=== PATIENT | male | born 1980 | race Caucasian/White ===

== ENCOUNTER 2016-05-21 16:17 | Emergency (ER) | payer MEDICARE, MEDICAID ==
[~2016-05-21 16:17] MED LIST: /CELE20CA OR; /ESCI10TA PO; /FENO48TA PO; /LAMO10TA OR; /OXCA30TA OR; ABIL15TA OR; ABIL1TAB5 PO; ABIL20TA2 OR; ABIL400I IM; ABIL5TAB; ABIL5TAB OR; ACET50TA PO; AMBI10TA OR; AMBI10TA PO; AMBI5TAB PO; ARIP1TAB PO; ATARAX PO; BUSP15TA OR; CONC36TA2 PO; DEPLIN; EFFEXOR XR PO; GEOD20CA14 PO; GUAN1TAB16 PO; KEFL500C OR; LAMI1TAB8 PO; LAMI25TA OR; LAMICTAL PO; LAMO10TA PO; LIPI10TA PO; LISI-538 PO; LISI2.5T OR; LISI20TA5 OR; LISI40TA OR; LISI40TAB PO; LITH300C PO; MS C30TA2 OR; MULTIVIT PO; MULTTAB4 PO; NALT50TA2 PO; OXCA15HATB OR; PROT20TA11 PO; PROZ10CA; PROZ20CA; PROZ20CA OR; PROZ40CA OR; REME30TA OR; RISP0.5T20 OR; RISP1TAB OR; RISP2TAB12 OR; RISP2TAB12 PO; RISP2TAB3 PO; RISP3TAB16 OR; RISP4TAB OR; SERO1TAB PO; SERO200T PO; SERO50TA PO; TRAZ100T; TRAZ100T OR; TRAZ150T PO; TRAZ300T2 PO; ULTR50TA PO; VENL37.5 OR; VENL37TA PO; VENL75CA47 PO; VENL75TA3 PO; VICO5TAB OR; VIST50CA OR; VIST50CA PO; VITA200015 PO; ZEST20TA8 PO; ZOCO10TA PO; ZOCO20TA PO; ZOLP-189 PO; ZYPR10TA PO; lamictal; prozac PO
== END 2016-05-21 16:55 | disposition left against medical advice (07) ==
LOC: M ED 16:17
DX: R31.9 Hematuria, unspecified (principal); M54.9 Dorsalgia, unspecified; F41.9 Anxiety disorder, unspecified; F32.9 Major depressive disorder, single episode, unspecified; E78.00 Pure hypercholesterolemia, unspecified; I10 Essential (primary) hypertension; G47.9 Sleep disorder, unspecified; Z89.511 Acquired absence of right leg below knee; Z79.899 Other long term (current) drug therapy; Z53.21 Procedure and treatment not carried out due to patient leaving prior to being seen by health care provider

== ENCOUNTER → 2016-06-21 | Outpatient (REF) | payer MEDICARE, MEDICAID ==
[~2016-06-21] MED LIST changes: -NALT50TA2 PO; +NALT50TA4 PO
[2016-06-21 16:21] LABS: ALBUMIN 3.9 GM/DL (3.2-5.2); ALBUMIN/GLOBULIN RATIO 1.22 (1.00-1.93); BILIRUBIN,DIRECT 0.2 MG/DL (0.0-0.2); BILIRUBIN,TOTAL 0.7 MG/DL (0.2-1.0); TOTAL PROTEIN 7.1 GM/DL (6.4-8.2)
== END ==
LOC: M SFHCPLAZ 13:22
PROVIDERS: ATTEND Student in an Organized Health Care Education/Training Program
DX: R74.8 Abnormal levels of other serum enzymes (principal); R31.9 Hematuria, unspecified

== ENCOUNTER → 2016-08-21 | Outpatient (REF) | payer MEDICARE, MEDICAID | LOC: M SMT 17:13 | PROVIDERS: ATTEND Nurse Practitioner Women's Health | DX: R31.0 Gross hematuria (principal) | CPT/HCPCS: 51798; 81001; 87086; 88108; G0463 ==

== ENCOUNTER → 2016-08-22 | Outpatient (CLI) | payer MEDICARE, MEDICAID ==
--- NOTE | 2016-08-22 15:22 | REP ---
Abdominal right upper quadrant ultrasound for elevated hepatic enzymes. The there is a negative Wade's sign to transducer pressure. There is no cholelithiasis, gallbladder wall thickening or pericholecystic fluid. There is no intrahepatic or extrahepatic biliary duct dilatation, the common duct measures 5.8 mm diameter. The liver is enlarged measuring 26.6 cm craniocaudad. The hepatic parenchyma is acoustically dense compatible with hepato steatosis. The main portal vein measures 1.4 cm in diameter which is upper normal. The peak flow velocity in the portal vein is 11.7 cm/sec which is in the normal range. The visualized portion of the head of the pancreas is unremarkable. The right kidney is normal size measuring 14.5 craniocaudad length. There is no right renal calculus, mass or hydronephrosis or cyst. The ultrasound study is technically difficult because of patient body habitus and limited ultrasound scanning windows. Signed by Freddy Sheridan MD 08/22/2016 03:14 P
== END ==
LOC: M RAD 13:59
DX: R74.8 Abnormal levels of other serum enzymes (principal)

== ENCOUNTER 2016-09-02 14:40 | Emergency (ER) | payer MEDICARE, MEDICAID ==
[~2016-09-02] VITALS: Ht 182.9 cm; Wt 158.8 kg
[2016-09-02] MEDS ORDERED: zolPIDEM TARTRATE 5 MG TAB PO ONE (16:30)
[2016-09-02 16:38] VITALS: BP 164/100
== END 2016-09-02 16:39 | disposition home or self-care (01) ==
LOC: M ED 16:05
DX: F41.9 Anxiety disorder, unspecified (principal); G47.00 Insomnia, unspecified; Z76.0 Encounter for issue of repeat prescription; F32.9 Major depressive disorder, single episode, unspecified; N17.9 Acute kidney failure, unspecified; Z79.899 Other long term (current) drug therapy; Z91.018 Allergy to other foods

== ENCOUNTER 2016-10-02 16:03 | Emergency (ER) | payer MEDICARE, MEDICAID ==
[~2016-10-02] VITALS: Ht 182.9 cm; Wt 167.8 kg
[2016-10-02 17:21] VITALS: BP 160/98
[2016-10-02] MEDS ORDERED: CHLO25TA PO (17:49)
== END 2016-10-02 18:45 | disposition home or self-care (01) ==
LOC: M ED 17:52
DX: I10 Essential (primary) hypertension (principal); F17.200 Nicotine dependence, unspecified, uncomplicated; Z79.899 Other long term (current) drug therapy; Z91.018 Allergy to other foods

== ENCOUNTER → 2016-10-24 | Outpatient (CLI) | payer MEDICARE, MEDICAID ==
[~2016-10-24] MED LIST changes: +CHLO25TA PO
--- NOTE | 2016-10-28 09:00 | SLEEPCENT ---
DATE OF PROCEDURE: 10/24/2016 ORDERED BY: K[place]ON Hill Nocturnal polysomnography was performed due to the concern for the obstructive sleep apnea syndrome in this patient with a history of excessive somnolence and nonrestorative sleep. 7 hours and 38 minutes of data were reviewed. There were 304 minutes of sleep identified. Sleep latency was prolonged at 40 minutes. Rapid eye movement (REM ) prolonged at 110 minutes. Sleep architecture initially showed severe fragmentation. Improvement was seen after interventions were made. Overall sleep efficiency was 67%. The patient's EKG showed a sinus rhythm with an average heart rate of 94 beats per minute. EEG showed normal waveforms for awake and sleep. There were 217 respiratory events identified of 10 seconds in duration or greater for an apnea hypopnea index of 42.8. The events were associated with oxygen desaturations into the 70s. Having clearly established the presence of obstructive sleep apnea syndrome, testing was stopped before 1 a.m. for the application of pressure therapy. The patient was fit with a ResMed Quattro full face mask of medium size. 5 cm of water pressure were applied to the circuit and the lights were extinguished. Throughout the remaining portion of study, the patient was titrated to an optimal pressure of 13 with which he was able to sleep through REM without respiratory event or significant oxygen desaturation out of the supine posture. IMPRESSION: Severe sleep apnea syndrome (G47.33). Apnea hypopnea index 42.8. RECOMMENDATION: Nightly use of CPAP at 13 cm of water should be sufficient to address the patient's respiratory issues. Sleep position retraining for avoidance of the supine posture may also be necessary. Should the patient's symptoms persist, referral back to the sleep disorder center for a full night of titration may be needed. edited: 10/28/2016 1522 tkf LESLIE
== END ==
LOC: M SLEEP 19:29
PROVIDERS: ATTEND Nurse Practitioner Adult Health
DX: G47.30 Sleep apnea, unspecified (principal)

== ENCOUNTER 2016-12-20 16:29 | Emergency (ER) | payer MEDICARE, MEDICAID ==
[~2016-12-20] VITALS: Ht 182.9 cm; Wt 154.6 kg
[~2016-12-20 16:29] MED LIST changes: +ABIL10TA9 PO; -ABIL1TAB5 PO
[2016-12-20] MEDS ORDERED: BACTRIM 160MG/800MG DS TAB PO ONE (18:45)
[2016-12-20] MEDS ORDERED: NORCO 5/325MG TABLET (BULK FOR ED) PO ONE (18:45)
[2016-12-20] MEDS ORDERED: zolPIDEM TARTRATE 5 MG TAB PO ONE (18:45)
[2016-12-20] MEDS ORDERED: HYDR-3713 PO (18:47)
[2016-12-20] MEDS ORDERED: BACT800T5 PO (18:47)
[2016-12-20 18:59] VITALS: BP 171/93
== END 2016-12-20 19:09 | disposition home or self-care (01) ==
LOC: M ED 16:29
DX: L03.314 Cellulitis of groin (principal); F17.210 Nicotine dependence, cigarettes, uncomplicated; Z79.899 Other long term (current) drug therapy

== ENCOUNTER → 2017-01-04 | Outpatient (CLI) | payer MEDICARE, MEDICAID ==
[~2017-01-04] MED LIST changes: +BACT800T5 PO; +CHLOR10TAB PO; +HYDR-3713 PO; +LAMO150T PO; +ZOLP10TA2 PO
--- NOTE | 2017-01-11 07:53 | SLEEPCENT ---
DATE OF PROCEDURE: 01/03/2017 ORDERED BY: Tammy Verdugo. Nocturnal polysomnography was performed for retitration of pressure therapy in this patient with obstructive sleep apnea syndrome and pressure therapy intolerance after split testing and apnea-hypopnea index of 42.8. For testing, patient was fit with a ResMed AirFit f20 full face mask of medium size. 13 cm of water pressure were applied to the circuit and the lights were extinguished. 7 hours and 30 minutes of data were reviewed. There were 408 minutes of sleep identified. Sleep latency was short at 5.5 minutes. REM latency was short at 52 minutes. Sleep architecture was normal with 3 long rapid eye movement (REM) periods appreciated. Overall sleep efficiency 92.9%. Patient's EKG showed a sinus rhythm with an average heart rate of 88 beats per minute. EEG showed normal wave forms for wake and sleep. Respiratory events were fully palliated with CPAP at a pressure of +13. There was little limb activity appreciated and remaining measures of sleep physiology were normal. IMPRESSION: Obstructive sleep apnea syndrome (G47.33). RECOMMENDATION: Nightly use of pressure therapy 13 cm of water. cc: Jamar Torres MD
== END ==
LOC: M SLEEP 20:00
PROVIDERS: ATTEND Nurse Practitioner Adult Health
DX: G47.33 Obstructive sleep apnea (adult) (pediatric) (principal)

== ENCOUNTER 2017-01-11 15:52 | Emergency (ER) | payer MEDICARE, MEDICAID ==
[~2017-01-11] VITALS: Ht 182.9 cm; Wt 163.6 kg
[2017-01-11 15:52] VITALS: BP 134/81
[~2017-01-11 15:52] MED LIST changes: -CHLOR10TAB PO; -LAMO150T PO; -ZOLP10TA2 PO
[2017-01-11] MEDS ORDERED: ZOLP10TA2 PO (16:06)
[2017-01-11] MEDS ORDERED: LAMO150T PO (16:06)
[2017-01-11] MEDS ORDERED: CHLOR10TAB PO (16:06)
[2017-01-11] MEDS ORDERED: LIDOCAINE 2% MDV 20 ML VIAL SC ONE (17:15)
== END 2017-01-11 17:53 | disposition home or self-care (01) ==
LOC: M ED 15:52
DX: L02.415 Cutaneous abscess of right lower limb (principal); I10 Essential (primary) hypertension; F31.9 Bipolar disorder, unspecified; F41.9 Anxiety disorder, unspecified; F17.200 Nicotine dependence, unspecified, uncomplicated; Z79.899 Other long term (current) drug therapy; Z91.018 Allergy to other foods

== ENCOUNTER 2017-04-11 14:20 | Emergency (ER) | payer MEDICARE, MEDICAID ==
[~2017-04-11] VITALS: Ht 182.9 cm; Wt 168.2 kg
[~2017-04-11 14:20] MED LIST changes: +CHLOR10TAB PO; +LAMO150T PO; +ZOLP10TA2 PO
[2017-04-11] MEDS ORDERED: ATIV2TAB PO (15:50)
[2017-04-11 16:49] VITALS: BP 168/102
== END 2017-04-11 16:52 | disposition home or self-care (01) ==
LOC: M ED 14:20
DX: G47.00 Insomnia, unspecified (principal); F25.9 Schizoaffective disorder, unspecified; Z79.899 Other long term (current) drug therapy; Z91.018 Allergy to other foods

== ENCOUNTER → 2017-08-07 | Outpatient (REF) | payer MEDICARE, MEDICAID | LOC: M SFHCPLAZ 14:22 | DX: E78.5 Hyperlipidemia, unspecified (principal); R74.8 Abnormal levels of other serum enzymes ==

== ENCOUNTER 2017-09-08 10:38 | Inpatient (IN) | payer MEDICARE, MEDICAID ==
[~2017-09-08 10:38] MED LIST changes: -/CELE20CA OR; -/ESCI10TA PO; -/FENO48TA PO; -/LAMO10TA OR; -/OXCA30TA OR; -ABIL10TA9 PO; -ABIL15TA OR; -ABIL20TA2 OR; -ABIL400I IM; -ABIL5TAB; -ABIL5TAB OR; -ACET50TA PO; -AMBI10TA OR; -AMBI10TA PO; -AMBI5TAB PO; -ARIP1TAB PO; -ATARAX PO; -BACT800T5 PO; -BUSP15TA OR; -CHLO25TA PO; -CHLOR10TAB PO; -CONC36TA2 PO; -DEPLIN; -EFFEXOR XR PO; -GEOD20CA14 PO; -GUAN1TAB16 PO; -HYDR-3713 PO; -KEFL500C OR; -LAMI1TAB8 PO; -LAMI25TA OR; -LAMICTAL PO; -LAMO10TA PO; -LAMO150T PO; -LIPI10TA PO; -LISI-538 PO; -LISI2.5T OR; -LISI20TA5 OR; -LISI40TA OR; -LISI40TAB PO; +LISINOPRIL 40 MG TAB PO; -LITH300C PO; -MS C30TA2 OR; -MULTIVIT PO; -MULTTAB4 PO; -NALT50TA4 PO; -OXCA15HATB OR; -PROT20TA11 PO; -PROZ10CA; -PROZ20CA; -PROZ20CA OR; -PROZ40CA OR; -REME30TA OR; -RISP0.5T20 OR; -RISP1TAB OR; -RISP2TAB12 OR; -RISP2TAB12 PO; -RISP2TAB3 PO; -RISP3TAB16 OR; -RISP4TAB OR; -SERO1TAB PO; -SERO200T PO; -SERO50TA PO; -TRAZ100T; -TRAZ100T OR; -TRAZ150T PO; -TRAZ300T2 PO; -ULTR50TA PO; -VENL37.5 OR; -VENL37TA PO; -VENL75CA47 PO; -VENL75TA3 PO; -VICO5TAB OR; -VIST50CA OR; -VIST50CA PO; -VITA200015 PO; -ZEST20TA8 PO; -ZOCO10TA PO; -ZOCO20TA PO; -ZOLP-189 PO; -ZOLP10TA2 PO; -ZYPR10TA PO; -lamictal; -prozac PO
[2017-09-08 11:15] LABS: ABG BASE EXCESS -4.1 (-2.0-2.0); ABG HCO3 20.9 MEQ/L (22.0-26.0); ABG O2 SATURATION 96.7 % (95.0-99.0); ABG PARTIAL PRESSURE CO2 38.4 mmHg (35.0-45.0); ABG PARTIAL PRESSURE O2 85.7 mmHg (75.0-100.0); ABG STANDARD HCO3 21.1 MEQ/L (22.0-26.0); ABG TOTAL CO2 22.1 MEQ/L (22.0-29.0); ABG pH (ARTERIAL) 7.354 UNITS (7.350-7.450); BASO % 0.1 % (0.0-1.0); HEMATOCRIT 44.1 % (42.0-52.0); HEMOGLOBIN 15.2 g/dl (13.5-17.5); IMMATURE GRANULOCYTE % 0.7 % (0-3.0); LYMPH # 2.7 10^3/uL (1.5-4.5); LYMPH % 38.9 % (24.0-44.0); MEAN CORPUSCULAR HEMOGLOBIN 29.7 pg (27.0-33.0); MEAN CORPUSCULAR HGB CONC 34.5 g/dl (32.0-36.5); MEAN CORPUSCULAR VOLUME 86.1 fl (80.0-96.0); MONO # 0.4 10^3/uL (0.0-0.8); MONO % 5.9 % (0.0-5.0); NEUTROPHILS # 3.8 10^3/uL (1.8-7.7); NEUTROPHILS % 54.4 % (36.0-66.0); PLATELET COUNT, AUTOMATED 246 10^3/uL (150-450); RED BLOOD COUNT 5.12 10^6/uL (4.30-6.10)
[2017-09-08 11:27] LABS: BEDSIDE GLUCOSE 100 MG/DL (70-105)
[2017-09-08] MEDS: NS 1,000 ML IV (11:41)
[2017-09-08 11:58] LABS: ALBUMIN 3.5 GM/DL (3.2-5.2); ALBUMIN/GLOBULIN RATIO 1.25 (1.00-1.93); ALKALINE PHOSPHATASE 72 U/L (45-117); ALT/SGPT 59 U/L (12-78); ANION GAP 6 MEQ/L (8-16); AST/SGOT 23 U/L (7-37); BILIRUBIN,DIRECT 0.1 MG/DL (0.0-0.2); BILIRUBIN,TOTAL 0.4 MG/DL (0.2-1.0); BLOOD UREA NITROGEN 11 MG/DL (7-18); CALCIUM LEVEL 8.5 MG/DL (8.5-10.1); CARBON DIOXIDE LEVEL 25 MEQ/L (21-32); CHLORIDE LEVEL 110 MEQ/L (98-107); CPK CREATINE PHOSPHOKINASE 103 U/L (39-308); CREATININE FOR GFR 0.89 MG/DL (0.70-1.30); GLOMERULAR FILTRATION RATE > 60.0 (>60); GLUCOSE, FASTING 99 MG/DL (70-100); POTASSIUM SERUM 4.1 MEQ/L (3.5-5.1); SALICYLATE LEVEL 2.3 MG/DL (5.0-30.0); SODIUM LEVEL 141 MEQ/L (136-145); TOTAL PROTEIN 6.3 GM/DL (6.4-8.2); TROPONIN I 0.02 NG/ML (< 0.10)
[2017-09-08 12:00] LABS: LACTIC ACID SEPSIS PROTOCOL 2.1 MMOL/L (0.4-2.0)
[2017-09-08 12:01] LABS: MB/CK RELATIVE INDEX 1.94 (< OR =4)
[2017-09-08 12:04] LABS: ACETAMINOPHEN LEVEL 5.1 UG/ML (10.0-30.0); ETHYL ALCOHOL (ETHANOL) < 0.003 % (0.000-0.010)
[2017-09-08 13:30] LABS: ABG BASE EXCESS -3.1 (-2.0-2.0); ABG HCO3 22.7 MEQ/L (22.0-26.0); ABG O2 SATURATION 93.5 % (95.0-99.0); ABG PARTIAL PRESSURE CO2 43.5 mmHg (35.0-45.0); ABG PARTIAL PRESSURE O2 69.1 mmHg (75.0-100.0); ABG STANDARD HCO3 21.8 MEQ/L (22.0-26.0); ABG TOTAL CO2 24.1 MEQ/L (22.0-29.0); ABG pH (ARTERIAL) 7.336 UNITS (7.350-7.450)
[2017-09-08 13:41] LABS: AMPHETAMINES LEVEL URINE NEGATIVE (NEGATIVE); BARBITURATES URINE POSITIVE (NEGATIVE); BENZODIAZEPINES URINE POSITIVE (NEGATIVE); CANNABINOIDS URINE NEGATIVE (NEGATIVE); COCAINE METABOLITE URINE NEGATIVE (NEGATIVE); METHADONE URINE NEGATIVE (NEGATIVE); OPIATES URINE NEGATIVE (NEGATIVE); PHENCYCLIDINE URINE POSITIVE (NEGATIVE)
[2017-09-08 15:13] LABS: PHENOBARBITAL LEVEL 4.4 UG/ML (15.0-40.0)
[2017-09-08] MEDS ORDERED: MOM 30ML SUSPENSION UDC PO (19:15)
[2017-09-08] MEDS ORDERED: ACETAMINOPHEN TAB 650MG DOSE (2X325MG) PO (19:15)
[2017-09-08] MEDS ORDERED: MAALOX 30 ML SUSP *UDC PO (19:15)
[2017-09-08] MEDS ORDERED: PILL CRUSHER/CUTTER 1 EACH XX (19:30)
[2017-09-08] MEDS: lamoTRIgine 100MG TAB PO (21:44)
[2017-09-08] MEDS: LORazepam 2 MG TAB PO (21:45)
[2017-09-08] MEDS: OLANZapine ORAL DISINTEGRATING TAB 5MG PO (21:47)
[2017-09-08] MEDS: LISINOPRIL 40 MG TAB PO (22:14)
[2017-09-09] MEDS: lamoTRIgine 100MG TAB PO (09:33)
[2017-09-09] MEDS: ARIPiprazole MONOHYDRATE 400 MG INJ (ABILIFY)(J0401) IM (19:44)
[2017-09-09] MEDS ORDERED: chlorproMAZINE 25 MG TAB (Q0161) PO (21:00)
[2017-09-09] MEDS: LORazepam 2 MG TAB PO (21:02)
[2017-09-09] MEDS: chlorproMAZINE 25 MG TAB (Q0161) PO (21:03)
[2017-09-09] MEDS: LISINOPRIL 40 MG TAB PO (21:03)
[2017-09-09] MEDS: ATORVASTATIN 20 MG TAB PO (21:03)
[2017-09-10 08:51] LABS: FREE THYROXINE INDEX 2.8 % (1.4-3.8); T UPTAKE 33 % (33-40); THYROXINE (T4) 8.5 UG/DL (4.5-12.0)
[2017-09-10] MEDS: lamoTRIgine 100MG TAB PO (10:02)
== END 2017-09-10 13:00 | disposition home or self-care (01) | DRG 885 ==
LOC: M ED 10:38 → M ED INP 19:04 → M PSY 20:30
DX: F25.9 Schizoaffective disorder, unspecified (principal); Z68.43 Body mass index [BMI] 50.0-59.9, adult; Z79.899 Other long term (current) drug therapy; F41.9 Anxiety disorder, unspecified; E78.5 Hyperlipidemia, unspecified; I10 Essential (primary) hypertension; G47.33 Obstructive sleep apnea (adult) (pediatric); F31.9 Bipolar disorder, unspecified; K76.0 Fatty (change of) liver, not elsewhere classified; F90.9 Attention-deficit hyperactivity disorder, unspecified type; F17.200 Nicotine dependence, unspecified, uncomplicated; Z89.611 Acquired absence of right leg above knee; Z91.018 Allergy to other foods

== ENCOUNTER 2017-09-18 04:34 | Emergency (ER) | payer MEDICARE, MEDICAID | END 2017-09-18 05:56 | disposition home or self-care (01) | LOC: M ED 04:34 | DX: J20.9 Acute bronchitis, unspecified (principal); I10 Essential (primary) hypertension; G47.30 Sleep apnea, unspecified; F19.11 Other psychoactive substance abuse, in remission; Z89.9 Acquired absence of limb, unspecified; Z79.899 Other long term (current) drug therapy; Z91.018 Allergy to other foods; F17.210 Nicotine dependence, cigarettes, uncomplicated | CPT/HCPCS: 71045 ==

== ENCOUNTER → 2017-09-22 | Outpatient (CLI) | payer MEDICARE, MEDICAID | LOC: M SLEEP 19:08 | DX: G47.30 Sleep apnea, unspecified (principal) | CPT/HCPCS: 95810 ==

== ENCOUNTER → 2017-11-18 | Outpatient (CLI) | payer MEDICARE, MEDICAID | LOC: M SLEEP 19:59 | DX: G47.33 Obstructive sleep apnea (adult) (pediatric) (principal) | CPT/HCPCS: 95811 ==

== ENCOUNTER 2017-11-27 18:11 | Emergency (ER) | payer MEDICARE, MEDICAID | END 2017-11-27 19:39 | disposition home or self-care (01) | LOC: M ED 18:11 | DX: L03.112 Cellulitis of left axilla (principal); L02.412 Cutaneous abscess of left axilla; I10 Essential (primary) hypertension; E78.5 Hyperlipidemia, unspecified; N40.0 Benign prostatic hyperplasia without lower urinary tract symptoms; G47.30 Sleep apnea, unspecified; F25.9 Schizoaffective disorder, unspecified; F31.9 Bipolar disorder, unspecified; Z79.899 Other long term (current) drug therapy; Z91.018 Allergy to other foods; F17.210 Nicotine dependence, cigarettes, uncomplicated | CPT/HCPCS: 99283 ==

== ENCOUNTER 2017-11-30 14:43 | Emergency (ER) | payer MEDICARE, MEDICAID ==
[2017-11-30] MEDS: NORCO, ANEXSIA 5/325MG TABLET (HYDROcodone/ACETAMINOPHEN) PO ×2 (15:54)
[2017-11-30] MEDS: LIDOCAINE W/EPINEPHRINE 1% 20ML VIAL SC ×2 (15:55)
== END 2017-11-30 16:44 | disposition home or self-care (01) ==
LOC: M ED 14:43
DX: L02.412 Cutaneous abscess of left axilla (principal); I10 Essential (primary) hypertension; E78.00 Pure hypercholesterolemia, unspecified; Z79.899 Other long term (current) drug therapy; Z91.018 Allergy to other foods; F17.210 Nicotine dependence, cigarettes, uncomplicated
CPT/HCPCS: 10060; 99283

== ENCOUNTER 2018-01-16 06:35 | Emergency (ER) | payer MEDICARE, MEDICAID | END 2018-01-16 10:08 | disposition home or self-care (01) | LOC: M ED 06:35 | DX: F51.04 Psychophysiologic insomnia (principal); F25.9 Schizoaffective disorder, unspecified; G47.33 Obstructive sleep apnea (adult) (pediatric); E78.00 Pure hypercholesterolemia, unspecified; F17.200 Nicotine dependence, unspecified, uncomplicated; F19.11 Other psychoactive substance abuse, in remission; Z91.018 Allergy to other foods; Z79.899 Other long term (current) drug therapy | CPT/HCPCS: 99284 ==

== ENCOUNTER 2018-04-13 18:31 | Emergency (ER) | payer MEDICARE, MEDICAID ==
[2018-04-13] MEDS: PERCOCET 5MG/325MG TAB PO (22:20)
[2018-04-13] MEDS ORDERED: LIDOCAINE W/EPINEPHRINE 1% 20ML VIAL SC (23:00)
[2018-04-13] MEDS: CEPHALEXIN 500 MG CAP PO (23:34)
== END 2018-04-13 23:39 | disposition home or self-care (01) ==
LOC: M ED 18:31
DX: L02.31 Cutaneous abscess of buttock (principal); I10 Essential (primary) hypertension; Z79.899 Other long term (current) drug therapy; Z91.018 Allergy to other foods; F17.210 Nicotine dependence, cigarettes, uncomplicated
CPT/HCPCS: 10060

== ENCOUNTER 2018-04-18 02:43 | Emergency (ER) | payer MEDICARE, MEDICAID ==
[2018-04-18] MEDS: chlorproMAZINE 25 MG TAB (Q0161) PO (05:46)
== END 2018-04-18 05:50 | disposition home or self-care (01) ==
LOC: M ED 02:43
DX: F51.04 Psychophysiologic insomnia (principal); F19.20 Other psychoactive substance dependence, uncomplicated; F25.9 Schizoaffective disorder, unspecified; Z91.018 Allergy to other foods; Z79.899 Other long term (current) drug therapy
CPT/HCPCS: Q0161

== ENCOUNTER 2018-06-30 16:49 | Emergency (ER) | payer MEDICARE, MEDICAID ==
[~2018-06-30] VITALS: Ht 182.9 cm; Wt 168.2 kg
[~2018-06-30 16:49] MED LIST changes: +/CELE20CA OR; +/ESCI10TA PO; +/FENO48TA PO; +/LAMO10TA OR; +/OXCA30TA OR; +ABIL10TA9 PO; +ABIL15TA OR; +ABIL1INJ2 IM; +ABIL20TA2 OR; +ABIL400I; +ABIL400I IM; +ABIL5TAB; +ABIL5TAB OR; +ACET50TA PO; +AMBI10TA OR; +AMBI10TA PO; +AMBI5TAB PO; +ARIP1TAB PO; +ATARAX PO; +ATIV2TAB PO; +ATOR80TA59 PO; +BACT800T5 PO; +BUSP15TA OR; +CEPH500C PO; +CHLO25TA PO; +CHLOR10TAB PO; +CHLOR25TA PO; +CONC36TA2 PO; +DEPLIN; +DOXY100C37 PO; +EFFEXOR XR PO; +GEOD20CA14 PO; +GUAN1TAB16 PO; +HYDR-3713 PO; +KEFL500C OR; +KEFL500C17 PO; +LAMI1TAB8 PO; +LAMI25TA OR; +LAMICTAL PO; +LAMO10TA PO; +LAMO150T2 PO; +LIPI10TA PO; +LISI-538 PO; +LISI2.5T OR; +LISI20TA5 OR; +LISI40TA OR; +LISI40TA PO; +LISI40TAB PO; -LISINOPRIL 40 MG TAB PO; +LITH300C PO; +LORA1TAB12; +LORA2TAB9 PO; +MS C30TA2 OR; +MULTIVIT PO; +MULTTAB4 PO; +NALT50TA4 PO; +NORCOTAB PO; +OXCA15HATB OR; +PRED20TA PO; +PROT20TA11 PO; +PROZ10CA; +PROZ20CA; +PROZ20CA OR; +PROZ40CA OR; +REME30TA OR; +RISP0.5T20 OR; +RISP1TAB OR; +RISP2TAB12 OR; +RISP2TAB12 PO; +RISP2TAB3 PO; +RISP3TAB16 OR; +RISP4TAB OR; +SERO1TAB PO; +SERO200T PO; +SERO50TA PO; +TRAZ100T; +TRAZ100T OR; +TRAZ150T PO; +TRAZ1TAB14; +TRAZ300T2 PO; +ULTR50TA PO; +VENL37.5 OR; +VENL37TA PO; +VENL75CA47 PO; +VENL75TA3 PO; +VICO5TAB OR; +VIST50CA OR; +VIST50CA PO; +VITA200015 PO; +ZEST20TA8 PO; +ZOCO10TA PO; +ZOCO20TA PO; +ZOLP-189 PO; +ZOLP10TA2 PO; +ZOLP5TAB; +ZYPR10TA PO; +ZZZQ50LI PO; +lamictal; +prozac PO; +thorazine
[2018-06-30] MEDS ORDERED: ZOLP10TA2 (16:54)
[2018-06-30] MEDS ORDERED: LIDOCAINE W/EPINEPHRINE 1% 20ML VIAL SC ONE (18:00)
[2018-06-30] MEDS ORDERED: DOXY100C37 PO (18:28)
[2018-06-30 18:50] VITALS: BP 198/116
== END 2018-06-30 19:01 | disposition home or self-care (01) ==
LOC: M ED 16:49
DX: L02.214 Cutaneous abscess of groin (principal)

== ENCOUNTER → 2018-08-12 | Outpatient (REF) | payer MEDICARE, MEDICAID ==
[~2018-08-12] MED LIST changes: +ZOLP10TA2
[2018-08-12 18:35] LABS: BASO # 0.1 10^3/uL (0.0-0.2); BASO % 0.6 % (0.0-1.0); HEMATOCRIT 52.9 % (42.0-52.0); HEMOGLOBIN 17.9 g/dl (13.5-17.5); LYMPH % 29.5 % (24.0-44.0); MEAN CORPUSCULAR HEMOGLOBIN 29.6 pg (27.0-33.0); MEAN CORPUSCULAR HGB CONC 33.8 g/dl (32.0-36.5); MEAN CORPUSCULAR VOLUME 87.6 fl (80.0-96.0); MONO # 0.7 10^3/uL (0.0-0.8); MONO % 6.8 % (0.0-5.0); NEUTROPHILS # 6.2 10^3/uL (1.8-7.7); NEUTROPHILS % 62.2 % (36.0-66.0); PLATELET COUNT, AUTOMATED 278 10^3/uL (150-450); RED BLOOD COUNT 6.04 10^6/uL (4.30-6.10)
[2018-08-12 18:37] LABS: ALBUMIN 4.2 GM/DL (3.2-5.2); ALT/SGPT 103 U/L (12-78); BILIRUBIN,TOTAL 0.4 MG/DL (0.2-1.0); BLOOD UREA NITROGEN 9 MG/DL (7-18); CALCIUM LEVEL 9.3 MG/DL (8.5-10.1); CARBON DIOXIDE LEVEL 23 MEQ/L (21-32); CHLORIDE LEVEL 104 MEQ/L (98-107); CHOLESTEROL LEVEL 208 MG/DL (<200); CHOLESTEROL RISK RATIO 6.303 (<5); CREATININE FOR GFR 0.83 MG/DL (0.70-1.30); FREE T4 0.98 NG/DL (0.76-1.46); GLOMERULAR FILTRATION RATE > 60.0 (>60); GLUCOSE, FASTING 109 MG/DL (70-100); HDL CHOLESTEROL 33 MG/DL (>40); NON-HDL-C 175 MG/DL; POTASSIUM SERUM 4.6 MEQ/L (3.5-5.1); SODIUM LEVEL 137 MEQ/L (136-145); TOTAL PROTEIN 7.3 GM/DL (6.4-8.2); TRIGLYCERIDES LEVEL 445 MG/DL (<150)
[2018-08-12 18:39] LABS: TOTAL 25(OH) VITAMIN D 9.6 NG/ML (30.0-100.0)
[2018-08-12 19:06] LABS: HEMOGLOBIN A1c 5.7 %
[2018-08-15 00:07] LABS: Lyme Disease IgG/IgM Antibodie <0.91 ISR (0.00-0.90); Lyme Disease IgM Ab Quantitati <0.80 index (0.00-0.79)
== END ==
LOC: M LAB REF 16:37
PROVIDERS: ATTEND Internal Medicine Pulmonary Disease
DX: Z13.228 Encounter for screening for other metabolic disorders (principal); I10 Essential (primary) hypertension; E66.9 Obesity, unspecified; Z79.899 Other long term (current) drug therapy

== ENCOUNTER 2018-11-16 14:02 | Emergency (ER) | payer MEDICARE, MEDICAID ==
[~2018-11-16] VITALS: Ht 182.9 cm; Wt 127.3 kg
[~2018-11-16 14:02] MED LIST changes: -/CELE20CA OR; -/ESCI10TA PO; -/FENO48TA PO; -/LAMO10TA OR; -/OXCA30TA OR; -ACET50TA PO; +CELE1CAP4 OR; +HYDR-3715 PO; +LAMI1TAB7 OR; +LAMO100T80 PO; -LAMO10TA PO; +LEXA1TAB PO; +LISI40TA52 PO; -LISI40TAB PO; +MAPA500T17 PO; -NORCOTAB PO; -OXCA15HATB OR; +OXCA1TAB OR; +TRIC1TAB PO; +TRIL1TAB OR; +VENL-142 PO; -VENL75TA3 PO
[2018-11-16 14:47] LABS: BASO # 0.1 10^3/uL (0.0-0.2); BASO % 0.5 % (0.0-1.0); EOS % 0.1 % (0.0-3.0); HEMATOCRIT 48.5 % (42.0-52.0); HEMOGLOBIN 17.1 g/dl (13.5-17.5); LYMPH # 2.9 10^3/uL (1.5-4.5); LYMPH % 20.6 % (24.0-44.0); MEAN CORPUSCULAR HEMOGLOBIN 31.2 pg (27.0-33.0); MEAN CORPUSCULAR HGB CONC 35.3 g/dl (32.0-36.5); MEAN CORPUSCULAR VOLUME 88.5 fl (80.0-96.0); NEUTROPHILS # 10.1 10^3/uL (1.8-7.7); NEUTROPHILS % 71.1 % (36.0-66.0); PLATELET COUNT, AUTOMATED 244 10^3/uL (150-450); RED BLOOD COUNT 5.48 10^6/uL (4.30-6.10); WHITE BLOOD COUNT 14.2 10^3/uL (4.0-10.0)
[2018-11-16 15:10] LABS: BLOOD UREA NITROGEN 10 MG/DL (7-18); C REACTIVE PROTEIN QUANTITATIV 2.79 MG/DL (0.00-0.30); CALCIUM LEVEL 9.3 MG/DL (8.5-10.1); CARBON DIOXIDE LEVEL 22 MEQ/L (21-32); CHLORIDE LEVEL 106 MEQ/L (98-107); CREATININE FOR GFR 0.82 MG/DL (0.70-1.30); GLOMERULAR FILTRATION RATE > 60.0 (>60); GLUCOSE, FASTING 97 MG/DL (70-100); POTASSIUM SERUM 4.4 MEQ/L (3.5-5.1); SODIUM LEVEL 136 MEQ/L (136-145)
[2018-11-16 15:32] LABS: ERYTHROCYTE SEDIMENTATION RATE 6 mm/hr (0-15)
[2018-11-16] MEDS ORDERED: KETOROLAC 30 MG/ML VIAL (J1885) IV ONE (15:45)
--- NOTE | 2018-11-16 17:06 | REP ---
Right lower extremity Duplex Doppler venous ultrasound: Real time compression and duplex Doppler interrogation of the right lower extremity deep venous system is performed. The right common femoral, superficial femoral and popliteal veins are fully compressible with transducer pressure and demonstrate normal spontaneous and phasic flow, without evidence of deep venous thrombosis. Impression: No evidence of deep venous thrombosis of the right lower extremity femoral popliteal venous system. Electronically Signed by Freddy Elaine MD 11/16/2018 04:58 P
--- NOTE | 2018-11-16 17:12 | REP ---
ULTRASOUND RIGHT POPLITEAL FOSSA: Real-time sonographic evaluation of the right popliteal fossa performed. There is a complex fluid collection at that location measuring 3.9 x 1.9 x 3.8 cm. IMPRESSION: Complex fluid collection right popliteal fossa 3.9 x 1.9 x 3.8 cm. I cannot rule out an abscess. Electronically Signed by Freddy Elaine MD 11/17/2018 11:41 A
[2018-11-16] MEDS ORDERED: cefTRIAXone SOD 2 GM in D5W MINI-BAG PLUS 50 ML IV ONE (18:30)
[2018-11-16 19:30] VITALS: BP 138/73
[2018-11-16] MEDS ORDERED: CEPH500C PO (19:37)
== END 2018-11-16 19:50 | disposition home or self-care (01) ==
LOC: M ED 14:02
DX: L03.115 Cellulitis of right lower limb (principal); L02.415 Cutaneous abscess of right lower limb; I10 Essential (primary) hypertension; E78.5 Hyperlipidemia, unspecified; G47.33 Obstructive sleep apnea (adult) (pediatric); F17.210 Nicotine dependence, cigarettes, uncomplicated; Z79.899 Other long term (current) drug therapy; Z89.511 Acquired absence of right leg below knee; Z91.018 Allergy to other foods; Z97.13 Presence of artificial right leg (complete) (partial)
CPT/HCPCS: 76882; 80048; 85025; 85379; 85652; 86140; 87040; 93971; 96374; 99284; J0696; J1885

== ENCOUNTER 2018-12-13 11:44 | Emergency (ER) | payer MEDICARE, MEDICAID ==
[~2018-12-13] VITALS: Ht 182.9 cm; Wt 172.7 kg
[2018-12-13] MEDS ORDERED: QC A650T3 PO (11:51)
[2018-12-13 13:33] LABS: HEMATOCRIT 44.9 % (42.0-52.0); HEMOGLOBIN 15.6 g/dl (13.5-17.5); MEAN CORPUSCULAR HEMOGLOBIN 30.3 pg (27.0-33.0); MEAN CORPUSCULAR HGB CONC 34.7 g/dl (32.0-36.5); MEAN CORPUSCULAR VOLUME 87.2 fl (80.0-96.0); PLATELET COUNT, AUTOMATED 310 10^3/uL (150-450); RED BLOOD COUNT 5.15 10^6/uL (4.30-6.10); WHITE BLOOD COUNT 13.8 10^3/uL (4.0-10.0)
[2018-12-13 14:02] LABS: BLOOD UREA NITROGEN 10 MG/DL (7-18); CALCIUM LEVEL 9.5 MG/DL (8.5-10.1); CARBON DIOXIDE LEVEL 23 MEQ/L (21-32); CHLORIDE LEVEL 108 MEQ/L (98-107); CREATININE FOR GFR 0.99 MG/DL (0.70-1.30); GLOMERULAR FILTRATION RATE > 60.0 (>60); GLUCOSE, FASTING 118 MG/DL (70-100); POTASSIUM SERUM 4.3 MEQ/L (3.5-5.1); SODIUM LEVEL 139 MEQ/L (136-145)
[2018-12-13] MEDS ORDERED: KETOROLAC 30 MG/ML VIAL (J1885) IV ONE (14:15)
[2018-12-13] MEDS ORDERED: NS 1,000 ML IV ONE (14:15)
[2018-12-13] MEDS ORDERED: LIDOCAINE 2% MDV 20 ML VIAL SC ONE (15:00)
[2018-12-13] MEDS ORDERED: DOXY100C37 PO (15:29)
[2018-12-13 15:49] VITALS: BP 140/79
--- NOTE | 2018-12-15 16:28 | REP ---
Soft tissue ultrasonography of the right buttocks medially for suspected abscess: Ultrasonography of the right buttocks identifies a complex fluid collection measuring 4.5 by 3.0 by 3.8 cm, compatible with abscess or hematoma. Electronically Signed by Freddy Sheridan MD 12/13/2018 02:36 P
--- NOTE | 2018-12-21 20:57 | ED PDOC ---
Post-Departure Follow-Up berhane [facility]wood and eleno faxed formal report of right extrem us for fu Ganesh Lopez MD Dec 21, 2018 20:57
== END 2018-12-13 15:49 | disposition home or self-care (01) ==
LOC: M ED 11:44
DX: L02.31 Cutaneous abscess of buttock (principal); E11.9 Type 2 diabetes mellitus without complications; I10 Essential (primary) hypertension; E78.5 Hyperlipidemia, unspecified; F41.9 Anxiety disorder, unspecified; F31.9 Bipolar disorder, unspecified; G47.9 Sleep disorder, unspecified; F25.9 Schizoaffective disorder, unspecified; Z89.511 Acquired absence of right leg below knee; Z72.0 Tobacco use; F12.10 Cannabis abuse, uncomplicated; Z79.899 Other long term (current) drug therapy; Z91.018 Allergy to other foods
CPT/HCPCS: 10060; 76857; 76882; 80048; 85027; 87040; 87070; 87077; 87186; 87205; 96374; 99283; J1885

== ENCOUNTER 2019-02-07 15:44 | Emergency (ER) | payer MEDICARE, MEDICAID ==
[~2019-02-07] VITALS: Ht 182.9 cm; Wt 172.5 kg
[~2019-02-07 15:44] MED LIST changes: -LAMO150T2 PO; +LAMO150T3 PO; -LORA1TAB12; +LORA1TAB4; +LORA2TAB14 PO; -LORA2TAB9 PO; +QC A650T3 PO
[2019-02-07] MEDS ORDERED: LIDOCAINE 2% W/EPIN INJ 20ML **PRES FREE INJ ONE (16:30)
[2019-02-07 16:59] VITALS: BP 168/69
[2019-02-07] MEDS ORDERED: BACTRIM 160MG/800MG DS TAB PO ONE (17:00)
[2019-02-07] MEDS ORDERED: BACT400T PO (17:02)
== END 2019-02-07 17:07 | disposition home or self-care (01) ==
LOC: M ED 15:44
DX: L02.413 Cutaneous abscess of right upper limb (principal); I10 Essential (primary) hypertension; F31.9 Bipolar disorder, unspecified; F25.9 Schizoaffective disorder, unspecified; Z79.899 Other long term (current) drug therapy; Z91.018 Allergy to other foods

== ENCOUNTER 2019-02-22 19:37 | Emergency (ER) | payer MEDICARE, MEDICAID ==
[~2019-02-22] VITALS: Ht 182.9 cm; Wt 175.0 kg
[~2019-02-22 19:37] MED LIST changes: +BACT400T PO; +LAMO150T2 PO; -LAMO150T3 PO; +LORA1TAB12; -LORA1TAB4; -LORA2TAB14 PO; +LORA2TAB9 PO
[2019-02-22 22:10] VITALS: BP 134/63
== END 2019-02-22 22:20 | disposition home or self-care (01) ==
LOC: M ED 19:37
DX: T16.9XXA Foreign body in ear, unspecified ear, initial encounter (principal); F25.1 Schizoaffective disorder, depressive type; F19.10 Other psychoactive substance abuse, uncomplicated; Z91.018 Allergy to other foods; Z79.899 Other long term (current) drug therapy

== ENCOUNTER → 2019-06-25 | Outpatient (REF) | payer MEDICARE, MEDICAID ==
[~2019-06-25] MED LIST changes: -LAMO150T2 PO; +LAMO150T3 PO; -LORA1TAB12; +LORA1TAB4; +LORA2TAB14 PO; -LORA2TAB9 PO
[2019-06-25 17:08] LABS: ALBUMIN 4.1 GM/DL (3.2-5.2); ALT/SGPT 107 U/L (12-78); BILIRUBIN,TOTAL 0.5 MG/DL (0.2-1.0); BLOOD UREA NITROGEN 10 MG/DL (7-18); CALCIUM LEVEL 9.8 MG/DL (8.5-10.1); CARBON DIOXIDE LEVEL 26 MEQ/L (21-32); CHLORIDE LEVEL 103 MEQ/L (98-107); CHOLESTEROL LEVEL 155 MG/DL (<200); CHOLESTEROL RISK RATIO 4.696 (<5); CREATININE FOR GFR 0.81 MG/DL (0.70-1.30); GLOMERULAR FILTRATION RATE > 60.0 (>60); GLUCOSE, FASTING 97 MG/DL (70-100); HDL CHOLESTEROL 33 MG/DL (>40); LDL CHOLESTEROL 44 MG/DL (<100); NON-HDL-C 122 MG/DL; POTASSIUM SERUM 4.5 MEQ/L (3.5-5.1); SODIUM LEVEL 138 MEQ/L (136-145); TOTAL PROTEIN 7.5 GM/DL (6.4-8.2); TRIGLYCERIDES LEVEL 391 MG/DL (<150)
[2019-06-25 17:18] LABS: HEMOGLOBIN A1c 5.8 %
== END ==
LOC: M LAB REF 16:07
PROVIDERS: ATTEND Family Medicine
DX: R73.03 Prediabetes (principal); E88.81 Metabolic syndrome and other insulin resistance; E78.5 Hyperlipidemia, unspecified

== ENCOUNTER → 2019-06-30 | Outpatient (REF) | payer MEDICARE, MEDICAID | LOC: M LAB REF 18:41 | PROVIDERS: ATTEND Physician Assistant | DX: L02.412 Cutaneous abscess of left axilla (principal) ==

== ENCOUNTER 2019-11-22 13:16 | Emergency (ER) | payer MEDICARE, MEDICAID ==
[~2019-11-22] VITALS: Ht 182.9 cm; Wt 178.2 kg
[~2019-11-22 13:16] MED LIST changes: -TRAZ1TAB14; +TRAZ1TAB14 PO
[2019-11-22] MEDS ORDERED: ATOR1TAB19 PO (13:53)
[2019-11-22 14:27] LABS: BASO # 0.1 10^3/uL (0.0-0.2); BASO % 0.7 % (0.0-1.0); EOS % 0.2 % (0.0-3.0); HEMATOCRIT 45.5 % (42.0-52.0); HEMOGLOBIN 15.5 g/dl (13.5-17.5); LYMPH # 2.6 10^3/uL (1.5-5.0); LYMPH % 27.3 % (24.0-44.0); MEAN CORPUSCULAR HEMOGLOBIN 30.8 pg (27.0-33.0); MEAN CORPUSCULAR HGB CONC 34.1 g/dl (32.0-36.5); MEAN CORPUSCULAR VOLUME 90.5 fl (80.0-96.0); MONO # 0.7 10^3/uL (0.0-0.8); MONO % 6.9 % (0.0-5.0); NEUTROPHILS % 64.3 % (36.0-66.0); PLATELET COUNT, AUTOMATED 223 10^3/uL (150-450); RED BLOOD COUNT 5.03 10^6/uL (4.30-6.10); WHITE BLOOD COUNT 9.4 10^3/uL (4.0-10.0)
[2019-11-22 14:49] LABS: ERYTHROCYTE SEDIMENTATION RATE 7 mm/hr (0-15)
[2019-11-22 14:53] LABS: BLOOD UREA NITROGEN 10 MG/DL (7-18); C REACTIVE PROTEIN QUANTITATIV 1.09 MG/DL (0.00-0.30); CALCIUM LEVEL 9.1 MG/DL (8.5-10.1); CARBON DIOXIDE LEVEL 26 MEQ/L (21-32); CHLORIDE LEVEL 106 MEQ/L (98-107); CREATININE FOR GFR 0.67 MG/DL (0.70-1.30); GLOMERULAR FILTRATION RATE > 60.0 (>60); GLUCOSE, FASTING 115 MG/DL (70-100); POTASSIUM SERUM 4.2 MEQ/L (3.5-5.1); SODIUM LEVEL 137 MEQ/L (136-145)
[2019-11-22] MEDS ORDERED: LIDOCAINE 1% MDV 20ML VIAL INFIL ONE (15:45)
[2019-11-22] MEDS ORDERED: AUGM875T28 PO (16:02)
[2019-11-22 16:17] VITALS: BP 170/100
[2019-11-22] MEDS ORDERED: lisinopriL 40 MG TAB PO ONE (16:30)
[2019-11-22 16:36] LABS: CHLAMYDIA DNA AMPLIFICATION NEGATIVE (NEGATIVE); GC DNA AMPLIFICATION NEGATIVE (NEGATIVE)
--- NOTE | 2019-11-22 18:01 | REP ---
REASON FOR TODAY'S EXAM: Pain. The prior exam of 11/11/2012 showed no abnormality. Today's examination shows the right testicle to measure 4.2 x 3 x 3.1 cm and the left testicle to measure 4.1 x 2.9 x 3 cm. The testicular parenchymal and vascular echopatterns are within normal limits bilaterally. There is no evidence of a significant hydrocele or spermatocele. There is no evidence of varicocele. The right testicular RI is 0.51 and the left is 0.54. Inferior to the testicle in the inferior scrotal area, the technologist noted a 3.3 x 1.4 x 2.3-cm sized hypoechoic irregular structure having the appearance of a complex fluid collection. There is no internal Doppler signal within this midline abnormality. IMPRESSION: 1. The testicles are within normal limits. 2. Inferior to the testicles in the midline region of the perineum there is, what appears to be, a complex fluid collection of uncertain etiology. This needs to be correlated clinically. Electronically Signed by Sergio Patel DO 11/22/2019 07:32 P
--- NOTE | 2019-11-23 13:21 | ED PDOC ---
Post-Departure Follow-Up berhane mane and lesly faxed formal report of scrotal us for fu Ganesh Lopez MD Nov 23, 2019 13:21
== END 2019-11-22 16:28 | disposition home or self-care (01) ==
LOC: M ED 13:16
DX: N49.2 Inflammatory disorders of scrotum (principal); E78.5 Hyperlipidemia, unspecified; F17.200 Nicotine dependence, unspecified, uncomplicated; F12.90 Cannabis use, unspecified, uncomplicated; I10 Essential (primary) hypertension; Z79.899 Other long term (current) drug therapy; Z91.018 Allergy to other foods

== ENCOUNTER 2019-11-26 10:15 | Emergency (ER) | payer MEDICARE, MEDICAID ==
[~2019-11-26] VITALS: Ht 182.9 cm; Wt 183.4 kg
[~2019-11-26 10:15] MED LIST changes: +ATOR1TAB19 PO; +AUGM875T28 PO
[2019-11-26] MEDS ORDERED: PIPERACILLIN/TAZOBACTAM SOD 3.375 GM in D5W MINI-BAG PLUS 50 ML IV ONE (10:45)
[2019-11-26] MEDS ORDERED: NS 1,000 ML IV ONE (10:45)
[2019-11-26] MEDS ORDERED: AUGM875T28 PO (10:53)
[2019-11-26] MEDS ORDERED: MIRT1TAB15 PO (10:54)
[2019-11-26] MEDS ORDERED: ARIP1TAB10 PO (10:54)
[2019-11-26 11:18] LABS: BASO # 0.1 10^3/uL (0.0-0.2); BASO % 0.5 % (0.0-1.0); EOS % 0.1 % (0.0-3.0); HEMATOCRIT 46.2 % (42.0-52.0); LYMPH # 2.6 10^3/uL (1.5-5.0); LYMPH % 19.8 % (24.0-44.0); MEAN CORPUSCULAR HEMOGLOBIN 30.7 pg (27.0-33.0); MEAN CORPUSCULAR HGB CONC 34.6 g/dl (32.0-36.5); MEAN CORPUSCULAR VOLUME 88.5 fl (80.0-96.0); MONO # 0.9 10^3/uL (0.0-0.8); NEUTROPHILS # 9.3 10^3/uL (1.5-8.5); NEUTROPHILS % 71.8 % (36.0-66.0); PLATELET COUNT, AUTOMATED 253 10^3/uL (150-450); RED BLOOD COUNT 5.22 10^6/uL (4.30-6.10); WHITE BLOOD COUNT 12.9 10^3/uL (4.0-10.0)
[2019-11-26 11:33] LABS: INR 0.97; PROTHROMBIN TIME 12.6 SECONDS (11.8-14.0)
[2019-11-26 11:34] LABS: PARTIAL THROMBOPLASTIN TIME 25.8 SECONDS (25.0-38.4)
[2019-11-26 11:44] LABS: ALBUMIN 3.6 GM/DL (3.2-5.2); BILIRUBIN,DIRECT 0.2 MG/DL (0.0-0.2); BILIRUBIN,TOTAL 0.5 MG/DL (0.2-1.0); TOTAL PROTEIN 7.2 GM/DL (6.4-8.2)
--- NOTE | 2019-11-26 11:56 | REP ---
CHEST, SINGLE VIEW: There is no evidence of acute infiltrate. No pleural effusion is seen. The heart is normal in size. The mediastinal silhouette is unremarkable. The visualized osseous structures are intact. The very inferior aspect of the left lung is not visualized. IMPRESSION: No acute pulmonary disease. Electronically Signed by Freddy Elaine MD 11/28/2019 11:07 P
[2019-11-26] MEDS ORDERED: NS IV ONE (12:00)
--- NOTE | 2019-11-26 12:42 | REP ---
SCROTAL ULTRASOUND: Real-time sonographic evaluation of the scrotum and contents performed. Comparison is made with a prior study of 11/22/2019. The testicles are normal in size and echotexture, right testicle measuring 4.8 x 2.5 x 3.5 cm and left testicle 4.1 x 2.5 x 3.4 cm. There is no testicular mass or torsion, blood flow is seen in each testicle with duplex Doppler evaluation. Scrotal edema is again noted and there is a complex fluid collection consistent with an abscess in the inferior scrotum and adjacent perineum. This measures 4.7 x 2.3 x 2.9 cm. This has increased in size since the prior exam. IMPRESSION: There is an increase in size of the inferior scrotal complex fluid collection compared to a prior study of 11/22/2019, consistent with an abscess. Electronically Signed by Freddy Elaine MD 11/28/2019 11:11 P
[2019-11-26 14:00] VITALS: BP 182/83
[2019-11-26] MEDS ORDERED: MORPHINE 4 MG/ML 1ML VIAL/SYRINGE (J2270) IV PRN (14:15)
--- NOTE | 2019-11-26 21:34 | ECGEPIP ---
[facility] - ED Test Date: 2019-11-26 Pat Name: SOY CHOWDHURY Department: Room: - Gender: Male Baby Doctor: ANGÉLICA : 1980 Requested By: Ganesh Valentine Order Number: [id number] Reading MD: Jacqueline Calloway Measurements Intervals Cisco Rate: 108 P: 5 TN: 147 QRS: 48 QRSD: 100 T: 47 QT: 308 QTc: 414 Interpretive Statements SINUS TACHYCARDIA NONSPECIFIC T-WAVE ABNORMALITY ABNORMAL RHYTHM ECG INCREASED RATE 09/08/17 Electronically Signed on 11-26-2019 21:34:12 EDT by Jacqueline Calloway
== END 2019-11-26 14:22 | disposition other institution (70) ==
LOC: M ED 10:15
DX: N49.2 Inflammatory disorders of scrotum (principal); R00.0 Tachycardia, unspecified; R94.31 Abnormal electrocardiogram [ECG] [EKG]; I10 Essential (primary) hypertension; G47.30 Sleep apnea, unspecified; F41.9 Anxiety disorder, unspecified; F20.9 Schizophrenia, unspecified; E11.9 Type 2 diabetes mellitus without complications; Z79.899 Other long term (current) drug therapy; Z91.018 Allergy to other foods
CPT/HCPCS: 36415; 71045; 76870; 80047; 80076; 81001; 83605; 83690; 85025; 85610; 85730; 86850; 86900; 86901; 87040; 87486; 87581; 87633; 87798; 93005; 93041; 93976; 96365; 96366; 99285; J2270; J2543

== ENCOUNTER → 2019-12-06 | Outpatient (REF) | payer MEDICARE, MEDICAID ==
[~2019-12-06] MED LIST changes: +ARIP1TAB10 PO; +CHLO100T30 PO; -CHLOR10TAB PO; +MIRT1TAB15 PO; +TRIA25CR TOP; +ZOSY1SOL5 IV
[2019-12-06 14:59] LABS: BASO # 0.1 10^3/uL (0.0-0.2); BASO % 0.9 % (0.0-1.0); EOS % 0.3 % (0.0-3.0); HEMATOCRIT 39.3 % (42.0-52.0); LYMPH # 3.2 10^3/uL (1.5-5.0); LYMPH % 25.7 % (24.0-44.0); MEAN CORPUSCULAR HEMOGLOBIN 30.4 pg (27.0-33.0); MEAN CORPUSCULAR HGB CONC 33.1 g/dl (32.0-36.5); MEAN CORPUSCULAR VOLUME 91.8 fl (80.0-96.0); MONO % 7.7 % (0.0-5.0); NEUTROPHILS # 7.7 10^3/uL (1.5-8.5); NEUTROPHILS % 61.4 % (36.0-66.0); PLATELET COUNT, AUTOMATED 326 10^3/uL (150-450); RED BLOOD COUNT 4.28 10^6/uL (4.30-6.10); WHITE BLOOD COUNT 12.5 10^3/uL (4.0-10.0)
[2019-12-06 15:27] LABS: ALBUMIN 3.4 GM/DL (3.2-5.2); ALT/SGPT 69 U/L (12-78); BILIRUBIN,TOTAL 0.3 MG/DL (0.2-1.0); BLOOD UREA NITROGEN 7 MG/DL (7-18); C REACTIVE PROTEIN QUANTITATIV 1.21 MG/DL (0.00-0.30); CALCIUM LEVEL 9.3 MG/DL (8.5-10.1); CARBON DIOXIDE LEVEL 25 MEQ/L (21-32); CHLORIDE LEVEL 109 MEQ/L (98-107); CREATININE FOR GFR 0.74 MG/DL (0.70-1.30); GLOMERULAR FILTRATION RATE > 60.0 (>60); GLUCOSE, FASTING 78 MG/DL (70-100); POTASSIUM SERUM 4.2 MEQ/L (3.5-5.1); SODIUM LEVEL 142 MEQ/L (136-145); TOTAL PROTEIN 7.4 GM/DL (6.4-8.2)
[2019-12-06 15:30] LABS: ERYTHROCYTE SEDIMENTATION RATE 37 mm/hr (0-15)
== END ==
LOC: M SHH 14:41
PROVIDERS: ATTEND Internal Medicine Infectious Disease
DX: N49.3 Fournier gangrene (principal); Z79.2 Long term (current) use of antibiotics

== ENCOUNTER 2019-12-08 16:41 | Emergency (ER) | payer MEDICARE, MEDICAID ==
[~2019-12-08] VITALS: Ht 182.9 cm; Wt 180.9 kg
[~2019-12-08 16:41] MED LIST changes: -TRIA25CR TOP; -ZOSY1SOL5 IV
[2019-12-08] MEDS ORDERED: ZOSY1SOL5 IV (16:48)
[2019-12-08 17:23] VITALS: BP 158/70
[2019-12-08] MEDS ORDERED: TRIA25CR TOP (17:53)
== END 2019-12-08 18:12 | disposition home or self-care (01) ==
LOC: M ED 16:41
DX: L23.1 Allergic contact dermatitis due to adhesives (principal); I10 Essential (primary) hypertension; E78.5 Hyperlipidemia, unspecified; E66.9 Obesity, unspecified; F25.9 Schizoaffective disorder, unspecified; F31.9 Bipolar disorder, unspecified; F41.9 Anxiety disorder, unspecified; F17.210 Nicotine dependence, cigarettes, uncomplicated; Z91.018 Allergy to other foods; Z79.899 Other long term (current) drug therapy

== ENCOUNTER → 2019-12-13 | Outpatient (REF) | payer MEDICARE, MEDICAID ==
[~2019-12-13] MED LIST changes: +TRIA25CR TOP; +ZOSY1SOL5 IV
[2020-01-07 20:57] LABS: BASO # 0.1 10^3/uL (0.0-0.2); BASO % 0.8 % (0.0-1.0); EOS % 0.3 % (0.0-3.0); HEMATOCRIT 40.3 % (42.0-52.0); HEMOGLOBIN 13.4 g/dl (13.5-17.5); LYMPH # 2.6 10^3/uL (1.5-5.0); LYMPH % 28.2 % (24.0-44.0); MEAN CORPUSCULAR HEMOGLOBIN 30.7 pg (27.0-33.0); MEAN CORPUSCULAR HGB CONC 33.3 g/dl (32.0-36.5); MEAN CORPUSCULAR VOLUME 92.2 fl (80.0-96.0); MONO # 0.6 10^3/uL (0.0-0.8); MONO % 6.4 % (0.0-5.0); NEUTROPHILS # 5.9 10^3/uL (1.5-8.5); PLATELET COUNT, AUTOMATED 304 10^3/uL (150-450); RED BLOOD COUNT 4.37 10^6/uL (4.30-6.10); WHITE BLOOD COUNT 9.3 10^3/uL (4.0-10.0)
[2020-01-07 20:58] LABS: ERYTHROCYTE SEDIMENTATION RATE 24 mm/hr (0-15)
[2020-02-17 10:57] LABS: GLUCOSE, FASTING SEE SEPARATE REPORT MG/DL (70-100)
== END ==
LOC: M SHH 11:20
PROVIDERS: ATTEND Internal Medicine Infectious Disease
DX: N49.3 Fournier gangrene (principal); Z79.2 Long term (current) use of antibiotics

== ENCOUNTER → 2020-01-07 | Outpatient (REF) | payer MEDICARE, MEDICAID ==
[2020-01-07 13:16] LABS: BASO # 0.1 10^3/uL (0.0-0.2); BASO % 0.8 % (0.0-1.0); EOS % 0.4 % (0.0-3.0); HEMATOCRIT 45.2 % (42.0-52.0); HEMOGLOBIN 15.7 g/dl (13.5-17.5); LYMPH # 2.5 10^3/uL (1.5-5.0); LYMPH % 31.1 % (24.0-44.0); MEAN CORPUSCULAR HEMOGLOBIN 31.1 pg (27.0-33.0); MEAN CORPUSCULAR HGB CONC 34.7 g/dl (32.0-36.5); MEAN CORPUSCULAR VOLUME 89.5 fl (80.0-96.0); MONO # 0.7 10^3/uL (0.0-0.8); MONO % 9.3 % (0.0-5.0); NEUTROPHILS # 4.6 10^3/uL (1.5-8.5); NEUTROPHILS % 57.8 % (36.0-66.0); PLATELET COUNT, AUTOMATED 285 10^3/uL (150-450); RED BLOOD COUNT 5.05 10^6/uL (4.30-6.10)
[2020-01-07 13:46] LABS: ALBUMIN 4.1 GM/DL (3.2-5.2); ALT/SGPT 114 U/L (12-78); BILIRUBIN,TOTAL 0.4 MG/DL (0.2-1.0); BLOOD UREA NITROGEN 9 MG/DL (7-18); CARBON DIOXIDE LEVEL 26 MEQ/L (21-32); CHLORIDE LEVEL 106 MEQ/L (98-107); CHOLESTEROL LEVEL 140 MG/DL (<200); CHOLESTEROL RISK RATIO 4.666 (<5); CREATININE FOR GFR 0.77 MG/DL (0.70-1.30); FREE T4 1.12 NG/DL (0.76-1.46); GLOMERULAR FILTRATION RATE > 60.0 (>60); GLUCOSE, FASTING 124 MG/DL (70-100); HDL CHOLESTEROL 30 MG/DL (>40); NON-HDL-C 110 MG/DL; POTASSIUM SERUM 4.4 MEQ/L (3.5-5.1); SODIUM LEVEL 139 MEQ/L (136-145); TOTAL 25(OH) VITAMIN D 24.7 NG/ML (30.0-100.0); TOTAL PROTEIN 7.4 GM/DL (6.4-8.2); TRIGLYCERIDES LEVEL 406 MG/DL (<150)
[2020-01-07 13:48] LABS: HEMOGLOBIN A1c 5.7 %
== END ==
LOC: M LAB REF 12:24
PROVIDERS: ATTEND Physician Assistant
DX: L23.1 Allergic contact dermatitis due to adhesives (principal); N49.3 Fournier gangrene; G47.33 Obstructive sleep apnea (adult) (pediatric); R73.03 Prediabetes; E55.9 Vitamin D deficiency, unspecified; E78.5 Hyperlipidemia, unspecified; Z79.899 Other long term (current) drug therapy

== ENCOUNTER 2020-03-31 21:06 | Emergency (ER) | payer MEDICARE, MEDICAID ==
[~2020-03-31] VITALS: Ht 182.9 cm; Wt 181.8 kg
[2020-03-31 21:08] VITALS: BP 135/86
[2020-03-31] MEDS ORDERED: AMBI5TAB PO (21:22)
[2020-03-31] MEDS ORDERED: LIDOCAINE 2% MDV 20ML VIAL SC ONE (21:45)
[2020-03-31] MEDS ORDERED: BACT800T5 PO (22:10)
[2020-03-31] MEDS ORDERED: BACTRIM 160MG/800MG DS TAB PO ONE (22:15)
== END 2020-03-31 22:39 | disposition home or self-care (01) ==
LOC: M ED 21:06
DX: T87.89 Other complications of amputation stump (principal); L02.415 Cutaneous abscess of right lower limb; E11.9 Type 2 diabetes mellitus without complications; F17.200 Nicotine dependence, unspecified, uncomplicated; I10 Essential (primary) hypertension; Z79.899 Other long term (current) drug therapy; Z89.511 Acquired absence of right leg below knee; Z91.018 Allergy to other foods

== ENCOUNTER → 2020-04-27 | Outpatient (REF) | payer MEDICARE ==
[2020-04-27 11:57] LABS: HEMATOCRIT 47.1 % (42.0-52.0); HEMOGLOBIN 15.5 g/dl (13.5-17.5); MEAN CORPUSCULAR HGB CONC 32.9 g/dl (32.0-36.5); PLATELET COUNT, AUTOMATED 259 10^3/uL (150-450); RED BLOOD COUNT 5.35 10^6/uL (4.30-6.10); WHITE BLOOD COUNT 9.8 10^3/uL (4.0-10.0)
[2020-04-27 12:44] LABS: ALBUMIN 3.7 GM/DL (3.2-5.2); ALT/SGPT 122 U/L (12-78); BILIRUBIN,TOTAL 0.4 MG/DL (0.2-1.0); BLOOD UREA NITROGEN 13 MG/DL (7-18); CALCIUM LEVEL 9.3 MG/DL (8.5-10.1); CARBON DIOXIDE LEVEL 25 MEQ/L (21-32); CHLORIDE LEVEL 103 MEQ/L (98-107); CHOLESTEROL LEVEL 173 MG/DL (<200); CHOLESTEROL RISK RATIO 5.965 (<5); CREATININE FOR GFR 0.81 MG/DL (0.70-1.30); GLOMERULAR FILTRATION RATE > 60.0 (>60); GLUCOSE, FASTING 155 MG/DL (70-100); HDL CHOLESTEROL 29 MG/DL (>40); NON-HDL-C 144 MG/DL; POTASSIUM SERUM 4.3 MEQ/L (3.5-5.1); SODIUM LEVEL 137 MEQ/L (136-145); TRIGLYCERIDES LEVEL 876 MG/DL (<150)
[2020-04-27 13:22] LABS: HEMOGLOBIN A1c 6.9 %
== END ==
LOC: M LAB REF 11:27
PROVIDERS: ATTEND Physician Assistant
DX: R73.03 Prediabetes (principal); I10 Essential (primary) hypertension; E78.5 Hyperlipidemia, unspecified

== ENCOUNTER 2020-06-19 06:19 | Inpatient (IN) | payer MEDICARE, MEDICAID ==
[~2020-06-19] VITALS: Ht 182.9 cm; Wt 181.8 kg
[2020-06-19] MEDS ORDERED: ATOR1TAB21 PO (06:28)
[2020-06-19] MEDS ORDERED: HYDR50TA70 (06:28)
--- OUTSIDE RECORDS SUMMARY | 2020-06-19 08:06 | CCD ---
Author Organization Unknown Address [address] [place] [address] Phone [phone] Care Team Providers Care Forest Pathologist Name Role Phone Lm Espino Mario Unavailable Unavailable Allergies Notes: PICC LINE ADHESIVE DRESSING - Re action: rash/hives Medications Name Status Start Date Stop Date Abilify Maintena 400 mg intramuscular lance spension,extended release INJECT ONE SYRINGE INTRAMUSCULARLY ONCE A MONTH Completed 05/23/2020 Abilify Maintena 400 mg suspension,exten ded rel. intramuscular syringe INJECT 400 MG INTRAMUSCULARLY ONCE A MONTH Completed 05/23/2020 amoxicillin 875 mg-potassium clavulanate 125 mg tablet TAKE ONE TABLET BY MOUTH THREE TIMES DAILY Completed 05/23/2020 aripiprazole 15 mg tablet TAKE ONE TABLET BY MOUTH ONCE DAILY Active Not available atorvastatin 10 mg tablet TAKE ONE TABLET BY MOUTH ONCE DAILY Active Not available fluconazole 200 mg tablet TAKE ONE TABLET BY MOUTH ONCE DAILY FOR FIVE DAYS Completed 05/23/2020 hydroxyzine HCl 50 mg tablet 1 tablet once daily before bedtime Active Not available lamotrigine 150 mg tablet TAKE ONE TABLET BY MOUTH ONCE DAILY Active Not available lisinopril 40 mg tablet TAKE ONE TABLET BY MOUTH ONCE DAILY Active Not available mirtazapine 15 mg tablet TAKE 1/2 TO 1 TABLET BY MOUTH AT BEDTIME Active Not available prazosin 1 mg capsule TAKE ONE CAPSULE BY MOUTH AT BEDTIME Completed sulfamethoxazole 800 mg-trimethoprim 160 mg tablet TAKE ONE TABLET BY MOUTH EVERY 12 HOURS Completed 05/23/2020 trazodone 150 mg tablet TAKE ONE TABLET BY MOUTH AT BEDTIME Completed 09/2020 triamcinolone acetonide 0.025 % topical cream APPLY TO THE AFFECTED AREA(S) THREE TIMES DAILY Active Not available zolpidem 10 mg tablet TAKE ONE TABLET BY MOUTH AT BEDTIME NEEDED MAX DAILY DOSE ONE TABLET Completed 05/23/2020 zolpidem 5 mg tablet TAKE ONE TABLET BY MOUTH ONCE DAILY MAX DAILY DOSE ONE TABLET Completed 05/23/2020 Problems Name Status Onset Date Source Severe Obesity Active 03/27/2012 History Pure Hyperglyceridemia Active 05/01/2012 History Liver Enzyme Levels - Finding Active 05/01/2012 Hi story Vitamin D Deficiency Active 08/17/2018 History Hyperlipidemia Active 08/17/2018 History Clinical Finding Active 08/17/2018 History Dental Caries on Smooth Surface Penetrating into Pulp Active 09/23/2018 History Metabolic Syndrome X Active 11/23/[address] Concept Unknown 11/23/2018 History Prediabetes Unknown 12/07/2018 History Hidradenitis Suppurativa Active 06/30/2019 History Obstructive Sleep Apnea Syndrome Active 11/04/2019 History Body Mass Index 30+ - Obesity Active 12/13/2019 Hi story 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 11/17 History Psychophysiologic Insomnia Active 2019 Histo ry Nicotine Dependence Active 01/20/2020 History Cannabis Abuse Active 01/20/2020 History Phantom Limb Syndrome with Pain Active 01/20/[address] Concept Unknown 01/20/2020 History Type 2 Diabetes Mellitus Active 05/23/2020 Hypertensive Disorder Active History Procedures Notes: 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 5 g/dL [facility]: [address] [facility] Blood venous Normal Hematocrit 47.1 % 42.0-52.0 % [facility]: [address] [facility] Blood venous Normal Mean Corpuscular Volume 88.0 fL 80.0-96.0 fL [facility]: [address] [facility] Blood venous Normal Mean Corpuscular Hemoglob in 29.0 pg 27.0-33.0 pg [facility]: [address] [facility] Blood venous Normal Mean Corpuscular HGB Conc 32.9 g/dL 32.0-36.5 g/dL [facility]: [address] [place] [address] Blood venous Normal Red Cell Distribution Wid th 13.6 % 11.5-14.5 % [facility]: [address] [place] [address] Blood venous Normal Platelet Count, Automated 259 10 150-450 10 [facility]: [address] [place] [address] Blood venous Normal Nucleated Red Blood Cell % 0. 0 % 0-0 % [facility]: [address] [place] [address] 04/27/2020 CMP, Serum or Plasma Blood venous High Glu cose, Fasting 155 mg/dL 70-100 mg/dL [facility] nter: [address] [place] [address] Blood venous Normal Blood Urea Nitrogen 13 mg/dL 7-18 mg/dL [facility]: [address] [place] [address] Blood venous Normal Creatinine for GFR 0.81 mg/dL 0.70-1.30 mg/dL [facility]: [address] [place] [address] Blood venous Normal Glomerular Filtration Rate > 60.0 >60 [facility]: [address] [place] [address] Blood venous Normal Sodium Level 137 mEq/L 136-14 5 mEq/L [facility]: [address] [place] [address] Blood venous Normal Potassium Serum 4.3 mEq/L 3.5 -5.1 mEq/L [facility]: [address] [place] [address] Blood venous Normal Chloride Level 103 mEq/L 98-1 07 mEq/L [facility]: [address] [place] [address] Blood venous Normal Carbon Dioxide Level 25 mEq/L 21-32 mEq/L [facility]: [address] [place] [address] Blood venous Normal Anion Gap 9 mEq/L 8-16 mEq/L [facility]: [address] [place] [address] Blood venous Normal Calcium Level 9.3 mg/dL 8.5-1 0.1 mg/dL [facility]: [address] [place] [address] Blood venous High AST/SGOT 47 U/L 7-37 U/L Leidy l [facility]: [address] [place] [address] Blood venous High ALT/SGPT 122 U/L 12-78 U/L [facility]: [address] [facility] Blood venous Normal Alkaline Phosphatase 96 U/L 4 5-117 U/L [facility]: [address] [place] [address] Blood venous Normal Bilirubin,total 0.4 mg/dL 0.2 -1.0 mg/dL [facility]: [address] [place] [address] Blood venous Normal Total Protein 7.0 gm/dL 6.4-8 .2 gm/dL [facility]: [address] [place] [address] Blood venous Normal Albumin 3.7 gm/dL 3.2-5.2 gm/ dL [facility]: [address] [place] [address] Blood venous Normal Albumin/globulin Ratio 1.1 [facility]: [address] [place] [address] 04/27/2020 Lipid Panel, Blood Blood venous High Trigl ycerides Level 876 mg/dL <150 mg/dL [facility] nter: [address] [place] [address] Blood venous Normal Cholesterol Level 173 mg/dL < 200 mg/dL [facility]: [address] [place] [address] Blood venous Low HDL Cholesterol 29 mg/dL >40 mg/dL [facility]: [address] [place] [address] Blood venous Normal Non-hdl-c 144 mg/dL [facility]: [address] [place] [address] Blood venous High Cholesterol Risk Ratio 5.965 <5 [facility]: [address] [place] [address] 04/27/2020 HbA1C (Hemoglobin a1C), Blood Normal Hemogl obin a1C 6.9 % [facility]: [address] [place] [address] High Estimated Average Glucose 151 mg/dL 60-110 mg/dL [facility]: [address] [place] [address] Past Encounters 05/23/2020 Type 2 Diabetes Mellitus without Complication; Hyperlipidemia; Insomnia; Mental Health Screening Assessment Sena Longoria PA-C: [address] [facility], [address], [place] [address], Ph. 04/27/2020 Prediabetes; Hyperlipidemia Angus Bundy MD: [address] [place] [address], Ph. Social History Tobacco Smoking Status Heavy Tobacco Smoker (1/2 PPD) Vaccine List None recorded. Plan of Care Reminders Provider Appointments None recorded. Lab None recorded. Referral None recorded. Procedures None recorded. Surgeries None recorded. Imaging None recorded. Vitals 05/23/2020 02:10PM TELEHEALTH 20 Height 72 in 04/27/2020 08:50AM NURSE LAB COLLECTION Height 72 in 01/20/2020 Height Weight Blood Pressure 72 in 392 lbs (1) 152/89 mm[Hg] (2) 169/89 mm[Hg] 12/13/2019 Height Weight Blood Pressure 72 in 390 lbs 6.08 oz 136/84 mm[Hg] 11/04/2019 Height Weight Blood Pressure 72 in 393 lbs 163/93 mm[Hg] 06/30/2019 Height Weight Blood Pressure 72 in 392 lbs 142/85 mm[Hg] 02/22/2019 Height Weight Blood Pressure 72 in 384 lbs 9.6 oz 172/110 mm[Hg] 12/07/2018 Height Weight Blood Pressure 72 in 387 lbs 8 oz 132/83 mm[Hg] 11/23/2018 Height Weight Blood Pressure 72 in 390 lbs 151/102 mm[Hg] 08/17/2018 Height Weight Blood Pressure 72 in 382 lbs 2.08 oz 133/84 mm[Hg] 07/17/2018 Height Weight Blood Pressure 72 in 383 lbs 148/112 mm[Hg]
--- OUTSIDE RECORDS SUMMARY | 2020-06-19 08:06 | CCD ---
Author Organization Unknown Address [address] [place] [address] Phone [phone] Care Team Providers Care Security Incident Response Specialist Name Role Phone Lm Espino Unavailable Unavailable Allergies Notes: PICC LINE ADHESIVE DRESSING - Re action: rash/hives Medications Name Status Start Date Stop Date Ambien 5 mg tablet Take 1 tablet every day by oral route for 30 days. Active Not available Problems Name Status Onset Date Source Severe Obesity Active 03/27/2012 History Pure Hyperglyceridemia Active 05/01/2012 History Liver Enzyme Levels - Finding Active 05/01/2012 Hi story Vitamin D Deficiency Active 08/17/2018 History Hyperlipidemia Active 08/17/2018 History Clinical Finding Active 08/17/2018 History Dental Caries on Smooth Surface Penetrating into Pulp Active 09/23/2018 History Metabolic Syndrome X Active 11/23/[address] Concept Active 11/23/2018 History Prediabetes Active 12/07/2018 History Hidradenitis Suppurativa Active 06/30/2019 History Obstructive Sleep Apnea Syndrome Active 11/04/2019 History Body Mass Index 30+ - Obesity Active 12/13/2019 Hi story 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 Past Encounters 04/27/2020 Angus Bundy MD: [address] [place] [address], Ph. Social History None recorded. Vaccine List None recorded. Plan of Care Reminders Provider Appointments None recorded. Lab None recorded. Referral None recorded. Procedures None recorded. Surgeries None recorded. Imaging None recorded. Vitals 01/20/2020 Height Weight Blood Pressure 72 in [...]
--- OUTSIDE RECORDS SUMMARY | 2020-06-19 08:06 | CCD ---
Author Author Chase Resendiz Organization Unknown Address [address] [place] [address] Phone Care Team Providers Care Sales And Marketing Assistant Name Role Phone Mary Resendiz PCP Allergies, Adverse Reactions, Alerts Concept Allergy Name Reaction Severity Onset Date Status Documentation Date Phone Number Npid Taxonomy Code Taxonomy Desc Author Last Name Author Fi rst Name Concept Type 160213 Geodon (ziprasidone hcl) unspecified 08/04/2015 Active 08/04/2015 [id number] Registered Nurse Breanna Martinez RXNORM Problem List Concept Problem Description Status Start Date Created Date Resolv ed Date Snomed Code F25.9 Schizoaffective disorder, unspecified Active 03/17/2017 1 G47.33 Obstructive Sleep Apnea Hypopnea Active 03/17/20172016 Medications Rx Norm Medication Route Route Concept Start Date Stop Date Dosage Bulmaro quency Duration Formula Strength Dosage Form Dosage Form Code Dosage Description Medication Id Account Npid Author First Name Author Last Name Taxonomy Code Taxonomy Desc Phone Number [id number] lamotrigine by mouth [id number] 10/05/2019 once a day 150 m g tablet as directed 34109 [id number] Marymarnie Resendiz [id number] [facility]iat [facility] [phone] [id number] mirtazapine 10/14/2019 15 mg tablet 30322 129900 [id number] Mary Astrid [id number] Psychiatric/Mental Health 31 [phone] [id number] aripiprazole by mouth [id number] 11/16/2019 once a day 15 mg t ablet 03327 [id number] Mary Resendiz [id number] Psychiatric/Mental Health [phone] Social History Social History Element Description Concept Effective Date Smoking Status Unknown if ever smoked [id number] Immunizations No Data in Section Vital Signs Encounter Date Height Ins Weight Lbs Bmi Bp Systolic Bp Diastoli c Oxygen Saturation Respiration Rate Pulse Rate Body Temp Head Circumference Heigh t Lying 04/26/2020 0.00 0.00 0.00 0 0 0.00 0 0 0.00 0.0 0.0 0 Procedures Date Concept Id Description Targeted Site Concept Targeted Site Concept Type 04/26/2020 36984 E/M Level 3 - Established Patient CPT Patient has no history of implantable de vices Encounters Encounter Start Date End Date Encounter Type Description Diagnosis Di agnosis Desc Location Author First Name Author Last Name Npid Taxonomy Cod e Taxonomy Desc Phone Number Location Addr1 Location Addr2 Location [facility] Location Sta te Location Zip [id number] 04/26/2020 04/26/2020 09070 E/M Level 3 - Established [place] keira F25.9 Schizoaffective disorder, unspecified [facility] [phone] [id number] Psychiatric/Mental Health [phone] [address] [address] Plan of Treatment No Data in Section Lab Results No Data in Section Instructions No Data in Section Functional Cognitive Status No Data in Section Insurance Providers Insurance Id Policy Effective Date Policy Thru Date Company N sanam [id number] 2018 Dual Complete Me dicare Community Plan [id number] MEDICAID
--- OUTSIDE RECORDS SUMMARY | 2020-06-19 08:06 | CCD ---
Author Author FlyChase cavazos Alessandra Organization Unknown Address [address] [place] [address] Phone Care Team Providers Care Construction Services Technician Name Role Phone FlyVivianeen PCP Allergies, Adverse Reactions, Alerts Concept Allergy Name Reaction Severity Onset Date Status Documentation Date Phone Number Npid Taxonomy Code Taxonomy Desc Author Last Name Author Fi rst Name Concept Type 142753 Geodon (ziprasidone hcl) unspecified 08/04/2015 Active 08/04/2015 [id number] Registered Nurse Breanna Martinez RXNORM Problem List [...] Name Taxonomy Code Taxonomy Desc Phone Number [phone] lamotrigine by mouth [id number] 10/05/2019 once a day 150 m g tablet as directed 47263 [phone] [place] [id number] [facility] [phone] 461687 mirtazapine 10/14/2019 15 mg tablet 29621 857919 [id number] Mary Astrid [id number] Psychiatric/Mental Health [phone] aripiprazole by mouth [id number] 11/16/2019 once a day 15 mg t ablet 78810 [phone] [id number] [place] [id number] Psychiatric/Mental Health [id number] Social History Social History Element Description Concept Effective Date Smoking Status Unknown if ever smoked [id number] Immunizations No Data in Section Vital Signs No Data in Section Procedures Date Concept Id Description Targeted Site Concept Targeted Site Concept Type 04/17/2020 06440-35 TEMPMHCTelemed 30" Psychotherapy CPT Patient has no history of implantable de vices Encounters Encounter Start Date End Date Encounter Type Description Diagnosis Di agnosis Desc Location Author First Name Author Last Name Npid Taxonomy Cod e Taxonomy Desc Phone Number Location Addr1 Location Addr2 Location [facility] Location Sta te Location Zip [id number] 04/17/2020 04/17/2020 22243-61 TEMPMHCTelemed 30" Psychothe rapy F25.9 Schizoaffective disorder, unspecified Community [facility] Fly Aparicio [id number] Office Messenger Helper [phone] [address] [facility] [address] [facility] [address] Plan of Treatment No Data in Section Lab Results No Data in Section Instructions No Data in Section Insurance Providers Insurance Id Policy Effective Date Policy Thru Date Company N sanam [id number] 2018 Dual Complete Me dicare Community Plan [id number] 2013 MEDICAID
--- OUTSIDE RECORDS SUMMARY | 2020-06-19 08:06 | CCD ---
Author Author Chase Bill Organization Unknown Address [address] [place] [address] [address] [place] [address] Phone Care Team Providers Care Book Publisher Name Role Phone FlyVivianeen PCP Allergies, Adverse Reactions, Alerts Concept Allergy Name Reaction Severity Onset Date Status Documentation Date Phone Number Npid Taxonomy Code Taxonomy Desc Author Last Name Author Fi rst Name Concept Type 212950 Geodon (ziprasidone hcl) unspecified 08/04/2015 Active 08/04/2015 [id number] Registered Nurse Breanna Martinez RXNORM Problem List [...] Name Taxonomy Code Taxonomy Desc Phone Number [id number] mirtazapine 10/14/2019 15 mg tablet 30651 013175 [id number] Mary Astrid [id number] Psych[facility]ental [facility] [phone] lamotrigine by mouth L60603 10/05/2019 once a day 150 m g tablet as directed 25803 960398 [id number] Mary Astrid [id number] [facility] [phone] 105132 aripiprazole by mouth L97902 11/16/2019 once a day 15 mg t ablet 25852 870040 [phone] Mary [place] [id number] Psychiatric/Mental Health [phone] Social History Social History Element Description Concept Effective Date Smoking Status Unknown if ever smoked [id number] Immunizations No Data in Section Vital Signs No Data in Section Procedures Date Concept Id Description Targeted Site Concept Targeted Site Concept Type 05/22/2020 17661-11 TEMPMHCTelemed 30" Psychotherapy CPT Patient has no history of implantable de vices Encounters Encounter Start Date End Date Encounter Type Description Diagnosis Di agnosis Desc Location Author First Name Author Last Name Npid Taxonomy Cod e Taxonomy Desc Phone Number Location Addr1 Location Addr2 Location [facility] Location [place] Location Zip [id number] 05/22/2020 05/22/2020 41901-89 TEMPMHCTelemed 30" Psychothe rapy F25.9 Schizoaffective disorder, unspecified [facility] Fly Aparicio [phone] [id number] Copyright Expert [phone] [address] [address] Plan of Treatment No Data in Section Lab Results No Data in Section Instructions No Data in Section Insurance Providers Insurance Id Policy Effective Date Policy Thru Date Company N sanam [id number] 2018 Dual Complete Me dicare Community Plan [id number] 2013 MEDICAID
--- OUTSIDE RECORDS SUMMARY | 2020-06-19 08:06 | CCD ---
Author Organization Unknown Address [address] [place] [address] Phone [phone] Care Team Providers Care Co Founder Name Role Phone Lm Espino Unavailable Unavailable [...] Lab Results None recorded. Past Encounters 04/27/2020 Prediabetes; Hyperlipidemia Angus Bundy MD: [address] [place] [address], Ph. Social History None recorded. Vaccine List None recorded. Plan of Care Reminders Provider Appointments None recorded. Lab None recorded. Referral None recorded. Procedures None recorded. Surgeries None recorded. Imaging None recorded. Vitals 04/27/2020 08:50AM NURSE LAB COLLECTION Height 72 [...]
--- OUTSIDE RECORDS SUMMARY | 2020-06-19 08:06 | CCD ---
Author Author Chase Resendiz Organization Unknown Address [address] [place] [address] Phone Care Team Providers Care Entry Level Buyer Name Role Phone Mary Resendiz PCP Allergies, Adverse Reactions, Alerts Concept Allergy Name Reaction Severity Onset Date Status Documentation Date Phone Number Npid Taxonomy Code Taxonomy Desc Author Last Name Author Fi rst Name Concept Type 174094 Geodon (ziprasidone hcl) unspecified 08/04/2015 Active 08/04/2015 [id number] Registered Nurse Breanna Martinez RXNORM Problem List [...] Name Taxonomy Code Taxonomy Desc Phone Number [id number] lamotrigine by mouth P73855 10/05/2019 once a day 150 m g tablet as directed 16723 073381 [phone] Mary [place] [id number] [facility]iat [facility] [phone] 785905 mirtazapine 10/14/2019 15 mg tablet 47086 831056 [phone] Mary Astrid [id number] Psychiatric/Mental Health [phone] 351103 aripiprazole by mouth W11728 11/16/2019 once a day 15 mg t ablet 41424 512164 [phone] Mary [place] [id number] Psychiatric/Mental Health [phone] Social History Social History Element Description Concept Effective Date Smoking Status Unknown if ever smoked [id number] Immunizations No Data in Section Vital Signs No Data in Section Procedures Date Concept Id Description Targeted Site Concept Targeted Site Concept Type 06/13/2020 90889-31 [facility] Telemed E/M Lvl 3--Est pt CPT Patient has no history of implantable de vices Encounters Encounter Start Date End Date Encounter Type Description Diagnosis Di agnosis Desc Location Author First Name Author Last Name Npid Taxonomy Cod e Taxonomy Desc Phone Number Location Addr1 Location Addr2 Location [facility] Location Sta te Location Zip [id number] 06/13/2020 06/13/2020 14940-34 [facility] Telemed E/M Lvl 3--Est p t F25.9 Schizoaffective disorder, unspecified [facility] [phone] [id number] Psychiatric/Mental Health [phone] [address] [address] Plan of Treatment No Data in Section Lab Results No Data in Section Instructions No Data in Section Insurance Providers Insurance Id Policy Effective Date Policy Thru Date Company N sanam [id number] 2018 Dual Complete Me dicare Community Plan [id number] 2013 MEDICAID
--- OUTSIDE RECORDS SUMMARY | 2020-06-19 08:07 | CCD ---
Author Author [facility] Organization [facility] Address Unknown Phone Unavailable Care Team Providers Care Track Repair Supervisor Name Role Phone Zay Miramontes MD Unavailable Unavailable Wiener, Zay Mayers MD Unavailable Unavailable Wiener, Zay Mayers MD Unavailable Unavailable Wiener, Zay Mayers MD Unavailable Unavailable Wiener, Zay Mayers MD Unavailable Unavailable Wiener, Zya Mayers MD Unavailable Unavailable Wiener, Zay Mayers MD Unavailable Unavailable Wiener, Zay Mayers MD Unavailable Unavailable Wiener, Zay Mayers MD Unavailable Unavailable Wiener, Zay Mayers MD Unavailable Unavailable Wiener, Zay Mayers MD Unavailable Unavailable Wiener, Zay Mayers MD Unavailable Unavailable Wiener, Zay Mayers MD Unavailable Unavailable Wiener, Zay Mayers MD Unavailable Unavailable Wiener, Zay Mayers MD Unavailable Unavailable Wiener, Zay Mayers MD Unavailable Unavailable Wiener, Zay Mayers MD Unavailable Unavailable Wiener, Zay Mayers MD Unavailable Unavailable Wiener, Zay Mayers MD Unavailable Unavailable Wiener, Zay Mayers MD Unavailable Unavailable Wiener, V Angus MD Unavailable Unavailable WiZay oswald MD Unavailable Unavailable WiZay oswald MD Unavailable Unavailable WiZay oswald MD Unavailable Unavailable WiZay oswald MD Unavailable Unavailable WiZay oswald MD Unavailable Unavailable WiZay oswald MD Unavailable Unavailable WiZay oswald MD Unavailable Unavailable WiZay oswald MD Unavailable Unavailable WiZay oswald MD Unavailable Unavailable WiZay oswadl MD Unavailable Unavailable WiZay oswald MD Unavailable Unavailable WiZay oswald MD Unavailable Unavailable WiZay oswald MD Unavailable Unavailable WiZay oswald MD Unavailable Unavailable WiZay oswald MD Unavailable Unavailable Zay Miramontes MD Unavailable Unavailable Mario Bundy MD Unavailable Unavailable Mario Bundy MD Unavailable Unavailable Mario Bundy MD Unavailable Unavailable Mario Bundy MD Unavailable Unavailable Mario Bundy MD Unavailable Unavailable Mario Bundy MD Unavailable Unavailable Mario Bundy MD Unavailable Unavailable Mario Bundy MD Unavailable Unavailable Mario Bundy MD Unavailable Unavailable Mario Bundy MD Unavailable Unavailable Mario Bundy MD Unavailable Unavailable Mario Bundy MD Unavailable Unavailable Mario Bundy MD Unavailable Unavailable Mario Bundy MD Unavailable Unavailable Mario Bundy MD Unavailable Unavailable Mario Bundy MD Unavailable Unavailable Mario Bundy MD Unavailable Unavailable Mario Bundy MD Unavailable Unavailable Mario Bundy MD Unavailable Unavailable Mario Bundy MD Unavailable Unavailable Mario Bundy MD Unavailable Unavailable Mario Bundy MD Unavailable Unavailable Mario Bundy MD Unavailable Unavailable Mario Bundy MD Unavailable Unavailable Mario Bundy MD Unavailable Unavailable Mario Bundy MD Unavailable Unavailable Mario Bundy MD Unavailable Unavailable Mario Bundy MD Unavailable Unavailable Mario Bundy MD Unavailable Unavailable Mario Bundy MD Unavailable Unavailable Mario Bundy MD Unavailable Unavailable Mario Bundy MD Unavailable Unavailable Mario Bundy MD Unavailable Unavailable Mario Bundy MD Unavailable Unavailable Mario Bundy MD Unavailable Unavailable Mario Bundy MD Unavailable Unavailable Mario Bundy MD Unavailable Unavailable Mario Bundy MD Unavailable Unavailable Mario Bundy MD Unavailable Unavailable Mario Bundy MD Unavailable Unavailable Mario Bundy MD Unavailable Unavailable Mario Bundy MD Unavailable Unavailable Mario Bundy MD Unavailable Unavailable Mario Bundy MD Unavailable Unavailable Mario Bundy MD Unavailable Unavailable Mario Bundy MD Unavailable Unavailable Mario Bundy MD Unavailable Unavailable Mario Bundy MD Unavailable Unavailable Mario Bundy MD Unavailable Unavailable Mario Bundy MD Unavailable Unavailable Mario Bundy MD Unavailable Unavailable Mario Bundy MD Unavailable Unavailable Mario Bundy MD Unavailable Unavailable Mario Bundy MD Unavailable Unavailable Mario Bundy MD Unavailable Unavailable Mario Bundy MD Unavailable Unavailable Mario Bundy MD Unavailable Unavailable Mario Bundy MD Unavailable Unavailable Mario Bundy MD Unavailable Unavailable Mario Bundy MD Unavailable Unavailable Mario Bundy MD Unavailable Unavailable Mario Bundy MD Unavailable Unavailable Mario Bundy MD Unavailable Unavailable Mario Bnudy MD Unavailable Unavailable Mario Bundy MD Unavailable Unavailable Mario Bundy MD Unavailable Unavailable Mario Bundy MD Unavailable Unavailable Mario Bundy MD Unavailable Unavailable Mario Bundy MD Unavailable Unavailable Mario Bundy MD Unavailable Unavailable Mario Bundy MD Unavailable Unavailable Mario Bundy MD Unavailable Unavailable Mario Bundy MD Unavailable Unavailable Mario Bundy MD Unavailable Unavailable Mario Bundy MD Unavailable Unavailable Mario Bundy MD Unavailable Unavailable Mario Bundy MD Unavailable Unavailable Mario Bundy MD Unavailable Unavailable Mario Bundy MD Unavailable Unavailable Mario Bundy MD Unavailable Unavailable Mario Bundy MD Unavailable Unavailable Mario Bundy MD Unavailable Unavailable Mario Bundy MD Unavailable Unavailable Mario Bundy MD Unavailable Unavailable Mario Bundy MD Unavailable Unavailable Mario Bundy MD Unavailable Unavailable Maroi Bundy MD Unavailable Unavailable Mario Bundy MD Unavailable Unavailable Mario Bundy MD Unavailable Unavailable Scordo, M Sena PA Unavailable Unavailable Scordo, M Sena PA Unavailable Unavailable Scordo, M Sena PA Unavailable Unavailable Scordo, M Sena PA Unavailable Unavailable Scordo, M Sena PA Unavailable Unavailable Scordo, M Sena PA Unavailable Unavailable Scordo, M Sena PA Unavailable Unavailable Scordo, M Sena PA Unavailable Unavailable Scordo, M Sena PA Unavailable Unavailable Scordo, M Sena PA Unavailable Unavailable Scordo, M Sena PA Unavailable Unavailable Scordo, M Sena PA Unavailable Unavailable Scordo, M Sena PA Unavailable Unavailable Scordo, M Sena PA Unavailable Unavailable Scordo, M Sena PA Unavailable Unavailable Scordo, M Sena PA Unavailable Unavailable Scordo, M Sena PA Unavailable Unavailable Scordo, M Sena PA Unavailable Unavailable Scordo, M Sena PA Unavailable Unavailable Scordo, M Sena PA Unavailable Unavailable Scordo, M Sena PA Unavailable Unavailable Scordo, M Sena PA Unavailable Unavailable Scordo, M Sena PA Unavailable Unavailable Scordo, M Sena PA Unavailable Unavailable Scordo, M Sena PA Unavailable Unavailable Scordo, M Sena PA Unavailable Unavailable Scordo, M Sena PA Unavailable Unavailable Scordo, M Sena PA Unavailable Unavailable Scordo, M Sena PA Unavailable Unavailable Scordo, M Sena PA Unavailable Unavailable Scordo, M Sena PA Unavailable Unavailable Scordo, M Sena PA Unavailable Unavailable Scordo, M Sena PA Unavailable Unavailable Scordo, M Sena PA Unavailable Unavailable Scordo, M Sena PA Unavailable Unavailable Scordo, M Sena PA Unavailable Unavailable Scordo, M Sena PA Unavailable Unavailable Scordo, M Sena PA Unavailable Unavailable Scordo, M Sena PA Unavailable Unavailable Scordo, M Sena PA Unavailable Unavailable Scordo, M Sena PA Unavailable Unavailable Scordo, M Sena PA Unavailable Unavailable Jose BARBOSA MD Unavailable Unavailable Jose BRABOSA MD Unavailable Unavailable Jose BARBOSA MD Unavailable Unavailable Jose BARBOSA MD Unavailable Unavailable Jose BARBOSA MD Unavailable Unavailable Jose BARBOSA MD Unavailable Unavailable Clemente MCCANN MD Unavailable Unavailable Clemente MCCANN MD Unavailable Unavailable Clemente MCCANN MD Unavailable Unavailable Clemente MCCANN MD Unavailable Unavailable Clemente MCCANN MD Unavailable Unavailable Clemente MCCNAN MD Unavailable Unavailable Clemente MCCANN MD Unavailable Unavailable Clemente MCCANN MD Unavailable Unavailable Clemente MCCANN MD Unavailable Unavailable Clemente MCCANN MD Unavailable Unavailable Clemente MCCANN MD Unavailable Unavailable Clemente MCCANN MD Unavailable Unavailable Clemente MCCANN MD Unavailable Unavailable Clemente MCCANN MD Unavailable Unavailable Clemente MCCANN MD Unavailable Unavailable Clemente MCCANN MD Unavailable Unavailable Clemente MCCANN MD Unavailable Unavailable Clemente MCCANN MD Unavailable Unavailable Clemente MCCANN MD Unavailable Unavailable Clemente MCCANN MD Unavailable Unavailable Clemente MCCANN MD Unavailable Unavailable Clemente MCCANN MD Unavailable Unavailable Clemente MCCANN MD Unavailable Unavailable Clemente MCCANN MD Unavailable Unavailable Clemente MCCANN MD Unavailable Unavailable SIOBHAN, A JAYNA MD Unavailable Unavailable SIOBHAN, A JAYNA MD Unavailable Unavailable SIOBHAN, A JAYNA MD Unavailable Unavailable SIOBHAN, A JAYNA MD Unavailable Unavailable SIOBHAN, A JAYNA MD Unavailable Unavailable SIOBHAN, A JAYNA MD Unavailable Unavailable SIOBHAN, A JAYNA MD Unavailable Unavailable SIOBHAN, A JAYNA MD Unavailable Unavailable SIOBHAN, A JAYNA MD Unavailable Unavailable SIOBHAN, A JAYNA MD Unavailable Unavailable SIOBHAN, A JAYNA MD Unavailable Unavailable SIOBHAN, A JAYNA MD Unavailable Unavailable SIOBHAN, A JAYNA MD Unavailable Unavailable SIOBHAN, A JAYNA MD Unavailable Unavailable SIOBHAN, A JAYNA MD Unavailable Unavailable SIOBHAN, A JAYNA MD Unavailable Unavailable SIOBHAN, A JAYNA MD Unavailable Unavailable SIOBHAN, A JAYNA MD Unavailable Unavailable SIOBHAN, A JAYNA MD Unavailable Unavailable SIOBHAN, A JAYNA MD Unavailable Unavailable SIOBHAN, A JAYNA MD Unavailable Unavailable SIOBHAN, A JAYNA MD Unavailable Unavailable SIOBHAN, A JAYNA MD Unavailable Unavailable SIOBHAN, A JAYNA MD Unavailable Unavailable SIOBHAN, A JAYNA MD Unavailable Unavailable SIOBHAN, A JAYNA MD Unavailable Unavailable SIOBHAN, A JAYNA MD Unavailable Unavailable SIOBHAN, A JAYNA MD Unavailable Unavailable SIOBHAN, A JAYNA MD Unavailable Unavailable SIOBHAN, A JAYNA MD Unavailable Unavailable SIOBHAN, A JAYNA MD Unavailable Unavailable SIOBHAN, A JAYNA MD Unavailable Unavailable SIOBHAN, A JAYNA MD Unavailable Unavailable COTTO, BETO GALA RPA-C Unavailable Unavailable COTTO, BETO GALA RPA-C Unavailable Unavailable COTTO, BETO GALA RPA-C Unavailable Unavailable COTTO, BETO GALA RPA-C Unavailable Unavailable COTTO, BETO GALA RPA-C Unavailable Unavailable COTTO, BETO GALA RPA-C Unavailable Unavailable COTTO, BETO GALA RPA-C Unavailable Unavailable COTTO, BETO GALA RPA-C Unavailable Unavailable COTTO, BETO GALA RPA-C Unavailable Unavailable COTTO, BETO GALA RPA-C Unavailable Unavailable COTTO, BETO GALA RPA-C Unavailable Unavailable COTTO, BETO GALA RPA-C Unavailable Unavailable COTTO, BETO GALA RPA-C Unavailable Unavailable COTTO, BETO GALA RPA-C Unavailable Unavailable COTTO, BETO GALA RPA-C Unavailable Unavailable COTTO, BETO GALA RPA-C Unavailable Unavailable COTTO, BETO GALA RPA-C Unavailable Unavailable COTTO, BETO GALA RPA-C Unavailable Unavailable COTTO, BETO GALA RPA-C Unavailable Unavailable COTTO, BETO GALA RPA-C Unavailable Unavailable COTTO, BETO GALA RPA-C Unavailable Unavailable COTTO, BETO GALA RPA-C Unavailable Unavailable COTTO, BETO GALA RPA-C Unavailable Unavailable COTTO, BETO GALA RPA-C Unavailable Unavailable COTTO, BETO GALA RPA-C Unavailable Unavailable COTTO, BETO GALA RPA-C Unavailable Unavailable COTTO, BETO GALA RPA-C Unavailable Unavailable COTTO, BETO GALA RPA-C Unavailable Unavailable COTTO, BETO GALA RPA-C Unavailable Unavailable COTTO, BETO GALA RPA-C Unavailable Unavailable COTTO, BETO GALA RPA-C Unavailable Unavailable COTTO, BETO GALA RPA-C Unavailable Unavailable COTTO, BETO GALA RPA-C Unavailable Unavailable COTTO, BETO GALA RPA-C Unavailable Unavailable COTTO, BETO GALA RPA-C Unavailable Unavailable COTTO, BETO GALA RPA-C Unavailable Unavailable COTTO, BETO GALA RPA-C Unavailable Unavailable COTTO, BETO GALA RPA-C Unavailable Unavailable COTTO, BETO GALA RPA-C Unavailable Unavailable Rotella, Dana Unavailable Alessandra Stoddard Unavailable Fork, C Rob Unavailable Unavailable Fork, C Rob Unavailable Unavailable Fork, C Rob Unavailable Unavailable Fork, C Rob Unavailable Unavailable Chace, C Rob Unavailable Unavailable Chace, C Rob Unavailable Unavailable Fork, C Rob Unavailable Unavailable Astrid, Wilfrid Hernandez PMH-MONOTYPE MACHINIST Unavailable Unavailable Moosic, Wilfrid Hernandez PMH-MONOTYPE MACHINIST Unavailable Unavailable Astrid, Wilfrid Hernandez PMH-MONOTYPE MACHINIST Unavailable Unavailable Moosic, Wilfrid Hernandez PMH-MONOTYPE MACHINIST Unavailable Unavailable Astrid, Wilfrid Hernandez PMH-MONOTYPE MACHINIST Unavailable Unavailable Astrid, Wilfrid Hernandez PMH-MONOTYPE MACHINIST Unavailable Unavailable Patel Lesa Unavailable Jose FERNANDO MD Unavailable Unavailable Jose FERNANDO MD Unavailable Unavailable Jose FERNANDO MD Unavailable Unavailable Jose FERNANDO MD Unavailable Unavailable Jose FERNANDO MD Unavailable Unavailable Jose FERNANDO MD Unavailable Unavailable Jose FERNANDO MD Unavailable Unavailable Jose FERNANDO MD Unavailable Unavailable Jose FERNANDO MD Unavailable Unavailable Jose FERNANDO MD Unavailable Unavailable Jose FERNANDO MD Unavailable Unavailable Jose FERNANDO MD Unavailable Unavailable Jose FERNANDO MD Unavailable Unavailable Jose FERNANDO MD Unavailable Unavailable Jose FERNANDO MD Unavailable Unavailable Jose FERNANDO MD Unavailable Unavailable Jose FERNANDO MD Unavailable Unavailable CESARIOJose STINSON MD Unavailable Unavailable Jose FERNANDO MD Unavailable Unavailable Jose FERNANDO MD Unavailable Unavailable Jose FERNANDO MD Unavailable Unavailable Jose FERNANDO MD Unavailable Unavailable Jose FERNANDO MD Unavailable Unavailable Jose FERNANDO MD Unavailable Unavailable Jose FERNANDO MD Unavailable Unavailable Jose FERNANDO MD Unavailable Unavailable Jose FERNANDO MD Unavailable Unavailable Jose FERNANDO MD Unavailable Unavailable Jose FERNANDO MD Unavailable Unavailable Jose FERNANDO MD Unavailable Unavailable Jose FERNANDO MD Unavailable Unavailable Jose FERNANDO MD Unavailable Unavailable Jose FERNANDO MD Unavailable Unavailable Jose FERNANDO MD Unavailable Unavailable Jose FERNANDO MD Unavailable Unavailable Jose FERNANDO MD Unavailable Unavailable Jose FERNANOD MD Unavailable Unavailable Jose FERNANDO MD Unavailable Unavailable Jose FERNANDO MD Unavailable Unavailable Jose FERNANDO MD Unavailable Unavailable Jose FERNANDO MD Unavailable Unavailable Jose FERNANDO MD Unavailable Unavailable Jose FERNANDO MD Unavailable Unavailable Jose FERNANDO MD Unavailable Unavailable Jose FERNANDO MD Unavailable Unavailable Jose FERNANDO MD Unavailable Unavailable Jose FERNANDO MD Unavailable Unavailable Jose FERNANDO MD Unavailable Unavailable Jose FERNANDO MD Unavailable Unavailable Jose FERNANDO MD Unavailable Unavailable Jose FERNANDO MD Unavailable Unavailable Jose FERNANDO MD Unavailable Unavailable Jose FERNANDO MD Unavailable Unavailable Jose FERNANDO MD Unavailable Unavailable Jose FERNANDO MD Unavailable Unavailable Jose FERNANDO MD Unavailable Unavailable Jose FERNANDO MD Unavailable Unavailable Jose FERNANDO MD Unavailable Unavailable Jose FERNANDO MD Unavailable Unavailable Jose FERNANDO MD Unavailable Unavailable Jose FERNANDO MD Unavailable Unavailable Jose FERNANDO MD Unavailable Unavailable Jose FERNANDO MD Unavailable Unavailable Jose FERNANDO MD Unavailable Unavailable Jose FERNANDO MD Unavailable Unavailable Jose FERNANDO MD Unavailable Unavailable Jose FERNANDO MD Unavailable Unavailable Jose FERNANDO MD Unavailable Unavailable Jose FERNANDO MD Unavailable Unavailable Jose FERNANDO MD Unavailable Unavailable Jose FERNANDO MD Unavailable Unavailable Jose FERNANDO MD Unavailable Unavailable Jose FERNANDO MD Unavailable Unavailable Jose FERNANDO MD Unavailable Unavailable Jose FERNANDO MD Unavailable Unavailable Jose FERNANDO MD Unavailable Unavailable Jose FERANNDO MD Unavailable Unavailable Jose FERNANDO MD Unavailable Unavailable Jose FERNANDO MD Unavailable Unavailable Jose FERNANDO MD Unavailable Unavailable Jose FERNANDO MD Unavailable Unavailable Jose FERNANDO MD Unavailable Unavailable Jose FERNANDO MD Unavailable Unavailable ADI, HARSH PA-C Unavailable Unavailable ADI, HARSH PA-C Unavailable Unavailable ADI, HARSH PA-C Unavailable Unavailable ADI, HARSH PA-C Unavailable Unavailable ADI, HARSH PA-C Unavailable Unavailable ADI, HARSH PA-C Unavailable Unavailable ADI, HARSH PA-C Unavailable Unavailable ADI, HARSH PA-C Unavailable Unavailable ADI, HARSH PA-C Unavailable Unavailable ADI, HARSH PA-C Unavailable Unavailable ADI, HARSH PA-C Unavailable Unavailable ADI, HARSH PA-C Unavailable Unavailable ADI, HARSH PA-C Unavailable Unavailable ADI, HARSH PA-C Unavailable Unavailable ADI, HARSH PA-C Unavailable Unavailable ADI, HARSH PA-C Unavailable Unavailable ADI, HARSH PA-C Unavailable Unavailable ADI, HARSH PA-C Unavailable Unavailable ADI, HARSH PA-C Unavailable Unavailable ADI, HARSH PA-C Unavailable Unavailable ADI, HARSH PA-C Unavailable Unavailable ADI, HARSH PA-C Unavailable Unavailable ADI, HARSH PA-C Unavailable Unavailable ADI, HARSH PA-C Unavailable Unavailable ADI, HARSH PA-C Unavailable Unavailable ADI, HARSH PA-C Unavailable Unavailable ADI, HARSH PA-C Unavailable Unavailable ADI, HARSH PA-C Unavailable Unavailable ADI, HARSH PA-C Unavailable Unavailable ADI, HARSH PA-C Unavailable Unavailable ADI, HARSH PA-C Unavailable Unavailable ADI, HARSH PA-C Unavailable Unavailable ADI, HARSH PA-C Unavailable Unavailable ADI, HARSH PA-C Unavailable Unavailable ADI, HARSH PA-C Unavailable Unavailable ULBERG, [place] MAYERS MD Unavailable Unavailable ULBERG, [place] MAYERS MD Unavailable Unavailable ULBERG, [place] MAYERS MD Unavailable Unavailable ULBERG, [place] MAYERS MD Unavailable Unavailable ULBERG, [place] MAYERS MD Unavailable Unavailable ULBERG, [place] MAYERS MD Unavailable Unavailable ULBERG, [place] MAYERS MD Unavailable Unavailable ULBERG, [place] MAYERS MD Unavailable Unavailable ULBERG, [place] MAYERS MD Unavailable Unavailable ULBERG, [place] MAYERS MD Unavailable Unavailable ULBERG, [place] MAYERS MD Unavailable Unavailable ULBERG, [place] MAYERS MD Unavailable Unavailable ULBERG, [place] MAYERS MD Unavailable Unavailable ULBERG, [place] MAYERS MD Unavailable Unavailable ULBERG, [place] MAYERS MD Unavailable Unavailable Madeleine Angela Unavailable [facility], RFROST COTTOST [place] [facility] Unavailable Unavailable Re-disclosure Warning The records that you are about to access may contain information from federally-assisted alcohol or drug abuse programs. If such information is present, then the following federally mandated warning applies: This information has been disclosed to you from records protected by federal confidentiality rules (42 CFR part 2). The federal rules prohibit you from making any further disclosure of this information unless further disclosure is expressly permitted by the written consent of the person to whom it pertains or as otherwise permitted by 42 CFR part 2. A general authorization for the release of medical or other information is NOT sufficient for this purpose. The Federal rules restrict any use of the information to criminally investigate or prosecute any alcohol or drug abuse patient.The records that you are about to access may contain highly sensitive health information, the redisclosure of which is protected by Article 27-F of the [facility] Public Health law. If you continue you may have access to information: Regarding HIV / AIDS; Provided by facilities licensed or operated by the [facility] Office of Mental Health; or Provided by the [facility] Office for People With Developmental Disabilities. If such information is present, then the following [facility] mandated warning applies: This information has been disclosed to you from confidential records which are protected by state law. State law prohibits you from making any further disclosure of this information without the specific written consent of the person to whom it pertains, or as otherwise permitted by law. Any unauthorized further disclosure in violation of state law may result in a fine or long term sentence or both. A general authorization for the release of medical or other information is NOT sufficient authorization for further disc losure. Allergies and Adverse Reactions Type Description Substance Reaction Status Data Source(s ) Propensity to adverse reactions to substance Geodon (ziprasi done hcl) ziprasidone 40 MG Oral Capsule [Geodon] Active [facility] ([facility]) Drug allergy PICC LINE ADHESIVE DRESSING PICC LINE ADHESIVE D RESSING rash/hives U [facility] DRUG INGREDI STRAWBERRY EXTRACT STRAWBERRY EXTRACT [facility] Allergy to substance Allergy to substance Allergy to substance [facility] ([facility]) Allergy to substance Allergy to substance Allergy to substance [facility] ([facility]) Allergy to substance Allergy to substance Allergy to substance [facility] ([facility]) Family History Family Member Name Family Member Gender Family Member Status Date o f Status Description Data Source(s) Unknown Male Problem [facility] ([facility]) Unknown Male Problem [facility] ([facility] Encounters Encounter Providers Location Date Indications Data Source(s ) Outpatient Attender: Mary Resendiz [facility] 06/13/2020 01:30:00 AM EST - 06/13/2020 01:30:00 AM EST [facility] ([facility]) Attender: Mary Resendiz [facility] 06/13/2020 12: 00:00 AM EST [facility] ([facility]) SANJANA MyersC: [address], [place] [phone], Ph. Attender: Sena CRUZ - [facility] Medical 05/23/2020 12:00:00 AM EST [facility] ([facility]) TEMPMHCTelemed 30" Psychotherapy Att[facility]: [facility] 05/22/2020 02:00:00 AM EST - 05/22/2020 02:00:00 AM EST [facility] ([facility]) Attender: Alessandra Stoddard 05/22/2020 12:00:00 A M EST [facility] ([facility]) Angus Bundy MD: [address] [place] [phone], Ph. Attender: Angus Bundy MD [facility] Medical 04/27/2020 12:00:00 AM EST [facility] ([facility]) Angus Bundy MD: [address] [place] [phone], Ph. Attender: Angus Bundy MD [facility] Medical 04/27/2020 12:00:00 AM EST [facility] ([facility]) Angus Bundy MD: [address] [place] [phone], Ph. Attender: Angus Bundy MD [facility] Medical 04/27/2020 12:00:00 AM EST [facility] ([facility]) Outpatient Attender: Mary Resendiz [facility]ACH[facility] 04/26/2020 01:30:00 AM EST - 04/26/2020 01:30:00 AM EST [facility] ([facility]) Attender: Mary Resendiz [facility] 04/26/2020 12: 00:00 AM EST [facility] ([facility]) Attender: Alessandra Stoddard 04/18/2020 12:00:00 A M EST [facility] ([facility]) TEMPMHCTelemed 30" Psychotherapy Attender: Alessandra Caal [facility] 04/17/2020 01:00:00 AM EST - 04/17/2020 01:00:00 AM EST [facility] Outpatient Attender: [facility] 06/2019 03:09:03 PM EDT [facility] Outpatient Attender: [facility] 01/18 11:55:02 AM EDT [facility] Outpatient Attender: GALA GIBSONC [facility] 01/20/2020 02:47:03 PM EDT [facility] Outpatient Attender: [facility] 07/2019 02:47:02 PM EDT [facility] Outpatient Attender: GALA GIBSONC [facility] 01/20/2020 02:46:03 PM EDT [facility] Outpatient Attender: [facility] 12/18 05:26:01 PM EDT [facility] Outpatient Attender: JAYNA MCCANN MD 01/11/2020 12:00:0 0 AM [facility] Outpatient Attender: [facility] 12/18 11:46:01 AM EDT [facility] Outpatient Attender: [facility] 12/18 12:17:01 PM EDT [facility] Outpatient Attender: JAYNA MCCANN MD 12/28/2019 12:00:0 0 AM [facility] Outpatient Attender: [facility] 01/2020 02:20:59 PM EDT [facility] Outpatient Attender: [facility] 09/2019 09:19:01 AM EDT [facility] Outpatient Attender: GALA GIBSONC [facility] 12/20/2019 04:38:01 PM EDT [facility] Outpatient 008 12/15/2019 02:53:39 PM EDT - 020 05:01:00 PM EDT [facility] Patient discharged. Outpatient Attender: GALA ONEAL [facility] 12/14/2019 12:00:11 AM EDT [facility] Outpatient Attender: GALA COTTO RPA-C [facility] 12/13/2019 03:42:04 PM EDT [facility] Outpatient Attender: JEROMYALEJANDRO COTTOST [place] [facility] 11/17 01:01:03 PM EDT [facility] Outpatient Attender: HARSH FUNG-CReferrer: Angus oswald MD [id number] 12/13/2019 12:00:00 AM EDT - 12/13/2019 11:03:41 AM EDT [facility] Attender: JAYNA MCCANN MD A-XXHAURO 12:00:00 AM EDT - 12/07/2019 10:47:07 AM EDT [facility] Outpatient Attender: [facility] 11/16 09:54:00 AM EDT [facility] Outpatient Attender: PRECIOUS KIRTI [facility] 11/16 09:53:00 AM EDT [facility] Outpatient Attender: PRECIOUS C[place]TO [facility] 11/16 09:52:02 AM EDT [facility] Outpatient Attender: PRECIOUS C[facility]TO [facility] 11/16 09:06:01 AM EDT [facility] Outpatient Attender: GALA COTTO RPA-C [facility] 11/26/2019 02:52:02 PM EDT [facility] Outpatient Attender: PRECIOUS C[facility]TO [facility] 11/16 02:52:02 PM EDT [facility] Emergency 11/26/2019 02:16:00 PM EDT - 11/27/2019 02:25:22 PM EDT scrotal abscess worsening since I&D on [facility] scrotal abscess worsening since I&D on Inpatient Attender: JAYNA MCCANN MD Attender: Angus Miramontes MDAttender: MARY BARBOSA MDAdmitter: Angus Miramontes MDReferrer: Angus Miramontes MD [id number] 11/26/2019 12:00:00 AM EDT - 12/02/2019 12:00:00 AM EDT [facility] Herb gangrene Patient discharged. Outpatient Attender: Mary Goldenerson Count joel Powell 11/16/2019 01:30:00 AM EDT - 11/16/2019 01:30:00 AM EDT [facility] ([facility]) Attender: Mary PETE 11/16/2019 12: 00:00 AM EDT [facility] ([facility]) Outpatient Attender: [facility] 10/17 02:24:00 PM EDT [facility] Outpatient Attender: GALA ONEAL [facility] 11/04/2019 04:34:00 PM EDT [facility] Outpatient Attender: [facility] 10/17 04:33:59 PM EDT [facility] Injectable Medication Administration w/ Monitoring & E ducation Attender: Lesa Patel [facility] 10/27/2019 01:00:00 AM EDT - 10/27/2019 01:00:00 AM EDT [facility] ([facility]) Attender: Lesa Patel 10/27/2019 12:00:00 AM EDT [facility] ([facility]) Attender: ANGUS WASHBURN MD 10/20/2019 12:00:00 A M EDT [facility] ([facility]) Outpatient Attender: Mary [facility]erson [facility] 10/14/2019 03:00:00 AM EDT - 10/14/2019 03:00:00 AM EDT [facility] ([facility]) Attender: Mary PETE 10/14/2019 12: 00:00 AM EDT [facility] ([facility]) AOT Evaluation Attender: ANGUS WASHBURN MD [facility] 10/13/2019 02:00:00 AM EDT - 10/13/2019 02:00:00 AM EDT [facility] ([facility]) TEMPMHCTelemed 30" Psychotherapy Attender: Alessandra [facility] 10/07/2019 02:15:00 AM EDT - 10/07/2019 02:15:00 AM EDT [facility] ([facility]) Attender: Alessandra Stoddard 10/07/2019 12:00:00 A M EDT [facility] ([facility]) Injectable Psychotropic Medication Administration (Inj ection Only) Attender: Lesa Patel [facility] 09/28/2019 01:00:00 AM EDT - 09/28/2019 01:00:00 AM EDT [facility] ([facility]) Attender: Lesa Patel 09/28/2019 12:00:00 AM EDT [facility] ([facility]) Telemed Diagnostic Eval Attender: Alessandra Stoddard [facility] 09/23/2019 10:00:00 AM EDT - 09/23/2019 10:00:00 AM EDT [facility] ([facility]) Attender: Alessandra Stoddard 09/23/2019 12:00:00 A M EDT [facility] ([facility]) [id number]"Psychotherapy Attender: Madeleine Angela [facility] 09/21/2019 01:00:00 AM EDT - 09/21/2019 01:00:00 AM EDT [facility] ([facility]) Attender: Madeleine Angela 09/21/2019 12:00:00 AM EDT [facility] ([facility]) Outpatient Attender: VASILE PUENTES 09/03/2019 05:00:00 P M EDT [facility] Outpatient Attender: Mary Resendiz [facility] 08/30/2019 03:30:00 AM EDT - 08/30/2019 03:30:00 AM EDT [facility] ([facility]) Attender: Mary PETE 08/30/2019 12: 00:00 AM EDT [facility] ([facility]) Injectable Medication Administration w/ Monitoring & E ducation Attender: Lesa Patel [facility] 08/27/2019 03:00:00 AM EDT - 08/27/2019 03:00:00 AM EDT [facility] ([facility]) Attender: Lesa Patel 08/27/2019 12:00:00 AM EDT [facility] ([facility]) Injectable Medication Administration w/ Monitoring & E ducation Attender: Lesa Patel [facility] 08/24/2019 03:00:00 AM EDT - 08/24/2019 03:00:00 AM EDT [facility] ([facility]) Attender: Lesa Patel 08/24/2019 12:00:00 AM EDT [facility] ([facility]) Outpatient Attender: VASILE PUENTES 08/13/2019 08:01:12 P M EDT [facility] Outpatient Attender: Mary Resendiz [facility] 07/29/2019 04:00:00 AM EDT - 07/29/2019 04:00:00 AM EDT [facility] ([facility]) Attender: Mray Resendiz [facility] 07/29/2019 12: 00:00 AM EDT [facility] ([facility]) Injectable Psychotropic Medication Administration (Inj ection Only) Attender: Dana Smart [facility] 07/27/2019 02:00:00 AM EDT - 07/27/2019 02:00:00 AM EDT [facility] ([facility]) Attender: Dana Smart 07/27/2019 12:00:00 AM EDT [facility] ([facility]) Outpatient Attender: VASILE PUENTES 07/19/2019 10:56:02 A [facility] Outpatient Attender: VASILE PUENTES 07/09/2019 11:10:01 A [facility] Outpatient Attender: VASILE PUENTES 07/05/2019 09:18:01 A [facility] Outpatient Attender: VASILE PUENTES 07/02/2019 09:18:49 A [facility] Outpatient Attender: VASILE FERNANDO MD 06/30/2019 03:30:06 P [facility] Outpatient Attender: VASILE FERNANDO MD 06/30/2019 02:58:02 P [facility] Outpatient Attender: VASILE FERNANDO MD 06/30/2019 02:40:02 P [facility] Outpatient Attender: VASILE FERNANDO MD 06/30/2019 02:40:02 P [facility] Outpatient Attender: VASILE FERNANDO MD 06/30/2019 02:23:01 P [facility] Outpatient Attender: VASILE FERNANDO MD 06/30/2019 01:18:01 P [facility] Injectable Psychotropic Medication Administration (Inj ection Only) Attender: Lesa Patel [facility] 06/29/2019 02:00:00 AM EST - 06/29/2019 02:00:00 AM EST [facility] ([facility]) Attender: Lesa Patel 06/29/2019 12:00:00 AM EST [facility] ([facility] Outpatient Attender: VASILE FERNANDO MD 06/28/2019 10:13:01 A [facility] Outpatient Attender: VASILE FERNANDO MD 06/25/2019 10:05:00 A [facility] Outpatient Attender: VASILE FERNANDO MD 06/25/2019 10:04:00 A [facility] Outpatient Attender: VASILE FERNANDO MD 06/22/2019 02:07:01 P [facility] Outpatient Attender: Rob Mas [facility] 0 06/17/2019 03:45:00 AM EST - 06/17/2019 03:45:00 AM EST [facility] Attender: Rob Mas 06/17/2019 12:00:00 AM EST [facility]: Rob Mas [facility] 0 06/04/2019 02:00:00 AM EST - 06/04/2019 02:00:00 AM EST [facility] Attender: Rob Mas 06/04/2019 12:00:00 AM EST [facility] Injectable Psychotropic Medication Administration (Inj ection Only) Attender: Lesa Patel [facility] 06/01/2019 11:00:00 AM EST - 06/01/2019 11:00:00 AM EST [facility] Attender: Lesa Patel 06/01/2019 12:00:00 AM EST [facility] ([facility]) Outpatient Attender: VASILE FERNANDO MD 05/31/2019 01:32:01 P M [facility] Injectable Medication Administration w/ Monitoring & E ducation Attender: Lesa Patel [facility] 05/28/2019 02:00:00 AM EST - 05/28/2019 02:00:00 AM EST [facility] Attender: Lesa Patel 05/28/2019 12:00:00 AM EST [facility] ([facility]) Outpatient Attender: VASILE FERNANDO MD 05/11/2019 10:31:01 A M [facility] Outpatient Attender: VASILE FERNANDO MD 04/30/2019 03:19:00 P M [facility] Outpatient Attender: VASILE FERNANDO MD 04/30/2019 03:18:02 P M [facility] Outpatient Attender: Rob Mas [place] [id number] 07/01/2018 11:00:00 AM EST - 04/30/2019 11:00:00 AM EST [facility] Injectable Psychotropic Medication Administration (Inj ection Only) Attender: Lesa Patel [facility] 04/30/2019 10:15:00 AM EST - 04/30/2019 10:15:00 AM EST [facility] Attender: Lesa Patel 04/30/2019 12:00:00 AM EST [facility] ([facility]) Attender: Rob Mas 04/30/2019 12:00:00 AM EST [facility] ([facility]) Injectable Psychotropic Medication Administration (Inj ection Only) Attender: Dana Smart [facility] 04/27/2019 01:00:00 AM EST - 04/27/2019 01:00:00 AM EST [facility] ([facility]) Attender: Dana Smart 04/27/2019 12:00:00 AM EST [facility] ([facility]) Functional Status Medications Medication Brand Name Start Date Product Form Dose Route Admi nistrative Instructions Pharmacy Instructions Status Indications Reaction Description Data Source(s) Fluconazole 200 MG Oral Tablet Fluconazole 200 MG Oral Tablet (DIFLUCAN) Fluconazole 200 MG Oral Tablet (DIFLUCAN) 12/10/2019 12:00:00 AM EDT 200 mg Oral active Fungal dermatitis Take 1 table t by mouth daily for 5 days [facility] Fungal dermatitis 3 ML heparin sodium, porcine 100 UNT/ML Prefilled Syringe Heparin Sodium Lock Flush 100 UNIT/ML Intravenous Solution Heparin Sodium Lock Flush 100 UNIT/ML Intravenous Solution 12/03/2019 12:00:00 AM EDT 500 U Intracathete r active Encounter for long-term (current) use of antibioticsFournier gangrene 5 mLs by Intracatheter route as needed (PRN for after IV infusion and as needed) [facility] Encounter for long-term (current) use of antibiotics Herb gangrene Piperacillin 3000 MG / tazobactam 375 MG Injection piperacillin-tazobactam 13.5 g injection piperacillin-tazobactam 13.5 g injection 12/03/2019 12:00:00 AM EDT 13.5 g Intravenous active Encounter for long-term (current) use of antibioticsFournier gangrene Inject 13,500 mg into the vein continuous [facility] Encounter for long-term (current) use of antibiotics Herb gangrene Normal Saline Flush 0.9 % Intravenous Solution [id number] 12/03/2019 12:00:00 AM EDT 10 mL Intravenous active Encounte r for long-term (current) use of antibioticsFournier gangrene Inject 10 mLs into the ve in as needed (PRN before and after infusion and PRN) [facility] Encounter for long-term (current) use of antibiotics Herb gangrene potassium chloride (K-DUR) dissolvable tablet 20 mEq [id number] 12/02/2019 10:15:00 AM EDT 20 meq Oral active 20 mEq, Oral, 2 Times Daily, First dose on Liana 12/02/19 at 1015, For 1 day
May be dissolved in water for patients with a G-Tube or unable to swallow. If concern for clogging G-Tube, may contact Pharmacy to switch formulation to a powder packet.
[facility] Medication administered onsite lidocaine (PF) (XYLOCAINE) 1 % injection 20 mL [id number] 12/02/2019 06:45:00 AM EDT 20 mL Infiltration completed 2 0 mL, Infiltration, Once, [facility] 12/02/19 at 0645, For 1 dose
Hold at bedside for
[facility] Medication administered onsite Piperacillin 3000 MG / tazobactam 375 MG Injection piperacillin-tazobactam 13.5 g injection piperacillin-tazobactam 13.5 g injection 12/02/2019 12:00:00 AM EDT 13.5 g Intravenous active Inject 13,50 0 mg into the vein every 24 (twenty-four) hours Infuse 13.5 gm IV continuously over 24 hours [facility] Saline Flush 0.9 % Intravenous Solution [id number] 12/02/19 12:00:00 AM EDT 10 mL Intravenous active Inject 10 mL s into the vein daily for 6 daysFlush with 10 ml IV before and after dose [facility] 3 ML heparin sodium, porcine 100 UNT/ML Prefilled Syringe Heparin Sodium Lock Flush 100 UNIT/ML Intravenous Solution Heparin Sodium Lock Flush 100 UNIT/ML Intravenous Solution 12/02/2019 12:00:00 AM EDT 500 U Intravenous active Inject 5 mLs into the vein d aily for 6 daysFlush with 5 ml IV after dose and prn [facility] Oxycodone Hydrochloride 5 MG Oral Tablet oxyCODONE HCl 5 MG Oral Tablet (ROXICODONE) oxyCODONE HCl 5 MG Oral Tablet (ROXICODONE) 12/02/2019 12:00:00 AM EDT 5 mg Oral active Take 1 t ablet by mouth every 4 (four) hours as needed for up to 3 days, Max Daily Dose: 30 mg [facility] Kerlix Bandage Roll 4.5"x9.3' [id number] 12/02/2019 12:00:00 AM E DT 1 {Application} Does not apply active 1 Application by Does not apply route Three times daily And as needed [facility] Nystatin 100 UNT/MG Topical Powder Nysta tin [id number] UNIT/GM External Powder (Nystatin) Nystatin [id number] UNIT/GM External Powder (Nystatin) 12:00:00 AM EDT active Apply to axilla two times a day for rash [facility] Nicotine 4 MG/ACTUAT Inhalant Solution N icotine 10 MG Inhalation Inhaler (NICOTROL) Nicotine 10 MG Inhalation Inhaler (NICOTROL) 0 12:00:00 AM EDT 1 {puff} Inhalation active Inha le 1 puff into the lungs as needed for Smoking cessation [facility] Tab-A-Biju/Beta Carotene Oral Tablet [id number] 12/02/2019 12:00: 00 AM EDT 1 {tbl} Oral active Take 1 tablet by mouth d [facility] Folic Acid 1 MG Oral Tablet Folic Acid 1 MG Oral Table t (FOLVITE) Folic Acid 1 MG Oral Tablet (FOLVITE) 12/02/2019 12:00:00 AM EDT 1 mg Oral active Take 1 tablet by mouth daily [facility] Thiamine 100 MG Oral Tablet Thiamine HCl 100 MG Oral T ablet (B-1) Thiamine HCl 100 MG Oral Tablet (B-1) 12/02/2019 12:00:00 AM EDT 100 mg Oral active Take [facility]et[facility] 325 MG Oral Tablet Acetaminophen 325 MG Oral Tablet (Tylenol) Acetaminophen 325 MG Oral Tablet (Tylenol) 12/02/2019 12:00:00 AM EDT 650 mg Oral active Take 2 tablets by mouth every 6 (six) hours as needed for Pain for up to 10 days [facility] Docusate Sodium 100 MG Oral Capsule Docu sate Sodium 100 MG Oral Capsule (COLACE) Docusate Sodium 100 MG Oral Capsule (COLACE) 12/02/2019 12:00:00 AM EDT 100 mg Oral active Take 1 capsule by mouth Two Times Daily for 10 days [facility] Potassium Chloride 0.1 MEQ/ML Injectable Solution potassium chloride 10 mEq in 100 mL IVPB (premix) potassium chloride 10 mEq in 100 mL IVPB (premix) 12/01/2019 09:00:00 PM EDT 10 meq Intravenous completed 10 mEq, Intravenous, Administer over 60 Minutes, Every 1 hour, First dose (after last reorder) on Fri12/01/19 at 2100, For 2 doses [facility] Medication administered onsite fentaNYL (SUBLIMAZE) (PF) injection 25 mcg [id number] 12/01/2019 06:57:48 PM EDT 25 ug Intravenous aborted 25 m cg, Intravenous, Every 5 min PRN, Severe Pain (Pain Scale Score 7-10), Starting Fri12/01/19 at 1857, For 10 doses, Recovery [facility] Medication administered onsite Oxycodone Hydrochloride 5 MG Oral Tablet oxyCODONE (ROXICODONE) immediate release tablet 5 mg oxyCODONE (ROXICODONE) immediate release tablet 5 mg 12/01/2019 05:48:45 PM EDT 5 mg Oral active 5 mg, Oral, Every 4 hours PRN, Moderate Pain (Pain Scale Score 4-6), Starting Fri12/01/19 at 1748, For 48 hours
Oxycodone immediate release is limited to 10 mg per dose. Higher doses ( only) require Pain Service consultation and approval.
[facility] Medication administered onsite NaCl infusion 0.9 % [id number] 12/01/2019 01:30:00 PM EDT Intravenous aborted at 50 mL/hr, Intrave nous, Continuous, Starting Fri12/01/19 at 1330, For 30 days [facility] Medication administered onsite Potassium Chloride 0.1 MEQ/ML Injectable Solution potassium chloride 10 mEq in 100 mL IVPB (premix) potassium chloride 10 mEq in 100 mL IVPB (premix) 12/01/2019 01:30:00 PM EDT 10 meq Intravenous completed 10 mEq, Intravenous, Administer over 60 Minutes, Every 1 hour, First dose on Fri12/01/19 at 1330, For 4 doses [facility] Medication administered onsite fentaNYL (SUBLIMAZE) (PF) injection 50 mcg [id number] 12/01/2019 06:15:00 AM EDT 50 ug Intravenous completed 50 mcg, Intravenous, Once, Fri12/01/19 at 0615, For 1 dose [facility] Medication administered onsite Hydralazine Hydrochloride 10 MG Oral Tab let hydrALAZINE (APRESOLINE) tablet 10 mg hydrALAZINE (APRESOLINE) tablet 10 mg 12/01/2019 12:30:00 AM EDT 10 mg Oral completed 10 mg, Oral, O nce, Fri12/01/19 at 0030, For 1 dose
Check vital signs before administering
[facility] Medication administered onsite fentaNYL (SUBLIMAZE) (PF) injection 50 mcg [id number] 11/30/2019 09:45:00 PM EDT 50 ug Intravenous completed 50 mcg, Intravenous, Once, Fri11/30/19 at 2145, For 1 dose [facility] Medication administered onsite gabapentin 300 MG Oral Capsule gabapentin (NEURONTIN) capsule 300 mg gabapentin (NEURONTIN) capsule 300 mg 11/30/2019 09:00:00 PM EDT 300 mg Oral active 300 mg, Oral, Three Times D aily Standard, First dose on Fri11/30/19 at 2100, For 30 days [facility] Medication administered onsite lidocaine (XYLOCAINE) 1 % injection 5 mL [id number] 11/30/2019 07:38:43 AM EDT 5 mL Subcutaneous active 5 m L, Subcutaneous, Once PRN, for PICC insertion, Starting Fri11/30/19 at 0738, For 30 days [facility] Medication administered onsite sodium chloride (preservative free) 0.9 % flush 10 mL 11/30/2019 07:38:43 AM EDT 10 mL Intravenous active [Ord er 1 Start] Name: sodium chloride (preservative free) 0.9 % flush 10 mL Signed Summary: 10 mL, Intravenous, PRN, Line Care, Starting Fri11/30/19 at 0738, For 30 days
Verify blood return before use. Flush with 10 mL of Sodium Chloride 0.9 % before and after infusions or blood sampling followed-by 2 mL Heparin 10 units/mL to lock. Reference Policy C-34H Central Line Policy.
[Order 1 End] [Order 2 Start] Name: heparin lock flush 10 UNIT/ML injection 20 Units Signed Summary: 20 Units, Intravenous, PRN, Line Care, Starting Fri11/30/19 at 0738, For 30 days
Verify blood return before use. Flush with 10 mL of Sodium Chloride 0.9 % before and after infusions or blood sampling followed-by 2 mL Heparin 10 units/mL to lock.Reference Policy [facility]-34H Central Line Policy.
[Order 2 End] [Order 3 Start] Name: sodium chloride (preservative free) 0.9 % flush 10 mL Signed Summary: 10 mL, Intravenous, Every 12 hours, First dose on Fri11/30/19 at 0745, For 30 days
WHEN NOT IN USE - Verify blood return before use. Flush with 10 mL of Sodium Chloride 0.9 % and 2 mL Heparin 10 units/mL.Reference Policy [facility]-34 Central Line Policy.
[Order 3 End] [Order 4 Start] Name: heparin lock flush 10 UNIT/ML injection 20 Units Signed Summary: 20 Units, Intravenous, Every 12 hours, First dose on Fri11/30/19 at 0745, For 30 days
WHEN NOT IN USE - Verify blood return before use. Flush with 10 mL of Sodium Chloride 0.9 % and 2 mL Heparin 10 units/mL.Reference Policy [address] Central Line Policy.
[Order 4 End] [facility] Medication administered onsite fentaNYL (SUBLIMAZE) (PF) injection 50 mcg [id number] 11/30/2019 06:15:00 AM EDT 50 ug Intravenous completed 50 mcg, Intravenous, Once, Fri11/30/19 at 0615, For 1 dose [facility] Medication administered onsite fentaNYL (SUBLIMAZE) (PF) injection 50 mcg [id number] 11/29/2019 08:00:00 PM EDT 50 ug Intravenous completed 50 mcg, Intravenous, Once, Fri11/29/19 at 2000, For 1 dose [facility] Medication administered onsite Benzocaine 15 MG / Menthol 3.6 MG Oral L ozenge benzocaine-menthol (CEPACOL) 15- 3.6 MG per lozenge 1 lozenge benzocaine-menthol (CEPACOL) 15-3.6 MG p er lozenge 1 lozenge 11/29/2019 07:52:39 PM EDT 1 {lozenge} Mouth/Throat active 1 lozenge, Mouth/Throat, Every 2 hours PRN, Sore Throat, Starting Fri11/29/19 at 1952, For 3 days [facility] Medication administered onsite vancomycin (VANCOCIN) 2,000 mg in sodium chloride 0.9 % 500 mL IVPB 11/29/2019 02:00:00 PM EDT 2000 mg Intravenous completed 2,000 mg, Intravenous, Administer over 120 Minutes, Every 12 hours, First dose (after last modification) on Fri11/29/19 at 1400, For 1 dose [facility] Medication administered onsite fentaNYL (SUBLIMAZE) (PF) injection 50 mcg [id number] 11/29/2019 06:00:00 AM EDT 50 ug Intravenous completed 50 mcg, Intravenous, Once, Fri11/29/19 at 0600, For 1 dose [facility] Medication administered onsite fentaNYL (SUBLIMAZE) (PF) injection 50 mcg [id number] 11/28/2019 10:30:00 PM EDT 50 ug Intravenous completed 50 mcg, Intravenous, Once, [employer] 11/28/19 at 2230, For 1 dose [facility] Medication administered onsite Trazodone Hydrochloride 100 MG Oral Tablet trazodone ( DESYREL) tablet 200 mg trazodone (DESYREL) tablet 200 mg 11/28/2019 10:00:00 PM EDT 200 mg Oral active 200 mg, Oral, Nightl y, First dose (after last modification) on 11/28/19 at 2200, For 28 doses [facility] Medication administered onsite Mirtazapine 15 MG Oral Tablet mirtazapine (REMERON) ta blet 7.5 mg mirtazapine (REMERON) tablet 7.5 mg 11/28/2019 10:00:00 PM EDT 7.5 mg Oral active 7.5 mg, Oral, Nightly, First dose (after last modification) on 11/28/19 at 2200, For 28 doses [facility] Medication administered onsite multivitamin tablet 1 tablet [id number] 11/28/2019 09:00:00 AM EDT 1 {tbl} Oral active 1 tablet, Oral , Daily Standard, First dose on 11/28/19 at 0900, For 30 days [facility] Medication administered onsite Folic Acid 1 MG Oral Tablet folic acid (FOLVITE) table t 1 mg folic acid (FOLVITE) tablet 1 mg 11/28/2019 09:00:00 AM EDT 1 mg Oral active 1 mg, Oral, Daily Standard, First dose on 11/28/19 at 0900, For 30 days [facility] Medication administered onsite Thiamine 100 MG Oral Tablet thiamine (B-1) tablet 100 mg thiamine (B-1) tablet 100 mg 11/28/2019 09:00:00 AM EDT 100 mg Oral active 100 mg, Oral, Daily Standard, First dose on 11/28/19 at 0900, For 30 days [facility] Medication administered onsite fentaNYL (SUBLIMAZE) (PF) injection 50 mcg [id number] 11/28/2019 06:45:00 AM EDT 50 ug Intravenous completed 50 mcg, Intravenous, Once, 11/28/19 at 0645, For 1 dose [facility] Medication administered onsite potassium phosphate 155 MG / Sodium Phos phate, Dibasic 852 MG / Sodium Phosphate, Monobasic 130 MG Oral Tablet phosphorus (K PHOS NEUTRAL) tablet 500 mg phosphorus (K PHOS NEUTRAL) tablet 500 mg 11/28/2019 06:00:00 AM EDT 500 mg Oral completed 500 mg, Or al, Once, 11/28/19 at 0600, For 1 dose
Each 250 mg tablet contains: elemental phosphorous 250 mg (8 mmol), sodium 298 mg (12.9 mEq), and potassium 45 mg (1.1 mEq)
[facility] Medication administered onsite potassium chloride (K-DUR) dissolvable tablet 20 mEq [id number] [id number] 11/28/2019 06:00:00 AM EDT 20 meq Oral completed 20 mEq, Oral, Once, 11/28/19 at 0600, For 1 dose
May be dissolved in water for patients with a G-Tube or unable to swallow. If concern for clogging G-Tube, may contact Pharmacy to switch formulation to a powder packet.
[facility] Medication administered onsite Acetaminophen 325 MG Oral Tablet acetaminophen (TYLENO L) tablet 650 mg acetaminophen (TYLENOL) tablet 650 mg 11/28/2019 05:00:00 AM EDT 65 0 mg Oral active 650 mg, Oral, E very 6 hours, First dose on 11/28/19 at 0500, For 30 days
Maximum daily dose of acetaminophen is 3,000 mg from all sources in 24 hours.
[facility] Medication administered onsite Melatonin 5 MG Oral Tablet melatonin tablet 5 mg melatonin t ablet 5 mg 11/27/2019 10:00:00 PM EDT 5 mg Oral active 5 mg, Oral, Nightly, First dose on 11/27/19 at 2200, For 30 days [facility] Medication administered onsite atorvastatin 10 MG Oral Tablet atorvastatin (LIPITOR) tablet 10 mg atorvastatin (LIPITOR) tablet 10 mg 11/27/2019 09:00:00 PM EDT 10 mg Oral active 10 mg, Oral, Every evening, First dose on 11/27/19 at 2100, For 30 days [facility] Medication administered onsite Nicotine 4 MG/ACTUAT Inhalant Solution nicotine (NICOT ROL) inhaler 1 puff nicotine (NICOTROL) inhaler 1 puff 11/27/2019 07:40:02 PM EDT 1 {puff} Inhalation active 1 puff, Inhala tion, PRN, Smoking cessation, Starting 11/27/19 at 1940, For 30 days
May puff cartridge for up to 20 minutes.Each cartridge delivers 4 mgAvoid use between hours of 2200 and 0600 due to stimulant effectsDo not exceed 16 cartridges/day
[facility] Medication administered onsite Clindamycin 18 MG/ML Injectable Solution clindamycin ( CLEOCIN) IVPB 900 mg clindamycin (CLEOCIN) IVPB 900 mg 11/27/2019 06:00:00 PM EDT 900 mg Intravenous aborted 900 mg, Intra venous, at 100 mL/hr, Every 8 hours, First dose (after last modification) on 11/27/19 at 1800, For 11 doses
Discouraged Uses: Cellulitis
[facility] Medication administered onsite fentaNYL (SUBLIMAZE) (PF) injection 50 mcg [id number] 11/27/2019 05:30:00 PM EDT 50 ug Intravenous completed 50 mcg, Intravenous, Once, 11/27/19 at 1730, For 1 dose [facility] Medication administered onsite 1 ML Ketorolac Tromethamine 30 MG/ML Car tridge ketorolac (TORADOL) 30 MG/ML injection 15 mg ketorolac (TORADOL) 30 MG/ML injection 15 mg 0 05:30:00 PM EDT 15 mg Intravenous completed 15 mg, Intravenous, Once, 11/27/19 at 1730, For 1 dose [facility] Medication administered onsite sodium chloride (preservative free) 0.9 % flush 10 mL 11/27/2019 09:52:36 AM EDT 10 mL Intravenous active [Ord er 1 Start] Name: Midline Catheter Insertion Signed Summary: Routine, ONCE, 11/27/19 at 0953, For 1 occurrence
Reason for MIDLINE insertion: Access [Order 1 End] [Order 2 Start] Name: sodium chloride (preservative free) 0.9 % flush 10 mL Signed Summary: 10 mL, Intravenous, PRN, Line Care, Starting 11/27/19 at 0952, For 30 days
When catheter is not in use flush with 10mL Sodium Chloride. Every 12h. Reference CM P-05 Extended Dwell/Midline Peripheral Catheter.
[Order 2 End] [Order 3 Start] Name: sodium chloride (preservative free) 0.9 % flush 10 mL Signed Summary: 10 mL, Intravenous, PRN, Line Care, Starting 11/27/19 at 0952, For 30 days
Flush with 10 mL Sodium Chloride before and after infusions or blood sampling. Reference CM-05 Extended Dwell/Midline Peripheral Catheter.
[Order 3 End] [facility] Medication administered onsite lidocaine (XYLOCAINE) 1 % injection 5 mL [id number] 11/27/2019 09:52:36 AM EDT 5 mL Subcutaneous aborted 5 m L, Subcutaneous, Once PRN, For MIDLINE Catheter insertion, Starting 11/27/19 at 0952, For 2 days [facility] Medication administered onsite Lisinopril 10 MG Oral Tablet lisinopril (ZESTRIL) tabl et 40 mg lisinopril (ZESTRIL) tablet 40 mg 11/27/2019 09:00:00 AM EDT 40 mg Oral active 40 mg, Oral, Daily Standard, First dose on 11/27/19 at 0900, For 30 days [facility] Medication administered onsite lamotrigine 150 MG Oral Tablet lamotrigine (LAMICTAL) tablet 150 mg lamotrigine (LAMICTAL) tablet 150 mg 11/27/2019 09:00:00 AM EDT 150 mg Oral active 150 mg, Oral, Daily Standard, First dose on Sat at 0900, For 30 days [facility] Medication administered onsite aripiprazole 5 MG Oral Tablet ARIPiprazole (ABILIFY) t ablet 15 mg ARIPiprazole (ABILIFY) tablet 15 mg 11/27/2019 09:00:00 AM EDT 15 mg Oral active 15 mg, Oral, Daily Standard, First dose on 11/27/19 at 0900, For 30 days [facility] Medication administered onsite Docusate Sodium 100 MG Oral Capsule docusate sodium (C OLACE) capsule 100 mg docusate sodium (COLACE) capsule 100 mg 11/27/2019 09:00:00 AM EDT 100 mg Oral active 100 mg, Oral, 2 Times Daily, First dose on 11/27/19 at 0900, For 30 days [facility] Medication administered onsite heparin (porcine) 5000 UNIT/ML injection 5,000 Units [id number] 11/27/2019 09:00:00 AM EDT 5000 U Subcutaneous active 5,000 Units, Subcutaneous, Three Times Daily Standard, First dose on 11/27/19 at 0900, For 30 days [facility] Medication administered onsite 1 ML Ketorolac Tromethamine 15 MG/ML Car tridge ketorolac (TORADOL) 15 MG/ML injection 15 mg ketorolac (TORADOL) 15 MG/ML injection 15 mg 0 08:30:00 AM EDT 15 mg Intravenous completed 15 mg, Intravenous, Once, 11/27/19 at 0830, For 1 dose [facility] Medication administered onsite fentaNYL (SUBLIMAZE) (PF) injection 50 mcg [id number] 11/27/2019 06:45:00 AM EDT 50 ug Intravenous completed 50 mcg, Intravenous, Once, 11/27/19 at 0645, For 1 dose [facility] Medication administered onsite vancomycin (VANCOCIN) 1750 mg in NaCl 0.9 % 500 mL (premix) [id number] 11/27/2019 04:00:00 AM EDT 1750 mg Intravenous aborted 1,750 mg, Intravenous, Administer over 90 Minutes, Every 12 hours, First dose on 11/27/19 at 0400, For 3 days [facility] Medication administered onsite Nystatin 100 UNT/MG Topical Powder nystatin (MYCOSTATI N) powder nystatin (MYCOSTATIN) powder 11/27/2019 03:22:12 AM EDT Topical active Topical, 2 Times Daily PRN, for armpit rash, Starting 11/27/19 at 0322, For 30 days [facility] Medication administered onsite Oxycodone Hydrochloride 5 MG Oral Tablet oxyCODONE (ROXICODONE) immediate release tablet 5 mg oxyCODONE (ROXICODONE) immediate release tablet 5 mg 11/27/2019 03:21:26 AM EDT 5 mg Oral aborted 5 mg, Oral, Every 4 hours PRN, Moderate Pain (Pain Scale Score 4-6), Starting 11/27/19 at 0321, For 3 days
Oxycodone immediate release is limited to 10 mg per dose. Higher doses ( only) require Pain Service consultation and approval.
[facility] Medication administered onsite lidocaine (XYLOCAINE) 2 % urojet 20 mL [id number] 0 10:04:27 PM EDT 20 mL Urethral active 20 mL, Urethral , Three Times Daily-PRN, foster discomfort at the urethral meatus, Starting Fri11/26/19 at 2204, For 720 hours
Please apply to the urethral meatus PRN.
[facility] Medication administered onsite trazodone (DESYREL) tablet 150 mg 11/26/2019 10:00:00 PM EDT 150 mg Oral aborted 150 mg, Oral, Ni ghtly, First dose on Fri11/26/19 at 2200, For 30 days [facility] Medication administered onsite Mirtazapine 15 MG Oral Tablet mirtazapine (REMERON) ta blet 15 mg mirtazapine (REMERON) tablet 15 mg 11/26/2019 10:00:00 PM EDT 15 mg Oral aborted 15 mg, Oral, Nightly, First dose on Fri11/26/19 at 2200, For 30 days [facility] Medication administered onsite Oxybutynin chloride 5 MG Oral Tablet oxybutynin (DITRO GARCIA) tablet 5 mg oxybutynin (DITROPAN) tablet 5 mg 11/26/2019 09:41:28 PM EDT 5 mg Oral aborted 5 mg, Oral, Three T imes Daily-PRN, Bladder Spasms, Starting Fri11/26/19 at 2141, For 3 days [facility] Medication administered onsite Acetaminophen 10 MG/ML Injectable Soluti on acetaminophen (OFIRMEV) infusion 1,000 mg acetaminophen (OFIRMEV) infusion 1,000 mg 11/26/2019 09:30:00 PM EDT 1000 mg Intravenous completed 1,000 mg , Intravenous, Administer over 15 Minutes, Once, Fri11/26/19 at 2130, For 1 dose
Maximum dose 3 gm daily from all sources
[facility] Medication administered onsite Clindamycin 12 MG/ML Injectable Solution clindamycin ( CLEOCIN) IVPB 600 mg clindamycin (CLEOCIN) IVPB 600 mg 11/26/2019 09:30:00 PM EDT 600 mg Intravenous aborted 600 mg, Intra venous, at 100 mL/hr, Every 8 hours, First dose on Fri11/26/19 at 2130, For 3 days
Discouraged Uses: Cellulitis
[facility] Medication administered onsite ondansetron (ZOFRAN) injection 4 mg [id number] 11/26/2019 09:25:2 8 PM EDT 4 mg Intravenous active 4 mg, In travenous, Every 8 hours PRN, Nausea, Starting Fri11/26/19 at 2125, For 8 days 22 hours [facility] Medication administered onsite gabapentin 300 MG Oral Capsule gabapentin (NEURONTIN) capsule 300 mg gabapentin (NEURONTIN) capsule 300 mg 11/26/2019 09:00:00 PM EDT 300 mg Oral aborted 300 mg, Oral, Three Times D aily Standard, First dose on Fri11/26/19 at 2100, For 30 days [facility] Medication administered onsite NaCl infusion 0.9 % [id number] 11/26/2019 09:00:00 PM EDT Intravenous aborted at 75 mL/hr, Intrave nous, Continuous, Starting Fri11/26/19 at 2100, For 30 days [facility] Medication administered onsite fentaNYL (SUBLIMAZE) (PF) injection 25 mcg [id number] 11/26/2019 08:44:28 PM EDT 25 ug Intravenous aborted 25 m cg, Intravenous, Every 5 min PRN, Severe Pain (Pain Scale Score 7-10), Starting Fri11/26/19 at 2044, For 10 doses, Recovery [facility] Medication administered onsite Piperacillin 3000 MG / tazobactam 375 MG Injection piperacillin-tazobactam (ZOSYN) IVPB 3.375 g (premix) piperacillin-tazobactam (ZOSYN) IVPB 3.3 75 g (premix) 11/26/2019 06:00:00 PM EDT 3.375 g Intravenous act warner 3.375 g, Intravenous, Administer over 4 Hours, Every 8 hours, First dose on Fri11/26/19 at 1800, For 24 doses [facility] Medication administered onsite iohexol (OMNIPAQUE) 300 MG/ML contrast injection 100 mL [id number] 11/26/2019 05:00:00 PM EDT 100 mL Given by IV completed 100 mL, Given by IV, 1 TIME IMAGING, Fri11/26/19 at 1700, For 1 dose [facility] Medication administered onsite vancomycin (VANCOCIN) in D5W infusion 1,000 mg/200 mL (premi x) [id number] 11/26/2019 04:30:00 PM EDT 1 g Intravenous completed 1 g, Intravenous, at 200 mL/hr, Once, Fri11/26/19 at 1630, For 1 dose
Discouraged Uses: - Treatment of C. difficile infection -Routine treatment of neutropenic fever -Non-purulent cellulitis -Community-acquired intra-abdominal infection
[facility] Medication administered onsite morphine sulfate (PF) injection 4 mg [id number] 11/26/2019 04:30: 00 PM EDT 4 mg Intravenous completed 4 mg, In travenous, Once, Fri11/26/19 at 1630, For 1 dose [facility] Medication administered onsite aripiprazole 15 MG Oral Tablet aripiprazole 11/16/2019 12:00:00 AM ED T 15 mg by mouth completed [id number] aripiprazole by mouth [id number] 11/16/2019 once a day 15 mg tablet 44432 [id number] Mary rowley [id number] [facility] Mirtazapine 15 MG Oral Tablet mirtazapine 10/14/2019 12:00:00 AM EDT 15 mg completed [id number] mirtazapine 10/14/2019 15 m g tablet 08928 510174 [id number] Mary Resendiz [id number] [facility] Mirtazapine 15 MG Oral Tablet mirtazapine 10/14/2019 12:00:00 AM EDT 15 mg completed [id number] mirtazapine 10/14/2019 15 m g tablet 86671 [id number] Mary Astrid [id number] [facility]) aripiprazole 15 MG Oral Tablet aripiprazole 10/14/2019 12:00:00 AM ED T 15 mg by mouth completed [id number] aripiprazole by mouth [id number] 10/14/2019 once a day 15 mg tablet 01626 327612 [id number] Mary rowley [id number] [facility] Mirtazapine 15 MG Oral Tablet mirtazapine 10/14/2019 12:00:00 AM EDT 15 mg completed [id number] mirtazapine 10/14/2019 15 m g tablet 25573 135795 [id number] Mary Resendiz [id number] [facility]) lamotrigine 150 MG Oral Tablet lamotrigine 10/05/2019 12:00:00 AM EDT 150 mg by mouth completed [id number] lamotrigine by mouth [id number] once a day 150 mg tablet as directed 85061 104366 [id number] Mary joe [id number] [facility]) lamotrigine 150 MG Oral Tablet lamotrigine 10/05/2019 12:00:00 AM EDT 150 mg by mouth completed [id number] lamotrigine by mouth [id number] once a day 150 mg tablet as directed 71550 754115 [id number] Mary joe [id number] [facility]) Zolpidem tartrate 5 MG Oral Tablet zolpidem 09/14/2019 12:00:00 AM EDT 5 mg by mouth completed 913584 zolpidem by mouth [id number] 09/14/19 20 10/13/2019 at bedtime 30 5 mg tablet 64441 [id number] [id number] Mary rowley [id number] [facility] Zolpidem tartrate 5 MG Oral Tablet zolpidem 09/14/2019 12:00:00 AM EDT 5 mg by mouth completed 156189 zolpidem by mouth [id number] 09/14/19 20 10/13/2019 at bedtime 30 5 mg tablet 20420 [id number] Mary Walrdop w [id number] [facility]) Zolpidem tartrate 10 MG Oral Tablet zolpidem 06/17/2019 12:00:00 AM EST 10 mg by mouth completed 129801 zolpidem by mouth [id number] 06/1709/10/2019 at bedtime 30 10 mg tablet as needed 85696 484178 [id number] Rob Mas [id number] [facility] Zolpidem tartrate 10 MG Oral Tablet zolpidem 06/17/2019 12:00:00 AM EST 10 mg completed [id number] zolpidem 06/17/2019 at bedtime 10 mg tablet as needed 63877 305592 [id number] Rob Mas [id number] [facility] Prazosin 1 MG Oral Capsule prazosin 04/30/2019 12:00:00 AM EST 1 mg by mouth completed [id number] prazosin by mouth [id number] 04/30/201903/2020 at bedtime 30 1 mg capsule 89145 089765 [id number] Rob Mas 3 [id number] [facility] Prazosin 1 MG Oral Capsule prazosin 04/30/2019 12:00:00 AM EST 1 mg by mouth completed 183765 prazosin by mouth [id number] 04/30/201903/2020 at bedtime 30 1 mg capsule 49135 828590 [id number] Rob Mas 3 [id number] [facility] Prazosin 1 MG Oral Capsule prazosin 04/30/2019 12:00:00 AM EST 1 mg by mouth completed [id number] prazosin by mouth [id number] 04/30/2019 at bedtime 30 1 mg capsule 08986 467681 [id number] Rob Mas 3 [id number] [facility]) Zolpidem tartrate 10 MG Oral Tablet zolpidem 03/15/2019 12:00:00 AM EDT 10 mg completed [id number] zolpidem 03/15/2019 05/30/19 20 at bedtime 30 10 mg tablet 04658 973175 [id number] Rob Mas [id number] [facility] Zolpidem tartrate 10 MG Oral Tablet zolpidem 03/15/2019 12:00:00 AM EDT 10 mg completed [id number] zolpidem 03/15/2019 05/12/20 19 at bedtime 30 10 mg tablet 97421 [id number] [facility] [id number] [facility] ([facility]) Trazodone Hydrochloride 150 MG Oral Tablet trazodone 04/02 12:00:00 AM EST 150 mg completed [id number] trazodone 201711/26/2019 at bedtime 30 150 mg tablet 34673 [id number] Rob Mas 3 [id number] [facility]) Trazodone Hydrochloride 150 MG Oral Tablet trazodone 04/02 12:00:00 AM EST 150 mg completed [id number] trazodone 201711/26/2019 at bedtime 30 150 mg tablet 18839 886024 [id number] Rob Mas 3 [id number] [facility]) Trazodone Hydrochloride 150 MG Oral Tablet trazodone 04/02 12:00:00 AM EST 150 mg completed [id number] trazodone 201711/26/2019 at bedtime 30 150 mg tablet 82428 679063 [id number] Rob Mas 3 [id number] [facility] ([facility]) Trazodone Hydrochloride 150 MG Oral Tablet trazodone 04/02 12:00:00 AM EST 150 mg completed [id number] trazodone 201711/26/2019 at bedtime 30 150 mg tablet 68722 467352 [id number] Rob Mas 3 [id number] [facility] ([facility]) Trazodone Hydrochloride 150 MG Oral Tablet trazodone 04/02 12:00:00 AM EST 150 mg completed [id number] trazodone 201705/12/2019 at bedtime 30 150 mg tablet 17876 [id number] Rob Mas 3 [id number] [facility] ([facility]) aripiprazole 400 MG Injection [Abilify] Abilify Maintena 07/16/2016 12:00:00 AM EST 400 mg completed [id number] Abilify Maintena int ramuscularly 07/16/2016 10/14/2019 once a month 400 mg suspension,extended rel recon 53609 [id number] Rob Mas [id number] [facility]) lamotrigine 150 MG Oral Tablet [Lamictal] Lamictal 02/29/2016 1 2:00:00 AM EDT 150 mg completed Lamictal 02/29/2016 0 09/28/2019 twice a day 30 150 mg tablet 71136 [id number] Rob Mas [id number] [facility] ([facility]) lamotrigine 150 MG Oral Tablet [Lamictal] Lamictal 02/29/2016 1 2:00:00 AM EDT 150 mg completed Lamictal 02/29/2016 0 09/28/2019 twice a day 30 150 mg tablet 19872 777062 [id number] Rob Mas 363 [id number] [facility] ([facility]) lamotrigine 150 MG Oral Tablet [Lamictal] Lamictal 02/29/2016 1 2:00:00 AM EDT 150 mg completed Lamictal 02/29/2016 0 09/28/2019 twice a day 30 150 mg tablet 00223 [id number] Rob Brar [id number] [facility]) Amoxicillin 875 MG / Clavulanate 125 MG Oral Tablet amoxicillin 875 mg-potassium clavulanate 125 mg tablet TAKE ONE TABLET BY MOUTH THREE TIMES DAILY amoxicillin 875 mg-potassium clavulanate 125 mg tablet TAKE ONE TABLET BY MOUTH THREE TIMES DAILY completed amoxicillin 875 MG / clavulanate 125 MG Oral Tablet [place] ([facility]) Trazodone Hydrochloride 150 MG Oral Tabl et trazodone 150 mg tablet TAKE ONE TABLET BY MOUTH AT BEDTIME trazodone 150 mg tablet TAKE ONE TABLET BY MOUTH AT BEDTIME completed trazodone hydr ochloride 150 MG Oral Tablet [place] ([facility]) Prazosin 1 MG Oral Capsule prazosin 1 mg capsule TAKE ONE CAPSULE BY MOUTH AT BEDTIME prazosin 1 mg capsule TAKE ONE CAPSULE BY MOUTH AT BEDTIME completed prazosin 1 MG Oral Capsule ATHEN A ([facility]) Sulfamethoxazole 800 MG / Trimethoprim 1 60 MG Oral Tablet sulfamethoxazole 800 mg-trimethoprim 160 mg tablet TAKE ONE TABLET BY MOUTH EVERY 12 HOURS sulfamethoxazole 800 mg-trimethoprim 160 mg tablet TAKE ONE TABLET BY MOUTH EVERY 12 HOURS completed sulfamethoxazole 800 MG / trimethoprim 160 MG Oral Tablet [facility] ([facility]) Zolpidem tartrate 10 MG Oral Tablet zolp idem 10 mg tablet TAKE ONE TABLET BY MOUTH AT BEDTIME NEEDED MAX DAILY DOSE ONE TABLET zolpidem 10 mg tablet TAKE ONE TABLET BY MOUTH AT BEDTIME NEEDED MAX DAILY DOSE ONE TABLET completed zolpidem tartrate 10 MG Oral Tab let [facility] ([facility]) aripiprazole 400 MG Injection [Abilify] Abilify Maintena 400 mg intramuscular suspension,extended release INJECT ONE SYRINGE INTRAMUSCULARLY ONCE A MONTH Abilify Maintena 400 mg intramuscular suspension,extended release INJECT ONE SYRINGE INTRAMUSCULARLY ONCE A MONTH c ompleted aripiprazole 400 MG Injection [Abilify] [facility] ([facility]) 2 ML aripiprazole 200 MG/ML Prefilled Sy ringe [Abilify] Abilify Maintena 400 mg suspension,extended rel. intramuscular syringe INJECT 400 MG INTRAMUSCULARLY ONCE A MONTH Abilify Maintena 400 mg suspension,exten ded rel. intramuscular syringe INJECT 400 MG INTRAMUSCULARLY ONCE A MONTH completed 2 ML aripiprazole 200 MG/ML Prefilled Syringe [Abilify] [place] ([facility]) Fluconazole 200 MG Oral Tablet fluconazo le 200 mg tablet TAKE ONE TABLET BY MOUTH ONCE DAILY FOR FIVE DAYS fluconazole 200 mg tablet TAKE ONE TABLE T BY MOUTH ONCE DAILY FOR FIVE DAYS complet ed fluconazole 200 MG Oral Tablet [place] ([facility]) Zolpidem tartrate 5 MG Oral Tablet zolpi dem 5 mg tablet TAKE ONE TABLET BY MOUTH ONCE DAILY MAX DAILY DOSE ONE TABLET zolpidem 5 mg tablet TAKE ONE TABLET BY MOUTH ONCE DAILY MAX DAILY DOSE ONE TABLET completed zolpidem tartrate 5 MG Oral Tablet [place] ([facility]) Insurance Providers Payer name Policy type / Coverage type Policy ID Covered green party ID Covered green party's relationship to edge Policy Edge Plan Information [facility] [id number] SP [id number] EMEDNY [id number] SP [id number] [facility]MCAID) O [id number] S [id number] [facility] MEDICARE DUAL G [id number] Self [id number] MEDICAID M [id number] Self [id number] [facility] G [id number] Self [id number] [facility] MEDICARE DUAL G [id number] Self [id number] [facility] [id number] SP [id number] Medicaid S [id number] S [id number] [facility] Secure Horizons P [id number] S [id number] Medicare Wrap O [id number] S [id number] MEDICAID [id number] SP [id number] Medicaid S [id number] S [id number] [facility] Secure Horizons P [id number] S [id number] MEDICARE [id number] SP [id number] MEDICARE C [id number] S [id number] H92 MEDICAID M [id number] S [id number] Medicare P [id number] S [id number] H92 Medicare P [id number] S [id number] H92 Medicare P [id number] S [id number] H92 Medicaid [place]ig[place] Part B [id number] Self [id number] [place] Medicare Primary [id number] Self [id number] Medicare P [id number] S [id number] A Medicaid S [id number] S [id number] Medicare P [id number] S [id number] A MEDICARE [id number] SP [id number] A ANSI-Medicare Part B [id number] ANSI-Medicaid [id number] ANSI-Medicare Part B [id number] ANSI-Medicaid [id number] MEDICAID [id number] SP [id number] MEDICARE [id number] SP [id number] A [place] [id number] Self [id number] Medicare - [place] Medicare Primary [id number] Self [id number] MEDICARE C [id number] S [id number] [place] [id number] Self [id number] [place] Medicare Primary [id number] Self [id number] MEDICARE [id number] SP [id number] A [place] Self KATE ND LEGAL RECRUITER DEP [id number] SP [id number] BCBS OF [place] 306/[id number] FA2 [id number] PROCLAIM [facility] [id number] FA [id number] MEDICARE P [id number] S [id number] A MEDICAID [id number] PT [id number] MEDICARE PART B [id number] PT [id number] MEDICARE PART A [id number] PT [id number] MEDICAID [id number] S [id number] MCRB [id number] S [id number] A MEDICARE [id number] S [id number] A Problems, Conditions, and Diagnoses Code Display Name Description Problem Type Effective Dates Data Source(s) G47.33 Obstructive sleep apnea (adult) (pediatr ic) Obstructive Sleep Apnea Hypopnea Condition 06/13/2020 12:00:00 AM EST [facility] ([facility]) F25.9 Schizoaffective disorder, unspecified Sc hizoaffective disorder, unspecified Condition 06/13/2020 12:00:00 AM EST [facility] ([facility]) 15920070 Type 2 diabetes mellitus Type 2 Diabetes Mellitus Prob curtis 05/23/2020 12:00:00 AM EST [facility] ([facility]) 22049292 Hypertensive disorder Hypertensive Disorder Problem 03/02/2020 04:38:05 PM EDT [facility] ([facility]) 88938582 Hypertensive disorder Hypertensive Disorder Problem 03/02/2020 04:38:05 PM EDT [place] ([facility]) 13214768 Hypertensive disorder Hypertensive Disorder Problem 03/02/2020 04:38:05 PM EDT [place] ([facility]) 54222898 Cannabis abuse, uncomplicated Cannabis abuse, uncompli cated 01/20/2020 02:45:54 PM EDT [facility] Z00.00 Encounter for general adult medical examination without abnormal findings Encounter for general adult medical examination without abno rmal findings 01/20/2020 02:45:54 PM EDT [facility] G54.6 Phantom limb syndrome with pain Phantom limb syndrome with pain 01/20/2020 02:45:54 PM EDT [facility] right leg 305.1 Tobacco user Tobacco user 01/20/2020 02:45:54 P M EDT [facility] [id number] Elevated liver enzymes level Elevated liver enzymes le ary 01/20/2020 02:45:54 PM EDT [facility] 278.01 Morbid obesity Morbid obesity 01/20/2020 02:45: 54 PM EDT [facility] 010816451 SNOMED CT Concept SNOMED CT Concept Problem 01/19 12:00:00 AM EDT - 05/23/2020 12:00:00 AM EST [facility] ([facility]) [id number] Phantom limb syndrome with pain Phantom Limb Syn drome with Pain Problem 01/20/2020 12:00:00 AM EDT [facility] ([facility]) 75025650 Cannabis abuse Cannabis Abuse Problem 01/20/2020 12:00: 00 AM EDT [facility] ([facility]) 07610530 Nicotine dependence Nicotine Dependence Problem 0 01/20/2020 12:00:00 AM EDT [facility] ([facility]) 986977086 SNOMED CT Concept SNOMED CT Concept Problem 01/19 12:00:00 AM EDT [facility] ([facility]) [id number] Phantom limb syndrome with pain Phantom Limb Syn drome with Pain Problem 01/20/2020 12:00:00 AM EDT [facility] ([facility]) 29341438 Cannabis abuse Cannabis Abuse Problem 01/20/2020 12:00: 00 AM EDT [facility] ([facility]) 31743697 Nicotine dependence Nicotine Dependence Problem 0 01/20/2020 12:00:00 AM EDT [facility] ([facility]) 793046718 SNOMED CT Concept SNOMED CT Concept Problem 01/19 12:00:00 AM EDT [facility] ([facility]) [id number] Phantom limb syndrome with pain Phantom Limb Syn drome with Pain Problem 01/20/2020 12:00:00 AM EDT [facility] ([facility]) 54726179 Cannabis abuse Cannabis Abuse Problem 01/20/2020 12:00: 00 AM EDT [facility] ([facility]) 97597333 Nicotine dependence Nicotine Dependence Problem 0 01/20/2020 12:00:00 AM EDT [facility] ([facility]) 333520068 Chronic insomnia Chronic insomnia 12/20/2019 04 :37:06 PM EDT [facility] 207346040 Psychophysiologic insomnia Psychophysiologic Insomnia Problem 2019 12:00:00 AM EDT [facility] ([facility]) 235584901 Psychophysiologic insomnia Psychophysiologic Insomnia Problem 2019 12:00:00 AM EDT [facility] ([facility]) 167299685 Psychophysiologic insomnia Psychophysiologic Insomnia Problem 2019 12:00:00 AM EDT [place] ([facility]) L23.1 Allergic contact dermatitis due to adhes benigno Allergic contact dermatitis due to adhesives 12/13/2019 03:41:59 PM EDT [facility] 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 12/13/2019 03:41:59 PM EDT [facility] V85.43 BMI 50.0-59.9 BMI 50.0-59.9 12/13/2019 03:41:59 PM EDT [facility] [id number] Allergic contact dermatitis due to adhes warner Allergic Contact Dermatitis Due to Adhesive Problem 12/13/2019 12:00:00 AM EDT [place] ([facility]) 081308996 Body mass index 30+ - obesity Body Mass Index 30+ - Ob esity Problem 12/13/2019 12:00:00 AM EDT [place] ([facility]) 219812281 Allergic contact dermatitis due to adhes warner Allergic Contact Dermatitis Due to Adhesive Problem 12/13/2019 12:00:00 AM EDT [place] ([facility]) 964368887 Body mass index 30+ - obesity Body Mass Index 30+ - Ob esity Problem 12/13/2019 12:00:00 AM EDT [place] ([facility]) 494227123 Allergic contact dermatitis due to adhes warner Allergic Contact Dermatitis Due to Adhesive Problem 12/13/2019 12:00:00 AM EDT [place] ([facility]) 464734093 Body mass index 30+ - obesity Body Mass Index 30+ - Ob esity Problem 12/13/2019 12:00:00 AM EDT [place] ([facility]) 327.23 Obstructive sleep apnea of adult 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 11/04/2019 04:33:51 PM EDT [facility] 37058753 Obstructive sleep apnea syndrome Obstructive Sle ep Apnea Syndrome Problem 11/04/2019 12:00:00 AM EDT [facility] ([facility]) 03044893 Obstructive sleep apnea syndrome Obstructive Sle ep Apnea Syndrome Problem 11/04/2019 12:00:00 AM EDT [facility] ([facility]) 55260548 Obstructive sleep apnea syndrome Obstructive Sle ep Apnea Syndrome Problem 11/04/2019 12:00:00 AM EDT [facility] ([facility]) F51.01 Primary insomnia Insomnia Disorder Condition 10/20/2019 1 2:00:00 AM EDT [facility] ([facility]) 705.83 Hidradenitis suppurativa Hidradenitis suppurativa 06/30/2019 03:29:51 PM EST [facility] L02.412 Cutaneous abscess of left axilla Abscess of left axill a 06/30/2019 03:29:51 PM EST [facility] 05862907 Hidradenitis suppurativa Hidradenitis Suppurativa Prob curtis 06/30/2019 12:00:00 AM EST [facility] ([facility]) 01022498 Hidradenitis suppurativa Hidradenitis Suppurativa Prob curtis 06/30/2019 12:00:00 AM EST [facility] ([facility]) 85577042 Hidradenitis suppurativa Hidradenitis Suppurativa Prob curtis 06/30/2019 12:00:00 AM EST [facility] ([facility]) 523238879 Prediabetes Prediabetes Problem 12/07/2018 12:0 0:00 AM EDT - 05/23/2020 12:00:00 AM EST [facility] ([facility]) 224306436 SNOMED CT Concept SNOMED CT Concept Problem 11/23 12:00:00 AM EDT - 05/23/2020 12:00:00 AM EST [facility] ([facility]) B36.9 Superficial mycosis, unspecified Superficial myc osis, unspecified Diagnosis 12/13/2019 11:03:26 AM EDT [facility] 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 Diagnosis 12/13/2019 11:03:26 AM EDT [facility] scrotal abscess worsening since I&D on scrotal a bscess worsening since I&D on Diagnosis 11/27/2019 02:25:27 PM EDT [facility] I10 Essential (primary) hypertension Essential (primary) h ypertension Diagnosis 11/26/2019 03:46:29 PM EDT [facility] N34.0 Urethral abscess Urethral abscess Diagnosis 11/26/2019 03 :46:29 PM EDT [facility] abscess abscess Diagnosis 11/26/2019 03:46:29 PM ED [facility] Surgeries/Procedures Procedure Description Date Indications Data Source(s) [facility] Telemed E/M Lvl 3--Est pt 06/13/2020 12:00:00 AM EST - 06/13/2020 12:00:00 AM EST [facility] ([facility]) [facility] Telemed E/M Lvl 3--Est pt 06/13/2020 12:00:[address] [facility] ([facility]) TEMPMHCTelemed 30" Psychotherapy 021 12:00:00 AM EST - 05/22/2020 12:00:00 AM EST [facility] ([facility]) TEMPMHCTelemed 30" Psychotherapy 05/22/2020 12:00:00 A M EST [facility] ([facility]) OFFICE OUTPATIENT VISIT 15 MINUTES 04/26 12:00:00 AM EST - 04/26/2020 12:00:00 AM EST [facility] ([facility]) OFFICE OUTPATIENT VISIT 15 MINUTES 04/26/2020 12:00:00 AM EST [facility] ([facility]) TEMPMHCTelemed 30" Psychotherapy 020 12:00:00 AM EST - 04/18/2020 12:00:00 AM EST [facility] ([facility]) TEMPMHCTelemed 30" Psychotherapy 04/17/2020 12:00:00 A M EST [facility] ([facility]) BLOOD COUNT COMPLETE AUTOMATED CBC Routine 12/02/2019 5:01 A M EDT 12/02/2019 09:01:00 AM [facility] PHOSPHORUS INORGANIC PHOSPHORUS LEVEL Routine 12/02/2019 5:01 AM E DT 12/02/2019 [facility] MAGNESIUM LEVEL Routine 12/02/2019 5:01 AM EDT 12/02/2019 [facility]OLIC PANEL CALCIUM TOTAL BASIC METABOLIC PANEL Routi ne 12/02/2019 5:01 AM EDT 12/02/2019 09:01:00 AM EDT [facility] SCROTAL EXPLORATION SCROTAL EXPLORATION 12/01/2019 5 :15 PM EDT Herb's Gangrene s/p debridement 12/01/2019 09:15:0 0 PM EDT - 12/01/2019 [facility] CALCIUM TOTAL BASIC METABOLIC PANEL Routi ne 12/01/2019 11:10 AM EDT 12/01/2019 03:10:00 PM EDT [facility] PICC ULTRASOUND - BEDSIDE PROCEDURE PICC ULTRASOUND - BEDSI DE PROCEDURE Routine 11/30/2019 12:33 PM EDT 11/30/2019 04:33:00 PM [facility] IADNA S AUREUS AMPLIFIED PROBE TQ STAPH AUREUS MRSA PCR Routine 11/29/2019 12:08 PM EDT 11/29/2019 04:08:00 PM EDT [facility] BLOOD COUNT COMPLETE AUTO&AUTO DIFRNTL WBC COUNT CBC AND DIFFER ENTIAL Routine 11/29/2019 4:57 AM EDT 11/29/2019 08:57:00 AM [facility] PHOSPHORUS INORGANIC PHOSPHORUS LEVEL Routine 11/29/2019 4:57 AM E DT 11/29/2019 08:57:00 AM [facility] MAGNESIUM MAGNESIUM LEVEL Routine 11/29/2019 4:57 AM EDT 11/29/2019 08:57:00 AM [facility] DRUG SCREEN QUALITATIVE VANCOMYCIN VANCOMYCIN, TROUGH Routine 11/29/2019 4:57 AM EDT 11/29/2019 08:57:00 AM EDT [facility] BASIC METABOLIC PANEL CALCIUM TOTAL BASIC METABOLIC PANEL Routi ne 11/29/2019 4:57 AM EDT 11/29/2019 08:57:00 AM EDT [facility] BLOOD COUNT COMPLETE AUTOMATED CBC Routine 11/28/2019 3:10 A M EDT 11/28/2019 07:10:00 AM [facility] PHOSPHORUS INORGANIC PHOSPHORUS LEVEL Routine 11/28/2019 3:10 AM E DT 11/28/2019 07:10:00 AM [facility] MAGNESIUM MAGNESIUM LEVEL Routine 11/28/2019 3:10 AM EDT 11/28/2019 07:10:00 AM [facility] BASIC METABOLIC PANEL CALCIUM TOTAL BASIC METABOLIC PANEL Routi ne 11/28/2019 3:10 AM EDT 11/28/2019 07:10:00 AM EDT [facility] CARDIAC REPORT CARDIAC REPORT 11/27/2019 11:27 AM EDT 11/27/2019 03:27:39 PM [facility] RADIOLOGY REPORT RADIOLOGY REPORT 11/27/2019 11:27 AM EDT 11/27/2019 03:27:38 PM [facility] BLOOD COUNT COMPLETE AUTOMATED CBC Routine 11/27/2019 5:20 A M EDT 11/27/2019 09:20:00 AM [facility] PHOSPHORUS INORGANIC PHOSPHORUS LEVEL Routine 11/27/2019 5:20 AM E DT 11/27/2019 09:20:00 AM [facility] MAGNESIUM MAGNESIUM LEVEL Routine 11/27/2019 5:20 AM EDT 11/27/2019 09:20:00 AM [facility] BASIC METABOLIC PANEL CALCIUM TOTAL BASIC METABOLIC PANEL Routi ne 11/27/2019 5:20 AM EDT 11/27/2019 09:20:00 AM EDT [facility] CUL BACT XCPT URINE BLOOD/STOOL AEROBIC ISOL WOUND CULTURE Ro utine 11/26/2019 7:31 PM EDT 11/26/2019 11:31:00 PM EDT [facility] CUL BACT DERECK ANAERC ISOL XCPT UR BLOOD/STOOL ANAEROBIC CULTURE Routine 11/26/2019 7:31 PM EDT 11/26/2019 11:31:00 PM [facility] SCROTAL EXPLORATION SCROTAL EXPLORATION 11/26/2019 6 :52 PM EDT Herb's gangrene 11/26/2019 10:52:00 PM EDT - 11/27/2019 01:1 0:00 AM [facility] BLOOD TYPING ABO TYPE AND CROSSMATCH Routine 11/26/2019 5:38 PM ED T 11/26/2019 09:38:00 PM [facility] HEMOGLOBIN GLYCOSYLATED A1C HEMOGLOBIN A1C Routine 11/26/2019 5:38 PM EDT 11/26/2019 09:38:[address] [facility] [address] ABDOEN & PELVIS W/CONTRAST MATERIAL CT ABDOMEN PELVIS WI TH CONTRAST [id number] STAT 11/26/2019 5:27 PM EDT 11/26/2019 09:27:35 PM EDT [facility] BASIC METABOLIC PANEL CALCIUM IONIZED POCT ISTAT CHEM8 Routine 11/26/2019 5:05 PM EDT 11/26/2019 09:05:00 PM EDT [facility] BLOOD GASES ANY COMBINATION PH PCO2 PO2 CO2 HCO3 POCT ISTAT VBG /LAC Routine 11/26/2019 5:00 PM EDT 11/26/2019 09:00:00 PM EDT [facility] LEVEL I SURG PATHOLOGY GROSS EXAMINATION ONLY SURGICA L PATHOLOGY EXAM ( ONLY) Routine 11/26/2019 12:00 AM EDT 11/26/2019 04:00 :00 AM EDT [facility] Telemed E/M Lvl 3--Est pt 11/16/2019 12:00:00 AM EDT - 11/16/2019 12:00:00 AM EDT [facility] ([facility]) Telemed A/O 30" 11/16/2019 12:00:00 AM EDT [facility] ([facility]) [facility] Telemed E/M Lvl 3--Est pt 11/16/2019 12:00:00 AM E DT [facility] ([facility]) Comprehensive medication services, per 15 minutes 10/27/2019 12:00:00 AM EDT - 10/27/2019 12:00:00 AM EDT [facility] ([facility]) Comprehensive medication services, per 15 minutes 10/27/2019 12:00:00 AM EDT [facility] ([facility]) AOT Evaluation 10/20/2019 12:00:00 AM EDT - 10/20/2019 12:00:00 AM EDT [facility] ([facility]) [facility] Telemed E/M Lvl 3--Est pt 10/14/2019 12:00:00 AM EDT - 10/14/2019 12:00:00 AM EDT [facility] ([facility]) Telemed A/O 30" 10/14/2019 12:00:00 AM EDT [facility] ([facility]) [facility] Telemed E/M Lvl 3--Est pt 10/14/2019 12:00:00 AM E DT [facility] ([facility]) AOT Evaluation 10/13/2019 12:00:00 AM EDT [facility] ([facility]) TEMPMHCTelemed 30" Psychotherapy 020 12:00:00 AM EDT - 10/07/2019 12:00:00 AM EDT [facility] ([facility]) TEMPMHCTelemed 30" Psychotherapy 10/07/2019 12:00:00 A M EDT [facility] ([facility]) THERAPEUTIC PROPHYLACTIC/DX INJECTION SUBQ/IM 09/28/2019 12:00:00 AM EDT - 09/28/2019 12:00:00 AM EDT [facility] ([facility]) THERAPEUTIC PROPHYLACTIC/DX INJECTION SUBQ/IM 09/28/19 20 12:00:00 AM EDT [facility] ([facility]) Telemed Diagnostic Eval 09/23/2019 12:00 :00 AM EDT - 09/23/2019 12:00:00 AM EDT [facility] ([facility]) Telemed Diagnostic Eval 09/23/2019 12:00:00 AM EDT [facility] ([facility]) [id number]"Psychotherapy 0 12:00:00 AM EDT - 09/21/2019 12:00:00 AM EDT [facility] ([facility]) [id number]"Psychotherapy 09/21/2019 12:00:00 AM EDT [facility] ([facility]) MHC Telemed E/M Lvl 3--Est pt 08/30/2019 12:00:00 AM EDT - 08/30/2019 12:00:00 AM EDT [facility] ([facility]) MHC Telemed E/M Lvl 3--Est pt 08/30/2019 12:00:00 AM E DT [facility] ([facility]) Comprehensive medication services, per 15 minutes 08/27/2019 12:00:00 AM EDT - 08/27/2019 12:00:00 AM EDT [facility] ([facility]) Comprehensive medication services, per 15 minutes 08/27/2019 12:00:00 AM EDT [facility] ([facility]) Comprehensive medication services, per 15 minutes 08/24/2019 12:00:00 AM EDT - 08/24/2019 12:00:00 AM EDT [facility] ([facility]) Comprehensive medication services, per 15 minutes 08/24/2019 12:00:00 AM EDT [facility] ([facility]) OFFICE OUTPATIENT VISIT 15 MINUTES 07/28 12:00:00 AM EDT - 07/29/2019 12:00:00 AM EDT [facility] ([facility]) Psychotherapy ADD ON - 30 Minutes 07/29/2019 12:00:00 AM EDT [facility] ([facility]) OFFICE OUTPATIENT VISIT 15 MINUTES 07/29/2019 12:00:00 AM EDT [facility] ([facility]) THERAPEUTIC PROPHYLACTIC/DX INJECTION SUBQ/IM 07/27/2019 12:00:00 AM EDT - 07/27/2019 12:00:00 AM EDT [facility] ([facility]) THERAPEUTIC PROPHYLACTIC/DX INJECTION SUBQ/IM 07/27/19 20 12:00:00 AM EDT [facility] ([facility]) THERAPEUTIC PROPHYLACTIC/DX INJECTION SUBQ/IM 06/29/2019 12:00:00 AM EST - 06/29/2019 12:00:00 AM EST [facility] ([facility]) THERAPEUTIC PROPHYLACTIC/DX INJECTION SUBQ/IM 06/29/19 20 12:00:00 AM EST [facility] ([facility]) OFFICE OUTPATIENT VISIT 10 MINUTES 06/17 12:00:00 AM EST - 06/17/2019 12:00:00 AM EST [facility] ([facility]) OFFICE OUTPATIENT VISIT 10 MINUTES 06/17/2019 12:00:00 AM EST [facility] ([facility]) OFFICE OUTPATIENT VISIT 10 MINUTES 06/04 12:00:00 AM EST - 06/04/2019 12:00:00 AM EST [facility] ([facility]) OFFICE OUTPATIENT VISIT 10 MINUTES 06/04/2019 12:00:00 AM EST [facility] ([facility]) THERAPEUTIC PROPHYLACTIC/DX INJECTION SUBQ/IM 06/01/2019 12:00:00 AM EST - 06/01/2019 12:00:00 AM EST [facility] ([facility]) THERAPEUTIC PROPHYLACTIC/DX INJECTION SUBQ/IM 06/01/19 20 12:00:00 AM EST [facility] ([facility]) Comprehensive medication services, per 15 minutes 05/28/2019 12:00:00 AM EST - 05/28/2019 12:00:00 AM EST [facility] ([facility]) Comprehensive medication services, per 15 minutes 05/28/2019 12:00:00 AM EST [facility] ([facility]) THERAPEUTIC PROPHYLACTIC/DX INJECTION SUBQ/IM 04/30/2019 12:00:00 AM EST - 04/30/2019 12:00:00 AM EST [facility] ([facility]) THERAPEUTIC PROPHYLACTIC/DX INJECTION SUBQ/IM 04/30/20 19 12:00:00 AM EST [facility] ([facility]) OFFICE OUTPATIENT VISIT 15 MINUTES 04/30 12:00:00 AM EST - 04/30/2019 12:00:00 AM EST [facility] ([facility]) OFFICE OUTPATIENT VISIT 15 MINUTES 04/30/2019 12:00:00 AM EST [facility] ([facility]) THERAPEUTIC PROPHYLACTIC/DX INJECTION SUBQ/IM 04/27/2019 12:00:00 AM EST - 04/27/2019 12:00:00 AM EST [facility] ([facility]) THERAPEUTIC PROPHYLACTIC/DX INJECTION SUBQ/IM 04/27/20 19 12:00:00 AM EST [facility] ([facility]) Results ID Date Data Source [id number] 04/27/2020 08:44:00 AM EST [facility] ([facility]) Name Value Range Interpretation Code Description Data So rce(s) Supporting Document(s) Hemoglobin A1c/Hemoglobin.total in Blood 6.9 % normal Hemoglobin a1C [facility] ([facility]) estimated average glucose 151 mg/dL 60-110 Above high norm al Estimated Average Glucose [facility] ([facility]) ID Date Data Source [id number] 04/27/2020 08:44:00 AM EST [facility] ([facility]) Name Value Range Interpretation Code Description Data So rce(s) Supporting Document(s) triglycerides level 876 mg/dL <150 Above high normal Triglycer ides Level [facility] ([facility]) HDL cholesterol 29 mg/dL >40 Below low normal HDL Cholestero l [facility] ([facility]) cholesterol level 173 mg/dL <200 normal Cholesterol Level [facility] ([facility]) cholesterol risk ratio <5 Above high normal Choles terol Risk Ratio [place] ([facility]) non-HDL-C 144 mg/dL normal Non-hdl-c [place] ([facility]) ID Date Data Source [id number] 04/27/2020 08:44:00 AM EST [place] ([facility]) Name Value Range Interpretation Code Description Data So rce(s) Supporting Document(s) glucose, fasting 155 mg/dL 70-100 Above high normal Glucose, Fas ting [facility] ([facility]) glomerular filtration rate > 60.0 >60 normal Glomerula r Filtration Rate [facility] ([facility]) sodium level 137 mEq/L 136-145 normal Sodium Level [facility] ([facility]) creatinine for GFR 0.81 mg/dL 0.70-1.30 normal Creatinine for GF R [facility] ([facility]) blood urea nitrogen 13 mg/dL 7-18 normal Blood Urea Nitro gen [facility] ([facility]) potassium serum 4.3 mEq/L 3.5-5.1 normal Potassium Serum [facility] [place] ([facility]) chloride level 103 mEq/L 98-107 normal Chloride Level [place] ([facility]) calcium level 9.3 mg/dL 8.5-10.1 normal Calcium Level [facility] ( [facility]) carbon dioxide level 25 mEq/L 21-32 normal Carbon Dioxide Level [facility] ([facility]) anion gap 9 mEq/L 8-16 normal Anion Gap [facility] ([facility]) ALT/SGPT 122 U/L 12-78 Above high normal ALT/SGPT [facility] ([facility]) alkaline phosphatase 96 U/L 45-117 normal Alkaline Phosph atase [facility] ([facility]) bilirubin,total 0.4 mg/dL 0.2-1.0 normal Bilirubin,total [facility] ([facility]) AST/SGOT 47 U/L 7-37 Above high normal AST/SGOT [facility] ([facility]) albumin 3.7 gm/dL 3.2-5.2 normal Albumin [facility] ([facility]) total protein 7.0 gm/dL 6.4-8.2 normal Total Protein [facility] ( [facility]) albumin/globulin ratio normal Albumin/globu juan a Ratio [facility] ([facility]) ID Date Data Source [id number] 04/27/2020 08:44:00 AM EST [facility] ([facility]) Name Value Range Interpretation Code Description Data So rce(s) Supporting Document(s) red blood count 5.35 10 4.30-6.10 normal Red Blood Count [facility] ([facility]) white blood count 9.8 10 4.0-10.0 normal White Blood Count [facility] ([facility]) hemoglobin 15.5 g/dL 13.5-17.5 normal Hemoglobin [facility] ([facility]) mean corpuscular volume 88.0 fL 80.0-96.0 normal Mean Corpusc ular Volume [facility] ([facility]) mean corpuscular hemoglobin 29.0 pg 27.0-33.0 normal Mean Corpuscular Hemoglobin [facility] ([facility]) hematocrit 47.1 % 42.0-52.0 normal Hematocrit [facility] ([facility]) mean corpuscular HGB conc 32.9 g/dL 32.0-36.5 normal Mean Corpu scular HGB Conc [place] ([facility]) platelet count, automated 259 10 150-450 normal Platelet C ount, Automated [place] ([facility]) red cell distribution width 13.6 % 11.5-14.5 normal Red Cell Distribution Width [place] ([facility]) nucleated red blood cell % 0.0 % 0-0 normal Nucleated Red Blood Cell % [place] ([facility]) ID Date Data Source [id number] 01/20/2020 01:44:09 PM EDT [facility] Measurements & CalculationsHeight: 72 inches (6 ft. 0 in.) 182.88 cm Weight: 392 pounds 178.18 kg Body Mass Index (BMI): 53.36BMI Interpretation: Morbidly ObeseBody Surface Area (BSA): 2.84Weight Management Education Done (Nutrition/Physical Activity)Vital SignsTemperature: 98.0F 36.67C tympanic Pulse Rate: 96 beats/minuteRespiratory Rate: 18 respirations/minuteBlood Pressure: 152/89 right arm sitting automaticO2 Saturation: 95% Vital Signs performed by: Gail Weeks LPN, January 20, 2020 1:44 PMMultiple Vital SignsVitals #2BP: 169/97 Performed by: Gail Weeks LPN, January 20, 2020 2:52 PMInitial Intake Information From: patientRoom #: 2Infectious Disease / Travel ScreeningRecent travel for you or any close contacts? NoHave you had any close contact with anyone diagnosed with or under investigation for COVID-19 (coronavirus)? NoFever? NoRespiratory symptoms: cough, cold, congestion, shortness of breath, difficulty breathing? NoLoss of smell? NoLoss of taste? NoSmoking, Tobacco, Vaping or Smoke Exposure StatusSmoke Status: current every day smokerTobacco Use: YesAdv to Quit: YesDo you vape? NoPassive Smoke Exposure: NoHealthcare HistorySince your last office visit...Have you been admitted to the hospital? NoHave you been to an emergency room (ER) or urgent care clinic? NoHave you seen another healthcare provider? YesHave you seen a dentist? NoIntake performed by: Gail Weeks LPN, January 20, 2020 1:45 PMRate Your HealthIn general, would you say your health is? Very GoodPain AssessmentAre you currently having any pain which... You would like your provider to address? No Affects your activity level? NoDepression Screening - PHQ-2Over the last two weeks, have you... Had little interest or pleasure in doing things? Not at all Been feeling down, depressed, or hopeless? Not at all PHQ-2 Score: 0Anxiety Screening - YOLI-2Over the last two weeks, have you been... Feeling nervous, anxious, or on edge? Not at all Unable to stop or control worrying? Not at all YOLI-2 Score: 0Food InsecurityWithin the past year...Did you worry whether your food would run out before you got money to buy more? Never trueWas there a time when the food you bought didn't last and you didn't have money to get more? Never truePRAPARE Sociodemographic Characteristics Race: White Ethnicity: Not or Preferred Language: EnglishFamily and Home Address: [address] [place] [address] What is your housing situation today? I have housing Are you worried about losing your housing? NoMoney and Resources What is the highest level of school that you have finished? some college Employed? No Are you seeking work? Yes Insurance: [employer] Secure HorizonsIn the past year, have you or any family members you live with been unable to get any of the following when it was really needed? Denies Insecurity: food, utilities, clothing, child daycare worker, phone, legal services, otherWithin the past year did you worry whether your food would run out before you got money to buy more? Never trueWithin the past year was there a time when the food you bought didn't last and you didn't have money to get more? Never trueIn the past year, have you had trouble affording costs associated with health insurance (such as deductibles, co-payments, etc.)? NoScreening, Brief Intervention, & Referral to Treatment (SBIRT)Pre-Screening Questions How many times have you have 5 or more drinks in a day? 0How many times have you used an illegal drug or used a prescription medication for a non-medical reason? 0Performed by: Gail Weeks LPN, January 20, 2020 1:46 PMPatient History Medical History:HypertensionBelow knee amputationCADSchizophreniaFournier's Gangrene (scrotal & perineal) 2019PrediabeticSurgical History:BKA 06/29/10Scrotal Exploration and debridement of Herb's gangrene 11/26/2019 with wound closure 12/01/2019Family History:Family History UnknownFH HypertensionFH High CholesterolSocial/Personal History: Advised to Quit/Tobacco Education: YesAlcohol Use: CurrentlyFrequency: dailyAmount: 4 beers dailyAlcohol Education: givenDrug Use: CurrentlyType of Drug(s): marijuanaFrequency: few times per weekDrug Education: givenChief Complaintannual examHistory of Present Illness (HPI)Pt is a 39 y/o male, presents for annual PE today. No concerns.Pt follows with [facility] for counseling and prescriber, both monthly. They are aware this office manages his Ambien. Pt feels moods are stable and insomnia is well managed with Ambien. Pt follows with [facility], goes there q 3 months for right below knee amputation in 2009. Had a leg fracture with metal rods, reacted to the metal rods and subsequently had the amputation. Continues to have phantom pain/tingling in the foot that is no longer there. Took his Lisinopril at noon today, normally takes it at 0900. Admits to smoking marijuana every few days. Feels it helps with his moods/anxiety/depression, keeps him calmer and more focused. Also smokes for pain. HPI performed by: Gala FUNG, January 20, 2020 2:28 PMTransitions of Care InboundProblem ReviewProblem List was reviewed and/or updated during this visit.Medication Reconciliation & ReviewMedication List was reviewed and/or updated during this visit, including review of any ffvq-clh-equmrqh medications, herbal therapies, and/or supplements.Allergy ReviewAllergy List was reviewed and/or updated during this visit.Adult Preventive CareScreening Tobacco Screening: Smoking Status: current every day smoker (01/20/2020) Tobacco Use: Currently (01/20/2020) Advised to Quit: Yes (01/20/2020)Labs/Meds/Other Counseling-Nutrition and Physical Activity:BMI Interpretation: Morbidly Obese (01/20/2020) Counseling: Done (01/20/2020) Physical Activity: Done (01/20/2020)Review of Systems General: Denies see HPI, loss of appetite, chills, dizziness, fatigue, fever, headache, feeling ill, sleep disturbances. Eyes: Denies blurring of vision, double vision. Ears/Nose/Throat: Denies earache, nasal congestion, sore throat, swollen glands. Cardiovascular: Denies chest pain, palpitations, feeling faint. Respiratory: Denies cough, difficulty breathing, shortness of breath, wheezing. Gastrointestinal: Denies nausea, vomiting, diarrhea, pain or discomfort. Genitourinary: Denies pain with urination, burning with urination, blood in urine, genital foul odor, genital sores. Musculoskeletal: Complains of see HPI. Denies recent injury. Skin: Denies rash, suspicious lesions. Neurologic: Denies weakness, feeling faint. Psychiatric: Denies see HPI, depression, anxiety. Physical ExamGeneral Appearance: well nourished, well hydrated, no acute distress, obese male, somewhat unkeptEyes, External: conjunctivae and lids normal, EOMIExternal Ears: normal, no lesions or deformitiesHearing: grossly intactOtoscopy: canals clear, tympanic membranes intact, no fluid, light reflex intact bilaterallyExternal Nose: normal, no lesions or deformitiesNasal: mucosa, septum, and turbinates normal, nares patentLips/Teeth/Gums: no gingival inflammation, no labial lesionsPharynx: tongue normal, posterior pharynx without erythema or exudate, no thrush/aphthous ulcerNeck: supple, no masses, trachea midline, full range of motion of neckThyroid: no nodules, masses, tenderness, or enlargementRespiratory, Ausculta tion: clear to auscultation bilaterally; no rales, rhonchi, or wheezesCardiovascular, Auscultation: S1, S2 audible; no murmur, rub, or gallop; RRRPeripheral Circulation: no clubbing, cyanosis, edema, or varicosities; right below the knee amputationAbdomen: soft, non-tender, no masses, bowel sounds normalGait & Station: normalSkin, Inspection: no rashes, lesions, or ulcerationsOrientation: oriented to time, place, and personMood & Affect: no depression, anxiety, or agitationJudgment & Insight: intactCare Management Plan Transitions of CareInboundRate Your HealthIn general, would you say your health is? Very GoodAssessment & Plan Problems:Added: Encounter for general adult medical examination without abnormal findings (GMP37-R35.00) Assessment: Instructions: Recommend annual medical appointments. Recommend routine dental and vision care. Recommend influenza vaccines annually and tetanus boosters every 10 years.Tobacco user (ICD-305.1) (BJZ36-U93.200) Assessment: Instru ctions: Smoking cessation counseling was recommended with patient today.Cannabis abuse, uncomplicated (SCV70-X93.10) Assessment: Instructions: Referral to palliative care, this is primarily being utilized for moods/pain.Phantom limb syndrome with pain (ICD-353.6) (ZSU63-N16.6): right leg Assessment: Instructions: Continue with prosthetic office in [place].Changed:From: Dx of OTHER NONSPECIFIC ABNORMAL SERUM ENZYME LEVELS (ICD-790.5) (QYZ46-P56.8) To: Elevated liver enzymes level (UMR94-A38.8)From: Dx of OBESITY (ICD-278.00) (ZCU79-R72.9) To: Morbid obesity (ICD-278.01) (OJF25-U54.01)Assessed:Chronic insomnia (WMB01-I46.04) Assessment: Instructions: Stable with Ambien.BMI 50.0-59.9 (ICD-V85.43) (IEH56-F83.43) Assessment: Instructions: Recommend healthy lifestyle modification. Encourage portion control, healthy food choices, and increasing routine physical activity. Recommendation is for 150 minutes throughout the week of cardiovascular exercise.Morbid obesity (ICD- 278.01) (IPE34-Q55.01) Assessment: Instructions: As above.HYPERTENSION (ICD-401.9) (JGT45-M80) Assessment: Instructions: Elevated today, previously controlled. Continiue current medications. Recommend reduced salt intake, cut back on caffeine and alcohol, increase physical activity. We reviewed the shelter risks associated with uncontrolled high blood pressure, including stroke and heart attack. Goal BP is <140/90, please call the office if your blood pressures are consistently running higher than that cutoff. Call 911 or report to the closest ER for chest pain, shortness of breath, dizziness, or passing out.Vitamin D deficiency, unspecified (QVX30-M52.9) Assessment: Instructions: Stable.Prediabetes (HTB82-J07.03) Assessment: Instructions: Stable with A1c 5.7. Recommend low carbohydrate diet: reduce pasta, bread, potatoes, rice. If you do eat carbohydrates, better choices are whole wheat and brown rice products. Recommend portion control and avoidance of soda and sugary foods. Increase physical activity and monitor weight.Acquired absence of right leg below knee (ICD-V49.75) (GVT58-P46.511) Assessment: Instructions: As above.Hyperlipidemia, unspecified (JBD96-I34.5) Assessment: Instructions: Increase Atorvastatin to 20mg daily. Recheck in 3 months.Elevated liver enzymes level (JLN78-N60.8) Assessment: Instructions: Cut back on alcohol intake, this is likely cause of elevated liver enzymes. 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 Recommend routine dental and vision care. Recommend influenza vaccines annually and tetanus boosters every 10 years.Tobacco user: Smoking cessation counseling was recommended with patient today.Cannabis abuse- uncomplicated: Referral to palliative care, this is primarily being utilized for moods/pain.Phantom limb syndrome with pain: Continue with prosthetic office in [place].Chronic insomnia: Stable with Ambien.BMI 50.0-59.9: Recommend healthy lifestyle modification. Encourage portion control, healthy food choices, and increasing routine physical activity. Recommendation is for 150 minutes throughout the week of cardiovascular exercise.Morbid obesity: As above.HYPERTENSION: Elevated today, previously controlled. Continiue current medications. Recommend reduced salt intake, cut back on caffeine and alcohol, increase physical activity. We reviewed the shelter risks associated with uncontrolled high blood pressure, including stroke and heart attack. Goal BP is <140/90, please call the office if your blood pressures are consistently running higher than that cutoff. Call 911 or report to the closest ER for chest pain, shortness of breath, dizziness, or passing out.Vitamin D deficiency- unspecified: Stable.Prediabetes: Stable with A1c 5.7. Recommend low carbohydrate diet: reduce pasta, bread, potatoes, rice. If you do eat carbohydrates, better choices are whole wheat and brown rice products. Recommend portion control and avoidance of soda and sugary foods. Increase physical activity and monitor weight.Acquired absence of right leg below knee: As above.Hyperlipidemia- unspecified: Increase Atorvastatin to 20mg daily. Recheck in 3 months.Elevated liver enzymes level: Cut back on alcohol intake, this is likely cause of elevated liver enzymes. Recheck again in 3 months. Plan developed in collaboration with patient and/or familyMedications:AMBIEN 5 MG ORAL TABLETMULTIVITAMIN ADULT ORAL TABLETACETAMINOPHEN 325 MG ORAL TABLETREMERON 15 MG ORAL TABLETABILIFY 15 MG ORAL TABLETLAMICTAL 150 MG ORAL TABLETRIGHT TRANSTIBIAL PROSTHESIS AND SUPPLIESATORVASTATIN CALCIUM 20 MG ORAL TABLETLISINOPRIL 40 MG ORAL TABLETMedication Changes:Refilled:ATORVASTATIN CALCIUM 20 MG ORAL TABLET-1 po qhs Qty: 30[Tablet] Refills: 2 Method: ElectronicRemoved:THIAMINE HCL 100 MG ORAL TABLET-Take one tablet daily, NYSTATIN 574590 UNIT/GM EXTERNAL POWDER- Apply to axilla BID for rash, FOLIC ACID 1 MG ORAL TABLET-Take one tablet by mouth daily, TRAZODONE HCL 150 MG ORAL TABLET-one tab at bedtimeChanged:From: ORAL ATORVASTATIN CALCIUM 10 MG ORAL TABLET Qty: [id number] Refills: 30[Tablet] To: ATORVASTATIN CALCIUM 20 MG ORAL TABLET-1 po qhs Qty: 30[Tablet] Refills: 2Allergies:* PICC LINE ADHESIVE DRESSING (Severe)Orders:SNOMED-CT [id number] : Palliative Care Service [SCT-[id number]] Preventive, Est, (18-39) [CPT-73353] Follow-Up Return to clinic: in 90 days for follow upAdditional Follow-Up: preDM/HLDClinical Visit Summary Completed Name Value Range Interpretation Code Description Data Os rce(s) Supporting Document(s) ID Date Data Source [id number] 01/07/2020 09:06:42 AM EDT [facility] Labs In-House Blood TestsDate/Time Colle cted: January 07, 2020 9:07 AMTest Result Reference Range Normal ValueComments: blood drawn from left hand PT tolerated well Amanuel Rubio CLIENT EXECUTIVE, January 07, 2020 9:08 AMAssessment & Plan Orders:27392-Ogh Vst-Est Level I [CPT-46597] 12186 - Venipuncture [CPT- 96105] Name Value Range Interpretation Code Description Data So rce(s) Supporting Document(s) ID Date Data Source [id number] 01/07/2020 09:03:00 AM EDT [facility] 5.7 5.7 Name Value Range Interpretation Code Description Data So rce(s) Supporting Document(s) ID Date Data Source [id number] 01/07/2020 09:03:00 AM EDT [facility] 5.7 5.7 Name Value Range Interpretation Code Description Data So rce(s) Supporting Document(s) BG FASTING 124 mg/dL 70-[address] [facility] T4, FREE 1.12 ng/dL 0.76-1.46 N [facility] TSH 3.420 microintl units/mL 0.358-3.740 N [facility] VIT D25 TOT 24.7 ng/mL 30.0-100.[address] [facility] ID Date Data Source [id number] 01/07/2020 12:00:00 AM EDT [facility] 5.7 5.7 Name Value Range Interpretation Code Description Data So rce(s) Supporting Document(s) ID Date Data Source [id number] 12/13/2019 02:51:20 PM EDT [facility] Measurements & CalculationsHeight: 72 inches (6 ft. 0 in.) 182.88 cm Weight: 390 pounds 6 oz. 177.45 kg Body Mass Index (BMI): 53.14BMI Interpretation: Morbidly ObeseBody Surface Area (BSA): 2.83Weight Management Education Done (Nutrition/Physical Activity)Vital SignsTemperature: 97.5F 36.39C tympanic Pulse Rate: 81 beats/minuteRespiratory Rate: 18 respirations/minuteBlood Pressure: 136/84 right arm sitting automaticO2 Saturation: 95% Initial Intake Information From: patientRoom #: 2Infectious Disease / Travel ScreeningRecent travel for you or any close contacts? NoHave you had any close contact with anyone diagnosed with or under investigation for COVID-19 (coronavirus)? NoFever? NoRespiratory symptoms: cough, cold, congestion, shortness of breath, difficulty breathing? NoLoss of smell? NoLoss of taste? NoSmoking, Tobacco, Vaping or Smoke Exposure StatusSmoke Status: current every day smokerTobacco Use: YesAdv to Quit: YesDo you vape? NoPassive Smoke Exposure: NoHealthcare HistorySince your last office visit...Have you been admitted to the hospital? NoHave you been to an emergency room (ER) or urgent care clinic? Yes - absessHave you seen another healthcare provider? Yes - urologyHave you seen a dentist? NoIntake performed by: Gail Weeks LPN, December 13, 2019 2:54 PMRate Your HealthIn general, would you say your health is? GoodPain AssessmentAre you currently having any pain which... You would like your provider to address? No Affects your activity level? NoDepression Screening - PHQ-2Over the last two weeks, have you... Had little interest or pleasure in doing things? Not at all Been feeling down, depressed, or hopeless? Not at all PHQ-2 Score: 0Food InsecurityWithin the past year...Did you worry whether your food would run out before you got money to buy more? NoWas there a time when the food you bought didn't last and you didn't have money to get more? NoScreening, Brief Intervention, & Referral to Treatment (SBIRT)Pre-Screening Questions How many times have you have 5 or more drinks in a day? 0How many times have you used an illegal drug or used a prescription medication for a non- medical reason? 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 Pt states it started 3 days ago, no pain, no itching. Has since removed the occlusive PICC line dressing and is now using dry gauze wrap with resolution of the rash. Pt states he is still seeing urology, has gotten his drain out and follows up with them again 12/20/19. Pt wondering if we can take PICC line out in office instead of a nurse going to his home, scheduled to have public health nurse remove the PICC later today.Reports frustration with [facility] prescriber. States he had one provider (Delmer Jamil) for a while, but he is no longer there and now has a new provider (Mary Resendiz) who has changed his sleeping medications. Pt was on Ambien, but now is on Trazodone and Remeron, feels they are completely ineffective. States he was doing well, but Mary was concerned that it was a controlled substance and habit forming. States he has lack of sleep, lack of energy, lack on interest in completing his daily tasks. Has a case investigator from [facility] who does pi ll counts monthly for him, denies any compliance issues. Pending pulmonary re- evalaluation of his BEAU, currently without CPAP for the last 3 years. Transitions of Care InboundProblem ReviewProblem List was reviewed and/or updated during this visit.Medication Reconciliation & ReviewMedication List was reviewed and/or updated during this visit, including review of any utdo-poa-paenygj medications, herbal therapies, and/or supplements.Allergy ReviewAllergy List was reviewed and/or updated during this visit.Adult Preventive CareScreening Tobacco Screening: Smoking Status: current every day smoker (12/13/2019) Tobacco Use: Currently (12/13/2019) Advised to Quit: Yes (12/13/2019)Labs/Meds/Other Counseling-Nutrition and Physical Activity:BMI Interpretation: Morbidly Obese (12/13/2019) Counseling: Done (12/13/2019) Physical Activity: Done (12/13/2019)Review of Systems General: Complains of see HPI, fatigue, sleep disturbances. Denies chills, fever, feeling ill. Cardiovascular: Denies chest pain, palpitations, feeling faint. Respiratory: Denies cough, difficulty breathing, shortness of breath. Gastrointestinal: Denies nausea, vomiting, diarrhea, pain or discomfort. Skin: Complains of see HPI. Physical ExamGeneral Appearance: well nourished, well hydrated, no acute distress, obese maleEyes, External: conjunctivae and lids normal, EOMICardiovascular, Auscultation: S1, S2 audible; no murmur, rub, or gallop; RRRAbdomen: soft, non-tender, no masses, bowel sounds normalGait & Station: normalSkin, Inspection: slight pale erythema surrounding PICC line in left arm, dry skin surrounding, no vesicles, no excessive warmth, no tenderness, no vesiclesOrientation: oriented to time, place, and personJudgment & Insight: intactCare Management Plan Transitions of CareInboundRate Your HealthIn general, would you say your health is? 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 Possible developing adhesive allergy versus only related to length of time for PICC dressing.Assessed:Obstructive sleep apnea of adult (ICD-327.23) (YFI85-D62.33) Assessment: Instructions: Continue per pulmonology.Prediabetes (KXW86-H29.03) Assessment: Instructions: Recommend low carbohydrate diet: reduce pasta, bread, potatoes, rice. If you do eat carbohydrates, better choices are whole wheat and brown rice products. Recommend portion control and avoidance of soda and sugary foods. Increase physical activity and monitor weight. Fasting labs have been ordered for you today. When labs are drawn, please ensure that you have had nothing to eat or drink for 8-10 hours prior to the blood drawn. Water or black coffee is OK to have before the blood draw.Vitamin D deficiency, unspecified (LCD23-H84.9) Assessment: Instructions: Update prior to next appointment.Removed:Acute anal fissure (ICD-565.1) (UFR73-U66.0), Abscess of left axilla (MAN15-H73.412), Noninfective gastroenteritis and colitis, unspecified (IUC36-W17.9), Cellulitis, unspecified (URR58-I89.90), IMPAIRED FASTING GLUCOSE (ICD-790.21) (ICD10- R73.01), LEG PAIN, RIGHT (ICD-729.5) (TQO87-C89.604)Patient Instructions/Care Plan: Herb gangrene: Continue per urology, scheduled next 12/20/2019. Call them with any concerns.Allergic contact dermatitis due to adhesives: Improving with removal of adhesive dressing. Possible developing adhesive allergy versus only related to length of time for PICC dressing.Obstructive sleep apnea of adult: Continue per pulmonology.Prediabetes: Recommend low carbohydrate diet: reduce pasta, bread, potatoes, rice. If you do eat carbohydrates, better choices are whole wheat and brown rice products. Recommend portion control and avoidance of soda and sugary foods. Increase physical activity and monitor weight. Fasting labs have been ordered for you today. When labs are drawn, please ensure that you have had nothing to eat or drink for 8-10 hours prior to the blood drawn. Water or black coffee is OK to have before the blood draw.Vitamin D deficiency- unspecified: Update prior to next appointment. Plan developed in collaboration with patient and/or familyMedications:THIAMINE HCL 100 MG ORAL TABLETNYSTATIN [id number] UNIT/GM EXTERNAL POWDERMULTIVITAMIN ADULT ORAL TABLETFOLIC ACID 1 MG ORAL TABLETACETAMINOPHEN 325 MG ORAL TABLETREMERON 15 MG ORAL TABLETABILIFY 15 MG O RAL TABLETLAMICTAL 150 MG ORAL TABLETTRAZODONE HCL 150 MG ORAL TABLETRIGHT TRANSTIBIAL PROSTHESIS AND SUPPLIESATORVASTATIN CALCIUM 10 MG ORAL TABLETLISINOPRIL 40 MG ORAL TABLETAllergies:* PICC LINE ADHESIVE DRESSING (Severe)Orders:COMP METABOLIC PANEL [CPT-84149] CBC W/DIFF [CPT-29960] HgBA1c [CPT-32290] LIPID PANEL [CPT-31775] TSH [CPT-85825] T-4 free [CPT-10737] Vitamin D 250H Unspecified [CPT-88026] Adult - Ofc Vst, EST, Level III [CPT-84570] Follow-Up Return to clinic: in 30 days for follow upAdditional Follow-Up: lab reviewClinical Visit Summary Completed Name Value Range Interpretation Code Description Data So rce(s) Supporting Document(s) ID Date Data Source [id number] 12/13/2019 10:56:39 AM [facility] Name Value Range Interpretation Code Description Data So rce(s) Supporting Document(s) Progress Note [facility] AHOWIo7bBdPZSoKj29/UZKnjMHGwo6PwTCpyWKx3SUhaORBiK0JwDFM4mW3cRMZ3YKrCLlKaOgCrSlK7 lbm [file] AgICAgICAgICAgICAgICAgICAgICAgICAgICAgICAgICAgICAgICAgICAgICANCiAgICAgICAgICAgIC AgICAgICAgICAgICAgICAgICAgICAgICAgICAgICAg ICAgICAgICAgICAgICAgICAgICAgICAgICAgICAgICAgICAgICAgICAgICAgICAgICAgICAgICANCiAg ICAgICAgICAgICAgICAgICAgICAgICAgICAgICAgICAgICAgICAgICAgICAgICAgICAgICAgICAgICAg ICAgICAgICAgICAgICAgICAgICAgICAgICAgICAgIC AgICAgICANCiAgICAgICAgICAgICAgICAgICAgICAgICAgICAgICAgICAgICAgICAgICAgICAgICAgIC AgICAgICAgICAgICAgICAgICAgICAgICAgICAgICAgICAgICAgICAgICAgICAgICANCiAgICAgICAgIC AgICAgICAgICAgICAgICAgICAgICAgICAgICAgICAg ICAgICAgICAgICAgICAgICAgICAgICAgICAgICAgICAgICAgICAgICAgICAgICAgICAgICAgICAgICAN CiAgICAgICAgICAgICAgICAgICAgICAgICAgICAgICAgICAgICAgICAgICAgICAgICAgICAgICAgICAg ICAgICAgICAgICAgICAgICAgICAgICAgICAgICAgIC AgICAgICAgICANCiAgICAgICAgICAgICAgICAgICAgICAgICAgICAgICAgICAgICAgICAgICAgICAgIC AgICAgICAgICAgICAgICAgICAgICAgICAgICAgICAgICAgICAgICAgICAgICAgICAgICANCiAgICAgIC AgICAgICAgICAgICAgICAgICAgICAgICAgICAgICAg ICAgICAgICAgICAgICAgICAgICAgICAgICAgICAgICAgICAgICAgICAgICAgICAgICAgICAgICAgICAg ICANCiAgICAgICAgICAgICAgICAgICAgICAgICAgICAgICAgICAgICAgICAgICAgICAgICAgICAgICAg ICAgICAgICAgICAgICAgICAgICAgICAgICAgICAgIC AgICAgICAgICAgICANCiAgICAgICAgICAgICAgICAgICAgICAgICAgICAgICAgICAgICAgICAgICAgIC AgICAgICAgICAgICAgICAgICAgICAgICAgICAgICAgICAgICAgICAgICAgICAgICAgICAgICANCjw/eH GiE8rkmFLxrhB2N5caHr2VWk3CQI1bh0YmETLyGEnu oeBpFwoNRqZfKYFuDpbIFcn3UBtnCP3KkXInG5FrM7YbLXyhXR4WYHYgARCtmLTnEIRsRQXlCeP9LMHk GSlwAS6OdLDkHDhqGXIwPBWhIjXdNOIyJXVcCFQtHADoEZFBQC8IReIfI3VvmK42JGXOGu3+DQplbmRv UblPBkD6RPWth2WvAAj0YA9FKBOwQsrxj1BmKthzHN YDETdlTM8SAXJ6LPO7LGEtWv6PARBuX336peMfDN7TBu8XZaRpXL9lmz5NUnybHODeOmeVAww8STqrKE 3NgUWjPHhCoy7mduEdpkWHq2WnwsCgbCXEw97xhPlowyGLHEHrskuwmeugGIRzLTUeMn2aZc9bAOTjRY FaWfPqGVVNRC2SDMPbVUEntZIqPFFxMBHQZG0GNKzd EUS0WJDzmmTodUXnYVoqNM4BGDFaenPjEvlzAVLXDQi+Yv2RPS2an2YiIOjfJQEqMA2fnj3YEBkNUsHh K2T4wGUjQ0G9GXmpSo5WIIJsPNZeHfTiPXYNGMvdUC9JPY8tmfO4VW8VuXSrWQLcYVVlkUYaKPf1C30l rWEmLJxzMS6ESQG+Viji+Iq3PUZXpSNJlHQTvLaPbGD FYWfMvT2EdC2RQm8BhQ1XtFC85zZfkmdFqHLcnDE4BNC7zXDXpQIGZGD5IxUMpnG2yatFiQnJbGEKCNz IyA67spGOhYUSdRJV3ABJkPv5XAYVrE9DftjGyoLemffHtCUTuRVEZND5MHSksbtPwxWEodTudBP07yK joFS6FWj2FCgJeFL3yxg3QrSMpGz1QQQQjMQ9RIKJw EVVjZTGxCZV9OWXmZtNyXOngTFKvULCsLVS2PJMvHLTpAA1UGpSsNLGbXkFqCoCjIZSmNXCaei2FFSBa ZYLcPjZbRUEgBSSrPDUhLZigPNVsMWPbZQT9VZCcGUBmJX6QPcGtQTGxXGZ0WVutMNOrNFRgrq8PCLWl SRAwUSPlPsKmUWFaUPPkRQjuIYGeDKH4AmxrETFcOM BgQQ3JYkNfKWWlYHP1IRyjVNCxDDLnpo5JBWLrXGSjUPQ2DpLyITJlXKEgAObiMJLjGUF3MfXaYYUkEH SbSI7XHyYmQJUyUDF2PCZtVVIwEJGhti2OWHAaHQNwLRV3TQOaPMWfJSGmUIefLLXcNBTvAXL2XBCmWU QlWF9KTrYkIGBjHKYfQWXiBNWlRQQyfw7QEWDdZQXn JiB6ZOLaDGVwISUhLPnjHRJvYPSnMoC9HRBmKVAeJY1BLrMmABSnUYH7SOooVSMeWSWjtx9CPCRxYRSv Zip4WfSuNDWvNNUgUEztXZFtXRR9PTr4DZKpUBClXE8VFfJlUENhYgE8XPSsLBErMXXuoc7HHVBvEZPq ELbcNUAuKYFqLQZtIYacYCXnZEJ0FDZxTOOpOEWwCT 8FWuRrRQStIgOqBTmeZGBmMLRqyj1RYOWiQUAvZrYtBxKxOZIlHIKdXGijXFWcGSHvRuY4LOFsWDAkBP 2TKyOzWGVrFiP8QZByWPWoDRYeqx7YWPNsEGNnPjX1EnGmCLOzJZGeBSklGDQyMPBcEcRkLIBaSKDcES 9MFvGmGCPaMeP4JlTsYVFuPRRdma6PdDRkoVbrmo1Q ALlWFv9GoXsmAZRkWCvsSo3gtFNmJHKqBMQRLy0KkpBaTQZrZAGVQMsvPGXgJWnzAJPqIkLdVbN5VrWm XAVxRuE8DFXtGKD2O0UdRTC0MqC9IRR1WeB2V7R3INonSYR2DLTwIRalGsWtGnK2ZQMhToE+WW7rWUw+ Nw2Wb5SbefP1tnNtNAxuIhvmFY6OWXUER5RBYb== ID Date Data Source [id number] 12/13/2019 08:00:00 AM EDT [facility] Name Value Range Interpretation Code Description Data So rce(s) Supporting Document(s) C reactive protein [Mass/volume] in Serum or Plasma 7.9 mg/L 0.0 - 9.0 [facility] Reference range updated to ma nufacturer recommended. Effective 01/14/18. ID Date Data Source [id number] 12/13/2019 08:00:00 AM EDT [facility] Name Value Range Interpretation Code Description Data So rce(s) Supporting Document(s) COMPREHENSIVE CHEM PROFILE [facility] COMPREHENSIVE METABOLIC PANEL Sodium [Moles/volume] in Serum or Plasma 135 mEq/L 136 - 145 Below low normal [facility] Potassium [Moles/volume] in Serum or Plasma 4.1 mEq/L 3.5 - 5.1 [facility] Chloride [Moles/volume] in Serum or Plasma 101 mEq/L 98 - 107 [facility] Carbon dioxide, total [Moles/volume] in Serum or Plasma 25.5 mEq /L 21.0 - 32.0 [facility] Glucose [Mass/volume] in Serum or Plasma 133 mg/dL 70 - 100 Above high normal [facility] Urea nitrogen [Mass/volume] in Serum or Plasma 8 mg/dL 7 - 18 [facility] CREATININE SERUM 0.88 mg/dL 0.70 - 1.30 [facility] 38 [facility] HEIGHT NA [facility] eGFR NON-AFR AMR >60 [facility] eGFR AFR AMR >60 [facility] [place] ital BUN/CREAT 9 6 - 25 [facility] Protein [Mass/volume] in Serum or Plasma 7.3 g/dL 6.0 - 8.3 [facility] Albumin [Mass/volume] in Serum or Plasma 4.1 g/dL 3.8 - 5.4 [facility] GLOBULIN 3.2 g/dL 2.0 - 4.0 [facility] A/G RATIO 1.3 0.8 - 2.0 [facility] Calcium [Mass/volume] in Serum or Plasma 9.4 mg/dL 8.8 - 10.2 [facility] Bilirubin.total [Mass/volume] in Serum or Plasma 0.3 mg/dL 0.2 - 1.0 [facility] Bilirubin.direct [Mass/volume] in Serum or Plasma 0.1 mg/dL 0.0 - 0. 2 [facility] INDIRECT BILI 0.2 mg/dL 0.0 - 1.1 [facility] pital ALK PHOSPHATASE 73 U/L 40 - 129 [facility] ospital Aspartate aminotransferase [Enzymatic ac tivity/volume] in Serum or Plasma by With P-5'-P 59 IU/L 7 - [address] [facility] [place] ital Alanine aminotransferase [Enzymatic acti vity/volume] in Serum or Plasma by With P-5'-P 100 IU/L 12 - [address] [facility] [place] [facility] ANION GAP 9 7 - 15 [facility] Estimated GFR referenc e range: >60ml/min/1.73m >18 years: Calculated using IDMS traceable Study Equation <18 years: Calculated using IDMS tracable Bedside Schartz Equation ID Date Data Source [id number] 12/07/2019 01:14:07 PM EDT [facility] Name Value Range Interpretation Code Description Data So rce(s) Supporting Document(s) Progress Note [facility] RGSNDn1dFvIVCsGs03/UIIomUGPnl6IiHEbmYTw4ETxePAGoR3UsCKX3kF8qPPH9OQgWXfBlNhKdXoIp lbm CuGznXQgRfETFdMkpHKfLeZKjaUoqqzWNqUJ0OhYG3YFLkL98iUOBxHDAeT7NsCVM5DBn+Gl7HYDDbcT DmFI7YCvyN5GzillmXDI7oze/XTVJaJ9tacpljTmRS05a5pm1jgQWX9J8AsbEOEX8Ae/s66AyotVAF+M hahUntURk7Y352q+z5AMj//Ygfa8UoC5H/l48wCGPz gx9/uMzokqjp6PusQR9Ecc78+CB2QLifP3q8iH7GCt7Uctn2sHG+q1DdKIlVEf1emGve03Wl7+fDaA49 dA16mDeJVAlsstX52Xbb/XVypcN8L5mkWWcqOI/2osSYCfiEdd4ePHUi1QxdCGKmBWlHDJN7R7YabQqK QYu4eGSdgW12qZXvWtIjSS/XI4JU2ceesfNVZsMxsT ut7E4hoeBroDhwB4yA2oAOeog7fhqS4PCoPBvGTKmCfOBD9g0KtG69iKAhgHYvRRNt0Ayo5qyrgWRAJH Sqy/oUkwv9kvsBcH75rlzrTruLMiz1kQZW7SOBpy3/IhLah2QwkqDlK0L3tsqYjQaU9hWw1ufnAiZyrl tmB1WhOY8HPutQfgVERK+EywR+Arceo/lrId9wQCepdms [file] NtRXd0OXKqXANyIMOvSXEgUIFnXIr+WD0nDRi+Px8Ed4LgpbJ6fmYuYNvzVGP6JK8JXACDC7RQGb== ID Date Data Source [id number] 12/07/2019 10:03:26 AM EDT [facility] Name Value Range Interpretation Code Description Data So rce(s) Supporting Document(s) Operative Note [facility] GKOEJm6tAkZXNnSl56/XIUsqQCGcb9GgVXiyIEw6CUnqIUIoD3TeIFI7wD2yENI0ECcCZgIjAzWiOfNg lbm [file] UpIQ3FMl6VMkB7ORM0kRPuPy0XRTBiMnPSGdUxCN4JBLp= ID Date Data Source [id number] 12/03/2019 12:21:50 PM EDT [facility] Name Value Range Interpretation Code Description Data So rce(s) Supporting Document(s) Discharge Summary [facility] LLXWPr1jGjVITuCd65/XETjrJCOao0DhTMriWPy3PXwgLACoT8FhUPV9pO9qEWK8MKzTHtMzRrGtFzO0 lbm [file] g4ZAF1HI0QWIIFK7DRVy== ID Date Data Source [id number] 12/02/2019 05:58:31 AM [facility] Name Value Range Interpretation Code Description Data So rce(s) Supporting Document(s) Leukocytes [#/volume] in Blood by Automated count 8.0 10*3/uL 4-10 [facility] Erythrocytes [#/volume] in Blood by Automated count 3.80 10*6/uL 4.6- 6.1 L [facility] Hemoglobin [Mass/volume] in Blood 11.5 g/dL 13.5-18 L [facility] Hematocrit [Volume Fraction] of Blood by Automated count 34.4 % 4 1-53 L [facility] Erythrocyte mean corpuscular volume [Entitic volume] by Auto mated count 90.6 fL 80-96 [facility] Erythrocyte mean corpuscular hemoglobin [Entitic mass] by Automated count 30.4 pg 27-33 [facility] Erythrocyte mean corpuscular hemoglobin concentration [Mass/volume] by Automated count 33.5 g/dL 32.0-[facility]0 [facility] width [Ratio] by Automated count 14.1 % 11.5-14.5 [facility] Platelets [#/volume] in Blood by Automated count 241 10*3/uL 150-400 [facility] ID Date Data Source [id number] 12/02/2019 06:05:20 AM [facility] Name Value Range Interpretation Code Description Data So rce(s) Supporting Document(s) Bicarbonate [Moles/volume] in Serum 25 mmol/L 22-29 [facility] Chloride [Moles/volume] in Serum or Plasma 103 mmol/L 98-107 [facility] Creatinine [Mass/volume] in Serum or Plasma 0.80 mg/dL 0.70-1.20 [facility] Glucose [Mass/volume] in Serum or Plasma 152 mg/dL 70-140 H [facility] Potassium [Moles/volume] in Serum or Plasma 3.7 mmol/L 3.4-5.1 [facility] Sodium [Moles/volume] in Serum or Plasma 139 mmol/L 136-145 [facility] Urea nitrogen [Mass/volume] in Serum or Plasma 4 mg/dL 6-20 L [facility] Anion gap 3 in Serum or Plasma 11 mmol/L 8-15 [facility] Osmolality of Serum or Plasma by calculation 288 mosm/kg 275-300 [facility] Creatinine/Urea nitrogen [Mass Ratio] in Serum or Plasma 5 [facility] Calcium [Mass/volume] in Serum or Plasma 9.0 mg/dL 8.6-10.0 [facility] Glomerular filtration rate/1.73 sq M pre dicted among non-blacks [Volume Rate/Area] in Serum or Plasma by Creatinine-based formula (MDRD) >6 0 [facility] Glomerular filtration rate/1.73 sq M pre dicted among blacks [Volume Rate/Area] in Serum or Plasma by Creatinine-based formula (MDRD) >60 [facility] ID Date Data Source [id number] 12/02/2019 06:05:20 AM [facility] Name Value Range Interpretation Code Description Data So rce(s) Supporting Document(s) Magnesium [Mass/volume] in Serum or Plasma 1.9 mg/dL 1.6-2.6 [facility] ID Date Data Source [id number] 12/02/2019 06:05:20 AM [facility] Name Value Range Interpretation Code Description Data So rce(s) Supporting Document(s) Phosphate [Mass/volume] in Serum or Plasma 3.7 mg/dL 2.5-4.5 [facility] ID Date Data Source [id number] 12/01/2019 12:28:14 PM [facility] Name Value Range Interpretation Code Description Data So rce(s) Supporting Document(s) Bicarbonate [Moles/volume] in Serum 25 mmol/L 22-29 [facility] Chloride [Moles/volume] in Serum or Plasma 101 mmol/L 98-107 [facility] Creatinine [Mass/volume] in Serum or Plasma 0.86 mg/dL 0.70-1.20 [facility] Glucose [Mass/volume] in Serum or Plasma 93 mg/dL 70-140 [facility] Potassium [Moles/volume] in Serum or Plasma 3.5 mmol/L 3.4-5.1 [facility] Sodium [Moles/volume] in Serum or Plasma 137 mmol/L 136-145 [facility] Urea nitrogen [Mass/volume] in Serum or Plasma 4 mg/dL 6-20 L [facility] Anion gap 3 in Serum or Plasma 12 mmol/L 8-15 [facility] Osmolality of Serum or Plasma by calculation 281 mosm/kg 275-300 [facility] Creatinine/Urea nitrogen [Mass Ratio] in Serum or Plasma 5 [facility] Calcium [Mass/volume] in Serum or Plasma 9.7 mg/dL 8.6-10.0 [facility] Glomerular filtration rate/1.73 sq M pre dicted among non-blacks [Volume Rate/Area] in Serum or Plasma by Creatinine-based formula (MDRD) >6 0 [facility] Glomerular filtration rate/1.73 sq M pre dicted among blacks [Volume Rate/Area] in Serum or Plasma by Creatinine-based formula (MDRD) >60 [facility] ID Date Data Source [id number] 11/30/2019 02:06:15 PM EDT [facility] Name Value Range Interpretation Code Description Data So rce(s) Supporting Document(s) Consultation [facility] GMETCg9eYeFYQzHz20/IRHozBRLvv1GkUEnlZRa7CXivPTJdT5GzQFZ0oH6bGHM1QEtLJtSeCsOcBsY3 lbm HnPciGDjOnYIWbHwnCZhXuWSkvCnpwjPNgJP3XhRJ8AOEaK82nHJLlRBMrH7WxPTB5MTq+Wc1OGNPqdV EuIQ0BRbzH3Rgpiok5PS6j3G9yWYDvKwkyUq5+k+6hjczOERdoukfVQ7n9OBYqixaywr+Le8rZjQk65p OALrl1SWnDmnsXyhRJkpGO//3r61WTUGBs/+3XMObk Rola+/IHshgm+Rwp0tdmBRHpPFZxprR+NrD2inlT1cemY9ortzpRWNgTpGHvrFPhtw5CqUCmsg2gVvwVW [file] HBFtJoWsMwPpLMQ6QSphDEX0RGf+LP1lHKv+Aj9Bt4HeunY1dsKdAMx0PQz9UMnfGPRLDe0I ID Date Data Source [id number] 11/29/2019 08:27:52 PM EDT [facility] Name Value Range Interpretation Code Description Data So rce(s) Supporting Document(s) ED Provider Note [facility] SSPVPk5cTkKCWsRp88/IJDonEWRra8FoRNkqPUc8VWucAZFwB1KtABD9uG0cAEX4PGrKLlBfShVhOeDy lbm [file] LWFcBEIqHSWtMDENNVjdPZ6SUG6wlhY6LZ9JuLBbYSGxDXBvkCEwUCu4V61dsTKcZDlyCA1PDPM+Viji+ Lv2NPYIlLGEzEMMgPkQfYLITFdEhL0HoI0HIq1MaV3 RpWP33qCavgfUzRSyiVF2FJI2aPZMkBPFQXD5QuJEomR5rqjK4FkDfXNPWFfEfO08cvWTtDANqMZMaKY QlNx8MMNFcQ2ThqjIibBpumsYsEDVyUVRLEJ8CDJjipkMxwQZmqOzhMG55pGrvDZ1CXj2WNzWwMX7ukp 4MdOPjPa4LHWA9VU7DRGLeDNAcNGJjZBC7ZTNuDxOy CEmzWEEcBUIiXNP5NVCtIDQcLD3UAkLlSLUdSES2DNxbRNXeYEXsev2AYGCzKZU9IiHiJNSgQYTnWXSr HQocCKEdXBHpJUH8OMXsWBLhYY1KFkMmQOZcQJPuDaDfUKDxGUTfbm2FNSDjAJGpCgFcEZVmZGPrVABw TWsyNZVuIOH5DXK2PMKbUYClBU6CHwUqKVKbTXHuHA TbUGQuFEUgyq5JVDLjOMGlOUv1ARFoKCTrOYCbGAlhUFByGVGtXLW1SWTaWSElUR0ILdNqEKIzCEV0SX jyWQCrNWPdpq1DWULwJQGcJnCwMmRaMXBxIONiTQytQNBkOWU3WxAiFYPjTOStTI4SEhCyJWHoUTJ9JQ egYMThSOLtlv1IUGWjOWLnHGNxRRFcJTPkNLMmRBnl FEHvQUO1EyRpEHHdCGNsGU7IBsQpGRHjPiOfMkPvXSAcNYUios2WBWAnICZdTyY1IeLbDMTrIREyPHxp HRXiQCO1JGIuUMOmSMLzAT9YIuLzCGQjJbT1TSmaRHYpFUXouu1EFSVfTHIzIPNhWpChUCNwEMXjFCti QLLcKQL2CIQaYMHtFWAkZG5XDfFxVCTyNdH0XoDzCJ CvSUFxgt2QECRbYNPmYCf4YpDyERLyZMXhKYilECNcQUN2NHG1INMmIUCgTZ7MOsHpKYVeDuCnJEXoLI EhPIKlam9WFWSaINNmVBFgUOKtPWJqDPCfHLmeLEDgWPL5MVT9AIUfKACjWA2XTgKwSUHhRvZ0KGAoMK UeGFXbtz4VMKPyQAGcZsJ2UWRoHMOzRIWeDPfaZTFf HWZ3SZJzWBBvDEYsON4PHlBrAZHxLuyhZRLuVPFcFPUmvp0ZNDHcNOQoANQbNTGoMEAaBIZeAWkiYCRj RHW0INb4OOQkGJUkLV7QNjXsUGRmLmlcPSZwGTGvGAAfvf5ZSWLcKIY9PHs9YCPzHGUkHTHlYGlcUJYs KKSnKReuOTBeXWPeER0DWkIhCRZaJSLlJEGoJOMfWJ Xvsz2OVHTfWAZ4OCRzYXKjDPOdQCOwPUpmGKPvCKMpMey4JBDlNNRcJI6JNhLqYCHsILZuBGAgQQXpXD Qbse5FNTVwKOE7PfFyZHIrCAUpNMQnXCpmCMXzUIGfAdpfICQzKCPnZQ4LFyUiSMTqIJL5ABOeGPZaDB Jypi0INZCoIKB7Syd3GxCuMFIxQFZdUBleESAtHZOs ZQf5FTDbAMSiTB1TSuLdMWZqEAQaQRexVZOlVISxjk2TaFEyjXboov7AUYaAZt9TaRupQQZ7VYkpPe1q tIW2IrCdNAOQQb0LvdNzKXWqFGBAAHseNELkNUDtQEgyZVL8D0CiXWUfJ7N9DJT6PVKbZXt1NqT5ZdDc ZiK3EhTgMOI0QQFuTPVsZMYxHEg7DeK6PfI4RQveId diY2Y+YN2pPDz+Lf2Ph2AcayU4tlMhQCf7WeBvLD2KFBOYK1RBFo== ID Date Data Source [id number] 11/29/2019 06:53:55 PM EDT [facility] Name Value Range Interpretation Code Description Data So rce(s) Supporting Document(s) Consultation [facility] UMFTCp0cEjYPDcJr87/KZSxbASWel9JxLKnaFVy2IXuxTQOvN3RoQZS9dU1xHMQ3ZOaYDaHlJcYuQiIo lbm [file] HvIbzN3gp+cNSsAFn0Im0wWnGp2XjUBjCH+QW6N/Print Manager [file] 2AMCplcH2+PERSONAL FINANCIAL COUNSELOR/7Wcgp8FYUIMlnbfgTbhBKImLCIFy1 [file] ICAgICAgICAgICAgICAgICAgICAgICAgICAgICAgICAgICAgICAgICAgICAgICAgICAgICAgICAgICAg ICAgICAgICAgICAgICAgICAgICAgICAgICAgICAgDQ ogICAgICAgICAgICAgICAgICAgICAgICAgICAgICAgICAgICAgICAgICAgICAgICAgICAgICAgICAgIC AgICAgICAgICAgICAgICAgICAgICAgICAgICAgICAgICAgICAgICAgDQogICAgICAgICAgICAgICAgIC AgICAgICAgICAgICAgICAgICAgICAgICAgICAgICAg ICAgICAgICAgICAgICAgICAgICAgICAgICAgICAgICAgICAgICAgICAgICAgICAgICAgDQogICAgICAg ICAgICAgICAgICAgICAgICAgICAgICAgICAgICAgICAgICAgICAgICAgICAgICAgICAgICAgICAgICAg ICAgICAgICAgICAgICAgICAgICAgICAgICAgICAgIC AgDQogICAgICAgICAgICAgICAgICAgICAgICAgICAgICAgICAgICAgICAgICAgICAgICAgICAgICAgIC AgICAgICAgICAgICAgICAgICAgICAgICAgICAgICAgICAgICAgICAgICAgDQogICAgICAgICAgICAgIC AgICAgICAgICAgICAgICAgICAgICAgICAgICAgICAg ICAgICAgICAgICAgICAgICAgICAgICAgICAgICAgICAgICAgICAgICAgICAgICAgICAgICAgDQogICAg ICAgICAgICAgICAgICAgICAgICAgICAgICAgICAgICAgICAgICAgICAgICAgICAgICAgICAgICAgICAg ICAgICAgICAgICAgICAgICAgICAgICAgICAgICAgIC AgICAgDQogICAgICAgICAgICAgICAgICAgICAgICAgICAgICAgICAgICAgICAgICAgICAgICAgICAgIC AgICAgICAgICAgICAgICAgICAgICAgICAgICAgICAgICAgICAgICAgICAgICAgDQogICAgICAgICAgIC AgICAgICAgICAgICAgICAgICAgICAgICAgICAgICAg ICAgICAgICAgICAgICAgICAgICAgICAgICAgICAgICAgICAgICAgICAgICAgICAgICAgICAgICAgDQog ICAgICAgICAgICAgICAgICAgICAgICAgICAgICAgICAgICAgICAgICAgICAgICAgICAgICAgICAgICAg ICAgICAgICAgICAgICAgICAgICAgICAgICAgICAgIC QpNKTtYROiZYp3R5slKFWrLTYpLJ8zUTc8Kz9+POiZYpMqOWH0bzYebE1IIR2dd8IdMOvfSGNcy6YsFY e4XY7XENTzDAreHB9NZUgnjg5FSAQvDZJehITIs5plHvVtMGD2OZKfFuvqDT5XQBHhM8mrwmFdGBRbVZ BSIDcgMCBSIDkgMCBSIDExIDAgUiAxMyAwIFIgMTUg VTCNXLB0MULyScTkTWEdXCLiHP4STRNgT581ttZhAY0VIm2TYuEjKD9irq4XTFOtMGZtRwzVYhf3DXap NE1PaJAfuJJ5IBZxUJSLFwFbO0nbj2YfENQoBGNZUIsbRY4Ov0JzfRSzKWs+Sl8LLO7ca0KrCZd7RHEp OK7haq2RUPmPIsRjL0IunLrjUIWjphW2mQVnGDN1WH SnzjqbhPGVNVYpp43gSGQMHOCabNW7MbEcZwJzCeRxUZh9MIOeOW0iHDlhCC5SGQR9GLipKGLzLSEcB7 iZTuWlKECeWSWmdUqtTH6XMmTpG7TbrmTktRR4ROYrGPNMBa2+NEswqhSaDxtBMoYbZMCzr7ZgIOk3MJ 1OWCQvWFypLZ5CWAYiyX9qPGmbSQ4GOvH2DQRkOCKQ NlKxD01ikLAePTa0X4ZzZeRhQQBzGonlDRYqIYrmTxDcJJMvKyPwHPwrVW8+ID4+PEgwQX4KRYxcrnMx VPQhRu3MELNkWGRuOJ5fHOLnGBNcY1C0wCguCMNVEdXjN2jwevnnWO0nOPNtF347sTydblOeTKDlRJQp Rs5XGTWbGLR4PVVvpHDiBDofXEABIPudTK3GdHSdHU G9iE2vQEjeHXVvKKDcF9cKWsHwmUieGR25tKnpemTssAQnNWp+Wk2BHD8ff3IoXAk7exSiLIceFZPuEX mhSKYuXEGkXMSjKQH2CNB3TLWDZdObBUFcUKMgQFwqNZNyWJMmdw7OCCLkUDX6Wnq6VdRiLRNyZPFqQF ouHZXcFWO4VrhiJBTeBFSeGZ4HWlNfDTPcLFLoAVhy RACkPRUesv7OXYVwWFGyAHYfINYvOXOdUCHrQBfwLBGyBOH8VcQ8JAMvAZXjYZ7RVfZwYQKfYQn2TKgq QDJyNXXvkc3WKGEqOLIaCTkdZJBnYCOhGRJyKIomCSVvYJPpYdTpUQXnYODyZG4LHvCpRTBdFKG7HRSa NZIeOCZoux7ILEDiBBAtNWYhJmLfKRIoDEHuXOpePB PdKVU8BrDiHJTxKNZmJR4XSaYoCEBfHMkhFzPnCOMnCUXadh2CSDIuPHKpVJYtNQZzZOYgFNXvUFycUV MsBXBpJjJ3TYUpUQChFZ0RVjZiNLLiIuG1JpNgMEOpJVPytu7XGYJwWOIxHdo0UwPwSQBkPHTpLWkaCT IzNKG0UIF2IHMyGFYxKK2RXvLbYUPeOqmzHmOmNMMh JMNtav0RMVJjGFHzLVF2SLQdTQWfPSYsBHtjSISaUDQhMsIuHBHbYVGfHW8QMdClECMfWqQ1JlguPGOy MIFxoy7PNXFpDHUqYEprWAHkFMCoHGCiHAjgYQKwVDWpNlmpDPBlPFPuXQ4XVtMpNLUtYyX1TIEzTZNa DBJpxy3ISJVgYMYmMqQ7FZBkIKOuXVNwJWsnOQNyPN TmXFSfROKzKAJhOM5WWhZgZENfEfPfNepoADBmUMCosq1BOLRiMHHlUtFmLCXwJIKxBTCaMWhfOAGpDJ G8DIB0OSBoYRLaRI6AZyOsZIXpNIR6FbDyMHLcZMPwng7DPPXnGSE3BbU5BJZxCBUqJRSyXMftGOUxMF T5Gkx5ERYyVBUmAB8JClQkYZCjILq9XKVnVRSsTMRc jb0QDKBtHHJ7DqD9YYQtASByBOVlZXcqFMNoSYMdWQU3NNKsBTUcST7IJuVdWGGxZuDvQqDoABZhDRFu xi5MUCFkNUE9GgM3RDKbMAAoCJYuQXfjAWMuREDyLsL4YRVtVKKpMM6GZjBjPNOpHuD9ToGoOTNeALRx ap7CHFEjLVH7OFr1ATSzZJNdNFItFGgfKJIkNVJ3YJ X2CGTeVYJlBG7XMvUyYNAmQiJ9GnRzZMCwFAStza2MOJAjQDC8WqA4DkLoCYNjQEMsCCkgSKElDNF5Yn H1HUSmTLSoAT1BDxCwVLYwNdG5FjTaLOCvWCWxpr2ODVUdZIQ3YqvwVZSpGWUcGJYqBOwbUZJsDGO6WU OoFROnYARvEZ5AYoIvLAGyUtsqHQKbQESrZHSpbv5I NGJbRDZ2KWnmAbGoMTIcGXHfRSvuFHXmXPW7WZk1WVZpSJCbMC7GSoJuMCEjMyjwORJlYCPmCAJxdh7B kNOzwHzmvx5ICSiBQy4MbXklTGRgLFibXz2qpKF3HxEkNODGEk6ChcKaASVlCIYLMQwwJZNsQIA4Qxn1 BJVbKbV2QvCtZIU6LoIhQJr9YNT8XnRhPkm3OpB4Sb ZsRZNvYyD8HZifFWAoYDBlJFBbVrXkYNihLxDeBBj+FQ6kKGu+[id number]== ID Date Data Source [id number] 11/29/2019 03:18:57 PM [facility] Service Cmnt XXX-Imp : NoneMicroorganism XXX Cult : Polymerase chain reaction assay was POSITIVE for methicillin-SUSCEPTIBLE Staphylococcus aureus (MSSA) AND NEGATIVE for methicillin resistant Staphylococcus aureus (MRSA). Name Value Range Interpretation Code Description Data So rce(s) Supporting Document(s) ID Date Data Source [id number] 11/29/2019 05:53:29 AM EDT [facility] Name Value Range Interpretation Code Description Data So rce(s) Supporting Document(s) Leukocytes [#/volume] in Blood by Automated count 7.4 10*3/uL 4-10 [facility] Erythrocytes [#/volume] in Blood by Automated count 3.76 10*6/uL 4.6- 6.1 L [facility] Hemoglobin [Mass/volume] in Blood 11.7 g/dL 13.5-18 L [facility] Hematocrit [Volume Fraction] of Blood by Automated count 34.3 % 4 1-53 L [facility] Erythrocyte mean corpuscular volume [Entitic volume] by Auto mated count 91.1 fL 80-96 [facility] Erythrocyte mean corpuscular hemoglobin [Entitic mass] by Automated count 31.1 pg 27-33 [facility] Erythrocyte mean corpuscular hemoglobin concentration [Mass/volume] by Autom[facility] 34.1 g/dL [facility].0[facility] width [Ratio] by Automated count 13.7 % 11.5-14.5 [facility] Platelets [#/volume] in Blood by Automated count 188 10*3/uL 150-400 [facility] Differential cell count method - Blood [facility] Neutrophils/100 leukocytes in Blood by Automated count 74 % [facility] Lymphocytes/100 leukocytes in Blood by Automated count 20 % [facility] Monocytes/100 leukocytes in Blood by Automated count 5 % [facility] Eosinophils/100 leukocytes in Blood by Automated count 0 % [facility] Basophils/100 leukocytes in Blood by Automated count 1 % [facility] Neutrophils [#/volume] in Blood by Automated count 5.47 10*3/uL 1.8-7 .0 [facility] Lymphocytes [#/volume] in Blood by Automated count 1.51 10*3/uL 1.2-4 .0 [facility] Monocytes [#/volume] in Blood by Automated count 0.39 10*3/uL 0-0.8 [facility] Eosinophils [#/volume] in Blood by Automated count 0.01 10*3/uL 0-0.5 [facility] Basophils [#/volume] in Blood by Automated count 0.04 10*3/uL 0-0.2 [facility] Nucleated erythrocytes/100 leukocytes [Ratio] in Blood by Automated count 0 /100{WBCs} 0-0 [facility] ID Date Data Source [id number] 11/29/2019 06:14:31 AM [facility] Name Value Range Interpretation Code Description Data So rce(s) Supporting Document(s) Bicarbonate [Moles/volume] in Serum 23 mmol/L 22-29 [facility] Chloride [Moles/volume] in Serum or Plasma 99 mmol/L 98-107 [facility] Creatinine [Mass/volume] in Serum or Plasma 0.72 mg/dL 0.70-1.20 [facility] [facility] Glucose [Mass/volume] in Serum or Plasma 127 mg/dL 70-140 [facility] Potassium [Moles/volume] in Serum or Plasma 3.8 mmol/L 3.4-5.1 [facility] Sodium [Moles/volume] in Serum or Plasma 131 mmol/L 136-145 L [facility] Urea nitrogen [Mass/volume] in Serum or Plasma 5 mg/dL 6-20 [facility] Anion gap 3 in Serum or Plasma 9 mmol/L 8-15 [facility] Osmolality of Serum or Plasma by calculation 271 mosm/kg 275-300 L [facility] Creatinine/Urea nitrogen [Mass Ratio] in Serum or Plasma 7 [facility] Calcium [Mass/volume] in Serum or Plasma 8.3 mg/dL 8.6-10.0 L [facility] Glomerular filtration rate/1.73 sq M pre dicted among non-blacks [Volume Rate/Area] in Serum or Plasma by Creatinine-based formula (MDRD) >6 0 [facility] Glomerular filtration rate/1.73 sq M pre dicted among blacks [Volume Rate/Area] in Serum or Plasma by Creatinine-based formula (MDRD) >60 [facility] ID Date Data Source [id number] 11/29/2019 06:14:31 AM [facility] Name Value Range Interpretation Code Description Data So rce(s) Supporting Document(s) Magnesium [Mass/volume] in Serum or Plasma 2.1 mg/dL 1.6-2.6 [facility] ID Date Data Source [id number] 11/29/2019 06:14:31 AM [facility] Name Value Range Interpretation Code Description Data So rce(s) Supporting Document(s) Phosphate [Mass/volume] in Serum or Plasma 3.0 mg/dL 2.5-4.5 [facility] ID Date Data Source [id number] 11/29/2019 06:14:31 AM [facility] Name Value Range Interpretation Code Description Data So rce(s) Supporting Document(s) Vancomycin [Mass/volume] in Serum or Plasma --trough 7.2 ug/mL 10.0- 20.0 [facility] ID Date Data Source [id number] 11/28/2019 04:26:28 AM [facility] Value Range Interpretation Code Description Data So rce(s) Supporting Document(s) Leukocytes [#/volume] in Blood by Automated count 6.7 10*3/uL 4-10 [facility] Erythrocytes [#/volume] in Blood by Automated count 3.80 10*6/uL 4.6- 6.1 [facility] Hemoglobin [Mass/volume] in Blood 11.8 g/dL 13.5-18 [facility] Hematocrit [Volume Fraction] of Blood by Automated count 34.7 % 4 1-53 [facility] Erythrocyte mean corpuscular volume [Entitic volume] by Auto mated count 91.5 fL 80-96 [facility] Erythrocyte mean corpuscular hemoglobin [Entitic mass] by Automated count 31.1 pg 27-33 [facility] Erythrocyte mean corpuscular hemoglobin concentration [Mass/volume] by Automated count 34.0 g/dL 32.0-36.0 [facility] width [Ratio] by Automated count 14.4 % 11.5-14.5 [facility] Platelets [#/volume] in Blood by Automated count 186 10*3/uL 150-400 [facility] ID Date Data Source [id number] 11/28/2019 04:53:51 AM [facility] Value Range Interpretation Code Description Data So rce(s) Supporting Document(s) Magnesium [Mass/volume] in Serum or Plasma 2.2 mg/dL 1.6-2.6 [facility] ID Date Data Source [id number] 11/28/2019 04:53:51 AM [facility] Value Range Interpretation Code Description Data So rce(s) Supporting Document(s) Phosphate [Mass/volume] in Serum or Plasma 2.4 mg/dL 2.5-4.5 [facility] ID Date Data Source [id number] 11/28/2019 04:53:51 AM [facility] Name Value Range Interpretation Code Description Data So rce(s) Supporting Document(s) Bicarbonate [Moles/volume] in Serum 25 mmol/L 22-29 [facility] Chloride [Moles/volume] in Serum or Plasma 100 mmol/L 98-107 [facility] Creatinine [Mass/volume] in Serum or Plasma 0.61 mg/dL 0.70-1.20 [facility] Glucose [Mass/volume] in Serum or Plasma 119 mg/dL 70-140 [facility] Potassium [Moles/volume] in Serum or Plasma 3.6 mmol/L 3.4-5.1 [facility] Sodium [Moles/volume] in Serum or Plasma 136 mmol/L 136-145 [facility] Urea nitrogen [Mass/volume] in Serum or Plasma 7 mg/dL 6-20 [facility] Anion gap 3 in Serum or Plasma 10 mmol/L 8-15 [facility] Osmolality of Serum or Plasma by calculation 281 mosm/kg 275-300 [facility] Creatinine/Urea nitrogen [Mass Ratio] in Serum or Plasma 12 [facility] Calcium [Mass/volume] in Serum or Plasma 8.4 mg/dL 8.6-10.0 [facility] Glomerular filtration rate/1.73 sq M pre dicted among non-blacks [Volume Rate/Area] in Serum or Plasma by Creatinine-based formula (MDRD) >6 0 [facility] Glomerular filtration rate/1.73 sq M pre dicted among blacks [Volume Rate/Area] in Serum or Plasma by Creatinine-based formula (MDRD) >60 [facility] ID Date Data Source [id number] 11/27/2019 06:12:14 PM [facility] Name Value Range Interpretation Code Description Data So rce(s) Supporting Document(s) [facility] IKMOYm2mXgAHUuOi86/KKHwqAEXxa6BeHHjrASx2JLqsJIJkZ6JsJTP2fQ9uPNM0WHgVRgDgBwGuGcQh [facility] [file] ICAgICAgICAgICAgICAgICAgICAgICAgICAgICAgICAgICAgICAgICAgICAgICAgICAgICAgICAgICAN CiAgICAgICAgICAgICAgICAgICAgICAgICAgICAgIC AgICAgICAgICAgICAgICAgICAgICAgICAgICAgICAgICAgICAgICAgICAgICAgICAgICAgICAgICAgIC AgICAgICAgICANCiAgICAgICAgICAgICAgICAgICAgICAgICAgICAgICAgICAgICAgICAgICAgICAgIC AgICAgICAgICAgICAgICAgICAgICAgICAgICAgICAg ICAgICAgICAgICAgICAgICAgICANCiAgICAgICAgICAgICAgICAgICAgICAgICAgICAgICAgICAgICAg ICAgICAgICAgICAgICAgICAgICAgICAgICAgICAgICAgICAgICAgICAgICAgICAgICAgICAgICAgICAg ICANCiAgICAgICAgICAgICAgICAgICAgICAgICAgIC AgICAgICAgICAgICAgICAgICAgICAgICAgICAgICAgICAgICAgICAgICAgICAgICAgICAgICAgICAgIC AgICAgICAgICAgICANCiAgICAgICAgICAgICAgICAgICAgICAgICAgICAgICAgICAgICAgICAgICAgIC AgICAgICAgICAgICAgICAgICAgICAgICAgICAgICAg ICAgICAgICAgICAgICAgICAgICAgICANCiAgICAgICAgICAgICAgICAgICAgICAgICAgICAgICAgICAg ICAgICAgICAgICAgICAgICAgICAgICAgICAgICAgICAgICAgICAgICAgICAgICAgICAgICAgICAgICAg ICAgICANCiAgICAgICAgICAgICAgICAgICAgICAgIC AgICAgICAgICAgICAgICAgICAgICAgICAgICAgICAgICAgICAgICAgICAgICAgICAgICAgICAgICAgIC AgICAgICAgICAgICAgICANCiAgICAgICAgICAgICAgICAgICAgICAgICAgICAgICAgICAgICAgICAgIC AgICAgICAgICAgICAgICAgICAgICAgICAgICAgICAg ICAgICAgICAgICAgICAgICAgICAgICAgICANCiAgICAgICAgICAgICAgICAgICAgICAgICAgICAgICAg ICAgICAgICAgICAgICAgICAgICAgICAgICAgICAgICAgICAgICAgICAgICAgICAgICAgICAgICAgICAg ICAgICAgICANCjw/oJAhY6itzOLgqbO9V0hbTc5TDb 0HFD7et6VpDWGsSUoeubWxElyXQpGjFYVoVntMVul7JPgyNJ0RnNVhW5LvH6HxDZboRO6VWYEiLEMviB SxZFXdTWPrGeW9AFAjNKekCR5KwESaNFauOCKeMYFqGuOsRMNuGEOmKNNxBEXeSZWXJQZwUTAtWmFrLZ QfTDUzLKrcCFATSR5TXyTaG2ZqgI23TCpRYl1+DQpl xdOsRgkFYlMkRCZbh0FyNGc9ZL9FUSYqEfrvs7IiWUBkMKZJGLbcEP2FSSH1XVG5UFXoMo1WPUYmB724 poVgLB0AAb1JApRqOP9xjs5EVLZuBDXtXcsHKwr5YVlwDY6YdDEtCScRj82ghLq5hnReaYYTjxT8bILa VGXEWE1amlHwAA7AUFNhEUQoyWC1XnTuBgJaXsFiGC J9KEKmHK4aHCkgHD4UFKO8TNvzSLZjCLBoY0hAJbIyAWExBXUpdFwgTW7QLpLuV4EpotOvcOR5QaFkNG INCj4+NHjicpFcQbmXBjD7UBNay3UdVQf6VE6NMOXpYWicWC0HOYLteL2jABrbNS9UYmH5PVHaZNOWLn SnX07ybYDtBWn1F9CeLbSsGVPcRjrvMSNyFLqgLwNq ZXMgWyBdDQogID4+ID4+LPkzPA2WMWlvalLfLJYhQy4HNYIhGNWdJJ7rCCMmMSFxA1Z4pAtnTZCTQlRr W7cgxywxGX1uNCUuU722vRzhumCtWSHoNHGoHr5BZPIwMWJ0DEIghPSaRDChKOVUSXmpYA2OwLHlZEJ3 gH1bFOdxDLSyYRJiP6rNAlDeyVnyAI19fRlgblRquD BdDQo+Xh1CGL8rh0MaZPt4mvNhSEzdEVS2MTexQBWfXUBlAJDbUEY2CZX3YMGNQzRbUPObZNZoHHmuCK LnREXkyk4BPHPlUJF5GrJrAyBbIMTlUIKwVDdpZITaDYU0HVGtUVYxBSCdWI2MQhYxTHPvQCExUFkrEU YjWXUpdx7YGUBuNFEyVps0KdMwJJFhZQCdHOmwZJDj RXT8RSTfVWRmMZSgIH8QOoScTGPuBWN4PZTeIYGiCHJiti3FHOCaZPBrUmm1GtEeOUEvKCYmLIoeXVIb DSI0BanqEYDsXVTrQG6EFqXcKSQdMQq6ZjnaEKUnFQTcbe9CASNmWINhPeH6VSGnBSCtHXIrAKvrFFTu VXNmPQivWKNgIHMuXH2KNsVyIEOyOXX9OyMhCIDkWV Ajek7CXSIdJIYbHLh1XCAuAAZyJAVwHVwgWTHrNWZ4DaAhHLGmTAQiHR3IVaCvJCPmDQp0XmOlUQXtNO Dlvr1JJSMuBGEqRjT0JGLyYVPaEEElHOvpSZQqNCGvAol8EAOmOIEmBR4NUnYmHSTtNnIaOAnaLQRnFU Budg2BFUXtFFMqElQ6RXXoDCZhUXSpMPigKRCgOBId EjH4XSVfQITiZZ5KGaSvWNOfGyQ6TLPhLVMnZXKvgc8ZNGHpEXJvPGb4AGXoGIHuQHVaQBkbXVTmXSJ9 QGd9LCIhASWhYJ5CGhRiQHRtRtQ7CKFtOVWsVTWskr3XZJWrDWMqJcW7LyAoNZBkUEMiUMbbTQPgWNE1 OhK5AYQvNGApDQ1KZnLfBAKeVgpuDNFyMVLmGOOqho 6FKSVuYGGoDqU2XKGtUOHgMAKiQDapLIDhQJO6Rtl6UCRtANWcFI0PWhJgQRKmBwpbXpMuUYHiDUHrzt 3WBXJrLEGjAEN6PfUhQWToOORdHVzuRTQfQHB1IFdcOETzKFHmVJ5PYxNwUCXkNwi2KbZiBZJmBNIond 0BCHTaBCEwEQq0CfWpCHEsAEAvFZipLMVzBYZhTTIz DNTjTQOiJT0YYzWhRPJxGVTcFJltFLYzNZCfdu7QLBHdFQH8BSA6MwXhCVQvMXCjCUttFROmCVAmTsN1 KNOvADTyTF0OFxZyCECwPHI8WrOlQFFnLTXbya3CZKVxQLY1FlKmRIGfRDKrKRKbPIpcRMAnENNnSDgp KNUmLYSuXO5QHfUjBPBzCAW5TVhoTYGgJFPvbj1WNC SjSEY6ZPJpPULqLOPaBYNgYJjrZUAeJUC2QkA8IAZsDRIuRR9IObNgXNcwZYWHVgm3IQquA3h7HFT9Iw 8LI0Oba8RrWQMmDWPINWqvJI3bckUmDFCuGa0BI8xHOzs8GYtnK5JnVVV0IlcoTQKkOIutGcCuPMM4LS BhSRDlSX3oPZF5RQVgDbD5KXj7BTV4H5Q8M5DsVdOd Dyb1PJAtZTFtSvQrKZ7KLq6WMgV7SRE3nILaSy4LPLJdLKVIElKkGA3IAHh= ID Date Data Source [id number] 11/27/2019 02:31:24 PM EDT [facility] Name Value Range Interpretation Code Description Data So rce(s) Supporting Document(s) Operative Note [facility] CHAFTp7kAxBRMgNr49/JRKphGMBar4XrJKctXFz4DMbqPWRpQ2UuESA5tP5wBYL2ESvIPgVdGnZpHkUn lbm [file] == ID Date Data Source [id number] 11/27/2019 05:42:01 AM [facility] Name Value Range Interpretation Code Description Data So rce(s) Supporting Document(s) Leukocytes [#/volume] in Blood by Automated count 9.2 10*3/uL 4-10 [facility] Erythrocytes [#/volume] in Blood by Automated count 4.27 10*6/uL 4.6- 6.1 L [facility] Hemoglobin [Mass/volume] in Blood 13.2 g/dL 13.5-18 L [facility] Hematocrit [Volume Fraction] of Blood by Automated count 38.6 % 4 1-53 L [facility] Erythrocyte mean corpuscular volume [Entitic volume] by Auto mated count 90.4 fL 80-96 [facility] Erythrocyte mean corpuscular hemoglobin [Entitic mass] by Automated count 30.9 pg 27-33 [facility] Erythrocyte mean corpuscular hemoglobin concentration [Mass/volume] by Automated count 34.2 g/dL 32.0-36.0 [facility] width [Ratio] by Automated count 14.3 % 11.5-14.5 [facility] Platelets [#/volume] in Blood by Automated count 198 10*3/uL 150-400 [facility] ID Date Data Source [id number] 11/27/2019 06:04:50 AM [facility] Name Value Range Interpretation Code Description Data So rce(s) Supporting Document(s) Bicarbonate [Moles/volume] in Serum 27 mmol/L 22-29 [facility] Chloride [Moles/volume] in Serum or Plasma 100 mmol/L 98-107 [facility] Creatinine [Mass/volume] in Serum or Plasma 0.72 mg/dL 0.70-1.20 [facility] Glucose [Mass/volume] in Serum or Plasma 117 mg/dL 70-140 [facility] Potassium [Moles/volume] in Serum or Plasma 4.3 mmol/L 3.4-5.1 [facility] Hemolyzed Sodium [Moles/volume] in Serum or Plasma 137 mmol/L 136-145 [facility] Urea nitrogen [Mass/volume] in Serum or Plasma 6 mg/dL 6-20 [facility] Anion gap 3 in Serum or Plasma 10 mmol/L 8-15 [facility] Osmolality of Serum or Plasma by calculation 283 mosm/kg 275-300 [facility] Creatinine/Urea nitrogen [Mass Ratio] in Serum or Plasma 8 [facility] Calcium [Mass/volume] in Serum or Plasma 8.4 mg/dL 8.6-10.0 L [facility] Glomerular filtration rate/1.73 sq M pre dicted among non-blacks [Volume Rate/Area] in Serum or Plasma by Creatinine-based formula (MDRD) >6 0 [facility] Glomerular filtration rate/1.73 sq M pre dicted among blacks [Volume Rate/Area] in Serum or Plasma by Creatinine-based formula (MDRD) >60 [facility] ID Date Data Source [id number] 11/27/2019 06:04:50 AM [facility] Name Value Range Interpretation Code Description Data So rce(s) Supporting Document(s) Phosphate [Mass/volume] in Serum or Plasma 4.3 mg/dL 2.5-4.5 [facility] ID Date Data Source [id number] 11/27/2019 06:04:50 AM [facility] Name Value Range Interpretation Code Description Data So rce(s) Supporting Document(s) Magnesium [Mass/volume] in Serum or Plasma 1.9 mg/dL 1.6-2.6 [facility] ID Date Data Source [id number] 11/26/2019 08:39:53 PM EDT [facility] CT ABDOMEN PELVIS WITH CONTRAST [id number] AL RESULTInterpreted by:Jens Ledesma MDINDICATION: concern for forniers gangrene vs scrotal/perineal abscessTECHNIQUE: Multidetector row helical CT of the abdomen and pelvis was performed following intravenous administration of 100 mL of Omnipaque-300. Coronal and sagittal reformations were obtained. Automated dose lowering techniques and/or adjustment according to patient size were utilized for this exam.COMPARISON: None.FINDINGS: LUNGS AND MEDIASTINUM: No acute abnormalityLIVER: The liver is enlarged measuring up to 22 cm. No focal lesions are identified. There is evidence for diffuse fatty infiltration.GALLBLADDER AND BILIARY TREE: No calcified gallstones. No intra- or extrahepatic biliary ductal dilation.SPLEEN: Unremarkable, no focal lesions.PANCREAS: Unremarkable, no focal lesions.ADRENALS: Unremarkable bilaterally.KIDNEYS/URETERS: No renal calculi. No hydroureter or hydronephrosis. No mass lesions. STOMACH: Unremarkabl e.BOWEL: Small bowel is non-dilated. Large bowel is non-dilated. Small amount of stool throughout the colon. Appendix is seen and is unremarkable.VESSELS: No aneurysmal dilatation of the aorta.LYMPH NODES: Multiple enlarged likely reactive lymph nodes are noted within the bilateral inguinal regions measuring up to 1.1 cm on the left side.BLADDER: Bladder is well distended and unremarkable.REPRODUCTIVE ORGANS: Prostate is unremarkable. Seminal vesicles are symmetric bilaterally.BODY WALL: Within the perineum, posterior to the scrotum there is a 6.5 x 2.9 x 3.2 cm hypodense collection with peripheral enhancement as well as diffuse surrounding soft tissue stranding. The soft tissue stranding extends the posterior aspect of the scrotum with apparent skin thickening of the wall of the scrotum. Minimal inflammatory changes are seen in the peritesticular fat. PERITONEUM: No free fluid or free air.BONES/MUSCULATURE: Mild anterior wedging of the T11 vertebral body.IMPRESSION:1. A 6.5 x 2.9 x 3.2 cm hypodense collection with peripheral enhancement and diffuse surrounding soft tissue stranding in the posterior aspect of scrotum or perineum concerning for abscess with inflammatory changes in the scrotal wall. 2. Mild anterior wedging of the T11 vertebral body of indeterminate age. Consider correlation with prior imaging if available.Critical results reported to Dr Serna at 5:47 PM on 11/26/2019.This document has been electronically signed by Donnell Warren MD on 11/26/2019 8:37 PM Name Value Range Interpretation Code Description Data So rce(s) Supporting Document(s) ID Date Data Source [id number] 12/24/2019 11:39:06 AM EDT [facility] Service Cmnt XXX-Imp : PERINEALMicroorga nism XXX Cult : No growth 28 days Name Value Range Interpretation Code Description Data So rce(s) Supporting Document(s) ID Date Data Source [id number] 11/30/2019 08:44:26 AM EDT [facility] Service Cmnt XXX-Imp : PERINEALMicroorga nism XXX Cult : 1+Peptostreptococcus asaccharolyticus Name Value Range Interpretation Code Description Data So rce(s) Supporting Document(s) ID Date Data Source [id number] 11/28/2019 10:14:43 AM EDT [facility] Service Cmnt XXX-Imp : PERINEALGram Stn XXX : 3+WBC'S Seen.No organisms seenMicroorganism XXX Cult : Organism of questionable significance. No further workup ofTwo (2) colonies ofStaphylococcus haemolyticus. Name Value Range Interpretation Code Description Data So rce(s) Supporting Document(s) ID Date Data Source [id number] 11/26/2019 06:20:48 PM EDT [facility] Name Value Range Interpretation Code Description Data So rce(s) Supporting Document(s) History and Physical [facility] JWQUYz1yJdKPOeWs25/DZUjvUWKyq4BxVSaeNSk2ADjeTSEbU8AhXGH5aY6wNWW1GSoYPkAoUeXvEjWn lbm [file] [id number] [id number]+KFujpMKdcBimFANMUsUzSES1KGjeDRGSIq6X ID Date Data Source [id number] 11/27/2019 11:47:35 PM EDT [facility] Name Value Range Interpretation Code Description Data So rce(s) Supporting Document(s) ABO and Rh group [Type] in Blood [facility] Blood group antibody screen [Presence] in Serum or Plasma [facility] 11/29/2019,0000Performed at [place], [place] ID Date Data Source [id number] 11/26/2019 06:43:30 PM EDT [facility] Name Value Range Interpretation Code Description Data So rce(s) Supporting Document(s) Hemoglobin A1c/Hemoglobin.total in Blood by HPLC 6.0 % 4.0-6.0 [facility] (NOTE)<5.7% Average risk of diabetes (ADA)5.7-6.4% Increased risk of diabetes(ADA)>/= 6.5% Diagnostic for diabetes(ADA) Glucose mean value [Mass/volume] in Blood Estimated fr om glycated hemoglobin 126 mg/dL <126 H [facility] ID Date Data Source [id number] 11/26/2019 05:17:06 PM EDT [facility] Name Value Range Interpretation Code Description Data So rce(s) Supporting Document(s) Sodium [Moles/volume] in Blood 137 mmol/L 136-145 [facility] Potassium [Moles/volume] in Blood 4.1 mmol/L 3.4-5.1 [facility] Chloride [Moles/volume] in Blood 99 mmol/L 98-107 [facility] Carbon dioxide, total [Moles/volume] in Blood 23 mmol/L 22-29 [facility] Calcium.ionized [Moles/volume] in Blood 1.29 mmol/L 1.13-1.32 [facility] Glucose [Mass/volume] in Blood 97 mg/dL 70-140 [facility] Urea nitrogen [Mass/volume] in Blood 6 mg/dL 6-20 [facility] Creatinine [Mass/volume] in Blood 0.6 mg/dL 0.70-1.20 L [facility] Hematocrit [Volume Fraction] of Blood 43 % 41-53 [facility] Hemoglobin [Mass/volume] in Blood by calculation 14.6 g/dL 13.5-18.0 [facility] ID Date Data Source [id number] [facility]2019 [facility] Value Range Interpretation Code Description Data So rce(s) Supporting Document(s) pH of Venous blood 7.43 7.36-7.41 [facility] Carbon dioxide [Partial pressure] in Venous blood 39 mmHg 40-45 L [facility] Oxygen [Partial pressure] in Venous blood 47 mmHg [facility] Base excess standard in Venous blood by calculation 1 mmol/L [facility] Oxygen saturation Calculated from oxygen partial pressure in Venous blood 84 % 60-85 [facility] Lactate [Moles/volume] in Venous blood 2.4 mmol/L 0.5-2.2 H [facility] Bicarbonate [Moles/volume] in Venous blood 27 mmol/L [facility] ID Date Data Source [id number] 11/26/2019 10:55:00 AM EDT [facility] Name Value Range Interpretation Code Description Data So rce(s) Supporting Document(s) HCT 46.2 % 42.0-52.0 N [facility] HGB 16.0 g/dL 13.5-17.5 N [facility] MCH 34.6 G/DL pg 32.0-36.5 N [facility] MCHC 30.7 PG % 27.0-33.0 N [facility] PLATELETS 253 10 10*3/mm3 150-450 N [facility] RBC 5.22 10 10*6/mm3 4.30-6.10 N [facility] RDW 13.4 % 11.5-14.5 N [facility] WBC TOTAL 12.9 4.0-10.0 H [facility] ID Date Data Source [id number] 12/01/2019 12:42:00 [facility] Pathology ReportName: VALENTIN VACAMRN: [id number] Number: [id number] Date: 11/26/2019 00:00Received Date: 11/29/2019 09:22Physician(s): ANGUS DE LA GARZA MD WIENER V, SCOTT, MDSpecimen(s) ReceivedA: Perineal necrotic tissueClinical HistoryFournier's gangrene. DiagnosisSKIN AND SOFT TISSUE, PERINEUM, EXCISION: SKIN WITH SUBCUTANEOUS ABSCESSAND GRANULATION TISSUE.Jaleel Landaverde M.D.;Resident PathologistElectronically Signed By Melyssa Linton M.D., Attending Pathologist12/01/2019 12:42:22The attending pathologist named above attests that he/she has personallyreviewed the relevant preparation(s) for the specimen, performedmicroscopic examination when indicated, and rendered the final diagnosis.Unless 'gross-only' is specified, the final diagnosis is based on amicroscopic examination of personnel representative sections of tissue.Gross DescriptionThe specimen is received in formalin labeled with the patient's name"Soy Vaca" and "perineal necrotic tissue". It con sists of a skin andsoft tissue excision measuring 6.0 x 2.0, excised to a depth of 1.5 cm. The skin's surface is du-pink with an area of yellow-green sloughing. Additionally received in the same container, there are two fragments oftan-pink to brown soft tissue measuring 5.0 x 5.0 x 2.0 cm in aggregate. Motion Picture Operator sections are submitted as follows:A1 -personnel representative of the skin and soft tissueA2 -personnel representative of the additional soft tissue received in thecontainerSS/pmwThis report may include one or more immunohistochemical stain results thatuse analyte specific reagents. All positiv e and negative controls havebeen reviewed by the attending pathologist and are satisfactory. The testswere developed and their performance characteristics determined by [facility] Pathology department. They have not been cleared or approved by the USFood and Drug Administration. The FDA has determined that such clearanceor approval is not necessary. Name Value Range Interpretation Code Description Data So rce(s) Supporting Document(s) ID Date Data Source [id number] 11/04/2019 02:57:48 PM EDT [facility] Measurements & CalculationsHeight: 72 inches (6 ft. 0 in.) 182.88 cm Weight: 393 pounds 178.64 kg Body Mass Index (BMI): 53.49BMI Interpretation: Morbidly ObeseBody Surface Area (BSA): 2.84Weight Management Education Done (Nutrition/Physical Activity)Vital SignsTemperature: 96.8FPulse Rate: 84 beats/minuteRespiratory Rate: 18 respirations/minuteBlood Pressure: 163/93 O2 Saturation: 95% Vital Signs performed by: Shabana Talley MA, November 04, 2019 3:03 PMInitial Intake Information From: patientRoom #: 15Infectious Disease / Travel ScreeningRecent travel for you or any close contacts? NoHave you had any close contact with anyone diagnosed with or under investigation for COVID-19 (coronavirus)? NoFever? NoRespiratory symptoms: cough, cold, congestion, shortness of breath, difficulty breathing? NoLoss of smell? NoLoss of taste? NoSmoking, Tobacco, Vaping or Smoke Exposure StatusSmoke Status: current every day smokerTobacco Use: YesAdv to Quit: YesDo you vape? NoHealthcare HistorySince your last office visit...Have you been admitted to the hospital? NoHave you been to an emergency room (ER) or urgent care clinic? NoHave you seen another healthcare provider? Yes - [facility] [place] [facility] Have you seen a dentist? NoIntake performed by: Shabana Talley MA, November 04, 2019 2:59 PMRate Your HealthIn general, would you say your health is? FairPain AssessmentAre you currently having any pain which... You would like your provider to address? No Affects your activity level? NoDepression Screening - PHQ-2Over the last two weeks, have you... Had little interest or pleasure in doing things? Not at all Been feeling down, depressed, or hopeless? Not at all PHQ-2 Score: 0Anxiety Screening - YOLI-2Over the last two weeks, have you been... Feeling nervous, anxious, or on edge? Not at all Unable to stop or control worrying? Not at all YOLI-2 Score: 0Screening, Brief Intervention, & Referral to Treatment (SBIRT)Pre-Screening Questions How many times have you have 5 or more drinks in a day? 0How many times have you used an illegal drug or used a prescription medication for a non-medical reason? 300Performed by: Shabana Talley MA, November 04, 2019 3:00 PMPatient History Medical History:HypertensionBelow knee amputationSurgical History:BKA 06/29/10Family History:Family History UnknownFH HypertensionFH High CholesterolSocial/Personal History: Advised to Quit/Tobacco Education: YesChief Complaintwould like sleep study ordered History of Present Illness (HPI)Has been having issues with snoring and daytime fatigue for a while. Falls asleep easily after dinner or while sitting in a chair watching TV. Daytime headaches. Has been diagnosed with BEAU before and was briefly put on CPAP a few years ago but stopped using it because he couldn't get comfortable with it.HPI performed by: Angus Bundy MD, November 04, 2019 4:27 PMTransitions of Care InboundProblem ReviewProblem List was reviewed and/or updated during this visit.Medication Reconciliation & ReviewMedication List was reviewed and/or updated during this visit, including review of any ohak-vcf-xeiufsc medications, herbal therapies, and/or supplements.Allergy ReviewAllergy List was reviewed and/or updated during this visit.Adult Preventive CareProvider Calculated and Reviewed all Clinical Protocols for patient today. Screening Tobacco Screening: Smoking Status: current every day smoker (11/04/2019) Tobacco Use: Currently (11/04/2019) Advised to Quit: Yes (11/04/2019)Labs/Meds/Other Counseling- Nutrition and Physical Activity:BMI Interpretation: Morbidly Obese (11/04/2019) Counseling: Done (11/04/2019) Physical Activity: Done (11/04/2019)Review of Systems General: Denies dizziness, fatigue. Cardiovascular: Denies chest pain. Respiratory: Denies difficulty breathing, shortness of breath. Gastrointestinal: Denies constipation. Genitourinary: Denies pain with urination, burning with urination, urinary frequency. Physical ExamGeneral Appearance: well nourished, well hydrated, no acute distressRespiratory, Auscultation: clear to auscultation bilaterally; no rales, rhonchi, or wheezesRespiratory, Effort: no intercostal retractions or use of accessory musclesCardiovascular, Auscultation: S1, S2 audible; no murmur, rub, or gallop; RRRGait & Station: normalSkin, Inspection: no rashes, lesions, or ulcerationsOrientation: oriented to time, place, and personMood & Affect: no depression, anxiety, or agitationJudgment & Insight: intactCare Management Plan Transitions of CareInboundRate Your HealthIn general, would you say your health is? FairAssessment & Plan Problems:Added: Obstructive sleep apnea of adult (ICD- 327.23) (QZA41-N28.33) Assessment: Instructions: Refer to pulmonary for possible sleep study and CPAP initiation.Work on weight loss.Treating this may also help lower his blood pressure. We discussed the shelter implications of sleep apnea.Patient Instructions/Care Plan: Obstructive sleep apnea of adult: Refer to pulmonary for possible sleep study and CPAP initiation.Work on weight loss.Treating this may also help lower his blood pressure. We discussed the middle or intermediate school principal implications of sleep apnea. Plan developed in collaboration with patient and/or familyMedications:REMERON 15 MG ORAL TABLETABILIFY 15 MG ORAL TABLETLAMICTAL 150 MG ORAL TABLETTRAZODONE HCL 150 MG ORAL TABLETRIGHT TRANSTIBI AL PROSTHESIS AND SUPPLIESATORVASTATIN CALCIUM 10 MG ORAL TABLETLISINOPRIL 40 MG ORAL TABLETMedication Changes:Added: TRAZODONE HCL 150 MG ORAL TABLET-one tab at bedtimeLAMICTAL 150 MG ORAL TABLET-one tab dailyABILIFY 15 MG ORAL TABLET-one tab dailyREMERON 15 MG ORAL TABLET-one tab dailyRemoved:ANUSOL-HC 2.5 % RECTAL CREAM-appy bid to affected area, AMBIEN 10 MG ORAL TABLET-1 po hsAllergies:No Known Allergies (updated 06/30/2019) Orders:Adult - Ofc Vst, EST, Level III [CPT-65579] Pulmonology Consult [CPT-91272] Name Value Range Interpretation Code Description Data So rce(s) Supporting Document(s) ID Date Data Source [id number] 06/30/2019 02:26:02 PM EST [facility] Measurements & CalculationsHeight: 72 inches (6 ft. 0 in.) 182.88 cm Weight: 392 pounds 178.18 kg Body Mass Index (BMI): 53.36BMI Interpretation: Morbidly ObeseBody Surface Area (BSA): 2.84Weight Management Education Done (Nutrition/Physical Activity)Vital SignsTemperature: 98.6FPulse Rate: 100 beats/minuteRespiratory Rate: 17 respirations/minuteBlood Pressure: 142/85 O2 Saturation: 98% Vital Signs performed by: Balbina Berry MA, June 30, 2019 2:32 PMVital Signs performed by: Gala FUNG, June 30, 2019 2:41 PMInitial Intake Information from: patientRoom #: 8Smoking, Tobacco, Vaping or Smoke Exposure StatusSmoke Status: current every day smokerTobacco Use: YesAdv to Quit: YesDo you vape? NoPassive Smoke Exposure: NoHealthcare HistorySince your last office visit...Have you been admitted to the hospital? NoHave you been to an emergency room (ER) or urgent care clinic? NoHave you seen another healthcare provider? NoHave you seen a dentist? NoIntake performed by: Balbina Berry MA, June 30, 2019 2:28 PMRate Your HealthIn general, would you say your health is? GoodPain AssessmentAre you currently having any pain which... You would like your provider to address? Yes Affects your activity level? YesDepression Screening - PHQ-2Over the last two weeks, have you... Had little interest or pleasure in doing things? Not at all Been feeling down, depressed, or hopeless? Not at all PHQ-2 Score: 0Anxiety Screening - YOLI-2Over the last two weeks, have you been... Feeling nervous, anxious, or on edge? Not at all Unable to stop or control worrying? Not at all YOLI-2 Score: 0Infectious Disease / Travel ScreeningRecent travel for you, your family, and/or any sexual partners? NoPain AssessmentPain ScaleNumeric Rating Scale: 10 / 10Location: left sideDuration: 1 weekCharacter/Quality: stabbingIs the pain radiating? NoOther DescriptorsAggravating Factors: pressurePatient History Med ical History:HypertensionBelow knee amputationSurgical History:BKA 06/29/10Family History:Family History UnknownFH HypertensionFH High CholesterolSocial/Personal History: Advised to Quit/Tobacco Education: YesChief Complaintlab results, abcessHistory of Present Illness (HPI)Pt is a 38 y/o male, presents for lab review.Pt with prediabetes. Pt reports abscess under left axilla. Pt reports years of these coming and going. Reports he usually has these drained in the ER. Pt is unsure why he keeps having these issues. HPI performed by: Gala FUNG, June 30, 2019 2:41 PMProblem ReviewProblem List was reviewed and/or updated during this visit.Medication Reconciliation & ReviewMedication List was reviewed and/or updated during this visit, including review of any snvo-qvv-vzipfyg medications, herbal therapies, and/or supplements.Allergy ReviewAllergy List was reviewed and/or updated during this visit. Patient has no known allergies.Adult Preventive CareProvider Calculated and Reviewed all Clinical Protocols for patient today. Screening Tobacco Screening: Smoking Status: current every day smoker (06/30/2019) Tobacco Use: Currently (06/30/2019) Advised to Quit: Yes (06/30/2019)Labs/Meds/Other Counseling- Nutrition and Physical Activity:BMI Interpretation: Morbidly Obese (06/30/2019) Counseling: Done (06/30/2019) Physical Activity: Done (06/30/2019)Review of Systems General: Denies chills, dizziness, fatigue, fever, headache, feeling ill. Cardiovascular: Denies chest pain, palpitations, feeling faint. Gastrointestinal: Denies nausea, vomiting, diarrhea, pain or discomfort. Skin: Complains of see HPI, redness. Physical ExamGeneral Appearance: well hydrated, obese male, applecore habitusRespiratory, Auscultation: clear to auscultation bilaterally; no rales, rhonchi, or wheezesRespiratory, Effort: no intercostal retractions or use of accessory musclesCardiovascular, Auscultation: S1, S2 audible; no murmur, rub, or gallop; RRRAbdomen: soft, non-tender, no masses, bowel sounds normalGait & Station: normalSkin, Inspection: fluctuant abscess in left axilla approximately 6 cm in size, with diffuse erythema, surrounded by an additional 4cm of induration, warm to touch, some skin streaking present, evidence of old hyperpigmentation scarring and tracking sinuses in bilateral axillaeOrientation: oriented to time, place, and personMood & Affect: no depression, anxiety, or agitationJudgment & Insight: intactRate Your HealthIn general, would you say your health is? GoodAssessment & Plan Problems:Added: Hidradenitis suppurativa (ICD-705.83) (SSW36-W95.2) Assessment: Instructions: Referral to dermatology.Abscess of left axilla (TUR83-Y65.412) Assessment: Instructions: Abscess drained and significantly decompressed with improvement in pain. Wound culture taken. Start Bactrim twice daily x 5 days. We will call you if antibiotics need to be changed. Please change dressing daily while it is still draining. Make an appt, call, or present to ER/urgent care for any concerns.Assessed:Prediabetes (JZX58-I69.03) Assessment: Instructions: Recommend healthy lifestyle modification. Encourage portion control, healthy food choices, and increasing routine physical activity. Recommendation is for 150 minutes throughout the week of cardiovascular exercise. Recommend low carbohydrate diet: reduce pasta, bread, potatoes, rice. If you do eat carbohydrates, better choices are whole wheat and brown rice products. Recommend portion control and avoidance of soda and sugary foods. Increase physical activity and monitor weight.Patient Instructions/Care Plan: Prediabetes: Recommend healthy lifestyle modification. Encourage portion control, healthy food choices, and increasing routine physical activity. Recommendation is for 150 minutes throughout the week of cardiovascular exercise. Recommend low carbohydrate diet: reduce pasta, bread, potatoes, rice. If you do eat carbohydrates, better choices are whole wheat and brown rice products. Recommend portion control and avoidance of soda and sugary foods. Increase physical activity and monitor weight.Hidradenitis suppurativa: Referral to dermatology.Abscess of left axilla: Abscess drained and signi ficantly decompressed with improvement in pain. Wound culture taken. Start Bactrim twice daily x 5 days. We will call you if antibiotics need to be changed. Please change dressing daily while it is still draining. Make an appt, call, or present to ER/urgent care for any concerns. Plan developed in collaboration with patient and/or familyMedications:BACTRIM DS 800- 160 MG ORAL TABLETANUSOL-HC 2.5 % RECTAL CREAMATORVASTATIN CALCIUM 10 MG ORAL TABLETLISINOPRIL 40 MG ORAL TABLETAMBIEN 10 MG ORAL TABLETMedication Changes:New Prescription:BACTRIM DS 800-160 MG ORAL TABLET-Take 1 tablet po twice daily x 5 days Qty: 10[Tablet] Refills: 0 Method: ElectronicRemoved:HIBICLENS 4 % EXTERNAL LIQUID-apply and wash once daily to affected areas, CIPRO 500 MG ORAL TABLET-1 po bid for 3 days only Qty: 6[Tablet] Refills: 0, BACTRIM DS 800-160 MG ORAL TABLET-1 po bid, METFORMIN HCL ER 500 MG ORAL TABLET EXTENDED RELEASE 24 HOUR-1 po bid, VITAMIN D (ERGOCALCIFEROL) 12141 UNIT ORAL CAPSULE-1 po q wk for 12 wks, VITAMIN D (ERGOCALCIFEROL) 83692 UNIT ORAL CAPSULE-1 po q wk for 12 wks, VITAMIN D 1000 UNIT ORAL TABLET-1 po daily once 50,0000 unit tabs completed in 12 wksAllergies:No Known Allergies (updated 06/30/2019) Orders:Wound Culture, Bacterial [CPT-43514] Adult - Ofc Vst, EST, Level IV [CPT-34490] Follow-Up Return to clinic: as needed, 3 months for follow upAdditional Follow-Up: prediabetesClinical Visit Summary CompletedDermatologyProcedure Timeout & Consent Location verified by patient prior to procedure.Procedure timeout performed. Correct patient verified. Correct procedure verified. Correct side/site verified. Verified by: KIMMY Ludwig, Vale Cotton LPN, JHONY LariosrocalekI & D of AbscessLocation: left axilaAnesthesia Type: Xylocaine 1%Amount: 0.5 ccDescription of Procedure: Verbal consent obtained from patient prior to procedures, risks and benefits of procedure discussed and reviewed. Pt wished to proceed. Allergies verified. Patient was situated in supine position with slight elevation of the head of the exam table. Abscessed area was prepped with betatine swab x 3. 0.5 cc of lidocaine was instilled superficially. 11 blade scalpel was used to incise the abscess. Using palpation for guidance, approximately 20 cc of foul odored purulent drainage was expressed. Culture swab was obtained. Area was significantly decompressed with marked pain improvement per patient. 2x2 sterile gauze was placed into wound opening to provide wicking, bandages with foam dressing. Patient tolerated procedure well without complications. Findin gs: Lidocaine 1%: Lot [id number], Exp 06/2020Medications:BACTRIM DS 800-160 MG ORAL TABLET (SULFAMETHOXAZOLE-TRIMETHOPRIM) Take 1 tablet po twice daily x 5 days #10[Tablet] x 0 Route:ORAL Entered and Authorized by: Gala FUNG Method used: Electronically to [facility]* (retail) [address] [place] [address] Note to Pharmacy: Route: ORAL; Indications: ABSCESS OF LEFT AXILLA;HIDRADENITIS SUPPURATIVA RxID: [id number] CIPRO 500 MG ORAL TABLET (CIPROFLOXACIN HCL) 1 po bid for 3 days only #6[Tablet] x 0 Route:ORAL Authorized by: Vasile Fernando MD Method used: Electronically to [facility]* (retail) [address] [place] [address] Fax: RxID: [id number]][Immunization Management] Name Value Range Interpretation Code Description Data So rce(s) Supporting Document(s) ID Date Data Source [id number] 06/25/2019 10:21:26 AM [facility] In-House Blood TestsDate/Time Colle cted: June 25, 2019 10:31 AMTest Result Reference Range Normal ValueComments: blood draw done in offcie done in the right ac tolerated well Bryn Berger KATELYN, June 25, 2019 10:31 AMAssessment & Plan Orders:[id number] Vst-Est Level I [CPT-11872] 28981 - Venipuncture [CPT-12597] Name Value Range Interpretation Code Description Data So rce(s) Supporting Document(s) ID Date Data Source [id number] 06/25/2019 10:15:[address] [facility] Name Value Range Interpretation Code Description Data So rce(s) Supporting Document(s) BG FASTING 97 mg/dL 70-[address] [facility] ID Date Data Source [id number] 06/25/2019 10:15:[address] [facility] Name Value Range Interpretation Code Description Data So rce(s) Supporting Document(s) HGBA1C 5.8 % N [facility] Procedure Social History Code Duration Value Status Description Data Source(s ) Smoking 06/13/2020 12:00:00 AM EST Unknown if ever smoked comp leted Unknown if ever smoked [facility] ([facility]) Smoking 05/22/2020 12:00:00 AM EST Unknown if ever smoked comp leted Unknown if ever smoked [facility] ([facility]) Smoking 04/26/2020 12:00:00 AM EST Unknown if ever smoked comp leted Unknown if ever smoked [facility] ([facility]) Smoking 04/18/2020 12:00:00 AM EST Unknown if ever smoked comp leted Unknown if ever smoked [facility] ([facility]) Alcohol intake 12/13/2019 12:00:00 AM EDT Current drinker of al cohol (finding) completed Current drinker of alcohol (finding) [facility] Cigarette pack-years 12/13/2019 12:00:00 AM EDT UNK completed [facility] Cigarettes smoked current (pack per day) - Reported 12/13/19 12:00:00 AM EDT UNK completed [facility] Smoking 12/13/2019 12:00:00 AM EDT Current every day smoker co mpleted Current every day smoker [facility] Alcohol intake 12/07/2019 12:00:00 AM EDT Current drinker of al cohol (finding) completed Current drinker of alcohol (finding) [facility] Cigarette pack-years 12/07/2019 12:00:00 AM EDT UNK [facility] Cigarettes smoked current (pack per day) - Reported 12/07/19 12:00:00 AM EDT UNK completed [facility] Smoking 12/07/2019 12:00:00 AM EDT Current every day smoker co mpleted Current every day smoker [facility] Alcohol intake 12/01/2019 12:00:00 AM EDT Current drinker of al cohol (finding) completed Current drinker of alcohol (finding) [facility] Cigarette pack-years 12/01/2019 12:00:00 AM EDT UNK [facility] Cigarettes smoked current (pack per day) - Reported 12/01/19 12:00:00 AM EDT UNK completed [facility] Smoking 12/01/2019 12:00:00 AM EDT Current every day smoker co mpleted Current every day smoker [facility] Smoking 11/16/2019 12:00:00 AM EDT Unknown if ever smoked comp leted Unknown if ever smoked [facility] ([facility]) Smoking 10/27/2019 12:00:00 AM EDT Unknown if ever smoked comp leted Unknown if ever smoked [facility] ([facility]) Smoking 10/20/2019 12:00:00 AM EDT Unknown if ever smoked comp leted Unknown if ever smoked [facility] ([facility]) Smoking 10/14/2019 12:00:00 AM EDT Unknown if ever smoked comp leted Unknown if ever smoked [facility] ([facility]) Smoking 10/07/2019 12:00:00 AM EDT Unknown if ever smoked comp leted Unknown if ever smoked [facility] ([facility]) Smoking 09/28/2019 12:00:00 AM EDT Unknown if ever smoked comp leted Unknown if ever smoked [facility] ([facility]) Smoking 09/23/2019 12:00:00 AM EDT Unknown if ever smoked comp leted Unknown if ever smoked [facility] ([facility]) Smoking 09/21/2019 12:00:00 AM EDT Unknown if ever smoked comp leted Unknown if ever smoked [facility] ([facility]) Smoking 08/30/2019 12:00:00 AM EDT Unknown if ever smoked comp leted Unknown if ever smoked [facility] ([facility]) Smoking 08/27/2019 12:00:00 AM EDT Unknown if ever smoked comp leted Unknown if ever smoked [facility] ([facility]) Smoking 08/24/2019 12:00:00 AM EDT Unknown if ever smoked comp leted Unknown if ever smoked [facility] ([facility]) Smoking 07/29/2019 12:00:00 AM EDT Unknown if ever smoked comp leted Unknown if ever smoked [facility] ([facility]) Smoking 07/27/2019 12:00:00 AM EDT Unknown if ever smoked comp leted Unknown if ever smoked [facility] ([facility]) Smoking 06/29/2019 12:00:00 AM EST Unknown if ever smoked comp leted Unknown if ever smoked [facility] ([facility]) Smoking 06/17/2019 12:00:00 AM EST Unknown if ever smoked comp leted Unknown if ever smoked [facility] ([facility]) Smoking 06/04/2019 12:00:00 AM EST Unknown if ever smoked comp leted Unknown if ever smoked [facility] ([facility]) Smoking 06/01/2019 12:00:00 AM EST Unknown if ever smoked comp leted Unknown if ever smoked [facility] ([facility]) Smoking 05/28/2019 12:00:00 AM EST Unknown if ever smoked comp leted Unknown if ever smoked [facility] ([facility]) Smoking 04/30/2019 12:00:00 AM EST Unknown if ever smoked comp leted Unknown if ever smoked [facility] ([facility]) Smoking 04/27/2019 12:00:00 AM EST Unknown if ever smoked comp leted Unknown if ever smoked [facility] ([facility]) Vital Signs ID Date Data Source UNK Name Value Range Interpretation Code Description Data Source(s) Body height 72 [in_i] 72 [in_i] ANKIT ([facility]) Body height 72 [in_i] 72 [in_i] [facility] ([facility]) Body height 72 [in_i] 72 [in_i] [facility] ([facility]) Diastolic blood pressure 0 mm[Hg] Normal (applies to non-numeric results) 0 mm[Hg] [facility] ([facility]) Systolic blood pressure 0 mm[Hg] Normal (applies t o non-numeric results) 0 mm[Hg] [facility] ([facility]) Body mass index (BMI) [Ratio] 0.00 kg/m2 No rmal (applies to non-numeric results) 0.00 kg/m2 [facility] ([facility]) Body weight Measured 0.00 lbs Normal (applies to n on-numeric results) [facility] Body height 0.00 in Normal (applies to non-numeric resu lts) 0.00 in [facility] Body weight 6272 [oz_av] 6272 [oz_av] ANKIT ([facility]) Systolic blood pressure 152 mm[Hg] 152 mm[Hg] A [facility] ([facility]) Systolic blood pressure 169 mm[Hg] 169 mm[Hg] A THEN ([facility]) Body height 72 [in_i] 72 [in_i] ANKIT ([facility]) Diastolic blood pressure 89 mm[Hg] 89 mm[Hg] ANKIT ([facility]) Diastolic blood pressure 89 mm[Hg] 89 mm[Hg] ANKIT ([facility]) Body weight 6272 [oz_av] 6272 [oz_av] ANKIT ([facility]) Systolic blood pressure 152 mm[Hg] 152 mm[Hg] A THENA ([facility]) Systolic blood pressure 169 mm[Hg] 169 mm[Hg] A THENA ([facility]) Body height 72 [in_i] 72 [in_i] ANKIT ([facility]) Diastolic blood pressure 89 mm[Hg] 89 mm[Hg] ANKIT ([facility]) Diastolic blood pressure 89 mm[Hg] 89 mm[Hg] ANKIT ([facility]) Body weight 6272 [oz_av] 6272 [oz_av] ANKIT ([facility]) Systolic blood pressure 152 mm[Hg] 152 mm[Hg] A THENA ([facility]) Systolic blood pressure 169 mm[Hg] 169 mm[Hg] [facility] Body height 72 [in_i] 72 [in_i] ANKIT ([facility]) Diastolic blood pressure 89 mm[Hg] 89 mm[Hg] ANKIT ([facility]) Diastolic blood pressure 89 mm[Hg] 89 mm[Hg] ANKIT ([facility]) Body weight 6246.08 [oz_av] 6246.08 [oz_av] ATH JAVIER ([facility]) Systolic blood pressure 136 mm[Hg] 136 mm[Hg] A THENA ([facility]) Body height 72 [in_i] 72 [in_i] ANKIT ([facility]) Diastolic blood pressure 84 mm[Hg] 84 mm[Hg] ANKIT ([facility]) Body weight 6246.08 [oz_av] 6246.08 [oz_av] ATH JAVIER ([facility]) Systolic blood pressure 136 mm[Hg] 136 mm[Hg] [facility] Body height 72 [in_i] 72 [in_i] ANKIT ([facility]) Diastolic blood pressure 84 mm[Hg] 84 mm[Hg] ANKIT ([facility]) Body weight 6246.08 [oz_av] 6246.08 [oz_av] ATH JAVIER ([facility]) Systolic blood pressure 136 mm[Hg] 136 mm[Hg] A [facility] ([facility]) Body height 72 [in_i] 72 [in_i] ANKIT ([facility]) Diastolic blood pressure 84 mm[Hg] 84 mm[Hg] ANKIT ([facility]) Diastolic blood pressure 0 mm[Hg] Normal (applies to non-numeric results) 0 mm[Hg] [facility] ([facility]) Systolic blood pressure 0 mm[Hg] Normal (applies t o non-numeric results) 0 mm[Hg] [facility] ([facility]) Body mass index (BMI) [Ratio] 0.00 kg/m2 No rmal (applies to non-numeric results) 0.00 kg/m2 [facility] ([facility]) Body weight Measured 0.00 lbs Normal (applies to n on-numeric results) 0.00 lbs [facility] ([facility]) Body height 0.00 in Normal (applies to non-numeric resu lts) 0.00 in [facility] ([facility]) Body weight 6288 [oz_av] 6288 [oz_av] ANKIT ([facility]) Systolic blood pressure 163 mm[Hg] 163 mm[Hg] A [facility] ([facility]) Body height 72 [in_i] 72 [in_i] ANKIT ([facility]) Diastolic blood pressure 93 mm[Hg] 93 mm[Hg] AN[facility] ([facility]) Body weight 6288 [oz_av] 6288 [oz_av] ANKIT ([facility]) Systolic blood pressure 163 mm[Hg] 163 mm[Hg] A [facility] ([facility]) Body height 72 [in_i] 72 [in_i] ANKIT ([facility]) Diastolic blood pressure 93 mm[Hg] 93 mm[Hg] ANKIT ([facility]) Body weight 6288 [oz_av] 6288 [oz_av] ANKIT ([facility]) Systolic blood pressure 163 mm[Hg] 163 mm[Hg] A [facility] ([facility]) Body height 72 [in_i] 72 [in_i] ANKIT ([facility]) Diastolic blood pressure 93 mm[Hg] 93 mm[Hg] [facility] ([facility]) Diastolic blood pressure 0 mm[Hg] Normal (applies to non-numeric results) 0 mm[Hg] [facility] ([facility]) Systolic blood pressure 0 mm[Hg] Normal (applies t o non-numeric results) 0 mm[Hg] [facility] ([facility]) Body mass index (BMI) [Ratio] 0.00 kg/m2 No rmal (applies to non-numeric results) 0.00 kg/m2 [facility] ([facility]) Body weight Measured 0.00 lbs Normal (applies to n on-numeric results) 0.00 lbs [facility] ([facility]) Body height 0.00 in Normal (applies to non-numeric resu lts) 0.00 in [facility] ([facility]) Diastolic blood pressure 0 mm[Hg] Normal (applies to non-numeric results) 0 mm[Hg] [facility]) Systolic blood pressure 0 mm[Hg] Normal (applies t o non-numeric results) 0 mm[Hg] [facility] ([facility]) Body mass index (BMI) [Ratio] 0.00 kg/m2 No rmal (applies to non-numeric results) 0.00 kg/m2 [facility] ([facility]) Body weight Measured 0.00 lbs Normal (applies to n on-numeric results) 0.00 lbs [facility] ([facility]) Body height 0.00 in Normal (applies to non-numeric resu lts) 0.00 in [facility]) Diastolic blood pressure 0 mm[Hg] Normal (applies to non-numeric results) 0 mm[Hg] [facility] ([facility]) Systolic blood pressure 0 mm[Hg] Normal (applies t o non-numeric results) 0 mm[Hg] [facility] ([facility]) Body mass index (BMI) [Ratio] 0.00 kg/m2 No rmal (applies to non-numeric results) 0.00 kg/m2 [facility] ([facility]) Body weight Measured 0.00 lbs Normal (applies to n on-numeric results) 0.00 lbs [facility] ([facility]) Body height 0.00 in Normal (applies to non-numeric resu lts) 0.00 in [facility] ([facility]) Body weight 6272 [oz_av] 6272 [oz_av] ANKIT ([facility]) Systolic blood pressure 142 mm[Hg] 142 mm[Hg] A [facility]) Body height 72 [in_i] 72 [in_i] [facility] ([facility]) Diastolic blood pressure 85 mm[Hg] 85 mm[Hg] [facility] ([facility]) Body weight 6272 [oz_av] 6272 [oz_av] [facility] ([facility]) Systolic blood pressure 142 mm[Hg] 142 mm[Hg] A [facility] ([facility]) Body height 72 [in_i] 72 [in_i] [facility] ([facility]) Diastolic blood pressure 85 mm[Hg] 85 mm[Hg] [facility] ([facility]) Body weight 6272 [oz_av] 6272 [oz_av] [facility] ([facility]) Systolic blood pressure 142 mm[Hg] 142 mm[Hg] A [facility] ([facility]) Body height 72 [in_i] 72 [in_i] ANKIT ([facility]) Diastolic blood pressure 85 mm[Hg] 85 mm[Hg] [facility] ([facility]) Diastolic blood pressure 0 mm[Hg] Normal (applies to non-numeric results) 0 mm[Hg] [facility] ([facility]) Systolic blood pressure 0 mm[Hg] Normal (applies t o non-numeric results) 0 mm[Hg] [facility] ([facility]) Body mass index (BMI) [Ratio] 0.00 kg/m2 No rmal (applies to non-numeric results) 0.00 kg/m2 [facility] ([facility]) Body weight Measured 0.00 lbs Normal (applies to n on-numeric results) 0.00 lbs [facility] ([facility]) Body height 0.00 in Normal (applies to non-numeric resu lts) 0.00 in [facility] ([facility]) Diastolic blood pressure 0 mm[Hg] Normal (applies to non-numeric results) 0 mm[Hg] [facility] ([facility]) Systolic blood pressure 0 mm[Hg] Normal (applies t o non-numeric results) 0 mm[Hg] [facility] ([facility]) Body mass index (BMI) [Ratio] 0.00 kg/m2 No rmal (applies to non-numeric results) 0.00 kg/m2 [facility] ([facility]) Body weight Measured 0.00 lbs Normal (applies to n on-numeric results) 0.00 lbs [facility] ([facility]) Body height 0.00 in Normal (applies to non-numeric resu lts) 0.00 in [facility] ([facility]) ID Date Data Source [id number] 12/07/2019 01:14:07 PM [facility] Name Value Range Interpretation Code Description Data Source(s) WEIGHT RECORDED [address] [facility] Body height Measured 72.01 in 72.01 in [facility] ID Date Data Source [id number] 12/24/2019 11:39:15 AM [facility] Name Value Range Interpretation Code Description Data Source(s) WEIGHT RECORDED [address] [facility] Body height Measured 72 in 72 in [facility] Patient Treatment Plan of Care Planned Activity Planned Date Details Description Data Source (s) Fluconazole 200 MG Oral Tablet 12/10/2019 12:00:00 AM [facility] Piperacillin 3000 MG / tazobactam 375 MG Injection 12/03/2019 12 :00:00 AM [facility] 3 ML heparin sodium, porcine 100 UNT/ML Prefilled Syri nge 12/03/2019 12:00:00 AM [facility] ospital Normal Saline Flush 0.9 % Intravenous Solution 12/03/2019 12:00:00 AM [facility] Piperacillin 3000 MG / tazobactam 375 MG Injection 12/02/2019 12 :00:00 AM [facility] Kerlix Bandage Roll 4.5"x9.3' 12/02/2019 12:00:00 AM [facility] Thiamine 100 MG Oral Tablet 12/02/2019 12:00:00 AM [facility] Nystatin 100 UNT/MG Topical Powder 12/02/2019 12:00:00 AM [facility] Nicotine 4 MG/ACTUAT Inhalant Solution 12/02/2019 12:00:00 AM [facility] Tab-A-Biju/Beta Carotene Oral Tablet 12/02/2019 12:00:00 AM [facility] Folic Acid 1 MG Oral Tablet 12/02/2019 12:00:00 AM [facility] 3 ML heparin sodium, porcine 100 UNT/ML Prefilled Syri nge 12/02/2019 12:00:00 AM [facility] ospital Saline Flush 0.9 % Intravenous Solution 12/02/2019 12:00:00 AM [facility] Docusate Sodium 100 MG Oral Capsule 12/02/2019 12:00:00 AM [facility] Acetaminophen 325 MG Oral Tablet 12/02/2019 12:00:00 AM [facility] Oxycodone Hydrochloride 5 MG Oral Tablet 12/02/2019 12:00:00 AM [facility] Oxycodone Hydrochloride 5 MG Oral Tablet 12/01/2019 05:48:45 PM [facility] sodium chloride (preservative free) 0.9 % flush 10 mL 11/30/2019 07:38:43 AM [facility] ospital sodium chloride (preservative free) 0.9 % flush 10 mL 11/27/2019 09:52:36 AM [facility] Nystatin 100 UNT/MG Topical Powder 11/27/2019 03:22:12 AM [facility] lidocaine (XYLOCAINE) 2 % urojet 20 mL 11/26/2019 10:04:27 PM [facility] Zolpidem tartrate 5 MG Oral Tablet [facility] ([facility]) Zolpidem tartrate 10 MG Oral Tablet [facility] ([facility]) Trazodone Hydrochloride 150 MG Oral Tablet ANKIT ([facility]) Sulfamethoxazole 800 MG / Trimethoprim 160 MG Oral Tablet ANKIT ([facility]) Prazosin 1 MG Oral Capsule A THEN ([facility]) Fluconazole 200 MG Oral Tablet ANKIT ([facility]) Amoxicillin 875 MG / Clavulanate 125 MG Oral Tablet ANKIT ([facility]) 2 ML aripiprazole 200 MG/ML Prefilled Syringe [Abilify] ANKIT ([facility]) aripiprazole 400 MG Injection [Abilify] ANKIT ([facility])
[2020-06-19 08:16] LABS: BASO # 0.1 10^3/uL (0.0-0.2); BASO % 0.5 % (0.0-1.0); EOS # 0.1 10^3/uL (0.0-0.5); EOS % 0.6 % (0.0-3.0); HEMATOCRIT 42.5 % (42.0-52.0); HEMOGLOBIN 14.5 g/dl (13.5-17.5); LYMPH # 2.9 10^3/uL (1.5-5.0); LYMPH % 26.9 % (24.0-44.0); MEAN CORPUSCULAR HGB CONC 34.1 g/dl (32.0-36.5); MONO # 0.7 10^3/uL (0.0-0.8); MONO % 6.5 % (0.0-5.0); NEUTROPHILS % 64.6 % (36.0-66.0); PLATELET COUNT, AUTOMATED 236 10^3/uL (150-450); RED BLOOD COUNT 4.83 10^6/uL (4.30-6.10); WHITE BLOOD COUNT 10.8 10^3/uL (4.0-10.0)
--- NOTE | 2020-06-19 08:28 | REP ---
INDICATION: abscess. Abdominal pain and swelling in the region of the perineum. History of peroneal Dona scrotal abscess. COMPARISON: Comparison scrotal sonography November 26, 2019.. TECHNIQUE: Two-dimensional scanning is performed in the perineum. FINDINGS: Scanning in the perineum again demonstrates a complex heterogeneous hypoechoic area consistent with an abscess in the midline of the perineum with overall dimensions of 7.1 x 3.3 x 5.2 cm. IMPRESSION: Findings consistent with recurrent peroneal abscess.. <Electronically signed by Titus Gregg > 06/19/20 [id number]
[2020-06-19 09:10] LABS: BLOOD UREA NITROGEN 9 MG/DL (7-18); CALCIUM LEVEL 9.3 MG/DL (8.5-10.1); CARBON DIOXIDE LEVEL 24 MEQ/L (21-32); CHLORIDE LEVEL 104 MEQ/L (98-107); CREATININE FOR GFR 0.69 MG/DL (0.70-1.30); GLOMERULAR FILTRATION RATE > 60.0 (>60); GLUCOSE, FASTING 180 MG/DL (70-100); POTASSIUM SERUM 4.2 MEQ/L (3.5-5.1); SODIUM LEVEL 138 MEQ/L (136-145)
[2020-06-19] MEDS ORDERED: ISOVUE-370 76% 100ML VIAL As Ordered ONE (09:57)
--- NOTE | 2020-06-19 10:22 | REP ---
INDICATION: fourniere's gangrene. COMPARISON: None TECHNIQUE: Axial contrast-enhanced images from the lung bases to the pubic symphysis using 100 cc Isovue 370 intravenous contrast material. Coronal and sagittal reformations obtained. This CT examination was performed using the following dose reduction techniques: Automated exposure control, adjustment of mA and/or kv according to the patient's size, and the use of iterative reconstruction technique. FINDINGS: Hepatomegaly and diffuse fatty infiltration to the liver noted. Spleen, pancreas, gallbladder, bilateral adrenal glands and kidneys are normal. The enteric system is without obstruction or acute inflammatory process. Normal terminal ileum and appendix are identified in the right lower quadrant. Colonic and sigmoid diverticulosis noted without acute diverticulitis. 2 cm fat containing periumbilical hernia noted. Pelvis demonstrates normal bladder and age-appropriate prostate/seminal vesicles. No ascites. No free air. No adenopathy. Abdominal aorta and vasculature without aneurysm or dissection. Surrounding visualized musculoskeletal structures and soft tissues are normal. Lung bases are clear. IMPRESSION: Hepatomegaly and hepatosteatosis. Diverticulosis without acute diverticulitis. 2 cm fat containing periumbilical hernia. No acute abdominopelvic pathology appreciated. <Electronically signed by Dave Stinson > 06/19/20 [id number]
[2020-06-19 10:39] LABS: RSV AMPLIFICATION NEGATIVE (NEGATIVE)
[2020-06-19] MEDS ORDERED: MOM 30ML SUSPENSION UDC PO PRN (11:30)
--- OUTSIDE RECORDS SUMMARY | 2020-06-19 11:39 | CCD ---
Author Author [facility] Organization [facility] Address Unknown Phone Unavailable Care Team Providers Care Medical Oncology Physician Name Role Phone Zay Miramontes MD Unavailable [...] Unavailable Mario Bundy MD Unavailable Unavailable Mario uBndy MD Unavailable Unavailable Mario Bundy MD Unavailable [...] M Sena PA Unavailable Unavailable Scordo, M Esna PA Unavailable Unavailable Scordo, M Sena PA [...] Unavailable Unavailable Clemente MCCANN MD Unavailable Unavailable lCemente MCCANN MD Unavailable Unavailable Clemente MCCANN MD [...] COTTO, BETO GALA RPA-C Unavailable Unavailable COTTO, BTEO GALA RPA-C Unavailable Unavailable COTTO, BETO GALA [...] Unavailable Rotella, Dana Unavailable Alessandra Stoddard Unavailable Cos Cob, C Rob Unavailable Unavailable Cos Cob, C Rob Unavailable Unavailable Cos Cob, C Rob Unavailable Unavailable Cos Cob, C Rob Unavailable Unavailable Chace, C Rob Unavailable Unavailable Chace, C Rob Unavailable Unavailable Cos Cob, C Rob Unavailable Unavailable Astrid, Wilfrid Hernandez PMH-MOBILE LOUNGE DRIVER OR OPERATOR Unavailable Unavailable Monroe, Wilfrid Hernandez PMH-MOBILE LOUNGE DRIVER OR OPERATOR Unavailable Unavailable Astrid, Wilfrid Hernandez PMH-MOBILE LOUNGE DRIVER OR OPERATOR Unavailable Unavailable Monroe, Wilfrid Hernandez PMH-MOBILE LOUNGE DRIVER OR OPERATOR Unavailable Unavailable Astrid, Wilfrid Hernandez PMH-MOBILE LOUNGE DRIVER OR OPERATOR Unavailable Unavailable Astrid, Wilfrid Hernandez PMH-MOBILE LOUNGE DRIVER OR OPERATOR Unavailable Unavailable Patel Lesa Unavailable Jose FERNANDO [...] Unavailable Unavailable Jose FERNANDO MD Unavailable Unavailable Joes FERNANDO MD Unavailable Unavailable Jose FERNANDO MD [...] Unavailable ADI, HARSH PA-C Unavailable Unavailable ADI, AHRSH PA-C Unavailable Unavailable ADI, HARSH PA-C Unavailable [...] MAYERS MD Unavailable Unavailable Madeleine Angela Unavailable [facility], [facility], RFROST COTTOST [place] CEDEÑO Unavailable Unavailable Re-disclosure [...] is protected by Article 27-F of the [facility] Public Health law. If you continue you may have access to information: Regarding HIV / AIDS; Provided by facilities licensed or operated by the [facility] Office of Mental Health; or Provided by the [facility] Office for People With Developmental Disabilities. If such information is present, then the following [facility] mandated warning applies: This information has been [...] law may result in a fine or senior care sentence or both. A general authorization for the release of medical or other information is NOT sufficient authorization for further disc losure. Allergies and Adverse Reactions Type Description Substance Reaction Status Data Source(s ) Propensity to adverse reactions to substance Geodon (ziprasi done hcl) ziprasidone 40 MG Oral Capsule [Geodon] Active [facility] ([facility]) Drug allergy PICC LINE ADHESIVE DRESSING PICC LINE ADHESIVE D RESSING rash/hives U [facility] DRUG INGREDI STRAWBERRY EXTRACT STRAWBERRY EXTRACT [facility] Allergy to substance Allergy to substance Allergy to substance [facility] ([facility]) Allergy to substance Allergy to substance Allergy to substance [facility] ([facility]) Allergy to substance Allergy to substance Allergy to substance [facility] ([facility]) Family History Family Member Name Family Member Gender Family Member Status Date o f Status Description Data Source(s) Unknown Male Problem MEDENT ([facility]) Unknown Male Problem [facility] ([facility] Encounters Encounter Providers Location Date Indications Data Source(s ) Outpatient Attender: Mary Resendiz [facility]-MOBILE LOUNGE DRIVER OR OPERATOR [facility] 06/13/2020 01:30:00 AM EST - 06/13/2020 01:30:00 AM EST [facility] ([facility]) Attender: Mary Resendiz [facility]-MOBILE LOUNGE DRIVER OR OPERATOR 06/13/2020 12: 00:00 AM EST [facility] ([facility]) SANJANA MyersC: [address], [address], [place] [address], Ph. Attender: Sena CRUZ - [facility] Medical 05/23/2020 12:00:00 AM EST ANKIT ([facility]) TEMPMHCTelemed 30" Psychotherapy Attender: [facility] 05/22/2020 02:00:00 AM EST - 05/22/2020 02:00:00 AM EST [facility] ([facility]) Attender: Alessandra Stoddard 05/22/2020 12:00:00 A M EST [facility] ([facility]) Angus Bundy MD: [address] [place] [phone], Ph. Attender: Angus Bundy MD [facility] Medical 04/27/2020 12:00:00 AM EST ANKIT ([facility]) Angus Bundy MD: [address] [place] [phone], Ph. Attender: Angus Bundy MD [facility] Medical 04/27/2020 12:00:00 AM EST ANKIT ([facility]) Angus Bundy MD: [address] [place] [phone], Ph. Attender: Angus Bundy MD [facility] Medical 04/27/2020 12:00:00 AM EST ANKIT ([facility]) Outpatient Attender: Mary Resendiz [facility]-MOBILE LOUNGE DRIVER OR OPERATOR [facility] 04/26/2020 01:30:00 AM EST - 04/26/2020 01:30:00 AM EST [facility] ([facility]) Attender: Mary Resendiz [facility]-MOBILE LOUNGE DRIVER OR OPERATOR 04/26/2020 12: 00:00 AM EST [facility] ([facility]) Attender: Alessandra Stoddard 04/18/2020 12:00:00 A M EST [facility] ([facility]) TEMPMHCTelemed 30" Psychotherapy Attender: Alessandra Caal [facility] 04/17/2020 01:00:00 AM EST - 04/17/2020 01:00:00 AM [facility] Outpatient Attender: PRECIOUS CEDEÑO [facility] 06/2019 03:09:03 PM EDT [facility] Outpatient Attender: PRECIOUS [facility] 01/18 11:55:02 AM EDT [facility] Outpatient Attender: GALA GIBSONC [facility] 01/20/2020 02:47:03 PM EDT [facility] Outpatient Attender: PRECIOUS CEDEÑO COUNT INCLUDES [facility] 07/2019 02:47:02 PM EDT [facility] Outpatient Attender: GALA GIBSONC [facility] 01/20/2020 02:46:03 PM EDT [facility] Outpatient Attender: PRECIOUS CEDEÑO COUNT INCLUDES [facility] 12/18 05:26:01 PM EDT [facility] Outpatient Attender: JAYNA MCCANN MD 01/11/2020 12:00:0 0 AM [facility] Outpatient Attender: PRECIOUS CEDEÑO COUNT INCLUDES [facility] 12/18 11:46:01 AM EDT [facility] Outpatient Attender: PRECIOUS CEDEÑO COUNT INCLUDES [facility] 12/18 12:17:01 PM EDT [facility] Outpatient Attender: JAYNA MCCANN MD 12/28/2019 12:00:0 0 AM [facility] Outpatient Attender: PRECIOUS CEDEÑO COUNT INCLUDES [facility] 01/2020 02:20:59 PM EDT [facility] Outpatient Attender: PRECIOUS CEDEÑO COUNT INCLUDES [facility] 09/2019 09:19:01 AM EDT [facility] Outpatient Attender: GALA GIBSONC [facility] 12/20/2019 04:38:01 PM EDT [facility] Outpatient [id number] 12/15/2019 02:53:39 PM EDT - 020 05:01:00 PM EDT [facility] Patient discharged. Outpatient Attender: GALA ONEAL [facility] 12/14/2019 12:00:11 AM EDT [facility] Outpatient Attender: GALA COTTO RPA-C [facility] 12/13/2019 03:42:04 PM EDT [facility] Outpatient Attender: JEROMYALEJANDRO COTTOST [place] CEDEÑO COUNT INCLUDES THE [facility] 11/17 01:01:03 PM EDT [facility] Outpatient Attender: HARSH FUNG-CReferrer: Angus oswald MD [id number] 12/13/2019 12:00:00 AM EDT - 12/13/2019 11:03:41 AM EDT [facility] Attender: JAYNA MCCANN MD [id number] 12:00:00 AM EDT - 12/07/2019 10:47:07 AM EDT [facility] Outpatient Attender: PRECIOUS CEDEÑO COUNT INCLUDES [facility] 11/16 09:54:00 AM EDT [facility] Outpatient Attender: PRECIOUS KIRTI CEDEÑO COUNT INCLUDES THE [facility] 11/16 09:53:00 AM EDT [facility] Outpatient Attender: PRECIOUS COTTO [place]ON CEDEÑO COUNT INCLUDES [facility] 11/16 09:52:02 AM EDT [facility] Outpatient Attender: PRECIOUS COTTO KENTON CEDEÑO COUNT INCLUDES [facility] 11/16 09:06:01 AM EDT [facility] Outpatient Attender: GALA COTTO RPA-C [facility] 11/26/2019 02:52:02 PM EDT [facility] Outpatient Attender: PRECIOUS COTTO KENTON CEDEÑO COUNT INCLUDES [facility] 11/16 02:52:02 PM EDT [facility] Emergency 11/26/2019 02:16:00 PM EDT - 11/27/2019 02:25:22 PM EDT scrotal abscess worsening since I&D on [facility] scrotal abscess worsening since I&D on Inpatient Attender: JAYNA MCCANN MD Attender: Angus Miramontes MDAttender: MARY BARBOSA MDAdmitter: Angus Miramontes MDReferrer: Angus Miramontes MD [id number] 11/26/2019 12:00:00 AM EDT - 12/02/2019 12:00:00 AM EDT [facility] Herb gangrene Patient discharged. Outpatient Attender: Mary Goldenerson Count joel Powell 11/16/2019 01:30:00 AM EDT - 11/16/2019 01:30:00 AM EDT [facility] ([facility]) Attender: Mary PETE 11/16/2019 12: 00:00 AM EDT [facility] ([facility]) Outpatient Attender: PRECIOUS CEDEÑO COUNT INCLUDES [facility] 10/17 02:24:00 PM EDT [facility] Outpatient Attender: GALA ONEAL [facility] 11/04/2019 04:34:00 PM EDT [facility] Outpatient Attender: PRECIOUS CEDEÑO COUNT INCLUDES [facility] 10/17 04:33:59 PM EDT [facility] Injectable Medication Administration w/ Monitoring & E ducation Attender: Lesa Patel [facility] 10/27/2019 01:00:00 AM EDT - 10/27/2019 01:00:00 AM EDT [facility] ([facility]) Attender: Lesa Patel 10/27/2019 12:00:00 AM EDT [facility] ([facility]) Attender: ANGUS WASHBURN MD 10/20/2019 12:00:00 A M EDT [facility] ([facility]) Outpatient Attender: Mary Goldenerson [facility] 10/14/2019 03:00:00 AM EDT - 10/14/2019 03:00:00 AM EDT [facility] ([facility]) Attender: Mary PETE 10/14/2019 12: 00:00 AM EDT [facility] ([facility]) AOT Evaluation Attender: ANGUS WASHBURN MD [facility] 10/13/2019 02:00:00 AM EDT - 10/13/2019 02:00:00 AM EDT [facility] ([facility]) TEMPMHCTelemed 30" Psychotherapy Attender: [facility] 10/07/2019 02:15:00 AM EDT - 10/07/2019 02:15:00 AM EDT [facility] ([facility]) Attender: Alessandra Stoddard 10/07/2019 12:00:00 A M EDT [facility] ([facility]) Injectable Psychotropic Medication Administration (Inj ection Only) Attender: Lesa Patel [facility] 09/28/2019 01:00:00 AM EDT - 09/28/2019 01:00:00 AM EDT [facility] ([facility]) Attender: Lesa Patel 09/28/2019 12:00:00 AM EDT [facility] ([facility]) Telemed Diagnostic Eval Attender: Alessandra Stoddard [facility] 09/23/2019 10:00:00 AM EDT - 09/23/2019 10:00:00 AM EDT [facility] ([facility]) Attender: Alessandra Stoddard 09/23/2019 12:00:00 A M EDT [facility] ([facility]) [id number]"Psychotherapy Attender: Madeleine Angela [facility] 09/21/2019 01:00:00 AM EDT - 09/21/2019 01:00:00 AM EDT [facility] ([facility]) Attender: Madeleine Angela 09/21/2019 12:00:00 AM EDT [facility] ([facility]) Outpatient Attender: VASILE PUENTES 09/03/2019 05:00:00 P M EDT [facility] Outpatient Attender: Mary Resendiz [facility]-MOBILE LOUNGE DRIVER OR OPERATOR [facility] 08/30/2019 03:30:00 AM EDT - 08/30/2019 03:30:00 AM EDT [facility] ([facility]) Attender: Mary PETE 08/30/2019 12: 00:00 AM EDT [facility] ([facility]) Injectable Medication Administration w/ Monitoring & E ducation Attender: Lesa Patel [facility] 08/27/2019 03:00:00 AM EDT - 08/27/2019 03:00:00 AM EDT [facility] ([facility]) Attender: Lesa Patel 08/27/2019 12:00:00 AM EDT [facility] ([facility]) Injectable Medication Administration w/ Monitoring & E ducation Attender: Lesa Patel [facility] 08/24/2019 03:00:00 AM EDT - 08/24/2019 03:00:00 AM EDT [facility] ([facility]) Attender: Lesa Patel 08/24/2019 12:00:00 AM EDT [facility] ([facility]) Outpatient Attender: VASILE PUENTES 08/13/2019 08:01:12 P M EDT [facility] Outpatient Attender: Mary Resendiz [facility]-MOBILE LOUNGE DRIVER OR OPERATOR [facility] 07/29/2019 04:00:00 AM EDT - 07/29/2019 04:00:00 AM EDT [facility] ([facility]) Attender: Mary Resendiz [facility]-MOBILE LOUNGE DRIVER OR OPERATOR 07/29/2019 12: 00:00 AM EDT [facility] ([facility]) Injectable Psychotropic Medication Administration (Inj ection Only) Attender: Dana Smart [facility] 07/27/2019 02:00:00 AM EDT - 07/27/2019 02:00:00 AM EDT [facility] ([facility]) Attender: Dana Smart 07/27/2019 12:00:00 AM EDT [facility] ([facility]) Outpatient Attender: VASILE PUENTES 07/19/2019 10:56:02 A Outpatient Attender: VASILE PUENTES 07/09/2019 11:10:01 A Outpatient Attender: VASILE PUENTES 07/05/2019 09:18:01 A Outpatient Attender: VASILE PUENTES 07/02/2019 09:18:49 A Outpatient Attender: VASILE FERNANDO MD 06/30/2019 03:30:06 P Outpatient Attender: VASILE FERNANDO MD 06/30/2019 02:58:02 P Outpatient Attender: VASILE FERNANDO MD 06/30/2019 02:40:02 P Outpatient Attender: VASILE FERNANDO MD 06/30/2019 02:40:02 P Outpatient Attender: VASILE FERNANDO MD 06/30/2019 02:23:01 P Outpatient Attender: VASILE FERNANDO MD 06/30/2019 01:18:01 P Injectable Psychotropic Medication Administration (Inj ection Only) Attender: Lesa Patel [facility] 06/29/2019 02:00:00 AM EST - 06/29/2019 02:00:00 AM EST [facility] ([facility]) Attender: Lesa Patel 06/29/2019 12:00:00 AM EST [facility] ([facility] Outpatient Attender: VASILE FERNANDO MD 06/28/2019 10:13:01 A Outpatient Attender: VASILE FERNANDO MD 06/25/2019 10:05:00 A Outpatient Attender: VASILE FERNANDO MD 06/25/2019 10:04:00 A Outpatient Attender: VASILE FERNANDO MD 06/22/2019 02:07:01 P Outpatient Attender: Rob Mas [facility] 0 06/17/2019 03:45:00 AM EST - 06/17/2019 03:45:00 AM EST [facility] ([facility] Attender: Rob Mas 06/17/2019 12:00:00 AM EST [facility] Attender: Rob Mas [facility] 0 06/04/2019 02:00:00 AM EST - 06/04/2019 02:00:00 AM EST [facility] ([facility] Attender: Rob Mas 06/04/2019 12:00:00 AM EST [facility] Injectable Psychotropic Medication Administration (Inj ection Only) Attender: Lesa Patel [facility] 06/01/2019 11:00:00 AM EST - 06/01/2019 11:00:00 AM EST [facility] Attender: Lesa Patel 06/01/2019 12:00:00 AM EST [facility] ([facility]) Outpatient Attender: VASILE FERNANDO MD 05/31/2019 01:32:01 P M [facility] Injectable Medication Administration w/ Monitoring & E ducation Attender: Lesa Patel [facility] 05/28/2019 02:00:00 AM EST - 05/28/2019 02:00:00 AM EST [facility] Attender: Lesa Patel 05/28/2019 12:00:00 AM EST [facility] ([facility]) Outpatient Attender: VASILE FERNANDO MD 05/11/2019 10:31:01 A M [facility] Outpatient Attender: VASILE FERNANDO MD 04/30/2019 03:19:00 P M [facility] Outpatient Attender: VASILE FERNANDO MD 04/30/2019 03:18:02 P M [facility] Outpatient Attender: Rob Mas [place] [id number] 07/01/2018 11:00:00 AM EST - 04/30/2019 11:00:00 AM EST [facility] ([facility] Injectable Psychotropic Medication Administration (Inj ection Only) Attender: Lesa Patel [facility] 04/30/2019 10:15:00 AM EST - 04/30/2019 10:15:00 AM EST [facility] ([facility]) Attender: Lesa Patel 04/30/2019 12:00:00 AM EST [facility] ([facility]) Attender: Rob Mas 04/30/2019 12:00:00 AM EST [facility] ([facility]) Injectable Psychotropic Medication Administration (Inj ection Only) Attender: Dana Smart [facility] 04/27/2019 01:00:00 AM EST - 04/27/2019 01:00:00 AM EST [facility] ([facility]) Attender: Dana Smart 04/27/2019 12:00:00 AM EST [facility] ([facility]) Functional Status Medications Medication Brand Name Start Date Product Form Dose Route Admi nistrative Instructions Pharmacy Instructions Status Indications Reaction Description Data Source(s) Fluconazole 200 MG Oral Tablet Fluconazole 200 MG Oral Tablet (DIFLUCAN) Fluconazole 200 MG Oral Tablet (DIFLUCAN) 12/10/2019 12:00:00 AM EDT 200 mg Oral active Fungal dermatitis Take 1 table t by mouth daily for 5 days [facility] Fungal dermatitis 3 ML heparin sodium, porcine 100 UNT/ML Prefilled Syringe Heparin Sodium Lock Flush 100 UNIT/ML Intravenous Solution Heparin Sodium Lock Flush 100 UNIT/ML Intravenous Solution 12/03/2019 12:00:00 AM EDT 500 U Intracathete r active Encounter for long-term (current) use of antibioticsFournier gangrene 5 mLs by Intracatheter route as needed (PRN for after IV infusion and as needed) [facility] Encounter for long-term (current) use of antibiotics Herb gangrene Piperacillin 3000 MG / tazobactam 375 MG Injection piperacillin-tazobactam 13.5 g injection piperacillin-tazobactam 13.5 g injection 12/03/2019 12:00:00 AM EDT 13.5 g Intravenous active Encounter for long-term (current) use of antibioticsFournier gangrene Inject 13,500 mg into the vein continuous [facility] Encounter for long-term (current) use of antibiotics Herb gangrene Normal Saline Flush 0.9 % Intravenous Solution 10396-374-38 12/03/2019 12:00:00 AM EDT 10 mL Intravenous active Encounte r for long-term (current) use of antibioticsFournier gangrene Inject 10 mLs into the ve in as needed (PRN before and after infusion and PRN) [facility] Encounter for long-term (current) use of antibiotics Herb gangrene potassium chloride (K-DUR) dissolvable tablet 20 mEq [id number] 12/02/2019 10:15:00 AM EDT 20 meq Oral active 20 mEq, Oral, 2 Times Daily, First dose on Liana 12/02/19 at 1015, For 1 day
May be dissolved in water for patients with a G-Tube or unable to swallow. If concern for clogging G-Tube, may contact Pharmacy to switch formulation to a powder packet.
[facility] Medication administered onsite lidocaine (PF) (XYLOCAINE) 1 % injection 20 mL [id number] 12/02/2019 06:45:00 AM EDT 20 mL Infiltration completed 2 0 mL, Infiltration, Once, [facility] 12/02/19 at 0645, For 1 dose
Hold at bedside for
[facility] Medication administered onsite Piperacillin 3000 MG / tazobactam 375 MG Injection piperacillin-tazobactam 13.5 g injection piperacillin-tazobactam 13.5 g injection 12/02/2019 12:00:00 AM EDT 13.5 g Intravenous active Inject 13,50 0 mg into the vein every 24 (twenty-four) hours Infuse 13.5 gm IV continuously over 24 hours [facility] Saline Flush 0.9 % Intravenous Solution [id number] 12/02/19 12:00:00 AM EDT 10 mL Intravenous active Inject 10 mL s into the vein daily for 6 daysFlush with 10 ml IV before and after dose [facility] 3 ML heparin sodium, porcine 100 UNT/ML Prefilled Syringe Heparin Sodium Lock Flush 100 UNIT/ML Intravenous Solution Heparin Sodium Lock Flush 100 UNIT/ML Intravenous Solution 12/02/2019 12:00:00 AM EDT 500 U Intravenous active Inject 5 mLs into the vein d aily for 6 daysFlush with 5 ml IV after dose and prn [facility] Oxycodone Hydrochloride 5 MG Oral Tablet oxyCODONE HCl 5 MG Oral Tablet (ROXICODONE) oxyCODONE HCl 5 MG Oral Tablet (ROXICODONE) 12/02/2019 12:00:00 AM EDT 5 mg Oral active Take 1 t ablet by mouth every 4 (four) hours as needed for up to 3 days, Max Daily Dose: 30 mg [facility] Kerlix Bandage Roll 4.5"x9.3' [id number] 12/02/2019 12:00:00 AM E DT 1 {Application} Does not apply active 1 Application by Does not apply route Three times daily And as needed [facility] Nystatin 100 UNT/MG Topical Powder Nysta tin 610328 UNIT/GM External Powder (Nystatin) Nystatin 532370 UNIT/GM External Powder (Nystatin) 12:00:00 AM EDT active Apply to axilla two times a day for rash [facility] Nicotine 4 MG/ACTUAT Inhalant Solution N icotine 10 MG Inhalation Inhaler (NICOTROL) Nicotine 10 MG Inhalation Inhaler (NICOTROL) 0 12:00:00 AM EDT 1 {puff} Inhalation active Inha le 1 puff into the lungs as needed for Smoking cessation [facility] Tab-A-Biju/Beta Carotene Oral Tablet [id number] 12/02/2019 12:00: 00 AM EDT 1 {tbl} Oral active Take 1 tablet by mouth d [facility] Folic Acid 1 MG Oral Tablet Folic Acid 1 MG Oral Table t (FOLVITE) Folic Acid 1 MG Oral Tablet (FOLVITE) 12/02/2019 12:00:00 AM EDT 1 mg Oral active Take 1 tablet by mouth daily [facility] Thiamine 100 MG Oral Tablet Thiamine HCl 100 MG Oral T ablet (B-1) Thiamine HCl 100 MG Oral Tablet (B-1) 12/02/2019 12:00:00 AM EDT 100 mg Oral active Take [facility] 325 MG Oral Tablet Acetaminophen 325 MG Oral Tablet (Tylenol) Acetaminophen 325 MG Oral Tablet (Tylenol) 12/02/2019 12:00:00 AM EDT 650 mg Oral active Take 2 tablets by mouth every 6 (six) hours as needed for Pain for up to 10 days [facility] Docusate Sodium 100 MG Oral Capsule Docu sate Sodium 100 MG Oral Capsule (COLACE) Docusate Sodium 100 MG Oral Capsule (COLACE) 12/02/2019 12:00:00 AM EDT 100 mg Oral active Take 1 capsule by mouth Two Times Daily for 10 days [facility] Potassium Chloride 0.1 MEQ/ML Injectable Solution potassium chloride 10 mEq in 100 mL IVPB (premix) potassium chloride 10 mEq in 100 mL IVPB (premix) 12/01/2019 09:00:00 PM EDT 10 meq Intravenous completed 10 mEq, Intravenous, Administer over 60 Minutes, Every 1 hour, First dose (after last reorder) on Fri12/01/19 at 2100, For 2 doses [facility] Medication administered onsite fentaNYL (SUBLIMAZE) (PF) injection 25 mcg [id number] 12/01/2019 06:57:48 PM EDT 25 ug Intravenous aborted 25 m cg, Intravenous, Every 5 min PRN, Severe Pain (Pain Scale Score 7-10), Starting Fri12/01/19 at 1857, For 10 doses, [facility] Medication administered onsite Oxycodone Hydrochloride 5 [...] only) require Pain Service consultation and approval.
[facility] Medication administered onsite NaCl infusion 0.9 % [id number] 12/01/2019 01:30:00 PM EDT Intravenous aborted at 50 mL/hr, Intrave nous, Continuous, Starting Fri12/01/19 at 1330, For 30 days [facility] Medication administered onsite Potassium Chloride 0.1 MEQ/ML Injectable Solution potassium chloride 10 mEq in 100 mL IVPB (premix) potassium chloride 10 mEq in 100 mL IVPB (premix) 12/01/2019 01:30:00 PM EDT 10 meq Intravenous completed 10 mEq, Intravenous, Administer over 60 Minutes, Every 1 hour, First dose on Fri12/01/19 at 1330, For 4 doses [facility] Medication administered onsite fentaNYL (SUBLIMAZE) (PF) injection 50 mcg [id number] 12/01/2019 06:15:00 AM EDT 50 ug Intravenous completed 50 mcg, Intravenous, Once, Fri12/01/19 at 0615, For 1 dose [facility] Medication administered onsite Hydralazine Hydrochloride 10 MG Oral Tab let hydrALAZINE (APRESOLINE) tablet 10 mg hydrALAZINE (APRESOLINE) tablet 10 mg 12/01/2019 12:30:00 AM EDT 10 mg Oral completed 10 mg, Oral, O nce, Fri12/01/19 at 0030, For 1 dose
Check vital signs before administering
[facility] Medication administered onsite fentaNYL (SUBLIMAZE) (PF) injection 50 mcg [id number] 11/30/2019 09:45:00 PM EDT 50 ug Intravenous completed 50 mcg, Intravenous, Once, Fri11/30/19 at 2145, For 1 dose [facility] Medication administered onsite gabapentin 300 MG Oral Capsule gabapentin (NEURONTIN) capsule 300 mg gabapentin (NEURONTIN) capsule 300 mg 11/30/2019 09:00:00 PM EDT 300 mg Oral active 300 mg, Oral, Three Times D aily Standard, First dose on Fri11/30/19 at 2100, For 30 days [facility] Medication administered onsite lidocaine (XYLOCAINE) 1 % injection 5 mL [id number] 11/30/2019 07:38:43 AM EDT 5 mL Subcutaneous active 5 m L, Subcutaneous, Once PRN, for PICC insertion, Starting Fri11/30/19 at 0738, For 30 days [facility] Medication administered onsite sodium chloride (preservative [...] mL Heparin 10 units/mL to lock.Reference Policy [facility]34H Central Line Policy.
[Order 2 End] [Order 3 Start] Name: sodium chloride (preservative free) 0.9 % flush 10 mL Signed Summary: 10 mL, Intravenous, Every 12 hours, First dose on Fri11/30/19 at 0745, For 30 days
WHEN NOT IN USE - Verify blood return before use. Flush with 10 mL of Sodium Chloride 0.9 % and 2 mL Heparin 10 units/mL.Reference Policy [facility] Central Line Policy.
[Order 3 End] [Order 4 Start] Name: heparin lock flush 10 UNIT/ML injection 20 Units Signed Summary: 20 Units, Intravenous, Every 12 hours, First dose on Fri11/30/19 at 0745, For 30 days
WHEN NOT IN USE - Verify blood return before use. Flush with 10 mL of Sodium Chloride 0.9 % and 2 mL Heparin 10 units/mL.Reference Policy [address] Central Line Policy.
[Order 4 End] [facility] Medication administered onsite fentaNYL (SUBLIMAZE) (PF) injection 50 mcg [id number] 11/30/2019 06:15:00 AM EDT 50 ug Intravenous completed 50 mcg, Intravenous, Once, Fri11/30/19 at 0615, For 1 dose [facility] Medication administered onsite fentaNYL (SUBLIMAZE) (PF) injection 50 mcg [id number] 11/29/2019 08:00:00 PM EDT 50 ug Intravenous completed 50 mcg, Intravenous, Once, Fri11/29/19 at 2000, For 1 dose [facility] Medication administered onsite Benzocaine 15 MG / Menthol 3.6 MG Oral L ozenge benzocaine-menthol (CEPACOL) 15- 3.6 MG per lozenge 1 lozenge benzocaine-menthol (CEPACOL) 15-3.6 MG p er lozenge 1 lozenge 11/29/2019 07:52:39 PM EDT 1 {lozenge} Mouth/Throat active 1 lozenge, Mouth/Throat, Every 2 hours PRN, Sore Throat, Starting Fri11/29/19 at 1952, For 3 days [facility] Medication administered onsite vancomycin (VANCOCIN) 2,000 mg in sodium chloride 0.9 % 500 mL IVPB 11/29/2019 02:00:00 PM EDT 2000 mg Intravenous completed 2,000 mg, Intravenous, Administer over 120 Minutes, Every 12 hours, First dose (after last modification) on Fri11/29/19 at 1400, For 1 dose [facility] Medication administered onsite fentaNYL (SUBLIMAZE) (PF) injection 50 mcg [id number] 11/29/2019 06:00:00 AM EDT 50 ug Intravenous completed 50 mcg, Intravenous, Once, Fri11/29/19 at 0600, For 1 dose [facility] Medication administered onsite fentaNYL (SUBLIMAZE) (PF) injection 50 mcg [id number] 11/28/2019 10:30:00 PM EDT 50 ug Intravenous completed 50 mcg, Intravenous, Once, [place] 11/28/19 at 2230, For 1 dose [facility] Medication administered onsite Trazodone Hydrochloride 100 MG Oral Tablet trazodone ( DESYREL) tablet 200 mg trazodone (DESYREL) tablet 200 mg 11/28/2019 10:00:00 PM EDT 200 mg Oral active 200 mg, Oral, Nightl y, First dose (after last modification) on 11/28/19 at 2200, For 28 doses [facility] Medication administered onsite Mirtazapine 15 MG Oral Tablet mirtazapine (REMERON) ta blet 7.5 mg mirtazapine (REMERON) tablet 7.5 mg 11/28/2019 10:00:00 PM EDT 7.5 mg Oral active 7.5 mg, Oral, Nightly, First dose (after last modification) on 11/28/19 at 2200, For 28 doses [facility] Medication administered onsite multivitamin tablet 1 tablet [id number] 11/28/2019 09:00:00 AM EDT 1 {tbl} Oral active 1 tablet, Oral , Daily Standard, First dose on 11/28/19 at 0900, For 30 days [facility] Medication administered onsite Folic Acid 1 MG Oral Tablet folic acid (FOLVITE) table t 1 mg folic acid (FOLVITE) tablet 1 mg 11/28/2019 09:00:00 AM EDT 1 mg Oral active 1 mg, Oral, Daily Standard, First dose on 11/28/19 at 0900, For 30 days [facility] Medication administered onsite Thiamine 100 MG Oral Tablet thiamine (B-1) tablet 100 mg thiamine (B-1) tablet 100 mg 11/28/2019 09:00:00 AM EDT 100 mg Oral active 100 mg, Oral, Daily Standard, First dose on 11/28/19 at 0900, For 30 days [facility] Medication administered onsite fentaNYL (SUBLIMAZE) (PF) injection 50 mcg [id number] 11/28/2019 06:45:00 AM EDT 50 ug Intravenous completed 50 mcg, Intravenous, Once, 11/28/19 at 0645, For 1 dose [facility] Medication administered onsite potassium phosphate 155 [...] mEq), and potassium 45 mg (1.1 mEq)
[facility] Medication administered onsite potassium chloride (K-DUR) dissolvable tablet 20 mEq [id number] 11/28/2019 06:00:00 AM EDT 20 meq Oral completed 20 mEq, Oral, Once, 11/28/19 at 0600, For 1 dose
May be dissolved in water for patients with a G-Tube or unable to swallow. If concern for clogging G-Tube, may contact Pharmacy to switch formulation to a powder packet.
[facility] Medication administered onsite Acetaminophen 325 MG Oral Tablet acetaminophen (TYLENO L) tablet 650 mg acetaminophen (TYLENOL) tablet 650 mg 11/28/2019 05:00:00 AM EDT 65 0 mg Oral active 650 mg, Oral, E very 6 hours, First dose on 11/28/19 at 0500, For 30 days
Maximum daily dose of acetaminophen is 3,000 mg from all sources in 24 hours.
[facility] Medication administered onsite Melatonin 5 MG Oral Tablet melatonin tablet 5 mg melatonin t ablet 5 mg 11/27/2019 10:00:00 PM EDT 5 mg Oral active 5 mg, Oral, Nightly, First dose on 11/27/19 at 2200, For 30 days [facility] Medication administered onsite atorvastatin 10 MG Oral Tablet atorvastatin (LIPITOR) tablet 10 mg atorvastatin (LIPITOR) tablet 10 mg 11/27/2019 09:00:00 PM EDT 10 mg Oral active 10 mg, Oral, Every evening, First dose on 11/27/19 at 2100, For 30 days [facility] Medication administered onsite Nicotine 4 MG/ACTUAT [...] to stimulant effectsDo not exceed 16 cartridges/day
[facility] Medication administered onsite Clindamycin 18 MG/ML Injectable Solution clindamycin ( CLEOCIN) IVPB 900 mg clindamycin (CLEOCIN) IVPB 900 mg 11/27/2019 06:00:00 PM EDT 900 mg Intravenous aborted 900 mg, Intra venous, at 100 mL/hr, Every 8 hours, First dose (after last modification) on 11/27/19 at 1800, For 11 doses
Discouraged Uses: Cellulitis
[facility] Medication administered onsite fentaNYL (SUBLIMAZE) (PF) injection 50 mcg [id number] 11/27/2019 05:30:00 PM EDT 50 ug Intravenous completed 50 mcg, Intravenous, Once, 11/27/19 at 1730, For 1 dose [facility] Medication administered onsite 1 ML Ketorolac Tromethamine 30 MG/ML Car tridge ketorolac (TORADOL) 30 MG/ML injection 15 mg ketorolac (TORADOL) 30 MG/ML injection 15 mg 0 05:30:00 PM EDT 15 mg Intravenous completed 15 mg, Intravenous, Once, 11/27/19 at 1730, For 1 dose [facility] Medication administered onsite sodium chloride (preservative [...] Extended Dwell/Midline Peripheral Catheter.
[Order 3 End] [facility] Medication administered onsite lidocaine (XYLOCAINE) 1 % injection 5 mL [id number] 11/27/2019 09:52:36 AM EDT 5 mL Subcutaneous aborted 5 m L, Subcutaneous, Once PRN, For MIDLINE Catheter insertion, Starting 11/27/19 at 0952, For 2 days [facility] Medication administered onsite Lisinopril 10 MG Oral Tablet lisinopril (ZESTRIL) tabl et 40 mg lisinopril (ZESTRIL) tablet 40 mg 11/27/2019 09:00:00 AM EDT 40 mg Oral active 40 mg, Oral, Daily Standard, First dose on 11/27/19 at 0900, For 30 days [facility] Medication administered onsite lamotrigine 150 MG Oral Tablet lamotrigine (LAMICTAL) tablet 150 mg lamotrigine (LAMICTAL) tablet 150 mg 11/27/2019 09:00:00 AM EDT 150 mg Oral active 150 mg, Oral, Daily Standard, First dose on Sat at 0900, For 30 days [facility] Medication administered onsite aripiprazole 5 MG Oral Tablet ARIPiprazole (ABILIFY) t ablet 15 mg ARIPiprazole (ABILIFY) tablet 15 mg 11/27/2019 09:00:00 AM EDT 15 mg Oral active 15 mg, Oral, Daily Standard, First dose on 11/27/19 at 0900, For 30 days [facility] Medication administered onsite Docusate Sodium 100 MG Oral Capsule docusate sodium (C OLACE) capsule 100 mg docusate sodium (COLACE) capsule 100 mg 11/27/2019 09:00:00 AM EDT 100 mg Oral active 100 mg, Oral, 2 Times Daily, First dose on 11/27/19 at 0900, For 30 days [facility] Medication administered onsite heparin (porcine) 5000 UNIT/ML injection 5,000 Units [id number] 11/27/2019 09:00:00 AM EDT 5000 U Subcutaneous active 5,000 Units, Subcutaneous, Three Times Daily Standard, First dose on 11/27/19 at 0900, For 30 days [facility] Medication administered onsite 1 ML Ketorolac Tromethamine 15 MG/ML Car tridge ketorolac (TORADOL) 15 MG/ML injection 15 mg ketorolac (TORADOL) 15 MG/ML injection 15 mg 0 08:30:00 AM EDT 15 mg Intravenous completed 15 mg, Intravenous, Once, 11/27/19 at 0830, For 1 dose [facility] Medication administered onsite fentaNYL (SUBLIMAZE) (PF) injection 50 mcg [id number] 11/27/2019 06:45:00 AM EDT 50 ug Intravenous completed 50 mcg, Intravenous, Once, 11/27/19 at 0645, For 1 dose [facility] Medication administered onsite vancomycin (VANCOCIN) 1750 mg in NaCl 0.9 % 500 mL (premix) [id number] 11/27/2019 04:00:00 AM EDT 1750 mg Intravenous aborted 1,750 mg, Intravenous, Administer over 90 Minutes, Every 12 hours, First dose on 11/27/19 at 0400, For 3 days [facility] Medication administered onsite Nystatin 100 UNT/MG Topical Powder nystatin (MYCOSTATI N) powder nystatin (MYCOSTATIN) powder 11/27/2019 03:22:12 AM EDT Topical active Topical, 2 Times Daily PRN, for armpit rash, Starting 11/27/19 at 0322, For 30 days [facility] Medication administered onsite Oxycodone Hydrochloride 5 [...] only) require Pain Service consultation and approval.
[facility] Medication administered onsite lidocaine (XYLOCAINE) 2 % urojet 20 mL [id number] 0 10:04:27 PM EDT 20 mL Urethral active 20 mL, Urethral , Three Times Daily-PRN, foster discomfort at the urethral meatus, Starting Fri11/26/19 at 2204, For 720 hours
Please apply to the urethral meatus PRN.
[facility] Medication administered onsite trazodone (DESYREL) tablet 150 mg 11/26/2019 10:00:00 PM EDT 150 mg Oral aborted 150 mg, Oral, Ni ghtly, First dose on Fri11/26/19 at 2200, For 30 days [facility] Medication administered onsite Mirtazapine 15 MG Oral Tablet mirtazapine (REMERON) ta blet 15 mg mirtazapine (REMERON) tablet 15 mg 11/26/2019 10:00:00 PM EDT 15 mg Oral aborted 15 mg, Oral, Nightly, First dose on Fri11/26/19 at 2200, For 30 days [facility] Medication administered onsite Oxybutynin chloride 5 MG Oral Tablet oxybutynin (DITRO GARCIA) tablet 5 mg oxybutynin (DITROPAN) tablet 5 mg 11/26/2019 09:41:28 PM EDT 5 mg Oral aborted 5 mg, Oral, Three T imes Daily-PRN, Bladder Spasms, Starting Fri11/26/19 at 2141, For 3 days [facility] Medication administered onsite Acetaminophen 10 MG/ML Injectable Soluti on acetaminophen (OFIRMEV) infusion 1,000 mg acetaminophen (OFIRMEV) infusion 1,000 mg 11/26/2019 09:30:00 PM EDT 1000 mg Intravenous completed 1,000 mg , Intravenous, Administer over 15 Minutes, Once, Fri11/26/19 at 2130, For 1 dose
Maximum dose 3 gm daily from all sources
[facility] Medication administered onsite Clindamycin 12 MG/ML Injectable Solution clindamycin ( CLEOCIN) IVPB 600 mg clindamycin (CLEOCIN) IVPB 600 mg 11/26/2019 09:30:00 PM EDT 600 mg Intravenous aborted 600 mg, Intra venous, at 100 mL/hr, Every 8 hours, First dose on Fri11/26/19 at 2130, For 3 days
Discouraged Uses: Cellulitis
[facility] Medication administered onsite ondansetron (ZOFRAN) injection 4 mg [id number] 11/26/2019 09:25:2 8 PM EDT 4 mg Intravenous active 4 mg, In travenous, Every 8 hours PRN, Nausea, Starting Fri11/26/19 at 2125, For 8 days 22 hours [facility] Medication administered onsite gabapentin 300 MG Oral Capsule gabapentin (NEURONTIN) capsule 300 mg gabapentin (NEURONTIN) capsule 300 mg 11/26/2019 09:00:00 PM EDT 300 mg Oral aborted 300 mg, Oral, Three Times D aily Standard, First dose on Fri11/26/19 at 2100, For 30 days [facility] Medication administered onsite NaCl infusion 0.9 % [id number] 11/26/2019 09:00:00 PM EDT Intravenous aborted at 75 mL/hr, Intrave nous, Continuous, Starting Fri11/26/19 at 2100, For 30 days [facility] Medication administered onsite fentaNYL (SUBLIMAZE) (PF) injection 25 mcg [id number] 11/26/2019 08:44:28 PM EDT 25 ug Intravenous aborted 25 m cg, Intravenous, Every 5 min PRN, Severe Pain (Pain Scale Score 7-10), Starting Fri11/26/19 at 2044, For 10 doses, [facility] Medication administered onsite Piperacillin 3000 MG / tazobactam 375 MG Injection piperacillin-tazobactam (ZOSYN) IVPB 3.375 g (premix) piperacillin-tazobactam (ZOSYN) IVPB 3.3 75 g (premix) 11/26/2019 06:00:00 PM EDT 3.375 g Intravenous act warner 3.375 g, Intravenous, Administer over 4 Hours, Every 8 hours, First dose on Fri11/26/19 at 1800, For 24 doses [facility] Medication administered onsite iohexol (OMNIPAQUE) 300 MG/ML contrast injection 100 mL [id number] 11/26/2019 05:00:00 PM EDT 100 mL Given by IV completed 100 mL, Given by IV, 1 TIME IMAGING, Fri11/26/19 at 1700, For 1 dose [facility] Medication administered onsite vancomycin (VANCOCIN) in D5W infusion 1,000 mg/200 mL (premi x) [id number] 11/26/2019 04:30:00 PM EDT 1 g Intravenous completed 1 g, Intravenous, at 200 mL/hr, Once, Fri11/26/19 at 1630, For 1 dose
Discouraged Uses: - Treatment of C. difficile infection -Routine treatment of neutropenic fever -Non-purulent cellulitis -Community-acquired intra-abdominal infection
[facility] Medication administered onsite morphine sulfate (PF) injection 4 mg [id number] 11/26/2019 04:30: 00 PM EDT 4 mg Intravenous completed 4 mg, In travenous, Once, Fri11/26/19 at 1630, For 1 dose [facility] Medication administered onsite aripiprazole 15 MG Oral Tablet aripiprazole 11/16/2019 12:00:00 AM ED T 15 mg by mouth completed [id number] aripiprazole by mouth [id number] 11/16/2019 once a day 15 mg tablet 88504 [id number] Mary rowley [id number] [facility] Mirtazapine 15 MG Oral Tablet mirtazapine 10/14/2019 12:00:00 AM EDT 15 mg completed [id number] mirtazapine 10/14/2019 15 m g tablet 45024 [id number] Mary Resendiz [id number] [facility] Mirtazapine 15 MG Oral Tablet mirtazapine 10/14/2019 12:00:00 AM EDT 15 mg completed [id number] mirtazapine 10/14/2019 15 m g tablet 70687 [id number] Mary Astrdi [id number] [facility]) aripiprazole 15 MG Oral Tablet aripiprazole 10/14/2019 12:00:00 AM ED T 15 mg by mouth completed [id number] aripiprazole by mouth [id number] 0 10/14/2019 once a day 15 mg tablet 42851 [id number] [id number] Mary rowley [id number] [facility] Mirtazapine 15 MG Oral Tablet mirtazapine 10/14/2019 12:00:00 AM EDT 15 mg completed [id number] mirtazapine 10/14/2019 15 m g tablet 25384 [id number] Mary Resendzi [id number] [facility]) lamotrigine 150 MG Oral Tablet lamotrigine 10/05/2019 12:00:00 AM EDT 150 mg by mouth completed [id number] lamotrigine by mouth [id number] once a day 150 mg tablet as directed 76448 [id number] [id number] Mary joe [id number] [facility] lamotrigine 150 MG Oral Tablet lamotrigine 10/05/2019 12:00:00 AM EDT 150 mg by mouth completed [id number] lamotrigine by mouth [id number] once a day 150 mg tablet as directed 43022 [id number] Mary joe [id number] [facility]) Zolpidem tartrate 5 MG Oral Tablet zolpidem 09/14/2019 12:00:00 AM EDT 5 mg by mouth completed [id number] zolpidem by mouth [id number] 09/14/19 20 10/13/2019 at bedtime 30 5 mg tablet 89499 [id number] Mary rowley [id number] [facility] Zolpidem tartrate 5 MG Oral Tablet zolpidem 09/14/2019 12:00:00 AM EDT 5 mg by mouth completed 455016 zolpidem by mouth [id number] 09/14/19 20 10/13/2019 at bedtime 30 5 mg tablet 53240 [id number] Mary Waldrop w [id number] [facility] Zolpidem tartrate 10 MG Oral Tablet zolpidem 06/17/2019 12:00:00 AM EST 10 mg by mouth completed [id number] zolpidem by mouth [id number] 06/1709/10/2019 at bedtime 30 10 mg tablet as needed 93169 [id number] Rob Mas [id number] [facility] Zolpidem tartrate 10 MG Oral Tablet zolpidem 06/17/2019 12:00:00 AM EST 10 mg completed [id number] zolpidem 06/17/2019 at bedtime 10 mg tablet as needed 42218 [id number] Rob Mas [id number] [facility] Prazosin 1 MG Oral Capsule prazosin 04/30/2019 12:00:00 AM EST 1 mg by mouth completed [id number] prazosin by mouth [id number] 04/30/201903/2020 at bedtime 30 1 mg capsule 60971 [id number] [id number] Rob Mas 3 [id number] [facility]) Prazosin 1 MG Oral Capsule prazosin 04/30/2019 12:00:00 AM EST 1 mg by mouth completed [id number] prazosin by mouth [id number] 04/30/201903/2020 at bedtime 30 1 mg capsule 99372 [id number] Rob Mas 3 [id number] [facility]) Prazosin 1 MG Oral Capsule prazosin 04/30/2019 12:00:00 AM EST 1 mg by mouth completed [id number] prazosin by mouth [id number] 04/30/2019 at bedtime 30 1 mg capsule 93338 [id number] Rob Mas 3 [id number] [facility]) Zolpidem tartrate 10 MG Oral Tablet zolpidem 03/15/2019 12:00:00 AM EDT 10 mg completed [id number] zolpidem 03/15/2019 05/30/19 20 at bedtime 30 10 mg tablet 37975 [id number] Rob Mas [id number] [facility]) Zolpidem tartrate 10 MG Oral Tablet zolpidem 03/15/2019 12:00:00 AM EDT 10 mg completed [id number] zolpidem 03/15/2019 05/12/20 19 at bedtime 30 10 mg tablet [id number] [facility] [id number] [facility]) Trazodone Hydrochloride 150 MG Oral Tablet trazodone 04/02 12:00:00 AM EST 150 mg completed [id number] trazodone 201711/26/2019 at bedtime 30 150 mg tablet 69765 [id number] Rob Mas 3 [id number] [facility]) Trazodone Hydrochloride 150 MG Oral Tablet trazodone 04/02 12:00:00 AM EST 150 mg completed [id number] trazodone 201711/26/2019 at bedtime 30 150 mg tablet 99347 [id number] Rob Mas 3 [id number] [facility]) Trazodone Hydrochloride 150 MG Oral Tablet trazodone 04/02 12:00:00 AM EST 150 mg completed [id number] trazodone 201711/26/2019 at bedtime 30 150 mg tablet 98261 [id number] Rob Mas 3 [id number] [facility]) Trazodone Hydrochloride 150 MG Oral Tablet trazodone 04/02 12:00:00 AM EST 150 mg completed [id number] trazodone 201711/26/2019 at bedtime 30 150 mg tablet 44268 [id number] Rob Mas 3 [id number] [facility]) Trazodone Hydrochloride 150 MG Oral Tablet trazodone 04/02 12:00:00 AM EST 150 mg completed [id number] trazodone 201705/12/2019 at bedtime 30 150 mg tablet 78787 [id number] Rob Mas 3 [id number] [facility]) aripiprazole 400 MG Injection [Abilify] Abilify Maintena 07/16/2016 12:00:00 AM EST 400 mg completed [id number] Abilify Maintena int ramuscularly 07/16/2016 10/14/2019 once a month 400 mg suspension,extended rel recon [id number] Rob Mas [id number] [facility] lamotrigine 150 MG Oral Tablet [Lamictal] Lamictal 02/29/2016 1 2:00:00 AM EDT 150 mg completed Lamictal 02/29/2016 0 09/28/2019 twice a day 30 150 mg tablet 74575 [id number] [id number] Rob Mas [id number] [facility]) lamotrigine 150 MG Oral Tablet [Lamictal] Lamictal 02/29/2016 1 2:00:00 AM EDT 150 mg completed Lamictal 02/29/2016 0 09/28/2019 twice a day 30 150 mg tablet 83374 [id number] Rob Msa [id number] [facility]) lamotrigine 150 MG Oral Tablet [Lamictal] Lamictal 02/29/2016 1 2:00:00 AM EDT 150 mg completed Lamictal 02/29/2016 0 09/28/2019 twice a day 30 150 mg tablet 20733 [id number] [id number] Rob Brar [id number] [facility]) Amoxicillin 875 MG / Clavulanate 125 MG Oral Tablet amoxicillin 875 mg-potassium clavulanate 125 mg tablet TAKE ONE TABLET BY MOUTH THREE TIMES DAILY amoxicillin 875 mg-potassium clavulanate 125 mg tablet TAKE ONE TABLET BY MOUTH THREE TIMES DAILY completed amoxicillin 875 MG / clavulanate 125 MG Oral Tablet ANKIT ([facility]) Trazodone Hydrochloride 150 MG Oral Tabl et trazodone 150 mg tablet TAKE ONE TABLET BY MOUTH AT BEDTIME trazodone 150 mg tablet TAKE ONE TABLET BY MOUTH AT BEDTIME completed trazodone hydr ochloride 150 MG Oral Tablet ANKIT ([facility]) Prazosin 1 MG Oral Capsule prazosin 1 mg capsule TAKE ONE CAPSULE BY MOUTH AT BEDTIME prazosin 1 mg capsule TAKE ONE CAPSULE BY MOUTH AT BEDTIME completed prazosin 1 MG Oral Capsule ATHEN A ([facility]) Sulfamethoxazole 800 MG / Trimethoprim 1 60 MG Oral Tablet sulfamethoxazole 800 mg-trimethoprim 160 mg tablet TAKE ONE TABLET BY MOUTH EVERY 12 HOURS sulfamethoxazole 800 mg-trimethoprim 160 mg tablet TAKE ONE TABLET BY MOUTH EVERY 12 HOURS completed sulfamethoxazole 800 MG / trimethoprim 160 MG Oral Tablet ANKIT ([facility]) Zolpidem tartrate 10 MG Oral Tablet zolp idem 10 mg tablet TAKE ONE TABLET BY MOUTH AT BEDTIME NEEDED MAX DAILY DOSE ONE TABLET zolpidem 10 mg tablet TAKE ONE TABLET BY MOUTH AT BEDTIME NEEDED MAX DAILY DOSE ONE TABLET completed zolpidem tartrate 10 MG Oral Tab let ANKIT ([facility]) aripiprazole 400 MG Injection [Abilify] Abilify Maintena 400 mg intramuscular suspension,extended release INJECT ONE SYRINGE INTRAMUSCULARLY ONCE A MONTH Abilify Maintena 400 mg intramuscular suspension,extended release INJECT ONE SYRINGE INTRAMUSCULARLY ONCE A MONTH c ompleted aripiprazole 400 MG Injection [Abilify] [facility] ([facility]) 2 ML aripiprazole 200 MG/ML Prefilled Sy ringe [Abilify] Abilify Maintena 400 mg suspension,extended rel. intramuscular syringe INJECT 400 MG INTRAMUSCULARLY ONCE A MONTH Abilify Maintena 400 mg suspension,exten ded rel. intramuscular syringe INJECT 400 MG INTRAMUSCULARLY ONCE A MONTH completed 2 ML aripiprazole 200 MG/ML Prefilled Syringe [Abilify] [place] ([facility]) Fluconazole 200 MG Oral Tablet fluconazo le 200 mg tablet TAKE ONE TABLET BY MOUTH ONCE DAILY FOR FIVE DAYS fluconazole 200 mg tablet TAKE ONE TABLE T BY MOUTH ONCE DAILY FOR FIVE DAYS complet ed fluconazole 200 MG Oral Tablet [place] ([facility]) Zolpidem tartrate 5 MG Oral Tablet zolpi dem 5 mg tablet TAKE ONE TABLET BY MOUTH ONCE DAILY MAX DAILY DOSE ONE TABLET zolpidem 5 mg tablet TAKE ONE TABLET BY MOUTH ONCE DAILY MAX DAILY DOSE ONE TABLET completed zolpidem tartrate 5 MG Oral Tablet [place] ([facility]) Insurance Providers Payer name Policy type / Coverage type Policy ID Covered alliance party ID Covered alliance party's relationship to edge Policy Edge [facility] Information [id number] SP [id number] EMEDNY [id number] SP [id number] [facility](MCAID) O [id number] S [id number] [facility] MEDICARE DUAL G [id number] Self [id number] MEDICAID [id number] Self [id number] [facility] G [id number] Self [id number] [facility] MEDICARE DUAL G [id number] Self [id number] [facility] [id number] SP [id number] Medicaid S [id number] S [id number] [facility] Secure Horiz[employer] P [id number] S [id number] Medicare Wrap O [id number] S [id number] MEDICAID [id number] SP [id number] Medicaid S [id number] S [id number] [facility] P [id number] S [id number] MEDICARE [id number] SP [id number] MEDICARE C [id number] S [id number] MEDICAID M [id number] S [id number] Medicare P [id number] S [id number] Medicare P [id number] S [id number] Medicare P [id number] S [id number] [place] B [id number] Self [id number] [place] Medicare Primary [id number] Self [id number] Medicare P [id number] S [id number] A Medicaid S [id number] S [id number] Medicare P [id number] S [id number] A MEDICARE [id number] SP [id number] A ANSI-Medicare Part B [id number] ANSI-Medicaid [id number] ANSI-Medicare Part B [id number] ANSI-Medicaid [id number] MEDICAID [id number] SP [id number] MEDICARE [id number] SP [id number] [place] Part B [id number] Self [id number] Medicare - [place] Medicare Primary [id number] Self [id number] MEDICARE C [id number] S [id number] [place] [id number] Self [id number] [place] Medicare Primary [id number] Self [id number] MEDICARE [id number] SP [id number] A [place] Self [place] [place] DEP [id number] SP [id number] [place] [id number] [id number] PROCLAIM [facility] [id number] FA [id number] MEDICARE P [id number] S [id number] A MEDICAID [id number] PT [id number] MEDICARE PART B [id number] PT [id number] MEDICARE PART A [id number] PT [id number] MEDICAID [id number] S [id number] [id number] [id number] S [id number] A MEDICARE [id number] S [id number] A Problems, Conditions, and Diagnoses Code Display Name Description Problem Type Effective Dates Data Source(s) G47.33 Obstructive sleep apnea (adult) (pediatr ic) Obstructive Sleep Apnea Hypopnea Condition 06/13/2020 12:00:00 AM EST [place] ([facility]) F25.9 Schizoaffective disorder, unspecified Sc hizoaffective disorder, unspecified Condition 06/13/2020 12:00:00 AM EST [facility] ([facility]) [id number] Type 2 diabetes mellitus Type 2 Diabetes Mellitus Prob curtis 05/23/2020 12:00:00 AM EST [facility] ([facility]) 07379939 Hypertensive disorder Hypertensive Disorder Problem 03/02/2020 04:38:05 PM EDT [place] ([facility]) 20148056 Hypertensive disorder Hypertensive Disorder Problem 03/02/2020 04:38:05 PM EDT [place] ([facility]) 90597758 Hypertensive disorder Hypertensive Disorder Problem 03/02/2020 04:38:05 PM EDT [place] ([facility]) 59949743 Cannabis abuse, uncomplicated Cannabis abuse, uncompli cated 01/20/2020 02:45:54 PM EDT [facility] Z00.00 Encounter for general adult medical examination without abnormal findings Encounter for general adult medical examination without abno rmal findings 01/20/2020 02:45:54 PM EDT [facility] G54.6 Phantom limb syndrome with pain Phantom limb syndrome with pain 01/20/2020 02:45:54 PM EDT [facility] right leg 305.1 Tobacco user Tobacco user 01/20/2020 02:45:54 P M EDT [facility] 824907805 Elevated liver enzymes level Elevated liver enzymes le ary 01/20/2020 02:45:54 PM EDT [facility] 278.01 Morbid obesity Morbid obesity 01/20/2020 02:45: 54 PM EDT [facility] 870383485 SNOMED CT Concept SNOMED CT Concept Problem 01/19 12:00:00 AM EDT - 05/23/2020 12:00:00 AM EST [place] ([facility]) [id number] Phantom limb syndrome with pain Phantom Limb Syn drome with Pain Problem 01/20/2020 12:00:00 AM EDT [place] ([facility]) 69076369 Cannabis abuse Cannabis Abuse Problem 01/20/2020 12:00: 00 AM EDT [place] ([facility]) 39309563 Nicotine dependence Nicotine Dependence Problem 0 01/20/2020 12:00:00 AM EDT [place] ([facility]) 771243889 SNOMED CT Concept SNOMED CT Concept Problem 01/19 12:00:00 AM EDT [place] ([facility]) [id number] Phantom limb syndrome with pain Phantom Limb Syn drome with Pain Problem 01/20/2020 12:00:00 AM EDT [place] ([facility]) 54362408 Cannabis abuse Cannabis Abuse Problem 01/20/2020 12:00: 00 AM EDT [place] ([facility]) 83252201 Nicotine dependence Nicotine Dependence Problem 0 01/20/2020 12:00:00 AM EDT [place] ([facility]) 293367773 SNOMED CT Concept SNOMED CT Concept Problem 01/19 12:00:00 AM EDT [place] ([facility]) [id number] Phantom limb syndrome with pain Phantom Limb Syn drome with Pain Problem 01/20/2020 12:00:00 AM EDT [place] ([facility]) 80390208 Cannabis abuse Cannabis Abuse Problem 01/20/2020 12:00: 00 AM EDT [place] ([facility]) 04307057 Nicotine dependence Nicotine Dependence Problem 0 01/20/2020 12:00:00 AM EDT [place] ([facility]) 928145220 Chronic insomnia Chronic insomnia 12/20/2019 04 :37:06 PM EDT [facility] 490597894 Psychophysiologic insomnia Psychophysiologic Insomnia Problem 2019 12:00:00 AM EDT [place] ([facility]) 855652664 Psychophysiologic insomnia Psychophysiologic Insomnia Problem 2019 12:00:00 AM EDT [place] ([facility]) 108850326 Psychophysiologic insomnia Psychophysiologic Insomnia Problem 2019 12:00:00 AM EDT [place] ([facility]) L23.1 Allergic contact dermatitis due to adhes benigno Allergic contact dermatitis due to adhesives 12/13/2019 03:41:59 PM EDT [facility] 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 12/13/2019 03:41:59 PM EDT [facility] V85.43 BMI 50.0-59.9 BMI 50.0-59.9 12/13/2019 03:41:59 PM EDT [facility] 943635438 Allergic contact dermatitis due to adhes warner Allergic Contact Dermatitis Due to Adhesive Problem 12/13/2019 12:00:00 AM EDT [place] ([facility]) 076610935 Body mass index 30+ - obesity Body Mass Index 30+ - Ob esity Problem 12/13/2019 12:00:00 AM EDT [place] ([facility]) 250267982 Allergic contact dermatitis due to adhes warner Allergic Contact Dermatitis Due to Adhesive Problem 12/13/2019 12:00:00 AM EDT [place] ([facility]) 905585041 Body mass index 30+ - obesity Body Mass Index 30+ - Ob esity Problem 12/13/2019 12:00:00 AM EDT [place] ([facility]) 870669242 Allergic contact dermatitis due to adhes warner Allergic Contact Dermatitis Due to Adhesive Problem 12/13/2019 12:00:00 AM EDT [place] ([facility]) 810745490 Body mass index 30+ - obesity Body Mass Index 30+ - Ob esity Problem 12/13/2019 12:00:00 AM EDT [place] ([facility]) 327.23 Obstructive sleep apnea of adult 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 11/04/2019 04:33:51 PM EDT [facility] 24531880 Obstructive sleep apnea syndrome Obstructive Sle ep Apnea Syndrome Problem 11/04/2019 12:00:00 AM EDT [place] ([facility]) 86842565 Obstructive sleep apnea syndrome Obstructive Sle ep Apnea Syndrome Problem 11/04/2019 12:00:00 AM EDT [place] ([facility]) 29371022 Obstructive sleep apnea syndrome Obstructive Sle ep Apnea Syndrome Problem 11/04/2019 12:00:00 AM EDT [place] ([facility]) F51.01 Primary insomnia Insomnia Disorder Condition 10/20/2019 1 2:00:00 AM [facility] 705.83 Hidradenitis suppurativa Hidradenitis suppurativa 06/30/2019 03:29:51 PM EST [facility] L02.412 Cutaneous abscess of left axilla Abscess of left axill a 06/30/2019 03:29:51 PM EST [facility] 63266871 Hidradenitis suppurativa Hidradenitis Suppurativa Prob curtis 06/30/2019 12:00:00 AM EST [place] ([facility]) 61446559 Hidradenitis suppurativa Hidradenitis Suppurativa Prob curtis 06/30/2019 12:00:00 AM EST [place] ([facility]) 30223873 Hidradenitis suppurativa Hidradenitis Suppurativa Prob curtis 06/30/2019 12:00:00 AM EST [place] ([facility]) 268455985 Prediabetes Prediabetes Problem 12/07/2018 12:0 0:00 AM EDT - 05/23/2020 12:00:00 AM EST [place] ([facility]) 311751379 SNOMED CT Concept SNOMED CT Concept Problem 11/23 12:00:00 AM EDT - 05/23/2020 12:00:00 AM EST [place] ([facility]) B36.9 Superficial mycosis, unspecified Superficial myc osis, unspecified Diagnosis 12/13/2019 11:03:26 AM EDT [facility] 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 Diagnosis 12/13/2019 11:03:26 AM EDT [facility] scrotal abscess worsening since I&D on scrotal a bscess worsening since I&D on Diagnosis 11/27/2019 02:25:27 PM EDT [facility] I10 Essential (primary) hypertension Essential (primary) h ypertension Diagnosis 11/26/2019 03:46:29 PM EDT [facility] N34.0 Urethral abscess Urethral abscess Diagnosis 11/26/2019 03 :46:29 PM EDT [facility] abscess abscess Diagnosis 11/26/2019 03:46:29 PM [facility] Surgeries/Procedures Procedure Description Date Indications Data Source(s) [facility] [place]med E/M Lvl 3--Est pt 06/13/2020 12:00:00 AM EST - 06/13/2020 12:00:00 AM EST [facility] ([facility]) [facility] [place]med E/M Lvl 3--Est pt 06/13/2020 12:00:[address] [facility] ([facility]) TEMPMHCTelemed 30" Psychotherapy 021 12:00:00 AM EST - 05/22/2020 12:00:00 AM EST [facility] ([facility]) TEMPMHCTelemed 30" Psychotherapy 05/22/2020 12:00:00 A M EST [facility] ([facility]) OFFICE OUTPATIENT VISIT 15 MINUTES 04/26 12:00:00 AM EST - 04/26/2020 12:00:00 AM EST [facility] ([facility]) OFFICE OUTPATIENT VISIT 15 MINUTES 04/26/2020 12:00:00 AM EST [facility] ([facility]) TEMPMHCTelemed 30" Psychotherapy 020 12:00:00 AM EST - 04/18/2020 12:00:00 AM EST [facility] ([facility]) TEMPMHCTelemed 30" Psychotherapy 04/17/2020 12:00:00 A M EST [facility] ([facility]) BLOOD COUNT COMPLETE AUTOMATED CBC Routine 12/02/2019 5:01 A M EDT 12/02/2019 09:01:00 AM [facility] PHOSPHORUS INORGANIC PHOSPHORUS LEVEL Routine 12/02/2019 5:01 AM E DT 12/02/2019 09:01:00 AM [facility] MAGNESIUM MAGNESIUM LEVEL Routine 12/02/2019 5:01 AM EDT 12/02/2019 09:01:00 AM [facility] BASIC METABOLIC PANEL CALCIUM TOTAL BASIC METABOLIC PANEL Routi ne 12/02/2019 5:01 AM EDT 12/02/2019 09:01:00 AM EDT [facility] SCROTAL EXPLORATION SCROTAL EXPLORATION 12/01/2019 5 :15 PM EDT [facility] s/p debridement 12/01/2019 09:15:0 0 PM EDT - 12/01/2019 11:02:00 [facility] BASIC METABOLIC PANEL CALCIUM TOTAL BASIC METABOLIC PANEL Routi ne 12/01/2019 11:10 AM EDT 12/01/2019 03:10:00 PM EDT [facility] PICC ULTRASOUND - BEDSIDE PROCEDURE PICC ULTRASOUND - BEDSI DE PROCEDURE Routine 11/30/2019 12:33 PM EDT 11/30/2019 04:33:00 PM [facility] IADNA S AUREUS AMPLIFIED PROBE TQ STAPH AUREUS MRSA PCR Routine 11/29/2019 12:08 PM EDT 11/29/2019 04:08:00 PM EDT [facility] BLOOD COUNT COMPLETE AUTO&AUTO DIFRNTL WBC COUNT CBC AND DIFFER ENTIAL Routine 11/29/2019 4:57 AM EDT 11/29/2019 08:57:00 AM [facility] PHOSPHORUS INORGANIC PHOSPHORUS LEVEL Routine 11/29/2019 4:57 AM E DT 11/29/2019 08:57:00 AM [facility] MAGNESIUM MAGNESIUM LEVEL Routine 11/29/2019 4:57 AM EDT 11/29/2019 08:57:00 AM [facility] DRUG SCREEN QUALITATIVE VANCOMYCIN VANCOMYCIN, TROUGH Routine 11/29/2019 4:57 AM EDT 11/29/2019 08:57:00 AM EDT [facility] BASIC METABOLIC PANEL CALCIUM TOTAL BASIC METABOLIC PANEL Routi ne 11/29/2019 4:57 AM EDT 11/29/2019 08:57:00 AM EDT [facility] BLOOD COUNT COMPLETE AUTOMATED CBC Routine 11/28/2019 3:10 A M EDT 11/28/2019 07:10:00 AM [facility] PHOSPHORUS INORGANIC PHOSPHORUS LEVEL Routine 11/28/2019 3:10 AM E DT 11/28/2019 07:10:00 AM [facility] MAGNESIUM MAGNESIUM LEVEL Routine 11/28/2019 3:10 AM EDT 11/28/2019 07:10:00 AM [facility] BASIC METABOLIC PANEL CALCIUM TOTAL BASIC METABOLIC PANEL Routi ne 11/28/2019 3:10 AM EDT 11/28/2019 07:10:00 AM EDT [facility] CARDIAC REPORT CARDIAC REPORT 11/27/2019 11:27 AM EDT 11/27/2019 03:27:39 PM [facility] RADIOLOGY REPORT RADIOLOGY REPORT 11/27/2019 11:27 AM EDT 11/27/2019 03:27:38 PM [facility] BLOOD COUNT COMPLETE AUTOMATED CBC Routine 11/27/2019 5:20 A M EDT 11/27/2019 09:20:00 AM [facility] PHOSPHORUS INORGANIC PHOSPHORUS LEVEL Routine 11/27/2019 5:20 AM E DT 11/27/2019 09:20:00 AM [facility] MAGNESIUM MAGNESIUM LEVEL Routine 11/27/2019 5:20 AM EDT 11/27/2019 09:20:00 AM [facility] BASIC METABOLIC PANEL CALCIUM TOTAL BASIC METABOLIC PANEL Routi ne 11/27/2019 5:20 AM EDT 11/27/2019 09:20:00 AM EDT [facility] CUL BACT XCPT URINE BLOOD/STOOL AEROBIC ISOL WOUND CULTURE Ro utine 11/26/2019 7:31 PM EDT 11/26/2019 11:31:00 PM EDT [facility] CUL BACT DERECK ANAERC ISOL XCPT UR BLOOD/STOOL ANAEROBIC CULTURE Routine 11/26/2019 7:31 PM EDT 11/26/2019 11:31:00 PM [facility] SCROTAL EXPLORATION SCROTAL EXPLORATION 11/26/2019 6 :52 PM EDT Herb's gangrene 11/26/2019 10:52:00 PM EDT - 11/27/2019 01:1 0:00 AM [facility] BLOOD TYPING ABO TYPE AND CROSSMATCH Routine 11/26/2019 5:38 PM ED T 11/26/2019 09:38:00 PM [facility] HEMOGLOBIN GLYCOSYLATED A1C HEMOGLOBIN A1C Routine 11/26/2019 5:38 PM EDT 11/26/2019 09:38:[address] [facility] CT ABDOEN & PELVIS W/CONTRAST MATERIAL CT ABDOMEN PELVIS WI TH CONTRAST [id number] STAT 11/26/2019 5:27 PM EDT 11/26/2019 09:27:35 PM EDT [facility] BASIC METABOLIC PANEL CALCIUM IONIZED POCT ISTAT CHEM8 Routine 11/26/2019 5:05 PM EDT 11/26/2019 09:05:00 PM EDT [facility] BLOOD GASES ANY COMBINATION PH PCO2 PO2 CO2 HCO3 POCT ISTAT VBG /LAC Routine 11/26/2019 5:00 PM EDT 11/26/2019 09:00:00 PM EDT [facility] LEVEL I SURG PATHOLOGY GROSS EXAMINATION ONLY SURGICA L PATHOLOGY EXAM ( ONLY) Routine 11/26/2019 12:00 AM EDT 11/26/2019 04:00 :00 AM EDT [facility] Telemed E/M Lvl 3--Est pt 11/16/2019 12:00:00 AM EDT - 11/16/2019 12:00:00 AM EDT [facility] ([facility]) Telemed A/O 30" 11/16/2019 12:00:00 AM EDT [facility] ([facility]) [facility] [place] E/M Lvl 3--Est pt 11/16/2019 12:00:00 AM E DT [facility] ([facility]) Comprehensive medication services, per 15 minutes 10/27/2019 12:00:00 AM EDT - 10/27/2019 12:00:00 AM EDT [facility] ([facility]) Comprehensive medication services, per 15 minutes 10/27/2019 12:00:00 AM EDT [facility] ([facility]) AOT Evaluation 10/20/2019 12:00:00 AM EDT - 10/20/2019 12:00:00 AM EDT [facility] ([facility]) [facility] [place] E/M Lvl 3--Est pt 10/14/2019 12:00:00 AM EDT - 10/14/2019 12:00:00 AM EDT [facility] ([facility]) Telemed A/O 30" 10/14/2019 12:00:00 AM EDT [facility] ([facility]) MHC Telemed E/M Lvl 3--Est pt 10/14/2019 12:00:00 AM E DT [facility] ([facility]) AOT Evaluation 10/13/2019 12:00:00 AM EDT [facility] ([facility]) TEMPMHCTelemed 30" Psychotherapy 020 12:00:00 AM EDT - 10/07/2019 12:00:00 AM EDT [facility] ([facility]) TEMPMHCTelemed 30" Psychotherapy 10/07/2019 12:00:00 A M EDT [facility] ([facility]) THERAPEUTIC PROPHYLACTIC/DX INJECTION SUBQ/IM 09/28/2019 12:00:00 AM EDT - 09/28/2019 12:00:00 AM EDT [facility] ([facility]) THERAPEUTIC PROPHYLACTIC/DX INJECTION SUBQ/IM 09/28/19 20 12:00:00 AM EDT [facility] ([facility]) Telemed Diagnostic Eval 09/23/2019 12:00 :00 AM EDT - 09/23/2019 12:00:00 AM EDT [facility] ([facility]) Telemed Diagnostic Eval 09/23/2019 12:00:00 AM EDT [facility] ([facility]) [id number]"Psychotherapy 0 12:00:00 AM EDT - 09/21/2019 12:00:00 AM EDT [facility] ([facility]) [id number]"Psychotherapy 09/21/2019 12:00:00 AM EDT [facility] ([facility]) MHC Telemed E/M Lvl 3--Est pt 08/30/2019 12:00:00 AM EDT - 08/30/2019 12:00:00 AM EDT [facility] ([facility]) [facility] Telemed E/M Lvl 3--Est pt 08/30/2019 12:00:00 AM E DT [facility] ([facility]) Comprehensive medication services, per 15 minutes 08/27/2019 12:00:00 AM EDT - 08/27/2019 12:00:00 AM EDT [facility] ([facility]) Comprehensive medication services, per 15 minutes 08/27/2019 12:00:00 AM EDT [facility] ([facility]) Comprehensive medication services, per 15 minutes 08/24/2019 12:00:00 AM EDT - 08/24/2019 12:00:00 AM EDT [facility] ([facility]) Comprehensive medication services, per 15 minutes 08/24/2019 12:00:00 AM EDT [facility] ([facility]) OFFICE OUTPATIENT VISIT 15 MINUTES 07/28 12:00:00 AM EDT - 07/29/2019 12:00:00 AM EDT [facility] ([facility]) Psychotherapy ADD ON - 30 Minutes 07/29/2019 12:00:00 AM EDT [facility] ([facility]) OFFICE OUTPATIENT VISIT 15 MINUTES 07/29/2019 12:00:00 AM EDT [facility] ([facility]) THERAPEUTIC PROPHYLACTIC/DX INJECTION SUBQ/IM 07/27/2019 12:00:00 AM EDT - 07/27/2019 12:00:00 AM EDT [facility] ([facility]) THERAPEUTIC PROPHYLACTIC/DX INJECTION SUBQ/IM 07/27/19 20 12:00:00 AM EDT [facility] ([facility]) THERAPEUTIC PROPHYLACTIC/DX INJECTION SUBQ/IM 06/29/2019 12:00:00 AM EST - 06/29/2019 12:00:00 AM EST [facility] ([facility]) THERAPEUTIC PROPHYLACTIC/DX INJECTION SUBQ/IM 06/29/19 20 12:00:00 AM EST [facility] ([facility]) OFFICE OUTPATIENT VISIT 10 MINUTES 06/17 12:00:00 AM EST - 06/17/2019 12:00:00 AM EST [facility] ([facility]) OFFICE OUTPATIENT VISIT 10 MINUTES 06/17/2019 12:00:00 AM EST [facility] ([facility]) OFFICE OUTPATIENT VISIT 10 MINUTES 06/04 12:00:00 AM EST - 06/04/2019 12:00:00 AM EST [facility] ([facility]) OFFICE OUTPATIENT VISIT 10 MINUTES 06/04/2019 12:00:00 AM EST [facility] ([facility]) THERAPEUTIC PROPHYLACTIC/DX INJECTION SUBQ/IM 06/01/2019 12:00:00 AM EST - 06/01/2019 12:00:00 AM EST [facility] ([facility]) THERAPEUTIC PROPHYLACTIC/DX INJECTION SUBQ/IM 06/01/19 20 12:00:00 AM EST [facility] ([facility]) Comprehensive medication services, per 15 minutes 05/28/2019 12:00:00 AM EST - 05/28/2019 12:00:00 AM EST [facility] ([facility]) Comprehensive medication services, per 15 minutes 05/28/2019 12:00:00 AM EST [facility] ([facility]) THERAPEUTIC PROPHYLACTIC/DX INJECTION SUBQ/IM 04/30/2019 12:00:00 AM EST - 04/30/2019 12:00:00 AM EST [facility] ([facility]) THERAPEUTIC PROPHYLACTIC/DX INJECTION SUBQ/IM 04/30/20 19 12:00:00 AM EST [facility] ([facility]) OFFICE OUTPATIENT VISIT 15 MINUTES 04/30 12:00:00 AM EST - 04/30/2019 12:00:00 AM EST [facility] ([facility]) OFFICE OUTPATIENT VISIT 15 MINUTES 04/30/2019 12:00:00 AM EST [facility] ([facility]) THERAPEUTIC PROPHYLACTIC/DX INJECTION SUBQ/IM 04/27/2019 12:00:00 AM EST - 04/27/2019 12:00:00 AM EST [facility] ([facility]) THERAPEUTIC PROPHYLACTIC/DX INJECTION SUBQ/IM 04/27/20 19 12:00:00 AM EST [facility] ([facility]) Results ID Date Data Source [id number] 04/27/2020 08:44:00 AM EST [facility] ([facility]) Name Value Range Interpretation Code Description Data So rce(s) Supporting Document(s) Hemoglobin A1c/Hemoglobin.total in Blood 6.9 % normal Hemoglobin a1C [facility] ([facility]) estimated average glucose 151 mg/dL 60-110 Above high norm al Estimated Average Glucose [facility] ([facility]) ID Date Data Source [id number] 04/27/2020 08:44:00 AM EST [facility] ([facility]) Name Value Range Interpretation Code Description Data So rce(s) Supporting Document(s) triglycerides level 876 mg/dL <150 Above high normal Triglycer ides Level [facility] ([facility]) HDL cholesterol 29 mg/dL >40 Below low normal HDL Cholestero l [facility] ([facility]) cholesterol level 173 mg/dL <200 normal Cholesterol Level [facility] ([facility]) cholesterol risk ratio <5 Above high normal Choles terol Risk Ratio [place] ([facility]) non-HDL-C 144 mg/dL normal Non-hdl-c [place] ([facility]) ID Date Data Source [id number] 04/27/2020 08:44:00 AM EST [place] ([facility]) Name Value Range Interpretation Code Description Data So rce(s) Supporting Document(s) glucose, fasting 155 mg/dL 70-100 Above high normal Glucose, Fas ting [facility] ([facility]) glomerular filtration rate > 60.0 >60 normal Glomerula r Filtration Rate [facility] ([facility]) sodium level 137 mEq/L 136-145 normal Sodium Level [facility] ([facility]) creatinine for GFR 0.81 mg/dL 0.70-1.30 normal Creatinine for GF R [facility] ([facility]) blood urea nitrogen 13 mg/dL 7-18 normal Blood Urea Nitro gen [facility] ([facility]) potassium serum 4.3 mEq/L 3.5-5.1 normal Potassium Serum ATHE NA ([facility]) chloride level 103 mEq/L 98-107 normal [place]loride Level [place] ([facility]) calcium level 9.3 mg/dL 8.5-10.1 normal Calcium Level [place] ( [facility]) carbon dioxide level 25 mEq/L 21-32 normal Carbon Dioxide Level [place] ([facility]) anion gap 9 mEq/L 8-16 normal Anion Gap [place] ([facility]) ALT/SGPT 122 U/L 12-78 Above high normal ALT/SGPT [place] ([facility]) alkaline phosphatase 96 U/L 45-117 normal Alkaline Phosph atase [place] ([facility]) bilirubin,total 0.4 mg/dL 0.2-1.0 normal Bilirubin,total ATHE ([facility]) AST/SGOT 47 U/L 7-37 Above high normal AST/SGOT [place] ([facility]) albumin 3.7 gm/dL 3.2-5.2 normal Albumin [place] ([facility]) total protein 7.0 gm/dL 6.4-8.2 normal Total Protein [place] ( [facility]) albumin/globulin ratio normal Albumin/globu juan a Ratio [place] ([facility]) ID Date Data Source [id number] 04/27/2020 08:44:00 AM EST [place] ([facility]) Name Value Range Interpretation Code Description Data So rce(s) Supporting Document(s) red blood count 5.35 10 4.30-6.10 normal Red Blood Count ATHE ([facility]) white blood count 9.8 10 4.0-10.0 normal White Blood Count [place] ([facility]) hemoglobin 15.5 g/dL 13.5-17.5 normal Hemoglobin [place] ([facility]) mean corpuscular volume 88.0 fL 80.0-96.0 normal Mean Corpusc ular Volume [place] ([facility]) mean corpuscular hemoglobin 29.0 pg 27.0-33.0 normal Mean Corpuscular Hemoglobin [place] ([facility]) hematocrit 47.1 % 42.0-52.0 normal Hematocrit [place] ([facility]) mean corpuscular HGB conc 32.9 g/dL 32.0-36.5 normal Mean Corpu scular HGB Conc [place] ([facility]) platelet count, automated 259 10 150-450 normal Platelet C ount, Automated [place] ([facility]) red cell distribution width 13.6 % 11.5-14.5 normal Red Cell Distribution Width [place] ([facility]) nucleated red blood cell % 0.0 % 0-0 normal Nucleated Red Blood Cell % [place] ([facility]) ID Date Data Source [id number] 01/20/2020 01:44:09 PM EDT [facility] Measurements & CalculationsHeight: 72 inches [...] or Preferred Language: EnglishFamily and Home Address: [address] [place] [address] What is your housing situation today? I have housing Are you worried about losing your housing? NoMoney and Resources What is the highest level of school that you have finished? some college Employed? No Are you seeking work? Yes Insurance: [employer] HorizonsIn the past year, have you or any family members you live with been unable to get any of the following when it was really needed? Denies Insecurity: food, utilities, clothing, children's service supervisor, phone, legal services, otherWithin the past year [...] well managed with Ambien. Pt follows with [facility], goes there q 3 months for [...] during this visit, including review of any vjxt-tkm-gzbinbn medications, herbal therapies, and/or supplements.Allergy ReviewAllergy List [...] general adult medical examination without abnormal findings (EGK38-J20.00) Assessment: Instructions: Recommend annual medical appointments. Recommend routine dental and vision care. Recommend influenza vaccines annually and tetanus boosters every 10 years.Tobacco user (ICD-305.1) (IBU85-I63.200) Assessment: Instru ctions: Smoking cessation counseling was recommended with patient today.Cannabis abuse, uncomplicated (JVL25-S26.10) Assessment: Instructions: Referral to palliative care, this is primarily being utilized for moods/pain.Phantom limb syndrome with pain (ICD-353.6) (LKT33-G67.6): right leg Assessment: Instructions: Continue with prosthetic office in [place].Changed:From: Dx of OTHER NONSPECIFIC ABNORMAL SERUM ENZYME LEVELS (ICD-790.5) (KRE59-G19.8) To: Elevated liver enzymes level (VQP31-I21.8)From: Dx of OBESITY (ICD-278.00) (EKZ22-I36.9) To: Morbid obesity (ICD-278.01) (NCC87-X43.01)Assessed:Chronic insomnia (XBQ14-L24.04) Assessment: Instructions: Stable with Ambien.BMI 50.0-59.9 (ICD-V85.43) (ZTD65-Q54.43) Assessment: Instructions: Recommend healthy lifestyle modification. Encourage portion control, healthy food choices, and increasing routine physical activity. Recommendation is for 150 minutes throughout the week of cardiovascular exercise.Morbid obesity (ICD- 278.01) (SGM40-C50.01) Assessment: Instructions: As above.HYPERTENSION (ICD-401.9) (YNO97-N68) Assessment: Instructions: Elevated today, previously controlled. Continiue current medications. Recommend reduced salt intake, cut back on caffeine and alcohol, increase physical activity. We reviewed the care home risks associated with uncontrolled high blood pressure, including stroke and heart attack. Goal BP is <140/90, please call the office if your blood pressures are consistently running higher than that cutoff. Call 911 or report to the closest ER for chest pain, shortness of breath, dizziness, or passing out.Vitamin D deficiency, unspecified (HTC66-S84.9) Assessment: Instructions: Stable.Prediabetes (YSZ94-O12.03) Assessment: Instructions: Stable with A1c 5.7. Recommend low carbohydrate diet: reduce pasta, bread, potatoes, rice. If you do eat carbohydrates, better choices are whole wheat and brown rice products. Recommend portion control and avoidance of soda and sugary foods. Increase physical activity and monitor weight.Acquired absence of right leg below knee (ICD-V49.75) (RUP07-B81.511) Assessment: Instructions: As above.Hyperlipidemia, unspecified (BRK08-Q54.5) Assessment: Instructions: Increase Atorvastatin to 20mg daily. Recheck in 3 months.Elevated liver enzymes level (KTT47-B60.8) Assessment: Instructions: Cut back on alcohol intake, this is likely cause of elevated liver enzymes. 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 Recommend routine dental and vision care. Recommend influenza vaccines annually and tetanus boosters every 10 years.Tobacco user: Smoking cessation counseling was recommended with patient today.Cannabis abuse- uncomplicated: Referral to palliative care, this is primarily being utilized for moods/pain.Phantom limb syndrome with pain: Continue with prosthetic office in [place].Chronic insomnia: Stable with Ambien.BMI 50.0-59.9: Recommend healthy lifestyle modification. Encourage portion control, healthy food choices, and increasing routine physical activity. Recommendation is for 150 minutes throughout the week of cardiovascular exercise.Morbid obesity: As above.HYPERTENSION: Elevated today, previously controlled. Continiue current medications. Recommend reduced salt intake, cut back on caffeine and alcohol, increase physical activity. We reviewed the care home risks associated with uncontrolled high blood pressure, [...] MG ORAL TABLET-Take one tablet daily, NYSTATIN 805154 UNIT/GM EXTERNAL POWDER- Apply to axilla BID for rash, FOLIC ACID 1 MG ORAL TABLET-Take one tablet by mouth daily, TRAZODONE HCL 150 MG ORAL TABLET-one tab at bedtimeChanged:From: ORAL ATORVASTATIN CALCIUM 10 MG ORAL TABLET Qty: [id number] Refills: 30[Tablet] To: ATORVASTATIN CALCIUM 20 MG ORAL TABLET-1 po qhs Qty: 30[Tablet] Refills: 2Allergies:* PICC LINE ADHESIVE DRESSING (Severe)Orders:SNOMED-CT [id number] : Palliative Care Service [SCT-[id number]] Preventive, Est, (18-39) [CPT-50450] Follow-Up Return to clinic: in 90 days for follow upAdditional Follow-Up: preDM/HLDClinical Visit Summary Completed Name Value Range Interpretation Code Description Data So rce(s) Supporting Document(s) ID Date Data Source [id number] 01/07/2020 09:06:42 AM EDT [facility] Labs In-House Blood TestsDate/Time Colle cted: January 07, 2020 9:07 AMTest Result Reference Range Normal ValueComments: blood drawn from left hand PT tolerated well Amanuel Rubio SPECIFICATION MANAGER, January 07, 2020 9:08 AMAssessment & Plan Orders:60451-Tsh Vst-Est Level I [CPT-58957] 97733 - Venipuncture [CPT- 63554] Name Value Range Interpretation Code Description Data So rce(s) Supporting Document(s) ID Date Data Source [id number] 01/07/2020 09:03:00 AM EDT [facility] 5.7 5.7 Name Value Range Interpretation Code Description Data So rce(s) Supporting Document(s) ID Date Data Source [id number] 01/07/2020 09:03:00 AM EDT [facility] 5.7 5.7 Name Value Range Interpretation Code Description Data So rce(s) Supporting Document(s) BG FASTING 124 mg/dL 70-[address] [facility] T4, FREE 1.12 ng/dL 0.76-1.46 N [facility] TSH 3.420 microintl units/mL 0.358-3.740 N [facility] VIT D25 TOT 24.7 ng/mL 30.0-100.0 L [facility] ID Date Data Source [id number] 01/07/2020 12:00:00 AM EDT [facility] 5.7 5.7 Name Value Range Interpretation Code Description Data So rce(s) Supporting Document(s) ID Date Data Source [id number] 12/13/2019 02:51:20 PM EDT [facility] Measurements & CalculationsHeight: 72 inches [...] completing his daily tasks. [facility] who does pi ll counts monthly for him, denies any compliance issues. Pending pulmonary re- evalaluation of his BEAU, currently without CPAP for the last 3 years. 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 Possible developing adhesive allergy versus only related to length of time for PICC dressing.Assessed:Obstructive sleep apnea of adult (ICD-327.23) (TIR39-J75.33) Assessment: Instructions: Continue per pulmonology.Prediabetes (AUI55-B87.03) Assessment: Instructions: Recommend low carbohydrate diet: reduce [...] before the blood draw.Vitamin D deficiency, unspecified (LNJ46-D16.9) Assessment: Instructions: Update prior to next appointment.Removed:Acute anal fissure (ICD-565.1) (HXY77-R96.0), Abscess of left axilla (VKP89-M13.412), Noninfective gastroenteritis and colitis, unspecified (TYV35-N78.9), Cellulitis, unspecified (UYK50-L08.90), IMPAIRED FASTING GLUCOSE (ICD-790.21) (ICD10- R73.01), LEG PAIN, RIGHT (ICD-729.5) (JJG41-O59.604)Patient Instructions/Care Plan: Herb gangrene: Continue per urology, [...] and/or familyMedications:THIAMINE HCL 100 MG ORAL TABLETNYSTATIN 608464 UNIT/GM EXTERNAL POWDERMULTIVITAMIN ADULT ORAL TABLETFOLIC ACID 1 MG ORAL TABLETACETAMINOPHEN 325 MG ORAL TABLETREMERON 15 MG ORAL TABLETABILIFY 15 MG O RAL TABLETLAMICTAL 150 MG ORAL TABLETTRAZODONE HCL 150 MG ORAL TABLETRIGHT TRANSTIBIAL PROSTHESIS AND SUPPLIESATORVASTATIN CALCIUM 10 MG ORAL TABLETLISINOPRIL 40 MG ORAL TABLETAllergies:* PICC LINE ADHESIVE DRESSING (Severe)Orders:COMP METABOLIC PANEL [CPT-48258] CBC W/DIFF [CPT-03677] HgBA1c [CPT-89962] LIPID PANEL [CPT-78119] TSH [CPT-43315] T-4 free [CPT-60806] Vitamin D 250H Unspecified [CPT-47784] Adult - Ofc Vst, EST, Level III [CPT-16988] Follow-Up Return to clinic: in 30 days for follow upAdditional Follow-Up: lab reviewClinical Visit Summary Completed Name Value Range Interpretation Code Description Data So rce(s) Supporting Document(s) ID Date Data Source [id number] 12/13/2019 10:56:39 AM [facility] Name Value Range Interpretation Code Description Data So rce(s) Supporting Document(s) Progress Note [facility] DOUBYo3nBtIIUgEx76/JWMebBXVup8HpJTaqXDl9LLbiBZFwR7McXHY6nN9dSPX4MJgVYcSiAnWuEpB1 lbm [file] AgICAgICAgICAgICAgICAgICAgICAgICAgICAgICAgICAgICAgICAgICAgICANCiAgICAgICAgICAgIC AgICAgICAgICAgICAgICAgICAgICAgICAgICAgICAg ICAgICAgICAgICAgICAgICAgICAgICAgICAgICAgICAgICAgICAgICAgICAgICAgICAgICAgICANCiAg ICAgICAgICAgICAgICAgICAgICAgICAgICAgICAgICAgICAgICAgICAgICAgICAgICAgICAgICAgICAg ICAgICAgICAgICAgICAgICAgICAgICAgICAgICAgIC AgICAgICANCiAgICAgICAgICAgICAgICAgICAgICAgICAgICAgICAgICAgICAgICAgICAgICAgICAgIC AgICAgICAgICAgICAgICAgICAgICAgICAgICAgICAgICAgICAgICAgICAgICAgICANCiAgICAgICAgIC AgICAgICAgICAgICAgICAgICAgICAgICAgICAgICAg ICAgICAgICAgICAgICAgICAgICAgICAgICAgICAgICAgICAgICAgICAgICAgICAgICAgICAgICAgICAN CiAgICAgICAgICAgICAgICAgICAgICAgICAgICAgICAgICAgICAgICAgICAgICAgICAgICAgICAgICAg ICAgICAgICAgICAgICAgICAgICAgICAgICAgICAgIC AgICAgICAgICANCiAgICAgICAgICAgICAgICAgICAgICAgICAgICAgICAgICAgICAgICAgICAgICAgIC AgICAgICAgICAgICAgICAgICAgICAgICAgICAgICAgICAgICAgICAgICAgICAgICAgICANCiAgICAgIC AgICAgICAgICAgICAgICAgICAgICAgICAgICAgICAg ICAgICAgICAgICAgICAgICAgICAgICAgICAgICAgICAgICAgICAgICAgICAgICAgICAgICAgICAgICAg ICANCiAgICAgICAgICAgICAgICAgICAgICAgICAgICAgICAgICAgICAgICAgICAgICAgICAgICAgICAg ICAgICAgICAgICAgICAgICAgICAgICAgICAgICAgIC AgICAgICAgICAgICANCiAgICAgICAgICAgICAgICAgICAgICAgICAgICAgICAgICAgICAgICAgICAgIC AgICAgICAgICAgICAgICAgICAgICAgICAgICAgICAgICAgICAgICAgICAgICAgICAgICAgICANCjw/eH UpQ9zxrUCxrtO2P5lbLr0JIz7CTG6dj4GqJJWiFQsh wjFxZlvGVoMgVLXiRazMZaf3NGfxKI3CaDDhC3ZsL9RiJDtgHI5HHKKlGANgzLEhOCQbSGRcBeC8PHVl XLhaGY1ZnSNnONuiWKOcBQLuFbOiWZBnMEJtPIRhIVHkJLWZRS8TPsUcI6DloJ75CUPLJm9+DQplbmRv HdbHPuT9TJQto0PxHRj2VG1MJLUlMlrkg1VkAjnoMS ERTUwvLW3FEBZ6EQM7YNLrKp0DOTSqK193icSgBW0GUg9JLpTxFB4sfc2IDkljEDUmFfzBKxc8MRacZQ 1ZlVNmXXjMgr2qkqGzkxXIw4EebePayGRXw95nuYozzsYVKKYguqxuidsuLKVmVLFnSk3eSm2pZFImMX WlYiHvKGJHZE6LMPAuAAMwnJNeDVJcKDVSYD9FIYev ZWI5RYCfroVpkZZsGYaeJJ0GJQCwbgQdKftlMVRHQZs+Gn3UWH1pr9CpKLmwBDVzQV7bnz7TUPaJUlKi C9K4pZCiP0W9VUryHu0GRMCpNZBxMtDkSGDPDYvtMM1BWI4csmH4JE5IsYIhCQNiKJMnyNOjXLy2T19r xJRgKMhsTG8FLGW+Viji+Sr6RZZIlFFAxZZNjGmObZK COPwGlV7QgT3ABq9FtV1MtNM79sKawknUgDNazHC1FJD1fYXFuIGBJMO5CnXQmhZ8peqGaTwVvUYROTh BxF90bcXNpHTTmBXD1JKVeLr1EBGIcY9LrbyHmcImkhxMtNJSqXFTLGS0YTTcqzwXweVEvcOyaBW12cR heAC9VPu8IOzLzAD2tvs2KaUEnRz4TALKmXH1FUEXp QGImDJLpMHY0BCLpAbMoLSwpLRKxWUApBGI3DDOuANHuFO9MMoLxILGsWhDoIsSvQKEcQWHnzm1CNWYd WADdDhSfKOQsIDIzJEImFOmhKPExSPEoWZE0UUNkVSFtON4XSqLrNZVxFQC3AGlfUQKbMVUqsw2HMQGa SUJcUDBkDiZoWIOlMJOvGFeoWMOjXQM6VkmmGPBkZO MqRT1WNzUhMKCiAIX1ZGpbYSYmNXIvjj9MWKOpDOPzRVT5DpPuGXAvNEHzSOhnTTKjGTL5EuScPDBwBQ YpAD2LBcEfQOOvZPI3NTHpMARqHZFrts2MJTAiLCIlGSF0ZPIyYNGsQJLcFFpvOOVmRBRsPWT0TZFvPO AzCW0WMsOsYMWvAVJwLTWoAUXgOLVhqu9NIQZzAROn ZdK7RUHcKBMtMYXbRBgaKURhEHKbBjT7ZRYlVXJtNU2RMjWaJPDzIUK2CAttYCQsAVAqbl5IIBBgYWWk Yor2IpVrDUHqEAGfLXshJIIyWVW2XJt7HEEgGZYpOY1IUlZkKFEiVoG4UECmITKyUYDudf5XGPZjOGQg CFtpKMGpPRGeFZAcPFfrCMLuTHJ9EXYrNXHqNRYyHC 1JHpLcRFBmEaOhZRugVNSmLONast7PPPFmACKgOrPnEfSvQPMfWSKnABqnSNDyYYFiCsG5IOVhSNKdYA 7TOlFvBGVkWhE3IHTuUPEkFUCekg4NJQLfGZRkDcN7StJfDCLdDPXfTDwzDFSsSZRjVvNpYGReHTRlAL 1WExPhTGEsPzT9JkHdKZMzDPIphh8XxMVrtArzac3U GNiRRi9AsZfwYGArXPdgLj6fdHMsDASlWCTSTo7PgsGgDRHyBXLLBYxrOROwPRzdWHCnDlMgItG7XrNt JESnMsQ6NHOrFZM8S0EsGSQ7UmF3VOI1InX4C5J9OKvfTJH0DVMmQDllDaOrHhE4VSQiRsY+ZW4cYMe+ Fo8Vt9IsesJ8ifOvKWncAjcuDE5SWFQPD2XUKw== ID Date Data Source [id number] 12/13/2019 08:00:00 AM EDT [facility] Name Value Range Interpretation Code Description Data So rce(s) Supporting Document(s) C reactive protein [Mass/volume] in Serum or Plasma 7.9 mg/L 0.0 - 9.0 [facility] Reference range updated to ma nufacturer recommended. Effective 01/14/18. ID Date Data Source [id number] 12/13/2019 08:00:00 AM EDT [facility] Name Value Range Interpretation Code Description Data So rce(s) Supporting Document(s) COMPREHENSIVE CHEM PROFILE [facility] COMPREHENSIVE METABOLIC PANEL Sodium [Moles/volume] in Serum or Plasma 135 mEq/L 136 - 145 Below low normal [facility] Potassium [Moles/volume] in Serum or Plasma 4.1 mEq/L 3.5 - 5.1 [facility] Chloride [Moles/volume] in Serum or Plasma 101 mEq/L 98 - 107 [facility] Carbon dioxide, total [Moles/volume] in Serum or Plasma 25.5 mEq /L 21.0 - 32.0 [facility] Glucose [Mass/volume] in Serum or Plasma 133 mg/dL 70 - 100 Above high normal [facility] Urea nitrogen [Mass/volume] in Serum or Plasma 8 mg/dL 7 - 18 [facility] CREATININE SERUM 0.88 mg/dL 0.70 - 1.30 [facility] AGE 38 yrs [facility] HEIGHT NA [facility] l eGFR NON-AFR AMR >60 [facility] eGFR AFR AMR >60 [facility] ital BUN/CREAT 9 6 - 25 [facility] l Protein [Mass/volume] in Serum or Plasma 7.3 g/dL 6.0 - 8.3 [facility] Albumin [Mass/volume] in Serum or Plasma 4.1 g/dL 3.8 - 5.4 [facility] GLOBULIN 3.2 g/dL 2.0 - 4.0 [facility] l A/G RATIO 1.3 0.8 - 2.0 [facility] Calcium [Mass/volume] in Serum or Plasma 9.4 mg/dL 8.8 - 10.2 [facility] Bilirubin.total [Mass/volume] in Serum or Plasma 0.3 mg/dL 0.2 - 1.0 [facility] Bilirubin.direct [Mass/volume] in Serum or Plasma 0.1 mg/dL 0.0 - 0. 2 [facility] INDIRECT BILI 0.2 mg/dL 0.0 - 1.1 [facility] pital ALK PHOSPHATASE 73 U/L 40 - 129 [facility] ospital Aspartate aminotransferase [Enzymatic ac tivity/volume] in Serum or Plasma by With P-5'-P 59 IU/L 7 - 37 Above high normal [facility] ital Alanine aminotransferase [Enzymatic acti vity/volume] in Serum or Plasma by With P-5'-P 100 IU/L 12 - 78 [facility] ANION GAP 9 7 - 15 [facility] l Estimated GFR referenc e range: >60ml/min/1.73m >18 years: Calculated using IDMS traceable Study Equation <18 years: Calculated using IDMS tracable Bedside Schartz Equation ID Date Data Source [id number] 12/07/2019 01:14:07 PM EDT [facility] Name Value Range Interpretation Code Description Data So rce(s) Supporting Document(s) Progress Note [facility] CQGVBb7jCgAPOiJe65/YRVibIEQfy3JdWXicOXn5UZywBSClM2JxENJ8fC4vIZD4HRwYJdTmZqXkQuXl lbm KvPfjYGpKkBKXgXbvCMiAjHZtmFwvcwNYyEY5NiIR0YIWbM55vZWBySEWbF8LzUAZ1CEe+Rc3ZVZYxjQ IgHD3ABzwM3WxcdjhEGP9nyk/SECOoM1ogyezfRbRK25o3ot8arKHY3C1NkhTVWM5Jr/d28WlakDAF+M aseKgjYWg1H460n+z5AMj//Taot3BuW1T/v45mFKSb gx9/wGnvhbxs0IglTD7Tvg77+GD1WNnkD7c4hY8OXn0Gakr3lTC+i2NmOCoUEp3muHkc40Tp6+fDaA49 hQ11nMwZBIqmtrS98Fce/AObmbH9U5krOWxmKS/6yrNIEpcJis1gHHDj1FswNHSzTFbOISZ6M0IwsOcT EFd0pJYqeN41lFJhWnLaPR/QU6NU2pkdhdRXWjCfpS aj6W8pduXfiUkfK6uP3qTQown8jrhW1KBdFRlDGOnHhOXJ3r7OhC56tKVvlLSgZULg7Zvi1fibgPCNRE Sqy/jAmcg2vboLeW40agufJlrQYto2jULC2PCGjc2/HlKnl4ZvolPhT2N9iozYqDiT8bZt4jsaBfBzaa puZ9ZcZZ6EOfdXikGKEB+EywR+Arceo/coXr9nYQvvfop [file] GkQRi2PGScULJrXKMfGLCbGSYdCKm+KL2tGOh+Mh3Dd7CivsB4bcUwBYcxVVJ6GV3WXKUEL1ZZRh== ID Date Data Source [id number] 12/07/2019 10:03:26 AM EDT [facility] Name Value Range Interpretation Code Description Data Os rce(s) Supporting Document(s) Operative [facility] LLWXKv8cPrHHQvQr17/IFKscFWEpm2JaRJfiWHk0ZMmeJSZlI9YiZIN2zZ2kVGL3VSyLZbKuKtOaWwGy lbm [file] RmNY7DBr1FDjA4UGB4rVJpDy1YJLObOgFVLrZuMH5FGGx= ID Date Data Source [id number] 12/03/2019 12:21:50 PM EDT [facility] Name Value Range Interpretation Code Description Data So rce(s) Supporting Document(s) Discharge Summary [facility] XKAWCv6mEaWHTdOn71/QWJggKCDsp3SzVOueQJy5AWacNKQeU8CsZAR0gI3aQHI8OViURsXnJcHzYvI2 lbm [file] j8MCH2WN4KJPGZS8RHDc== ID Date Data Source [id number] 12/02/2019 05:58:31 AM [facility] Name Value Range Interpretation Code Description Data So rce(s) Supporting Document(s) Leukocytes [#/volume] in Blood by Automated count 8.0 10*3/uL 4-10 [facility] Erythrocytes [#/volume] in Blood by Automated count 3.80 10*6/uL 4.6- 6.1 L [facility] Hemoglobin [Mass/volume] in Blood 11.5 g/dL 13.5-18 L [facility] Hematocrit [Volume Fraction] of Blood by Automated count 34.4 % 4 1-53 L [facility] Erythrocyte mean corpuscular volume [Entitic volume] by Auto mated count 90.6 fL 80-96 [facility] Erythrocyte mean corpuscular hemoglobin [Entitic mass] by Automated count 30.4 pg 27-33 [facility] Erythrocyte mean corpuscular hemoglobin concentration [Mass/volume] by Automated count 33.5 g/dL 32.0-[facility].0 [facility] width [Ratio] by Automated count 14.1 % 11.5-14.5 [facility] Platelets [#/volume] in Blood by Automated count 241 10*3/uL 150-400 [facility] ID Date Data Source [id number] 12/02/2019 06:05:20 AM [facility] Name Value Range Interpretation Code Description Data So rce(s) Supporting Document(s) Bicarbonate [Moles/volume] in Serum 25 mmol/L 22-29 [facility] Chloride [Moles/volume] in Serum or Plasma 103 mmol/L 98-107 [facility] Creatinine [Mass/volume] in Serum or Plasma 0.80 mg/dL 0.70-1.20 [facility] Glucose [Mass/volume] in Serum or Plasma 152 mg/dL 70-140 H [facility] Potassium [Moles/volume] in Serum or Plasma 3.7 mmol/L 3.4-5.1 [facility] Sodium [Moles/volume] in Serum or Plasma 139 mmol/L 136-145 [facility] Urea nitrogen [Mass/volume] in Serum or Plasma 4 mg/dL 6-20 L [facility] Anion gap 3 in Serum or Plasma 11 mmol/L 8-15 [facility] Osmolality of Serum or Plasma by calculation 288 mosm/kg 275-300 [facility] Creatinine/Urea nitrogen [Mass Ratio] in Serum or Plasma 5 [facility] Calcium [Mass/volume] in Serum or Plasma 9.0 mg/dL 8.6-10.0 [facility] Glomerular filtration rate/1.73 sq M pre dicted among non-blacks [Volume Rate/Area] in Serum or Plasma by Creatinine-based formula (MDRD) >6 0 [facility] Glomerular filtration rate/1.73 sq M pre dicted among blacks [Volume Rate/Area] in Serum or Plasma by Creatinine-based formula (MDRD) >60 [facility] ID Date Data Source [id number] 12/02/2019 06:05:20 AM [facility] Name Value Range Interpretation Code Description Data So rce(s) Supporting Document(s) Magnesium [Mass/volume] in Serum or Plasma 1.9 mg/dL 1.6-2.6 [facility] ID Date Data Source [id number] 12/02/2019 06:05:20 AM [facility] Name Value Range Interpretation Code Description Data So rce(s) Supporting Document(s) Phosphate [Mass/volume] in Serum or Plasma 3.7 mg/dL 2.5-4.5 [facility] ID Date Data Source [id number] 12/01/2019 12:28:14 PM [facility] Name Value Range Interpretation Code Description Data So rce(s) Supporting Document(s) Bicarbonate [Moles/volume] in Serum 25 mmol/L 22-29 [facility] Chloride [Moles/volume] in Serum or Plasma 101 mmol/L 98-107 [facility] Creatinine [Mass/volume] in Serum or Plasma 0.86 mg/dL 0.70-1.20 [facility] Glucose [Mass/volume] in Serum or Plasma 93 mg/dL 70-140 [facility] Potassium [Moles/volume] in Serum or Plasma 3.5 mmol/L 3.4-5.1 [facility] Sodium [Moles/volume] in Serum or Plasma 137 mmol/L 136-145 [facility] Urea nitrogen [Mass/volume] in Serum or Plasma 4 mg/dL 6-20 L [facility] Anion gap 3 in Serum or Plasma 12 mmol/L 8-15 [facility] Osmolality of Serum or Plasma by calculation 281 mosm/kg 275-300 [facility] Creatinine/Urea nitrogen [Mass Ratio] in Serum or Plasma 5 [facility] Calcium [Mass/volume] in Serum or Plasma 9.7 mg/dL 8.6-10.0 [facility] Glomerular filtration rate/1.73 sq M pre dicted among non-blacks [Volume Rate/Area] in Serum or Plasma by Creatinine-based formula (MDRD) >6 0 [facility] Glomerular filtration rate/1.73 sq M pre dicted among blacks [Volume Rate/Area] in Serum or Plasma by Creatinine-based formula (MDRD) >60 [facility] ID Date Data Source [id number] 11/30/2019 02:06:15 PM EDT [facility] Name Value Range Interpretation Code Description Data So rce(s) Supporting Document(s) Consultation [facility] ESYOZd5vYpJJZePy62/SSFnoVMAuu6MhTHfhLJa3AGhzDOQrG6JoUMC9eD3kCLQ5DLcKBgMlShSlFfT3 lbm PhUaaDWkGwRCOaQvlTQlYaLGxvWxkwmSRcCF8CxSG6GQEqD82nUYNeQXIlW7TjSFB4FDu+Sz4RPYVioN JaYM6FSdwB5Rzrchq5RK4u0N5pYSDxBepmDt0+k+6mniqJBFqixtrJF0a9WUMstwkngv+Fi8lSbRa76w IANcs9RQpGrtjThoBFgqYL//4u58AUDJZn/+3XMObk Rola+/IHshgm+Vyf6zojKTUrBBEcdtD+FnJ7sjrG6affX4mfyqpCBZjUfRChmNRyzh1LmZQzxz1lCqwEQ [file] KXAyFbBqTfYzRFL3NQnkJJJ2JHl+BJ0kVMg+Qk8Np5SqonC1ajSsSRk1GLw3ZQcuECQZCo4V ID Date Data Source [id number] 11/29/2019 08:27:52 PM EDT [facility] Name Value Range Interpretation Code Description Data So rce(s) Supporting Document(s) ED Provider Note [facility] WFDTQh9wQoMDItTo57/VVRsjOSKjt3VjAHtlIDb7WKhvHDDpG3VaUEA5dF5iANX9BIyRZyOzVqNcBoRj lbm [file] OHVjYTYsFKXuVDDGOVtxJZ7BEU2dplO9XS8ZgINlRSFsCFBedJMlFGj2B33ebFZxHEcgEC4XYNH+Viji+ Yp8YUAIhKTDrLCUkTlTwWVFMCcUzE7OwF0NDp2OoO8 PrNO86rPcwxvHqGSwbJW2VNM8aMNDrJJTASK7WyDEcrJ2nioD0CoRgTLXRQvDvP25nfCLyJAVwHLDfZM WbYs2MTQQqE0SuufFjkGephlVqBTRxCVYWIC2NAGjwheUidGNhqKemUH43wEwaNB8BZj5DNeOhOD4qzz 5RqIXrWf2GRAM1YN6VUSZoUXCuKGVtAHS8VOHlPdYs QIgzOWQjUQWfXAZ8ZSCcBEJgNI1OGrYiWNXuFRG1BYbjPETxUSOlxt4BSHLpZMV2LbMwCAUeJHNdZVKk PSygTGHpBWNaHVN5JKDdHNLfPM5NGbDeNZRmWFAtJcUdEZXwHYUokc3UQVPsESTcZdHqWXLpIQQkBCZi ODsgPUNhUGL5NHJ4NXYoKCBcQB5SAeUiYESpSKFdPR YxUXThWGTnlm7IBYRcUPLyVAn6EYSvBSKaXEMwOZkxEJIkULPeJIZ1UJVnAPSpZB0DPmBjIHXeRIA6YY vyFJMmOUCfec2NANJiAVLkImAzTgRnDNMrBXIxPSxnLHSnFTS9LaPhYOVlKSUmPY3IWzUwRNLfUMC3GE vfKTRwMZLdyu9RZSOcRYGwLRFqTCWtEYBwNEGlXDtf TWRqORX7OoMwYVLmULUsGC2DFoBuGVSpIeRhGiCuGFCbHBDlgn7GQGLrETWjHgW2VyJhGZGbYEFnLYpt CIUbQKZ1KQEuZLRtLWVbFG7ITyAkDXIbVzE0HEmcBZEpSXNtoe6DOCJkCLXnQNMtWdWnLYYmBAQlIBsa XENfCGJ2KHQsZRCmHOUmVN7BWiMgFIWjMyZ8LdHpJA WhAQSeze6QBSQpYIEpDBb4TpDpIPTuSLPkKMdkOSGsADY5JOI2CSYsHFGsRO0JHcAsTWPkImGaRGCrNA NcRFQdzb8UQUVcYFJwUDUsLMOwAKRbKDBjXImcPZGuFCA1RHP1QBPuABLzGE7ZKjMlBNQwFsL7FFJpHH DaIYSyad4GTXJuAAUrZdQ8GDDxNMVsEBGzKAxdVVTy WFB0ZXYlDNIuDMBkRN0JRwUxGQHlCfqnSVXhITVlKARpvj6CSRGcAKArRTEaOONuUTYpNKZcNSogPWOk OLP8KAf2XNXqXBApCY8FUjGnDRPeSzedBFFsAOBbDNBucn6BHFFyHCU3HUy0IEDaHGQlTMRjWRbhPULa OHCtMLcjIWGgGINyLZ1ZKsMdIDXzTZJxVUMkJRPpBY Pjsj7FDQHgHHR8KMYcZSTzQKPfFCDcQHwwTJLfPSFeNer6CLHvTPCdOP9CPbFbRGKoEFCsPNDrEOCsNM Csfm7BGRJjZET0ZuKtAHUbZOInSZOlTRlaAAVwRYWzAjyaLPWpGEKsJO3RAwVqHBGjXNH4DWOuRMXpSZ Cgxg2VJCTiNOT5Apr2PlUxNKMiXJZwCJvmPDXxUPOc HRm9BZFmNKVwKK3GJgRyNWCrATOpZRzgDOSzQCHycj0BnDMduNhvin6ITGqXLq2HoMciWMS1XFytDa0k yUP0XoEwSKAXMp3GtzHyGRLzPPPNFHelWXKqGJRzLBkbPEX8E1TrCARiE0M9MEK5DNEhCLa0BzC8TvLq LyS8IgEhNSA3RRBtDSMrYPWwEYn7ZlU4YjU5OHhvPy diY2Y+PC5cQPi+Ij9Lp6XvzdJ7bqAeKLg3KfAySM1SOCVKN8GOTh== ID Date Data Source [id number] 11/29/2019 06:53:55 PM EDT [facility] Name Value Range Interpretation Code Description Data So rce(s) Supporting Document(s) Consultation [facility] GZOQJo9oRpDSJdQl10/ANAidFGPks9TuMHxrURd9OYsbJWPiR3JcYOF9mJ1uVPN0RRqJZiYcLoMcMjRm lbm [file] FwGgiL8qf+eGAsKLv3Ou0xRrSn9XoOAoYA+QW6N/Laminating Machine Tender [file] 7ZDHrjlS3+SUTURE POLISHER/7Zyel2INSPCkedaeCenPXQuQQHZa5 [file] ICAgICAgICAgICAgICAgICAgICAgICAgICAgICAgICAgICAgICAgICAgICAgICAgICAgICAgICAgICAg ICAgICAgICAgICAgICAgICAgICAgICAgICAgICAgDQ ogICAgICAgICAgICAgICAgICAgICAgICAgICAgICAgICAgICAgICAgICAgICAgICAgICAgICAgICAgIC AgICAgICAgICAgICAgICAgICAgICAgICAgICAgICAgICAgICAgICAgDQogICAgICAgICAgICAgICAgIC AgICAgICAgICAgICAgICAgICAgICAgICAgICAgICAg ICAgICAgICAgICAgICAgICAgICAgICAgICAgICAgICAgICAgICAgICAgICAgICAgICAgDQogICAgICAg ICAgICAgICAgICAgICAgICAgICAgICAgICAgICAgICAgICAgICAgICAgICAgICAgICAgICAgICAgICAg ICAgICAgICAgICAgICAgICAgICAgICAgICAgICAgIC AgDQogICAgICAgICAgICAgICAgICAgICAgICAgICAgICAgICAgICAgICAgICAgICAgICAgICAgICAgIC AgICAgICAgICAgICAgICAgICAgICAgICAgICAgICAgICAgICAgICAgICAgDQogICAgICAgICAgICAgIC AgICAgICAgICAgICAgICAgICAgICAgICAgICAgICAg ICAgICAgICAgICAgICAgICAgICAgICAgICAgICAgICAgICAgICAgICAgICAgICAgICAgICAgDQogICAg ICAgICAgICAgICAgICAgICAgICAgICAgICAgICAgICAgICAgICAgICAgICAgICAgICAgICAgICAgICAg ICAgICAgICAgICAgICAgICAgICAgICAgICAgICAgIC AgICAgDQogICAgICAgICAgICAgICAgICAgICAgICAgICAgICAgICAgICAgICAgICAgICAgICAgICAgIC AgICAgICAgICAgICAgICAgICAgICAgICAgICAgICAgICAgICAgICAgICAgICAgDQogICAgICAgICAgIC AgICAgICAgICAgICAgICAgICAgICAgICAgICAgICAg ICAgICAgICAgICAgICAgICAgICAgICAgICAgICAgICAgICAgICAgICAgICAgICAgICAgICAgICAgDQog ICAgICAgICAgICAgICAgICAgICAgICAgICAgICAgICAgICAgICAgICAgICAgICAgICAgICAgICAgICAg ICAgICAgICAgICAgICAgICAgICAgICAgICAgICAgIC FzCOBdDHRiMIs9Y9sxBBKaETWjGE0vADg1Iq9+RNxITtRwVOM0soGuoK2DBP4ni6EpVZtnPZJua0FdNS r8ZY3DCCQzBOmqBZ7NBRqvjp9BZLXiVQXnjZKOu8eoYiTdTVU4UDPyNgcsCB4EIGQfS7opjlYmOVEnVS BSIDcgMCBSIDkgMCBSIDExIDAgUiAxMyAwIFIgMTUg ZXCWXOQ7HILdSpXiDODeBEWyDQ7GWNUsF803jrDtAI2LTp9THaTcDG8zbi8DLHYzQQMdGxxPNud8VFqz SX1QfIXdtSB4ELAmFDYDUeUuK4rfm0FyPGYhHQBHTDvxMJ7Lu6YpcMAkQYq+Sa5ZZV1uy9KwRFl3MKVq WY8wgm2BAVdFLaCqL2GvmHfmRQNnxpU4tWLhUCX3VA RscsvjdTWYLEZpi59bZXEURMRseSQ6UpFjKaYlLwLjFQs0IAYpRW5aBOgxAB4SEZU0OTqlBHGxQLIxN6 aKPlMtGYLmASXxvYpyQF6ZWaJkW9BtmgXdmBP2KKSzQDUDUw3+TLfbirEfOgkJVfXwTERna3CdKQj7OM 4QNGJlIZoeUG5XLSKynK0vZVsnQK6TJgV6DIWwHXUJ OqWjS78cfDYaNBr7Y7WgBgQpAUDqAvkkOPIoBBfbCzQcCOWaBuUjWPeuTQ7+ID4+VYmeXH7NPTkzjrYv DNIkPm2UKEZoIICpBU3yUJAdZNPvY2C7gDkyUPRDAmIuE9ywovbeBT8oZADcN653oZkpfeCbHEKoQRCr Dz6PCUWgSVZ4RBFmsAPhJWqcJSEJLWzoAO3PkUStRB P3dE4eXXmxDXEbWWAlE0cLUuCwlHruAY68aBagyoSvyWHgBPu+Xi6XBP3os2MbSYq4ekZqQBwpFMIwWK qbHTFmOJDmTDVbQCE9AWO0WXJLErGbLMUxNQBzTEorKZPuZOVeny5KPRPoTMF5Nuf1TsSfZHScXQVtVH xeMNEoSFY0WobcFCKcUAItGW7AArVmZVBlQRMrYKvf VGIhYXStqz4LDDCdOQOwLVKxJQJqIUBiXWVvHFpkDOYqWFF6ZxI8QNPvDXTfCP9JIoNfMKDvWXg0XHev RJPkHFLjzh1JXITvLCWiQLuwPULqYUJmOQLlRCoaTTEfIUCsOgZgOBBmIWEnVE9UXnHgAWOxUGW6QLQk YAKmQPArkq6ORNDdCKTfITSeIcKtUGIpHBJxUDevKE FeSQM7IrUtHYEtOHWbBM0DNqKcPLWeYYkrDhKqRAXuOSEuol7PBWIcDPZiGJGiLAIbCTIjXYBnLCwaWF NjLYPbWyV7DCDvPBAfWV8QRvAfDNFeEgC9IxReVRMlREFgif3HRVTvDSSxWlr9FqHvFNVySZNsLJyiOB DlEOK1IQE2AFNbAYWiDB4HTfLtGVRsDmqpTbFpLPYj VMNycl9DIRVgYVDpIAN8IPJcVIVsNPGeSIevJNGtKGYmUcIeWZZqIGZzIT1HTeAiHYYcKvV3RujqGTMd EVBtoj2WUZIzTSHgQAnoAOQqVETfDEZaHPovPAOnLHLjQkbaITCoUFApKT2UIyBrOXNiNuB4QSWwNCJb ALAzcl1EGJLtVDCnHpV3DWKvOBLvVTLjUYcwMUCtOW ChJLUaUHGbVGPtDW5MOvVqNZBqGvGnXecnTIJkXUDyzq7ZGYDtTTFfMeElRGKdODShGJPoCIknDRLrWK S2OLY2VGAnNQLgAV6IIwFtUEDxMPE5AkYgYRXhWBViss9WGZRlGVF2KrV1RWAbIANvDWNwYKetDCJgHF X2Qnw9EDFzNVKtSU6DJpTuQONlWAb1SDLsATYgUKCl ic4XRPGxTDW5JxB6JEWcLMHyWQOkSJkzSWElTXQcLVK5KPAgLEJxHK9VJmAmXFGeOoZqEkAkAMXqINCe fr0NODMuNAU3ZhU8YWWyOMSnBRIwTZicGORxSYTpXvK1TZBxVZPaSF0HAtXkTCWvLtA3PvCkDZWgUSBe px7SKHDuATC1YKz5THDrCEFfFHQlIHphMPTgBWM3NI Q1VEJlDCGrHK4CXkYaMNPrHlG7TjCmNEPkQUXqta1ZUEYfCUZ5ShE5XhDmCVGdZLOwPIeyTMAzEVR3Xa M3CMIgTZIcDM6DSlJoVZWqYvP9LuMnQFEzPIFriz4EZXSuLPZ9CyjkJHPaACBiDQFgCOqlRDXiQZK2ZP SmPZHvRJDaFB2BGjBrRMHqPtquERJcKWXaRAJgcf0A EARqAAU6DTpoSdHqBVWgHKXoNOjdNLUfHDH1XEi4HSDnZPBwCM9OVuMaFHMfMzbpUPDgTOAlXAMfcu5U uGGefAwiei1XHBhAXy1JeNbrWCZdLGftUm7ctYM4MiWmKVVPZf9ZdoGpFOOuRNFLAObsNWDoNTI0Tcs2 KGDyVaR4IwNfSIT2BpRiVSb7PEK6IyIpMrh3JxB1Ly JvDFLmZqX4NHerCNDzUKUlKPAuFrQnPSkxJhLbGPe+HJ4fCXn+Qv2Np9GkxnP5hmZpDOc1MOC8PP2OXD JDT0LXXz== ID Date Data Source [id number] 11/29/2019 03:18:57 PM [facility] Service Cmnt XXX-Imp : NoneMicroorganism XXX Cult : Polymerase chain reaction assay was POSITIVE for methicillin-SUSCEPTIBLE Staphylococcus aureus (MSSA) AND NEGATIVE for methicillin resistant Staphylococcus aureus (MRSA). Name Value Range Interpretation Code Description Data So rce(s) Supporting Document(s) ID Date Data Source [id number] 11/29/2019 05:53:29 AM EDT [facility] Name Value Range Interpretation Code Description Data So rce(s) Supporting Document(s) Leukocytes [#/volume] in Blood by Automated count 7.4 10*3/uL 4-10 [facility] Erythrocytes [#/volume] in Blood by Automated count 3.76 10*6/uL 4.6- 6.1 L [facility] Hemoglobin [Mass/volume] in Blood 11.7 g/dL 13.5-18 L [facility] Hematocrit [Volume Fraction] of Blood by Automated count 34.3 % 4 1-53 L [facility] Erythrocyte mean corpuscular volume [Entitic volume] by Auto mated count 91.1 fL 80-96 [facility] Erythrocyte mean corpuscular hemoglobin [Entitic mass] by Automated count 31.1 pg 27-33 [facility] Erythrocyte mean corpuscular hemoglobin concentration [Mass/volume] by Automated [facility] 34.1 g[facility].0[facility] [Ratio] by Automated count 13.7 % 11.5-14.5 [facility] Platelets [#/volume] in Blood by Automated count 188 10*3/uL 150-400 [facility] Differential cell count method - Blood [facility] Neutrophils/100 leukocytes in Blood by Automated count 74 % [facility] Lymphocytes/100 leukocytes in Blood by Automated count 20 % [facility] Monocytes/100 leukocytes in Blood by Automated count 5 % [facility] Eosinophils/100 leukocytes in Blood by Automated count 0 % [facility] Basophils/100 leukocytes in Blood by Automated count 1 % [facility] Neutrophils [#/volume] in Blood by Automated count 5.47 10*3/uL 1.8-7 .0 [facility] Lymphocytes [#/volume] in Blood by Automated count 1.51 10*3/uL 1.2-4 .0 [facility] Monocytes [#/volume] in Blood by Automated count 0.39 10*3/uL 0-0.8 [facility] Eosinophils [#/volume] in Blood by Automated count 0.01 10*3/uL 0-0.5 [facility] Basophils [#/volume] in Blood by Automated count 0.04 10*3/uL 0-0.2 [facility] Nucleated erythrocytes/100 leukocytes [Ratio] in Blood by Automated count 0 /100{WBCs} 0-0 [facility] ID Date Data Source [id number] 11/29/2019 06:14:31 AM [facility] Name Value Range Interpretation Code Description Data So rce(s) Supporting Document(s) Bicarbonate [Moles/volume] in Serum 23 mmol/L 22-29 [facility] Chloride [Moles/volume] in Serum or Plasma 99 mmol/L 98-107 [facility] Creatinine [Mass/volume] in Serum or Plasma 0.72 mg/dL 0.70-1.20 [facility] Glucose [Mass/volume] in Serum or Plasma 127 mg/dL 70-140 [facility] Potassium [Moles/volume] in Serum or Plasma 3.8 mmol/L 3.4-5.1 [facility] Sodium [Moles/volume] in Serum or Plasma 131 mmol/L 136-145 L [facility] Urea nitrogen [Mass/volume] in Serum or Plasma 5 mg/dL 6-20 [facility] Anion gap 3 in Serum or Plasma 9 mmol/L 8-15 [facility] Osmolality of Serum or Plasma by calculation 271 mosm/kg 275-300 L [facility] Creatinine/Urea nitrogen [Mass Ratio] in Serum or Plasma 7 [facility] Calcium [Mass/volume] in Serum or Plasma 8.3 mg/dL 8.6-10.0 L [facility] Glomerular filtration rate/1.73 sq M pre dicted among non-blacks [Volume Rate/Area] in Serum or Plasma by Creatinine-based formula (MDRD) >6 0 [facility] Glomerular filtration rate/1.73 sq M pre dicted among blacks [Volume Rate/Area] in Serum or Plasma by Creatinine-based formula (MDRD) >60 [facility] ID Date Data Source [id number] 11/29/2019 06:14:31 AM [facility] Name Value Range Interpretation Code Description Data So rce(s) Supporting Document(s) Magnesium [Mass/volume] in Serum or Plasma 2.1 mg/dL 1.6-2.6 [facility] ID Date Data Source [id number] 11/29/2019 06:14:31 AM [facility] Name Value Range Interpretation Code Description Data So rce(s) Supporting Document(s) Phosphate [Mass/volume] in Serum or Plasma 3.0 mg/dL 2.5-4.5 [facility] ID Date Data Source [id number] 11/29/2019 06:14:31 AM [facility] Name Value Range Interpretation Code Description Data So rce(s) Supporting Document(s) Vancomycin [Mass/volume] in Serum or Plasma --trough 7.2 ug/mL 10.0- 20.0 [facility] ID Date Data Source [id number] 11/28/2019 04:26:28 AM [facility] Value Range Interpretation Code Description Data So rce(s) Supporting Document(s) Leukocytes [#/volume] in Blood by Automated count 6.7 10*3/uL 4-10 [facility] Erythrocytes [#/volume] in Blood by Automated count 3.80 10*6/uL 4.6- 6.1 [facility] Hemoglobin [Mass/volume] in Blood 11.8 g/dL 13.5-18 [facility] Hematocrit [Volume Fraction] of Blood by Automated count 34.7 % 4 1-53 [facility] Erythrocyte mean corpuscular volume [Entitic volume] by Auto mated count 91.5 fL 80-96 [facility] Erythrocyte mean corpuscular hemoglobin [Entitic mass] by Automated count 31.1 pg 27-33 [facility] Erythrocyte mean corpuscular hemoglobin concentration [Mass/volume] by Automated count 34.0 g/dL 32.0-[facility] width [Ratio] by Automated count 14.4 % 11.5-14.5 [facility] Platelets [#/volume] in Blood by Automated count 186 10*3/uL 150-400 [facility] ID Date Data Source [id number] 11/28/2019 04:53:51 AM [facility] Value Range Interpretation Code Description Data So rce(s) Supporting Document(s) Magnesium [Mass/volume] in Serum or Plasma 2.2 mg/dL 1.6-2.6 [facility] ID Date Data Source [id number] 11/28/2019 04:53:51 AM [facility] Value Range Interpretation Code Description Data So rce(s) Supporting Document(s) Phosphate [Mass/volume] in Serum or Plasma 2.4 mg/dL 2.5-4.5 [facility] ID Date Data Source [id number] 11/28/2019 04:53:51 AM [facility] Name Value Range Interpretation Code Description Data So rce(s) Supporting Document(s) Bicarbonate [Moles/volume] in Serum 25 mmol/L 22-29 [facility] Chloride [Moles/volume] in Serum or Plasma 100 mmol/L 98-107 [facility] Creatinine [Mass/volume] in Serum or Plasma 0.61 mg/dL 0.70-1.20 [facility] Glucose [Mass/volume] in Serum or Plasma 119 mg/dL 70-140 [facility] Potassium [Moles/volume] in Serum or Plasma 3.6 mmol/L 3.4-5.1 [facility] Sodium [Moles/volume] in Serum or Plasma 136 mmol/L 136-145 [facility] Urea nitrogen [Mass/volume] in Serum or Plasma 7 mg/dL 6-20 [facility] Anion gap 3 in Serum or Plasma 10 mmol/L 8-15 [facility] Osmolality of Serum or Plasma by calculation 281 mosm/kg 275-300 [facility] Creatinine/Urea nitrogen [Mass Ratio] in Serum or Plasma 12 [facility] Calcium [Mass/volume] in Serum or Plasma 8.4 mg/dL 8.6-10.0 [facility] Glomerular filtration rate/1.73 sq M pre dicted among non-blacks [Volume Rate/Area] in Serum or Plasma by Creatinine-based formula (MDRD) >6 0 [facility] Glomerular filtration rate/1.73 sq M pre dicted among blacks [Volume Rate/Area] in Serum or Plasma by Creatinine-based formula (MDRD) >60 [facility] ID Date Data Source [id number] 11/27/2019 06:12:14 PM [facility] Name Value Range Interpretation Code Description Data So rce(s) Supporting Document(s) [facility] QKIUQb4kCtOVXeIg64/AOZkuHNUxb1ErUHjzFCb8QVofNTKtA1YrTAB6rI0uCLS0XPhWLwJoIxUfZlQg [facility] [file] [id number]LYW9xVGbYo3DYCZfUTHRMgHyXJ3XQMs= ID Date Data Source [id number] 11/27/2019 02:31:24 PM EDT [facility] Name Value Range Interpretation Code Description Data So rce(s) Supporting Document(s) Operative Note [facility] KEWHKa9pSqKOGqIp29/XCBwtNHLkc8PeNAfwVPf9POghUUOvE4EaFYI3hO8mXAG5SVwYKpPzRwGuWoSt lbm [file] == ID Date Data Source [id number] 11/27/2019 05:42:01 AM [facility] Name Value Range Interpretation Code Description Data So rce(s) Supporting Document(s) Leukocytes [#/volume] in Blood by Automated count 9.2 10*3/uL 4-10 [facility] Erythrocytes [#/volume] in Blood by Automated count 4.27 10*6/uL 4.6- 6.1 L [facility] Hemoglobin [Mass/volume] in Blood 13.2 g/dL 13.5-18 L [facility] Hematocrit [Volume Fraction] of Blood by Automated count 38.6 % 4 1-53 L [facility] Erythrocyte mean corpuscular volume [Entitic volume] by Auto mated count 90.4 fL 80-96 [facility] Erythrocyte mean corpuscular hemoglobin [Entitic mass] by Automated count 30.9 pg 27-33 [facility] Erythrocyte mean corpuscular hemoglobin concentration [Mass/volume] by Automated count 34.2 g/dL 32.0-36.0 [facility] width [Ratio] by Automated count 14.3 % 11.5-14.5 [facility] Platelets [#/volume] in Blood by Automated count 198 10*3/uL 150-400 [facility] ID Date Data Source [id number] 11/27/2019 06:04:50 AM [facility] Name Value Range Interpretation Code Description Data So rce(s) Supporting Document(s) Bicarbonate [Moles/volume] in Serum 27 mmol/L 22-29 [facility] Chloride [Moles/volume] in Serum or Plasma 100 mmol/L 98-107 [facility] Creatinine [Mass/volume] in Serum or Plasma 0.72 mg/dL 0.70-1.20 [facility] Glucose [Mass/volume] in Serum or Plasma 117 mg/dL 70-140 [facility] Potassium [Moles/volume] in Serum or Plasma 4.3 mmol/L 3.4-5.1 [facility] Hemolyzed Sodium [Moles/volume] in Serum or Plasma 137 mmol/L 136-145 [facility] Urea nitrogen [Mass/volume] in Serum or Plasma 6 mg/dL 6-20 [facility] Anion gap 3 in Serum or Plasma 10 mmol/L 8-15 [facility] Osmolality of Serum or Plasma by calculation 283 mosm/kg 275-300 [facility] Creatinine/Urea nitrogen [Mass Ratio] in Serum or Plasma 8 [facility] Calcium [Mass/volume] in Serum or Plasma 8.4 mg/dL 8.6-10.0 L [facility] Glomerular filtration rate/1.73 sq M pre dicted among non-blacks [Volume Rate/Area] in Serum or Plasma by Creatinine-based formula (MDRD) >6 0 [facility] Glomerular filtration rate/1.73 sq M pre dicted among blacks [Volume Rate/Area] in Serum or Plasma by Creatinine-based formula (MDRD) >60 [facility] ID Date Data Source [id number] 11/27/2019 06:04:50 AM [facility] Name Value Range Interpretation Code Description Data So rce(s) Supporting Document(s) Phosphate [Mass/volume] in Serum or Plasma 4.3 mg/dL 2.5-4.5 [facility] ID Date Data Source [id number] 11/27/2019 06:04:50 AM [facility] Name Value Range Interpretation Code Description Data So rce(s) Supporting Document(s) Magnesium [Mass/volume] in Serum or Plasma 1.9 mg/dL 1.6-2.6 [facility] ID Date Data Source [id number] 11/26/2019 08:39:53 PM EDT [facility] CT ABDOMEN PELVIS WITH CONTRAST [id number] AL RESULTInterpreted by:Jens Ledesma MDINDICATION: concern for [...] rce(s) Supporting Document(s) ID Date Data Source [id number] 12/24/2019 11:39:06 AM EDT [facility] Cmnt XXX-Imp : PERINEALMicroorga nism XXX Cult : No growth 28 days Name Value Range Interpretation Code Description Data So rce(s) Supporting Document(s) ID Date Data Source [id number] 11/30/2019 08:44:26 AM EDT [facility] Cmnt XXX-Imp : PERINEALMicroorga nism XXX Cult : 1+Peptostreptococcus asaccharolyticus Name Value Range Interpretation Code Description Data So rce(s) Supporting Document(s) ID Date Data Source [id number] 11/28/2019 10:14:43 AM EDT [facility] Cmnt XXX-Imp : PERINEALGram Stn XXX : 3+WBC'S Seen.No organisms seenMicroorganism XXX Cult : Organism of questionable significance. No further workup ofTwo (2) colonies ofStaphylococcus haemolyticus. Name Value Range Interpretation Code Description Data So rce(s) Supporting Document(s) ID Date Data Source [id number] 11/26/2019 06:20:48 PM EDT [facility] Name Value Range Interpretation Code Description Data So rce(s) Supporting Document(s) History and Physical [facility] UIUQVh3oBnLKTqTy21/FRFvtTCQmn8SqNDhbHHw2TBzyBZRdA8HwRQA6pC6xQMQ4IOeZMpIpUqKoTpKd lbm [file] [id number] XSANCj4+EVwukYJmlFgoNGDIRnNfZGM8MEfzUIXPOp9W ID Date Data Source [id number] 11/27/2019 11:47:35 PM EDT [facility] Name Value Range Interpretation Code Description Data So rce(s) Supporting Document(s) ABO and Rh group [Type] in Blood [facility] Blood group antibody screen [Presence] in Serum or Plasma [facility] 11/29/2019,0000Performed at [place] ID Date Data Source [id number] 11/26/2019 06:43:30 PM EDT [facility] Name Value Range Interpretation Code Description Data So rce(s) Supporting Document(s) Hemoglobin A1c/Hemoglobin.total in Blood by HPLC 6.0 % 4.0-6.0 [facility] (NOTE)<5.7% Average risk of diabetes (ADA)5.7-6.4% Increased risk of diabetes(ADA)>/= 6.5% Diagnostic for diabetes(ADA) Glucose mean value [Mass/volume] in Blood Estimated fr om glycated hemoglobin 126 mg/dL <126 H [facility] ID Date Data Source [id number] 11/26/2019 05:17:06 PM EDT [facility] Name Value Range Interpretation Code Description Data So rce(s) Supporting Document(s) Sodium [Moles/volume] in Blood 137 mmol/L 136-145 [facility] Potassium [Moles/volume] in Blood 4.1 mmol/L 3.4-5.1 [facility] Chloride [Moles/volume] in Blood 99 mmol/L 98-107 [facility] Carbon dioxide, total [Moles/volume] in Blood 23 mmol/L 22-29 [facility] Calcium.ionized [Moles/volume] in Blood 1.29 mmol/L 1.13-1.32 [facility] Glucose [Mass/volume] in Blood 97 mg/dL 70-140 [facility] Urea nitrogen [Mass/volume] in Blood 6 mg/dL 6-20 [facility] Creatinine [Mass/volume] in Blood 0.6 mg/dL 0.70-1.20 L [facility] Hematocrit [Volume Fraction] of Blood 43 % 41-53 [facility] Hemoglobin [Mass/volume] in Blood by calculation 14.6 g/dL 13.5-18.0 [facility] ID Date Data Source [id number] [facility]2019 [facility] Interpretation Code Description Data So rce(s) Supporting Document(s) pH of Venous blood 7.43 7.36-7.41 H [facility] Carbon dioxide [Partial pressure] in Venous blood 39 mmHg 40-45 L [facility] Oxygen [Partial pressure] in Venous blood 47 mmHg [facility] Base excess standard in Venous blood by calculation 1 mmol/L [facility] Oxygen saturation Calculated from oxygen partial pressure in Venous blood 84 % 60-85 [facility] Lactate [Moles/volume] in Venous blood 2.4 mmol/L 0.5-2.2 H [facility] Bicarbonate [Moles/volume] in Venous blood 27 mmol/L [facility] ID Date Data Source [id number] 11/26/2019 10:55:00 AM EDT [facility] Name Value Range Interpretation Code Description Data So rce(s) Supporting Document(s) HCT 46.2 % 42.0-52.0 N [facility] HGB 16.0 g/dL 13.5-17.5 N [facility] MCH 34.6 G/DL pg 32.0-36.5 N [facility] MCHC 30.7 PG % 27.0-33.0 N [facility] PLATELETS 253 10 10*3/mm3 150-450 N [facility] RBC 5.22 10 10*6/mm3 4.30-6.10 N [facility] RDW 13.4 % 11.5-14.5 N [facility] WBC TOTAL 12.9 4.0-10.0 H [facility] ID Date Data Source [id number] 12/01/2019 12:42:[facility] ReportName: VALENTIN VACAMRN: [id number] Number: [id number] Date: 11/26/2019 00:00Received Date: [...] diagnosis is based on amicroscopic examination of professional healthcare representative sections of tissue.Gross DescriptionThe specimen is [...] x 5.0 x 2.0 cm in aggregate. City Recorder sections are submitted as follows:A1 -professional healthcare representative of the skin and soft tissueA2 -professional healthcare representative of the additional soft tissue received in thecontainerSS/pmwThis report may include one or more immunohistochemical stain results thatuse analyte specific reagents. All positiv e and negative controls havebeen reviewed by the attending pathologist and are satisfactory. The testswere developed and their performance characteristics determined by [facility] Pathology department. They have not been cleared or approved by the USFood and Drug Administration. The FDA has determined that such clearanceor approval is not necessary. Name Value Range Interpretation Code Description Data So rce(s) Supporting Document(s) ID Date Data Source [id number] 11/04/2019 02:57:48 PM EDT [facility] Measurements & CalculationsHeight: 72 inches [...] during this visit, including review of any hxrg-fhp-yccqzzl medications, herbal therapies, and/or supplements.Allergy ReviewAllergy List [...] Obstructive sleep apnea of adult (ICD- 327.23) (VZW95-F65.33) Assessment: Instructions: Refer to pulmonary for possible sleep study and CPAP initiation.Work on weight loss.Treating this may also help lower his blood pressure. We discussed the care home implications of sleep apnea.Patient Instructions/Care Plan: Obstructive sleep apnea of adult: Refer to pulmonary for possible sleep study and CPAP initiation.Work on weight loss.Treating this may also help lower his blood pressure. We discussed the [employer] implications of sleep apnea. Plan developed in [...] Orders:Adult - Ofc Vst, EST, Level III [CPT-76357] Pulmonology Consult [CPT-55277] Name Value Range Interpretation Code Description Data So rce(s) Supporting Document(s) ID Date Data Source [id number] 06/30/2019 02:26:02 PM EST [facility] [...] during this visit, including review of any rnzb-aym-bnmlgoq medications, herbal therapies, and/or supplements.Allergy ReviewAllergy List [...] GoodAssessment & Plan Problems:Added: Hidradenitis suppurativa (ICD-705.83) (CJI35-N82.2) Assessment: Instructions: Referral to dermatology.Abscess of left axilla (HNC53-S26.412) Assessment: Instructions: Abscess drained and significantly decompressed with improvement in pain. Wound culture taken. Start Bactrim twice daily x 5 days. We will call you if antibiotics need to be changed. Please change dressing daily while it is still draining. Make an appt, call, or present to ER/urgent care for any concerns.Assessed:Prediabetes (KEL45-R56.03) Assessment: Instructions: Recommend healthy lifestyle modification. Encourage [...] 24 HOUR-1 po bid, VITAMIN D (ERGOCALCIFEROL) 50181 UNIT ORAL CAPSULE-1 po q wk for 12 wks, VITAMIN D (ERGOCALCIFEROL) 38720 UNIT ORAL CAPSULE-1 po q wk for 12 wks, VITAMIN D 1000 UNIT ORAL TABLET-1 po daily once 50,0000 unit tabs completed in 12 wksAllergies:No Known Allergies (updated 06/30/2019) Orders:Wound Culture, Bacterial [CPT-05409] Adult - Ofc Vst, EST, Level IV [CPT-33833] Follow-Up Return to clinic: as needed, 3 [...] without complications. Findin gs: Lidocaine 1%: Lot [id number], Exp 06/2020Medications:BACTRIM DS 800-160 MG ORAL TABLET (SULFAMETHOXAZOLE-TRIMETHOPRIM) Take 1 tablet po twice daily x 5 days #10[Tablet] x 0 Route:ORAL Entered and Authorized by: Gala FUNG Method used: Electronically to [facility]* (retail) [address] [place] [address] Note to Pharmacy: Route: ORAL; Indications: ABSCESS OF LEFT AXILLA;HIDRADENITIS SUPPURATIVA RxID: [id number] CIPRO 500 MG ORAL TABLET (CIPROFLOXACIN HCL) 1 po bid for 3 days only #6[Tablet] x 0 Route:ORAL Authorized by: Vasile Fernando MD Method used: Electronically to [facility]* (retail) [address] [place] [address] Fax: RxID: [id number]][Immunization Management] Name Value Range Interpretation Code Description Data So rce(s) Supporting Document(s) ID Date Data Source [id number] 06/25/2019 10:21:26 AM [facility] In-House Blood TestsDate/Time Colle cted: June 25, 2019 10:31 AMTest Result Reference Range Normal ValueComments: blood draw done in offcie done in the right ac tolerated well Bryn Berger KATELYN, June 25, 2019 10:31 AMAssessment & Plan Orders:[id number] Vst-Est Level I [CPT-88129] 22271 - Venipuncture [CPT-80603] Name Value Range Interpretation Code Description Data So rce(s) Supporting Document(s) ID Date Data Source [id number] 06/25/2019 10:15:[address] [facility] Name Value Range Interpretation Code Description Data So rce(s) Supporting Document(s) BG FASTING 97 mg/dL 70-[address] [facility] ID Date Data Source [id number] 06/25/2019 10:15:[address] [facility] Name Value Range Interpretation Code Description Data So rce(s) Supporting Document(s) HGBA1C 5.8 % [facility] Procedure Social History Code Duration Value Status Description Data Source(s ) Smoking 06/13/2020 12:00:00 AM EST Unknown if ever smoked comp leted Unknown if ever smoked [facility] ([facility] Smoking 05/22/2020 12:00:00 AM EST Unknown if ever smoked comp leted Unknown if ever smoked [facility] ([facility]) Smoking 04/26/2020 12:00:00 AM EST Unknown if ever smoked comp leted Unknown if ever smoked [facility] ([facility]) Smoking 04/18/2020 12:00:00 AM EST Unknown if ever smoked comp leted Unknown if ever smoked [facility] ([facility]) Alcohol intake 12/13/2019 12:00:00 AM EDT Current drinker of al cohol (finding) completed Current drinker of alcohol (finding) [facility] Cigarette pack-years 12/13/2019 12:00:00 AM EDT UNK completed [facility] Cigarettes smoked current (pack per day) - Reported 12/13/19 12:00:00 AM EDT UNK completed [facility] Smoking 12/13/2019 12:00:00 AM EDT Current every day smoker co mpleted Current every day smoker [facility] Alcohol intake 12/07/2019 12:00:00 AM EDT Current drinker of al cohol (finding) completed Current drinker of alcohol (finding) [facility] Cigarette pack-years 12/07/2019 12:00:00 AM EDT UNK [facility] Cigarettes smoked current (pack per day) - Reported 12/07/19 12:00:00 AM EDT UNK completed [facility] Smoking 12/07/2019 12:00:00 AM EDT Current every day smoker co mpleted Current every day smoker [facility] Alcohol intake 12/01/2019 12:00:00 AM EDT Current drinker of al cohol (finding) completed Current drinker of alcohol (finding) [facility] Cigarette pack-years 12/01/2019 12:00:00 AM EDT UNK [facility] Cigarettes smoked current (pack per day) - Reported 12/01/19 12:00:00 AM EDT UNK completed [facility] Smoking 12/01/2019 12:00:00 AM EDT Current every day smoker co mpleted Current every day smoker [facility] Smoking 11/16/2019 12:00:00 AM EDT Unknown if ever smoked comp leted Unknown if ever smoked [facility] ([facility]) Smoking 10/27/2019 12:00:00 AM EDT Unknown if ever smoked comp leted Unknown if ever smoked [facility] ([facility]) Smoking 10/20/2019 12:00:00 AM EDT Unknown if ever smoked comp leted Unknown if ever smoked [facility] ([facility]) Smoking 10/14/2019 12:00:00 AM EDT Unknown if ever smoked comp leted Unknown if ever smoked [facility] ([facility]) Smoking 10/07/2019 12:00:00 AM EDT Unknown if ever smoked comp leted Unknown if ever smoked [facility] ([facility]) Smoking 09/28/2019 12:00:00 AM EDT Unknown if ever smoked comp leted Unknown if ever smoked [facility] ([facility]) Smoking 09/23/2019 12:00:00 AM EDT Unknown if ever smoked comp leted Unknown if ever smoked [facility] ([facility]) Smoking 09/21/2019 12:00:00 AM EDT Unknown if ever smoked comp leted Unknown if ever smoked [facility] ([facility]) Smoking 08/30/2019 12:00:00 AM EDT Unknown if ever smoked comp leted Unknown if ever smoked [facility] ([facility]) Smoking 08/27/2019 12:00:00 AM EDT Unknown if ever smoked comp leted Unknown if ever smoked [facility] ([facility]) Smoking 08/24/2019 12:00:00 AM EDT Unknown if ever smoked comp leted Unknown if ever smoked [facility] ([facility]) Smoking 07/29/2019 12:00:00 AM EDT Unknown if ever smoked comp leted Unknown if ever smoked [facility] ([facility]) Smoking 07/27/2019 12:00:00 AM EDT Unknown if ever smoked comp leted Unknown if ever smoked [facility] ([facility]) Smoking 06/29/2019 12:00:00 AM EST Unknown if ever smoked comp leted Unknown if ever smoked [facility] ([facility]) Smoking 06/17/2019 12:00:00 AM EST Unknown if ever smoked comp leted Unknown if ever smoked [facility] ([facility]) Smoking 06/04/2019 12:00:00 AM EST Unknown if ever smoked comp leted Unknown if ever smoked [facility] ([facility]) Smoking 06/01/2019 12:00:00 AM EST Unknown if ever smoked comp leted Unknown if ever smoked [facility] ([facility]) Smoking 05/28/2019 12:00:00 AM EST Unknown if ever smoked comp leted Unknown if ever smoked [facility] ([facility]) Smoking 04/30/2019 12:00:00 AM EST Unknown if ever smoked comp leted Unknown if ever smoked [facility] ([facility]) Smoking 04/27/2019 12:00:00 AM EST Unknown if ever smoked comp leted Unknown if ever smoked [facility] ([facility]) Vital Signs ID Date Data Source UNK Name Value Range Interpretation Code Description Data Source(s) Body height 72 [in_i] 72 [in_i] [facility] ([facility]) Body height 72 [in_i] 72 [in_i] [facility] ([facility]) Body height 72 [in_i] 72 [in_i] [facility] ([facility]) Diastolic blood pressure 0 mm[Hg] Normal (applies to non-numeric results) 0 mm[Hg] [facility] ([facility]) Systolic blood pressure 0 mm[Hg] Normal (applies t o non-numeric results) 0 mm[Hg] [facility] ([facility]) Body mass index (BMI) [Ratio] 0.00 kg/m2 No rmal (applies to non-numeric results) 0.00 kg/m2 [facility] ([facility]) Body weight Measured 0.00 lbs Normal (applies to n on-numeric results) [facility] Body height 0.00 in Normal (applies to non-numeric resu lts) [facility].00 [facility] Body weight 6272 [oz_av] 6272 [oz_av] ANKIT ([facility]) Systolic blood pressure 152 mm[Hg] 152 mm[Hg] A [facility] ([facility]) Systolic blood pressure 169 mm[Hg] 169 mm[Hg] A THEN ([facility]) Body height 72 [in_i] 72 [in_i] ANKIT ([facility]) Diastolic blood pressure 89 mm[Hg] 89 mm[Hg] [facility] ([facility]) Diastolic blood pressure 89 mm[Hg] 89 mm[Hg] ANKIT ([facility]) Body weight 6272 [oz_av] 6272 [oz_av] ANKIT ([facility]) Systolic blood pressure 152 mm[Hg] 152 mm[Hg] A THENA ([facility]) Systolic blood pressure 169 mm[Hg] 169 mm[Hg] A THENA ([facility]) Body height 72 [in_i] 72 [in_i] ANKIT ([facility]) Diastolic blood pressure 89 mm[Hg] 89 mm[Hg] AN[facility] ([facility]) Diastolic blood pressure 89 mm[Hg] 89 mm[Hg] AN[facility] ([facility]) Body weight 6272 [oz_av] 6272 [oz_av] ANKIT ([facility]) Systolic blood pressure 152 mm[Hg] 152 mm[Hg] A THENA ([facility]) Systolic blood pressure 169 mm[Hg] 169 mm[Hg] [place] ([facility]) Body height 72 [in_i] 72 [in_i] ANKIT ([facility]) Diastolic blood pressure 89 mm[Hg] 89 mm[Hg] ANKIT ([facility]) Diastolic blood pressure 89 mm[Hg] 89 mm[Hg] ANKIT ([facility]) Body weight 6246.08 [oz_av] 6246.08 [oz_av] ATH JAV[place] ([facility]) Systolic blood pressure 136 mm[Hg] 136 mm[Hg] A THENA ([facility]) Body height 72 [in_i] 72 [in_i] ANKIT ([facility]) Diastolic blood pressure 84 mm[Hg] 84 mm[Hg] AN[facility] ([facility]) Body weight 6246.08 [oz_av] 6246.08 [oz_av] ATH [place]AV[place] ([facility]) Systolic blood pressure 136 mm[Hg] 136 mm[Hg] A [place] ([facility]) Body height 72 [in_i] 72 [in_i] ANKIT ([facility]) Diastolic blood pressure 84 mm[Hg] 84 mm[Hg] ANKIT ([facility]) Body weight 6246.08 [oz_av] 6246.08 [oz_av] ATH [place]AVIER ([facility]) Systolic blood pressure 136 mm[Hg] 136 mm[Hg] A [facility] ([facility]) Body height 72 [in_i] 72 [in_i] ANKIT ([facility]) Diastolic blood pressure 84 mm[Hg] 84 mm[Hg] ANK[facility] ([facility]) Diastolic blood pressure 0 mm[Hg] Normal (applies to non-numeric results) 0 mm[Hg] [facility] ([facility]) Systolic blood pressure 0 mm[Hg] Normal (applies t o non-numeric results) 0 mm[Hg] [facility] ([facility]) Body mass index (BMI) [Ratio] 0.00 kg/m2 No rmal (applies to non-numeric results) 0.00 kg/m2 [facility] ([facility]) Body weight Measured 0.00 lbs Normal (applies to n on-numeric results) 0.00 lbs [facility] ([facility]) Body height 0.00 in Normal (applies to non-numeric resu lts) 0.00 in [facility] ([facility]) Body weight 6288 [oz_av] 6288 [oz_av] ANKIT ([facility]) Systolic blood pressure 163 mm[Hg] 163 mm[Hg] A [facility] ([facility]) Body height 72 [in_i] 72 [in_i] ANKIT ([facility]) Diastolic blood pressure 93 mm[Hg] 93 mm[Hg] ANKIT ([facility]) Body weight 6288 [oz_av] 6288 [oz_av] ANKIT ([facility]) Systolic blood pressure 163 mm[Hg] 163 mm[Hg] A [facility] ([facility]) Body height 72 [in_i] 72 [in_i] ANKIT ([facility]) Diastolic blood pressure 93 mm[Hg] 93 mm[Hg] ANKIT ([facility]) Body weight 6288 [oz_av] 6288 [oz_av] ANKIT ([facility]) Systolic blood pressure 163 mm[Hg] 163 mm[Hg] A [place] ([facility]) Body height 72 [in_i] 72 [in_i] ANKIT ([facility]) Diastolic blood pressure 93 mm[Hg] 93 mm[Hg] ANKIT ([facility]) Diastolic blood pressure 0 mm[Hg] Normal (applies to non-numeric results) 0 mm[Hg] [facility] ([facility]) Systolic blood pressure 0 mm[Hg] Normal (applies t o non-numeric results) 0 mm[Hg] [facility] ([facility]) Body mass index (BMI) [Ratio] 0.00 kg/m2 No rmal (applies to non-numeric results) 0.00 kg/m2 [facility] ([facility]) Body weight Measured 0.00 lbs Normal (applies to n on-numeric results) 0.00 lbs [facility] ([facility]) Body height 0.00 in Normal (applies to non-numeric resu lts) 0.00 in [facility] ([facility]) Diastolic blood pressure 0 mm[Hg] Normal (applies to non-numeric results) 0 mm[Hg] [facility] Systolic blood pressure 0 mm[Hg] Normal (applies t o non-numeric results) 0 mm[Hg] [facility] Body mass index (BMI) [Ratio] 0.00 kg/m2 No rmal (applies to non-numeric results) 0.00 kg/m2 [facility] ([facility]) Body weight Measured 0.00 lbs Normal (applies to n on-numeric results) 0.00 lbs [facility] ([facility]) Body height 0.00 in Normal (applies to non-numeric resu lts) 0.00 in [facility] Diastolic blood pressure 0 mm[Hg] Normal (applies to non-numeric results) 0 mm[Hg] [facility] ([facility]) Systolic blood pressure 0 mm[Hg] Normal (applies t o non-numeric results) 0 mm[Hg] [facility] ([facility]) Body mass index (BMI) [Ratio] 0.00 kg/m2 No rmal (applies to non-numeric results) 0.00 kg/m2 [facility] ([facility]) Body weight Measured 0.00 lbs Normal (applies to n on-numeric results) 0.00 lbs [facility] ([facility]) Body height 0.00 in Normal (applies to non-numeric resu lts) 0.00 in [facility] ([facility]) Body weight 6272 [oz_av] 6272 [oz_av] ANKIT ([facility]) Systolic blood pressure 142 mm[Hg] 142 mm[Hg] A [facility]) Body height 72 [in_i] 72 [in_i] ANKIT ([facility]) Diastolic blood pressure 85 mm[Hg] 85 mm[Hg] AN[facility] ([facility]) Body weight 6272 [oz_av] 6272 [oz_av] ANKIT ([facility]) Systolic blood pressure 142 mm[Hg] 142 mm[Hg] A [facility] ([facility]) Body height 72 [in_i] 72 [in_i] ANKIT ([facility]) Diastolic blood pressure 85 mm[Hg] 85 mm[Hg] [facility] ([facility]) Body weight 6272 [oz_av] 6272 [oz_av] ANKIT ([facility]) Systolic blood pressure 142 mm[Hg] 142 mm[Hg] A [facility] ([facility]) Body height 72 [in_i] 72 [in_i] ANKIT ([facility]) Diastolic blood pressure 85 mm[Hg] 85 mm[Hg] [facility] ([facility]) Diastolic blood pressure 0 mm[Hg] Normal (applies to non-numeric results) 0 mm[Hg] [facility] ([facility]) Systolic blood pressure 0 mm[Hg] Normal (applies t o non-numeric results) 0 mm[Hg] [facility] ([facility]) Body mass index (BMI) [Ratio] 0.00 kg/m2 No rmal (applies to non-numeric results) 0.00 kg/m2 [facility] ([facility]) Body weight Measured 0.00 lbs Normal (applies to n on-numeric results) 0.00 lbs [facility] ([facility]) Body height 0.00 in Normal (applies to non-numeric resu lts) 0.00 in [facility] ([facility]) Diastolic blood pressure 0 mm[Hg] Normal (applies to non-numeric results) 0 mm[Hg] [facility] ([facility]) Systolic blood pressure 0 mm[Hg] Normal (applies t o non-numeric results) 0 mm[Hg] [facility] ([facility]) Body mass index (BMI) [Ratio] 0.00 kg/m2 No rmal (applies to non-numeric results) 0.00 kg/m2 [facility] ([facility]) Body weight Measured 0.00 lbs Normal (applies to n on-numeric results) 0.00 lbs [facility] ([facility]) Body height 0.00 in Normal (applies to non-numeric resu lts) 0.00 in [facility] ([facility]) ID Date Data Source [id number] 12/07/2019 01:14:07 PM [facility] Name Value Range Interpretation Code Description Data Source(s) WEIGHT RECORDED 400 lb 400 lb [facility] Body height Measured 72.01 in 72.01 in [facility] ID Date Data Source [id number] 12/24/2019 11:39:15 AM [facility] Name Value Range Interpretation Code Description Data Source(s) WEIGHT RECORDED 390 lb 390 lb [facility] Body height Measured 72 in 72 in [facility] Patient Treatment Plan of Care Planned Activity Planned Date Details Description Data Source (s) Fluconazole 200 MG Oral Tablet 12/10/2019 12:00:00 AM [facility] Piperacillin 3000 MG / tazobactam 375 MG Injection 12/03/2019 12 :00:00 AM [facility] 3 ML heparin sodium, porcine 100 UNT/ML Prefilled Syri nge 12/03/2019 12:00:00 AM [facility] Normal Saline Flush 0.9 % Intravenous Solution 12/03/2019 12:00:00 AM [facility] Piperacillin 3000 MG / tazobactam 375 MG Injection 12/02/2019 12 :00:00 AM [facility] Kerlix Bandage Roll 4.5"x9.3' 12/02/2019 12:00:00 AM [facility] Thiamine 100 MG Oral Tablet 12/02/2019 12:00:00 AM [facility] Nystatin 100 UNT/MG Topical Powder 12/02/2019 12:00:00 AM [facility] Nicotine 4 MG/ACTUAT Inhalant Solution 12/02/2019 12:00:00 AM [facility] Tab-A-Biju/Beta Carotene Oral Tablet 12/02/2019 12:00:00 AM [facility] Folic Acid 1 MG Oral Tablet 12/02/2019 12:00:00 AM [facility] 3 ML heparin sodium, porcine 100 UNT/ML Prefilled Syri nge 12/02/2019 12:00:00 AM [facility] Saline Flush 0.9 % Intravenous Solution 12/02/2019 12:00:00 AM [facility] Docusate Sodium 100 MG Oral Capsule 12/02/2019 12:00:00 AM [facility] Acetaminophen 325 MG Oral Tablet 12/02/2019 12:00:00 AM [facility] Oxycodone Hydrochloride 5 MG Oral Tablet 12/02/2019 12:00:00 AM [facility] Oxycodone Hydrochloride 5 MG Oral Tablet 12/01/2019 05:48:45 PM [facility] sodium chloride (preservative free) 0.9 % flush 10 mL 11/30/2019 07:38:43 AM [facility] sodium chloride (preservative free) 0.9 % flush 10 mL 11/27/2019 09:52:36 AM [facility] Nystatin 100 UNT/MG Topical Powder 11/27/2019 03:22:12 AM [facility] lidocaine (XYLOCAINE) 2 % urojet 20 mL 11/26/2019 10:04:27 PM [facility] Zolpidem tartrate 5 MG Oral Tablet AN[facility]IT ([facility]) Zolpidem tartrate 10 MG Oral Tablet [facility] ([facility]) Trazodone Hydrochloride 150 MG Oral Tablet [facility] ([facility]) Sulfamethoxazole 800 MG / Trimethoprim 160 MG Oral Tablet [facility] ([facility]) Prazosin 1 MG Oral Capsule A THEN ([facility]) Fluconazole 200 MG Oral Tablet [facility] ([facility]) Amoxicillin 875 MG / Clavulanate 125 MG Oral Tablet [facility] ([facility]) 2 ML aripiprazole 200 MG/ML Prefilled Syringe [Abilify] ANKIT ([facility]) aripiprazole 400 MG Injection [Abilify] ANKIT ([facility])
[2020-06-19] MEDS ORDERED: LIDOCAINE 2% 100MG/5ML SDV (FOR ANES.) As Ordered ONE (12:11)
[2020-06-19] MEDS ORDERED: propofoL 200 MG/20 ML VIAL As Ordered ONE (12:11)
[2020-06-19] MEDS ORDERED: MIDAZOLAM INJ 2MG/2ML VIAL (J2250 PER 1MG) As Ordered ONE (12:12)
[2020-06-19] MEDS ORDERED: BUPIVACAINE HCL 0.25% 30ML VIAL As Ordered ONE (12:18)
[2020-06-19] MEDS ORDERED: ZOSYN 3.375GM VIAL (J2543) As Ordered ONE (12:27)
--- NOTE | 2020-06-19 12:29 | SMCUROLCON ---
Urology Consultation General Date of Consultation 06/19/20 Reason For Consultation This patient is seen for Perineal Abscess. History of Present Illness This is a 39 y/o M w/ a PMH significant for HTN, BEAU, and morbid obesity, presenting to the ER w/ worsening perineal pain. He notes that he started having pain and swelling beneath his scrotum 3 days ago. He denies trauma to the area. He denies drainage. He denies fevers or chills. He notes that he had a scrotal abscess for which he had an I&D in 11/2019 and this feels similar. He denies dysuria or difficulty voiding. Past Medical History Medical History see HPI Surgical Hstory right BKA scrotal I&D Medications Current Medications Current Medications Medications (Trade) Dose Ordered Sig/Earl Route PRN Reason Start Time Stop Time Status Last Admin Dose Admin Docusate Sodium (Colace) 100 mg BID PO 06/19/20 09:00 Magnesium Hydroxide (Milk Of Magnesia) 30 ml DAILY PRN PO CONSTIPATION 06/19/20 11:30 Allergies Allergies: Coded Allergies: strawberry (Verified Allergy, Unknown, rash, 12/08/19) Review of Systems Constitutional: Denies: Fever, Chills, Sweats, Weakness, Malaise Skin: Denies: Rash, Lesions, Nail Changes Pulmonary: Denies: Dyspnea, Cough Cardiovascular: Denies Chest Pain, Denies Palpitations Gastrointestinal: Denies: Nausea, Vomiting, Abdominal Pain Genitourinary: Reports: Other Symptoms (perineal swelling and pain); Denies: Dysuria, Frequency, Incontinence, Hematuria Musculoskeletal: Denies: Neck Pain, Back Pain Neurological: Denies: Weakness, Numbness, Incoordination, Change in Speech Psych: Reports: Mood Normal Physical Examination General Exam: Alert, No Acute Distress Chest Exam: Normal air movement Heart Exam: Rate Normal Male Exam circumcised phallus, b/l descended testicles w/o lesions; perineal edema and erythema w/ fullness consistent w/ an abscess - moderately tender - no crepitus or skin breakdown Skin Exam: Nl turgor and temperature Neuro Exam: Normal Speech Psych Exam: Mental status NL, Mood NL Vital Signs/I&O Vital Signs Date Time Temp Pulse Resp B/P (MAP) Pulse Ox O2 Delivery O2 Flow Rate FiO2 06/19/20 11:28 98.4 87 164/83 (110) 96 Room Air 06/19/20 10:01 20 Laboratory Data 24H Labs Laboratory Tests 2 06/19/20 07:59: Immature Granulocyte % (Auto) 0.9, Neutrophils (%) (Auto) 64.6, Lymphocytes (%) (Auto) 26.9, Monocytes (%) (Auto) 6.5H, Eosinophils (%) (Auto) 0.6, Basophils (%) (Auto) 0.5, Neutrophils # (Auto) 7.0, Lymphocytes # (Auto) 2.9, Monocytes # (Auto) 0.7, Eosinophils # (Auto) 0.1, Basophils # (Auto) 0.1, Nucleated Red Blood Cells % (auto) 0.0, Anion Gap 10, Glomerular Filtration Rate > 60.0, Calcium Level 9.3 06/19/20 09:54: Coronavirus (COVID-19)(PCR) NEGATIVE, Influenza Type A (RT-PCR) NEGATIVE, Influenza Type B (RT-PCR) NEGATIVE, Respiratory Syncytial Virus (PCR) NEGATIVE CBC/BMP Laboratory Tests 06/19/20 07:59 Assessment This is a 39 y/o M w/ a perineal abscess. Scrotal US shows it is 7cm in size. I recommended that we take him to the OR for incision and drainage of the abscess. After a discussion of the risks and benefits of surgery, informed consent was signed. Plan - NPO - informed consent signed - will obtain cultures in OR - zosyn OCOR - may have regular diet postop CRISTI EWING MD Jun 19, 2020 12:29
[2020-06-19] MEDS ORDERED: PIPERACILLIN/TAZOBACTAM SOD 3.375 GM in D5W MINI-BAG PLUS 50 ML IV ONE (12:30)
--- NOTE | 2020-06-19 13:10 | HPEPDOC ---
General Date of Admission Jun 19, 2020 at 11:26 Date of Service: Jun 19, 2020 Chief Complaint The patient is a 39-year-old male admitted with a reason for visit of Perineal Abscess. Source: Patient, RN/MD History of Present Illness This is a 39 y/o M with PMH significant for HTN, BEAU, and morbid obesity, presenting to the Ed w/ worsening perineal pain. He notes that he started having pain and swelling beneath his scrotum 3 days ago. The pain just got worse adn the swelling started moving upwards and becoming bigger. He rates the pain as 7/10 and sharp aching in nature. He denies trauma to the area. He denies drainage. He denies fevers or chills. He notes that he had a scrotal abscess for which he had an I&D in 11/2019 and this feels similar. He denies dysuria or difficulty voiding. He was admitted for a Perineal abscess. Scrotal US shows it is 7cm x 5 cm x 3 cm in size. He was taken to the OR by Dr Morrison for drainage of the abscess. Home Medications Scheduled Aripiprazole (Aripiprazole) 15 Mg Tablet, 15 MG PO DAILY, (Reported) Lamotrigine (Lamotrigine) 150 Mg Tab, 150 MG PO QPM, (Reported) Lisinopril (Lisinopril) 40 Mg Tab, 40 MG PO DAILY, (Reported) Mirtazapine (Mirtazapine) 15 Mg Tab.rapdis, 15 MG PO QHS, (Reported) TAKE ONE-HALF TO ONE TAB AT BEDTIME Scheduled PRN Zolpidem Tartrate (Ambien) 5 Mg Tablet, 5 MG PO QPMP PRN for sleep, (Reported) Miscellaneous Medications Atorvastatin Calcium (Atorvastatin Calcium) 20 Mg Tablet, (Reported) Hydroxyzine HCl (Hydroxyzine HCl) 50 Mg Tablet, (Reported) Allergies Coded Allergies: strawberry (Verified Allergy, Unknown, rash, 12/08/19) Past Medical History Medical History MORBID OBESITY BEAU Does not use BIPAP which he has at home. Pre DM PAD Right BKA. DEPRESSION SCHIZOAFFECTIVE DISORDER ADHD HYPERLIPIDEMIA HYPERTENSION H/o scrotal abscess s/p I and D Fatty liver periumbilical hernia diverticulosis Surgical History Surgeries for perineal infections NUMEROUS SX FOR SHATTERED BONES IN RLL; CULMINATED IN R BKA 06/2009 Family History FATHER: ALIVE MOTHER: ALIVE 3 SISTER(S) - HEALTHY. MATERNAL GRANDFATHER WITH LIVER TUMOR. Social History * Smoker: current smoker Alcohol: occationally Drugs: denies A-FIB/CHADSVASC A-FIB History Current/History of A-Fib/PAF?: No Review of Systems Constitutional: Denies: Chills, Fever, Night Sweats Eyes: Denies: Pain, Vision change ENT: Denies: Head Aches, Ear Pain, Dysphagia Skin: Denies: Rash, Lesions, Breakdown Pulmonary: Denies: Dyspnea, Cough Cardiovascular: Denies: Chest Pain, Palpitations, Orthopnea, Paroxysmal Noc. Dyspnea, Lt Headedness Gastrointestinal: Denies: Nausea, Vomiting, Abdominal Pain, Diarrhea Genitourinary: Reports: Other Symptoms (perineal/ scrotal swelling); Denies: Dysuria, Frequency, Incontinence, Retention Hematologic: Denies: Bruising, Bleeding Excessively Psych: Reports: Mood Normal Physical Examination General Exam: Positive: Alert, Cooperative, No Acute Distress Eye Exam: Positive: PERRLA, Conjunctiva & lids normal, EOMI; Negative: Sclera icteric ENT Exam: Positive: Atraumatic, Mucous membr. moist/pink, Pharynx Normal Neck Exam: Positive: Supple; Negative: JVD, thyromegaly Chest Exam: Positive: Rhonchi, Wheezing, Diminished Heart Exam: Positive: Rate Normal, Regular Rhythm, Normal S1, Normal S2; Negative: Murmurs, Rubs Abdomen Exam: Positive: Normal bowel sounds, Soft; Negative: Tenderness, Hepatospenomegaly Extremity Exam: Positive: Other (right BKA.); Negative: Clubbing, Cyanosis, Edema Skin Exam: Positive: Other skin issue (perineal swelling, tenderness, scarring present.) Psych Exam: Positive: Mood NL, Memory Intact, Oriented x 3 Vital Signs Vital Signs Date Time Temp Pulse Resp B/P (MAP) Pulse Ox O2 Delivery O2 Flow Rate FiO2 06/19/20 11:28 98.4 87 164/83 (110) 96 Room Air 06/19/20 10:01 20 Laboratory Data Labs 24H Laboratory Tests 2 06/19/20 07:59: Immature Granulocyte % (Auto) 0.9, Neutrophils (%) (Auto) 64.6, Lymphocytes (%) (Auto) 26.9, Monocytes (%) (Auto) 6.5H, Eosinophils (%) (Auto) 0.6, Basophils (%) (Auto) 0.5, Neutrophils # (Auto) 7.0, Lymphocytes # (Auto) 2.9, Monocytes # (Auto) 0.7, Eosinophils # (Auto) 0.1, Basophils # (Auto) 0.1, Nucleated Red Blood Cells % (auto) 0.0, Anion Gap 10, Glomerular Filtration Rate > 60.0, Calcium Level 9.3 06/19/20 09:54: Coronavirus (COVID-19)(PCR) NEGATIVE, Influenza Type A (RT-PCR) NEGATIVE, Influenza Type B (RT-PCR) NEGATIVE, Respiratory Syncytial Virus (PCR) NEGATIVE CBC/BMP Laboratory Tests 06/19/20 07:59 Assessment/Plan This is a 39 y/o M with PMH significant for HTN, BEAU, and morbid obesity, presenting to the Ed w/ worsening perineal pain. He notes that he started having pain and swelling beneath his scrotum 3 days ago. The pain just got worse adn the swelling started moving upwards and becoming bigger. He rates the pain as 7/10 and sharp aching in nature. He denies trauma to the area. He denies drainage. He denies fevers or chills. He notes that he had a scrotal abscess for which he had an I&D in 11/2019 and this feels similar. He denies dysuria or difficulty voiding. He was admitted for a Perineal abscess. Scrotal US shows it is 7cm x 5 cm x 3 cm in size. He was taken to the OR by Dr Morrison for drainage of the abscess. Perineal abscess second episode Going to OR with Dr mikayla Choe. Hypertension home meds Morbid obesity / BEAU/BIPAP does not use the BIPAP HLD statin DM/PreDm Last A1c was 6.9 Schizoaffective disorder continue home meds. Plan / VTE VTE Prophylaxis Ordered?: Yes JEB ESCALERA MD Jun 19, 2020 13:09
[2020-06-19] MEDS ORDERED: ROCURONIUM BROMIDE 50 MG/5 ML VIAL As Ordered ONE (13:19)
[2020-06-19] MEDS ORDERED: fentaNYL 250 MCG/5 ML INJECTION (J3010) As Ordered ONE (13:20)
[2020-06-19] MEDS ORDERED: ONDANSETRON 4MG/2ML VIAL As Ordered ONE (13:46)
[2020-06-19] MEDS ORDERED: SUGAMMADEX SODIUM 500 MG/5 ML VIAL (BRIDION) As Ordered ONE (13:46)
[2020-06-19] MEDS ORDERED: fentaNYL 100 MCG/2 ML INJECTION (J3010) IV PRN (14:30)
[2020-06-19] MEDS ORDERED: oxyCODONE 5MG TAB PO PRN ×2 (14:30→17:00)
[2020-06-19] MEDS ORDERED: LR 1,000 ML IV SCH (14:30)
[2020-06-19] MEDS ORDERED: ONDANSETRON 4MG/2ML VIAL IV PRN (14:30)
[2020-06-19 15:45] VITALS: BP 135/86
--- NOTE | 2020-06-19 15:50 | RO ---
OPERATIVE NOTE DATE OF OPERATION: 06/19/2020 PRE-PROCEDURE DIAGNOSIS: Perineal abscess. POST-PROCEDURE DIAGNOSIS: Perineal abscess. PROCEDURE: Incision and drainage of perineal abscess. SURGEON: Jeremiah Morrison MD. MEDICARE CONTACT SPECIALIST: None. ANESTHESIA: General. OPERATIVE INDICATIONS: This is a 39-year-old male who presented to the emergency room with three days of worsening perineal pain and swelling. An ultrasound was done of the area in the emergency room which was notable for a 7-cm perineal abscess. He was brought to the operating room today for treatment. DESCRIPTION OF PROCEDURE: The patient was brought to the operating room and general anesthesia was induced. Broad-spectrum antibiotics were infused. He was placed in the dorsal lithotomy position, prepped, and draped in the usual sterile fashion. At this point, an approximately 5-cm longitudinal incision was made over the perineal abscess and immediately purulent fluid drained. Cultures were obtained of the fluid. These cultures will be sent for aerobic and anaerobic cultures. At this point, I probed the abscess cavity and it was not very deep. I then thoroughly irrigated the abscess cavity with normal saline. Once done, I examined inside the cavity and all the tissue inside the cavity appeared to be viable. There was still some necrotic skin. At this point, any areas of bleeding were controlled with electrocautery. Once satisfied that there was good hemostasis and there were no additional abscess pockets, I then packed the abscess cavity with a minimally moist Kerlix. This was covered with ABD gauze pads. Of note, the patient did have a 16-[place] Cueto catheter placed at the beginning of the procedure. This marked the conclusion of the procedure. The patient was then taken out of the dorsal lithotomy position, awakened from anesthesia, and transported to the recovery room in stable condition. ESTIMATED BLOOD LOSS: 10 mL. COMPLICATIONS: None. SPECIMEN: Cultures of perineal abscess. PLAN: 1. The patient will be monitored in the hospital and kept on broad-spectrum antibiotics until his culture is also returned. 2. The abscess cavity will need to be changed with wet-to-dry dressings at least twice daily for now.
[2020-06-19 16:15] VITALS: BP 185/103
[2020-06-19] MEDS: **hydrALAZINE** 50 MG TAB PO SCH ×2 (17:00→20:06)
[2020-06-19 17:15] VITALS: BP 147/92
[2020-06-19] MEDS: oxyCODONE 5MG TAB PO PRN (17:15)
[2020-06-19] MEDS: DOCUSATE SODIUM 100MG CAPSULE PO SCH ×2 (17:16→20:07)
[2020-06-19 18:15] VITALS: BP 149/99
[2020-06-19 19:15] VITALS: BP 150/91
[2020-06-19] MEDS: MIRTAZAPINE 15 MG TAB PO SCH (20:06)
[2020-06-19] MEDS: PIPERACILLIN/TAZOBACTAM SOD 3.375 GM in D5W MINI-BAG PLUS 50 ML IV SCH (20:06)
[2020-06-19 20:15] VITALS: BP 147/91
[2020-06-19] MEDS ORDERED: GLUCOSE 4GM CHEW TABLET PO PRN (21:00)
[2020-06-19] MEDS ORDERED: DEXTROSE 50% 50 ML SYRINGE IV PRN (21:00)
[2020-06-19] MEDS ORDERED: GLUCAGON INJ 1MG VIAL SC PRN (21:00)
[2020-06-19] MEDS: HumaLOG INSULIN (NovoLOG) PER UNIT SC SCH (21:29)
[2020-06-19] MEDS ORDERED: ACETAMINOPHEN TAB 650MG DOSE (2X325MG) PO PRN (22:15)
[2020-06-20] MEDS: oxyCODONE 5MG TAB PO PRN (00:10)
[2020-06-20 02:00] VITALS: BP 160/90
[2020-06-20] MEDS: PIPERACILLIN/TAZOBACTAM SOD 3.375 GM in D5W MINI-BAG PLUS 50 ML IV SCH ×4 (02:26→20:57)
[2020-06-20 06:00] VITALS: BP 152/88
[2020-06-20 06:58] LABS: BASO # 0.1 10^3/uL (0.0-0.2); BASO % 0.5 % (0.0-1.0); EOS % 0.1 % (0.0-3.0); HEMATOCRIT 43.4 % (42.0-52.0); HEMOGLOBIN 14.6 g/dl (13.5-17.5); LYMPH # 1.8 10^3/uL (1.5-5.0); LYMPH % 16.2 % (24.0-44.0); MEAN CORPUSCULAR HEMOGLOBIN 29.5 pg (27.0-33.0); MEAN CORPUSCULAR HGB CONC 33.6 g/dl (32.0-36.5); MEAN CORPUSCULAR VOLUME 87.7 fl (80.0-96.0); MONO # 0.7 10^3/uL (0.0-0.8); NEUTROPHILS # 8.5 10^3/uL (1.5-8.5); NEUTROPHILS % 76.4 % (36.0-66.0); PLATELET COUNT, AUTOMATED 245 10^3/uL (150-450); RED BLOOD COUNT 4.95 10^6/uL (4.30-6.10); WHITE BLOOD COUNT 11.1 10^3/uL (4.0-10.0)
[2020-06-20 07:24] LABS: BLOOD UREA NITROGEN 8 MG/DL (7-18); CALCIUM LEVEL 9.5 MG/DL (8.5-10.1); CARBON DIOXIDE LEVEL 25 MEQ/L (21-32); CHLORIDE LEVEL 102 MEQ/L (98-107); CREATININE FOR GFR 0.84 MG/DL (0.70-1.30); GLOMERULAR FILTRATION RATE > 60.0 (>60); GLUCOSE, FASTING 215 MG/DL (70-100); POTASSIUM SERUM 4.3 MEQ/L (3.5-5.1); SODIUM LEVEL 135 MEQ/L (136-145)
[2020-06-20] MEDS: HumaLOG INSULIN (NovoLOG) PER UNIT SC SCH ×4 (08:28→20:41)
[2020-06-20] MEDS: lisinopriL 40 MG TAB PO SCH (08:30)
[2020-06-20] MEDS: lamoTRIgine 100MG TAB PO SCH (08:30)
[2020-06-20] MEDS: ARIPiprazole 15 MG TAB (AbiLIFY) PO SCH (08:30)
[2020-06-20] MEDS: DOCUSATE SODIUM 100MG CAPSULE PO SCH ×2 (08:30→21:00)
[2020-06-20] MEDS: **hydrALAZINE** 50 MG TAB PO SCH ×4 (08:33→21:00)
[2020-06-20 10:00] VITALS: BP 155/93
--- NOTE | 2020-06-20 10:55 | IPN ---
PROGRESS NOTE DATE: 06/20/2020 SUBJECTIVE: Chase is seen [facility], he underwent an incision and drainage of a perineal abscess last night and feels better. He has a dry patch on his right amputation stump. He would like some cream for it. He would also like his Cueto catheter out. PHYSICAL EXAMINATION: VITAL SIGNS: Stable. No fever. LUNGS: Clear. HEART: Regular rhythm. ABDOMEN: Soft, nontender. EXTREMITIES: There is a dry patch on the lateral aspect of his right stump. LABORATORY DATA: White count is 11.1, hemoglobin is stable. Electrolytes are unremarkable. Blood sugar is 215. Wound cultures pending. IMPRESSION: 1. Perineal ulcer status post incision and drainage. Currently on Zosyn and wet to dry dressings. 2. Suspected diabetes. He has had one hemoglobin A1c of 6.9. Order repeat hemoglobin A1c. If this is 6.5 or higher this confirms the diagnosis and he should be considered for medical treatment. He is on Abilify which increases the risk of diabetes. 3. Hypertension, well-controlled on current regimen. 4. Various psychiatric illnesses. He is on Abilify, Lamictal and Remeron, we will continue. 5. Hypertension, continue Lisinopril 40 mg daily and hydralazine 50 mg q.i.d. 6. Cueto catheter removal per Urology.
[2020-06-20 13:24] VITALS: BP 147/86
[2020-06-20 13:27] VITALS: BP 148/88
--- NOTE | 2020-06-20 17:23 | IPNPDOC ---
Subjective Review oF Systems Chief Complaint The patient is a 39-year-old male admitted with a reason for visit of Perineal Abscess. Events since Last Encounter No acute events o/n. Good pain control. Tolerating dressing change last night w/o much pain. Ambulating ok. No f/c/ns. Objective Physical Examination General Exam: Alert, Cooperative, No Acute Distress Skin Exam: Nl turgor and temperature Neuro Exam: Normal Speech Psych Exam: Mental status NL, Mood NL Other physical findings catheter in place, draining clear urine; packing removed from perineal wound - tissue pink and healthy w/ no purulent drainage - surrounding skin w/ minimal erythema and no skin breakdown Vital Signs/I&O Vital Signs Date Time Temp Pulse Resp B/P (MAP) Pulse Ox O2 Delivery O2 Flow Rate FiO2 06/20/20 13:27 96.4 92 20 148/88 (108) 97 Room Air 06/19/20 16:15 2.0 I&O- Last 24 Hours up to 6 AM 06/20/20 06:00 Intake Total 2840 ml Output Total 2450 ml Balance 390 ml Laboratory Data Labs 24H Laboratory Tests 2 06/19/20 20:10: Bedside Glucose (Misc Panel) 256H 06/20/20 06:12: Estimated Mean Plasma Glucose 154H, Hemoglobin A1c 7.0 06/20/20 06:16: Immature Granulocyte % (Auto) 0.8, Neutrophils (%) (Auto) 76.4H, Lymphocytes (%) (Auto) 16.2L, Monocytes (%) (Auto) 6.0H, Eosinophils (%) (Auto) 0.1, Basophils (%) (Auto) 0.5, Neutrophils # (Auto) 8.5, Lymphocytes # (Auto) 1.8, Monocytes # (Auto) 0.7, Eosinophils # (Auto) 0.0, Basophils # (Auto) 0.1, Nucleated Red Blood Cells % (auto) 0.0, Anion Gap 8, Glomerular Filtration Rate > 60.0, Calcium Level 9.5 06/20/20 11:51: Bedside Glucose (Misc Panel) 182H 06/20/20 16:26: Bedside Glucose (Misc Panel) 212H CBC/BMP Laboratory Tests 06/20/20 06:16 FSBS Laboratory Tests Test 06/19/20 20:10 06/20/20 11:51 06/20/20 16:26 Range/Units Bedside Glucose (Misc Panel) 256 182 212 70-105 MG/DL Microbiology Microbiology 06/19/20 Gram Stain - Final, Resulted 06/19/20 Wound Culture, Resulted Pending 06/19/20 Anaerobic Culture, Resulted Pending Assessment/Plan Date Seen The patient was seen on 06/20/20. Patient Summary This is a 39 y/o M POD1 s/p I&D of perineal abscess. The patient is doing well and has minimal pain w/ dressing changes. Culture results still pending. Plan/VTE VTE Prophylaxis Ordered?: Yes VTE Exclusion Mechanical Proph: N/A:VTE Prophy Ordered Plan - d/c Cueto - continue zosyn - f/u culture results and adjust abx accordingly - will continue BID dressing changes w/ minimally moist kerlex inside the wound covered w/ ABDs - discharge pending culture results and change to PO abx - will need [facility] to help w/ dressing changes but not likely since it is not certain they can come every day and since patient lives a lone, we will need to determine if patient can do any of the changes himself CRISTI EWING MD Jun 20, 2020 17:23
[2020-06-20] MEDS: MIRTAZAPINE 15 MG TAB PO SCH (20:56)
[2020-06-20 22:00] VITALS: BP 158/90
[2020-06-21] MEDS: PIPERACILLIN/TAZOBACTAM SOD 3.375 GM in D5W MINI-BAG PLUS 50 ML IV SCH ×3 (01:35→13:27)
[2020-06-21] MEDS ORDERED: zolPIDEM TARTRATE 5 MG TAB PO ONE (02:45)
[2020-06-21 06:00] VITALS: BP 140/82
[2020-06-21 06:37] LABS: BASO # 0.1 10^3/uL (0.0-0.2); BASO % 0.9 % (0.0-1.0); EOS # 0.1 10^3/uL (0.0-0.5); EOS % 0.7 % (0.0-3.0); HEMATOCRIT 43.7 % (42.0-52.0); HEMOGLOBIN 14.4 g/dl (13.5-17.5); LYMPH # 2.7 10^3/uL (1.5-5.0); LYMPH % 33.2 % (24.0-44.0); MEAN CORPUSCULAR HEMOGLOBIN 30.1 pg (27.0-33.0); MEAN CORPUSCULAR VOLUME 91.4 fl (80.0-96.0); MONO # 0.5 10^3/uL (0.0-0.8); MONO % 6.3 % (0.0-5.0); NEUTROPHILS # 4.7 10^3/uL (1.5-8.5); NEUTROPHILS % 58.2 % (36.0-66.0); PLATELET COUNT, AUTOMATED 215 10^3/uL (150-450); RED BLOOD COUNT 4.78 10^6/uL (4.30-6.10); WHITE BLOOD COUNT 8.1 10^3/uL (4.0-10.0)
[2020-06-21 06:56] LABS: BLOOD UREA NITROGEN 11 MG/DL (7-18); CALCIUM LEVEL 9.1 MG/DL (8.5-10.1); CARBON DIOXIDE LEVEL 30 MEQ/L (21-32); CHLORIDE LEVEL 103 MEQ/L (98-107); CREATININE FOR GFR 0.88 MG/DL (0.70-1.30); GLOMERULAR FILTRATION RATE > 60.0 (>60); GLUCOSE, FASTING 119 MG/DL (70-100); POTASSIUM SERUM 4.2 MEQ/L (3.5-5.1); SODIUM LEVEL 140 MEQ/L (136-145)
[2020-06-21] MEDS: DOCUSATE SODIUM 100MG CAPSULE PO SCH (07:47)
[2020-06-21] MEDS: lamoTRIgine 100MG TAB PO SCH (07:48)
[2020-06-21] MEDS: HumaLOG INSULIN (NovoLOG) PER UNIT SC SCH ×3 (07:48→17:19)
[2020-06-21] MEDS: lisinopriL 40 MG TAB PO SCH (07:49)
[2020-06-21] MEDS: ARIPiprazole 15 MG TAB (AbiLIFY) PO SCH (07:49)
[2020-06-21] MEDS: **hydrALAZINE** 50 MG TAB PO SCH ×3 (07:52→17:00)
--- NOTE | 2020-06-21 07:53 | IPNPDOC ---
Subjective Review oF Systems Chief Complaint The patient is a 39-year-old male admitted with a reason for visit of Perineal Abscess. Events since Last Encounter No acute events o/n. Has minimal pain. Denies voiding difficulty. Ambulating fine. No f/c/ns. Objective Physical Examination General Exam: Alert, Cooperative, No Acute Distress Skin Exam: Nl turgor and temperature Neuro Exam: Normal Speech Psych Exam: Mental status NL, Mood NL Other physical findings perineal wound w/ healthy tissue and no drainage - minimal tenderness - no skin breakdown Vital Signs/I&O Vital Signs Date Time Temp Pulse Resp B/P (MAP) Pulse Ox O2 Delivery O2 Flow Rate FiO2 06/21/20 06:00 98.0 71 20 140/82 (101) 94 Room Air 06/19/20 16:15 2.0 I&O- Last 24 Hours up to 6 AM 06/21/20 06:00 Intake Total 1580 ml Output Total 750 ml Balance 830 ml Laboratory Data Labs 24H Laboratory Tests 2 06/20/20 11:51: Bedside Glucose (Misc Panel) 182H 06/20/20 16:26: Bedside Glucose (Misc Panel) 212H 06/20/20 19:52: Bedside Glucose (Misc Panel) 216H 06/21/20 05:39: Immature Granulocyte % (Auto) 0.7, Neutrophils (%) (Auto) 58.2, Lymphocytes (%) (Auto) 33.2, Monocytes (%) (Auto) 6.3H, Eosinophils (%) (Auto) 0.7, Basophils (%) (Auto) 0.9, Neutrophils # (Auto) 4.7, Lymphocytes # (Auto) 2.7, Monocytes # (Auto) 0.5, Eosinophils # (Auto) 0.1, Basophils # (Auto) 0.1, Nucleated Red Blood Cells % (auto) 0.0, Anion Gap 7L, Glomerular Filtration Rate > 60.0, Calcium Level 9.1 CBC/BMP Laboratory Tests 06/21/20 05:39 FSBS Laboratory Tests Test 06/20/20 11:51 06/20/20 16:26 06/20/20 19:52 Range/Units Bedside Glucose (Misc Panel) 182 212 216 70-105 MG/DL Microbiology Microbiology 06/19/20 Gram Stain - Final, Resulted 06/19/20 Wound Culture, Resulted Pending 06/19/20 Anaerobic Culture, Resulted Pending Assessment/Plan Date Seen The patient was seen on 06/21/20. Patient Summary This is a 39 y/o M POD2 s/p I&D of a perineal abscess. The patient feels well. Cultures are still pending. WBC normal this morning. Plan/VTE VTE Prophylaxis Ordered?: Yes VTE Exclusion Mechanical Proph: N/A:VTE Prophy Ordered Plan - f/u culture results - will go to once daily dressing changes w/ minimally moist kerlex and covered w/ an ABD - once patient goes home, we will remove packing and dress only w/ ABDs over the wound - ok from my standpoint to discharge today on bactrim DS x 2 wks - I will f/u culture results and change his abx if needed - patient should have [facility] - will arrange f/u in my office in 1-2 wks CRISTI EWING MD Jun 21, 2020 07:53
[2020-06-21] MEDS: metFORMIN (GLUCOPHAGE) 500 MG TAB PO SCH ×2 (09:26→17:18)
[2020-06-21] MEDS ORDERED: GLUC500T PO (10:05)
[2020-06-21] MEDS ORDERED: AUGM875T28 PO (10:05)
--- NOTE | 2020-06-21 12:41 | DSES ---
DISCHARGE SUMMARY DATE OF ADMISSION: 06/19/2020 DATE OF DISCHARGE: 06/21/2020 PRINCIPAL DIAGNOSIS: Perineal abscess. PROCEDURE: Perineal abscess incision and drainage, Dr. Jeremiah Morrison on 06/19/2020. SECONDARY DIAGNOSES: 1. Type 2 diabetes. 2. Morbid obesity. 3. Hypertension. 4. History of various psychiatric illnesses. HISTORY: Patient was admitted with a perineal abscess. Please see details in history and physical from admission. HOSPITAL COURSE: Patient was taken to the operating room (OR) for an incision and drainage (I and D) of the abscess. Cueto catheter was in for a day. Wound dressings from wet to dry were done. Dr. Morrison saw him today, thinks the wound is healing well, expects to be discharged later today. Cueto catheter is out. He is voiding without any problems. He was confirmed to have type 2 diabetes, had a hemoglobin A1C of 6.9 in April. Repeated that and it was 7.0, confirmed the diagnosis. We discussed this in length today and per the dietitian consultation, he received diabetic teaching. Begin metformin 500 mg twice a day. He is a good candidate for GLP-1 agonist such as Trulicity as a second line medication due to his morbid obesity. This will be deferred to his primary care provider. DISPOSITION: I anticipate he will be discharged later today, if okay with Dr. Morrison. I have already signed a home health referral. He has daily wet to dry dressings, which he can do at home. Activity is as tolerated. Consistent carbohydrate, no added salt diet recommended. He is to follow up with his primary care provider in one week. Follow up with Dr. Morrison per his office. DISCHARGE MEDICATIONS: Will continue to be: - aripiprazole 15 mg daily - atorvastatin 20 mg daily - lamotrigine 150 mg daily - lisinopril 40 mg daily - mirtazapine 15 mg at bedtime - Ambien as needed for sleep New medicines are: - metformin 500 mg twice a day; he was given enough for two weeks; he can get refills through his primary care provider. - Augmentin 875 mg twice a day for five days; these were sent to [facility]. No pending labs.
[2020-06-21 14:00] VITALS: BP 158/88
[2020-06-21 17:00] VITALS: BP 142/86
== END 2020-06-21 18:00 | disposition home health service (06) | DRG 603 ==
LOC: M ED 06:19 → M ED INP 11:26 → M MSPAV 15:32
PROVIDERS: ADMIT Internal Medicine Nephrology; ATTEND Family Medicine
PROC: 0W9M3ZZ Drainage of Male Perineum, Percutaneous Approach (ICD-10-PCS; principal; 2020-06-19 12:15)
DX: L02.215 Cutaneous abscess of perineum (principal); Z68.43 Body mass index [BMI] 50.0-59.9, adult; E66.01 Morbid (severe) obesity due to excess calories; I10 Essential (primary) hypertension; E11.9 Type 2 diabetes mellitus without complications; Z79.899 Other long term (current) drug therapy; Z91.018 Allergy to other foods; G47.33 Obstructive sleep apnea (adult) (pediatric); E78.5 Hyperlipidemia, unspecified; K57.30 Diverticulosis of large intestine without perforation or abscess without bleeding; Z89.511 Acquired absence of right leg below knee; K76.0 Fatty (change of) liver, not elsewhere classified; F25.9 Schizoaffective disorder, unspecified

== ENCOUNTER 2020-08-26 14:13 | Emergency (ER) | payer MEDICARE, MEDICAID ==
[~2020-08-26] VITALS: Ht 182.9 cm; Wt 181.9 kg
[~2020-08-26 14:13] MED LIST changes: +ATOR1TAB21 PO; +GLUC500T PO; +HYDR50TA70; -LISI-538 PO; +LISI20TA33 PO; -LISI40TA PO; +LISI40TA4 PO
--- NOTE | 2020-08-26 15:48 | REP ---
INDICATION: abscess right medial stump. COMPARISON: None. TECHNIQUE: Real-time sonographic evaluation of right medial stump performed in the area of swelling. FINDINGS: There is a complex fluid collection at the site of swelling measuring 2.8 x 2.3 x 3.1 cm. There is surrounding soft tissue edema. IMPRESSION: Complex fluid collection at the site of swelling medial right stump, maximum diameter 3.1 cm. This may represent an abscess. <Electronically signed by Freddy Elaine > 08/26/20 [id number]
[2020-08-26 16:00] LABS: BASO # 0.1 10^3/uL (0.0-0.2); BASO % 0.7 % (0.0-1.0); EOS # 0.2 10^3/uL (0.0-0.5); HEMATOCRIT 45.5 % (42.0-52.0); HEMOGLOBIN 15.4 g/dl (13.5-17.5); LYMPH # 2.7 10^3/uL (1.5-5.0); LYMPH % 23.7 % (24.0-44.0); MEAN CORPUSCULAR HEMOGLOBIN 29.7 pg (27.0-33.0); MEAN CORPUSCULAR HGB CONC 33.8 g/dl (32.0-36.5); MEAN CORPUSCULAR VOLUME 87.7 fl (80.0-96.0); MONO # 0.7 10^3/uL (0.0-0.8); NEUTROPHILS # 7.5 10^3/uL (1.5-8.5); NEUTROPHILS % 66.9 % (36.0-66.0); PLATELET COUNT, AUTOMATED 241 10^3/uL (150-450); RED BLOOD COUNT 5.19 10^6/uL (4.30-6.10); WHITE BLOOD COUNT 11.3 10^3/uL (4.0-10.0)
[2020-08-26 16:21] LABS: ERYTHROCYTE SEDIMENTATION RATE 14 mm/hr (0-15)
[2020-08-26] MEDS ORDERED: LIDOCAINE 1% MDV 20ML VIAL SC ONE (16:25)
[2020-08-26 16:34] LABS: ALBUMIN 3.5 GM/DL (3.2-5.2); BILIRUBIN,DIRECT 0.2 MG/DL (0.0-0.2); BILIRUBIN,TOTAL 0.6 MG/DL (0.2-1.0); C REACTIVE PROTEIN QUANTITATIV 3.59 MG/DL (0.00-0.30); TOTAL PROTEIN 6.9 GM/DL (6.4-8.2)
[2020-08-26] MEDS ORDERED: VANCOMYCIN HCL 2,000 MG in IV FLUID PLACE HOLDER 1 EA IV ONE (16:40)
[2020-08-26] MEDS ORDERED: NS 1,000 ML IV ONE (16:40)
[2020-08-26] MEDS ORDERED: DOXYCYCLINE HYCLATE 100MG TABLET PO ONE (16:55)
[2020-08-26] MEDS ORDERED: MORPHINE 4 MG/ML 1ML VIAL/SYRINGE (J2270) IV ONE (17:50)
[2020-08-26] MEDS ORDERED: DOXY100C37 PO ×2 (19:20→19:54)
[2020-08-26 19:36] VITALS: BP 150/93
--- NOTE | 2020-08-26 22:51 | CR ---
CONSULTATION DATE: 08/26/2020 REASON FOR CONSULTATION: Right below-knee amputation stump abscess. HISTORY OF PRESENT ILLNESS: The patient is a pleasant 39-year-old man with diabetes. Some 11 years ago, he underwent a right below-knee amputation for complications from injury after fall from a roof. He apparently has had episodes of infection of the skin of various sites of the body. Most recently, in June, he had a perineal abscess drained by Dr. Morrison. He indicates that he has had small abscesses in the skin of his stump before. He noticed a tender spot developing over the last three days or so on the posteromedial aspect of his amputation stump. He presented to the emergency department where he was found to have tenderness and redness. An ultrasound of the area showed what was described as a complex fluid collection, up to 3.1 cm in diameter with some surrounding edema. The physician assistant bookkeeper (KENTON) had attempted an incision and drainage without success and I was consulted. ALLERGIES: The only reported allergy is to STRAWBERRIES. MEDICATIONS: Include: - aripiprazole - atorvastatin - lamotrigine - lisinopril - mirtazapine MEDICAL HISTORY: Significant for: 1. Morbid obesity. 2. History of high cholesterol. 3. Hypertension. 4. He apparently has sleep apnea, but does not use a continuous positive airway pressure (CPAP) device. 5. There is a note in his emergency department record that he has a history of anxiety and schizoaffective disorder. SURGICAL HISTORY: Significant primarily for his right below-knee amputation. SOCIAL HISTORY: Reports alcohol intake of several drinks per week, but denies alcohol intake. PHYSICAL EXAMINATION: Patient's most recent vital signs show a temperature of 99.4, pulse of 93, blood pressure 139/75, respirations 18. Examination shows a pleasant, obese man lying quietly on the emergency department stretcher. Examination of the right lower extremity shows a well-healed below knee amputation stump. On the posteromedial aspect of the stump there is an area of redness about 5 cm long x 3 cm in width. This area is markedly tender. There is an approximately 1 cm skin incision toward the inferior end of this tender area. LABORATORY STUDIES: Show a white count of 11 with a differential count showing 67% neutrophils and 24% lymphocytes. Chemistry profile shows a lactic acid of 2.4, C-reactive protein (CRP) of 3.6. Glucose was 240. Ultrasound images are reviewed. IMPRESSION: Is abscess right below-knee amputation stump. It appears to me that the attempt at incision and drainage by the emergency department (ED) physician assistant bookkeeper is perhaps just slightly too inferior and may also not have extended deeply enough. PLAN: Patient was counseled for incision and drainage of the abscess. He signed a consent for an incision and drainage. The area was prepped with Betadine and draped. Local anesthesia was achieved beginning just proximal to the recent incision with 1% Xylocaine. An 11 blade was inserted into the recent incision and directed deeply and then the incision was extended proximally to a total length of about 3 cm. There was release of a large amount of thick, reddish purulent-appearing fluid and a culture of that was obtained for culture and gram stain. The wound was allowed to drain as much as possible. A hemostat was used to probe the wound and open any loculations. After it had drained as much as it would, a Betadine gauze wick was inserted into the skin and covered with a bulky bandage. The patient tolerated the procedure well without apparent complications. He was counseled regarding local wound care. He will be provided a prescription for antibiotics by the emergency department. He should continue with warm soaks, compresses or showers four times a day. I have asked him to follow up with me in the office in a week to ten days. LESLIE
== END 2020-08-26 20:11 | disposition home or self-care (01) ==
LOC: M ED 14:13
DX: L03.115 Cellulitis of right lower limb (principal); T87.43 Infection of amputation stump, right lower extremity; E11.9 Type 2 diabetes mellitus without complications; I10 Essential (primary) hypertension; E78.5 Hyperlipidemia, unspecified; Z91.018 Allergy to other foods; F17.200 Nicotine dependence, unspecified, uncomplicated
CPT/HCPCS: 10060; 76882; 80047; 80076; 83605; 85025; 85652; 86140; 87040; 87070; 87077; 87186; 87205; 96361; 96374; 99284; J2270

== ENCOUNTER → 2020-09-06 | Outpatient (REF) | payer MEDICARE, MEDICAID ==
[2020-09-06 17:26] LABS: ALBUMIN 3.8 GM/DL (3.2-5.2); ALT/SGPT 124 U/L (12-78); BILIRUBIN,TOTAL 0.4 MG/DL (0.2-1.0); BLOOD UREA NITROGEN 7 MG/DL (7-18); CALCIUM LEVEL 10.6 MG/DL (8.5-10.1); CARBON DIOXIDE LEVEL 24 MEQ/L (21-32); CHLORIDE LEVEL 101 MEQ/L (98-107); CHOLESTEROL LEVEL 170 MG/DL (<200); CHOLESTEROL RISK RATIO 5.666 (<5); CREATININE FOR GFR 0.68 MG/DL (0.70-1.30); GLOMERULAR FILTRATION RATE > 60.0 (>60); GLUCOSE, FASTING 205 MG/DL (70-100); HDL CHOLESTEROL 30 MG/DL (>40); NON-HDL-C 140 MG/DL; POTASSIUM SERUM 4.7 MEQ/L (3.5-5.1); SODIUM LEVEL 134 MEQ/L (136-145); TOTAL PROTEIN 7.6 GM/DL (6.4-8.2); TRIGLYCERIDES LEVEL 736 MG/DL (<150)
[2020-09-06 18:59] LABS: HEMOGLOBIN A1c 7.2 %
== END ==
LOC: M LAB REF 15:55
PROVIDERS: ATTEND Physician Assistant
DX: E11.9 Type 2 diabetes mellitus without complications (principal); E78.5 Hyperlipidemia, unspecified

== ENCOUNTER → 2020-09-11 | Outpatient (CLI) | payer MEDICARE, MEDICAID ==
--- NOTE | 2020-09-13 10:18 | SLEEPCENT ---
NOCTURNAL POLYSOMNOGRAPHY DATE: 09/11/2020 ORDERED BY: KENTON Mcdaniel Nocturnal polysomnography was performed for evaluation of sleep physiology in this patient with a prior history of obstructive sleep apnea syndrome. 6 hours and 38 minutes of data were reviewed. There were 320 minutes of sleep identified. Sleep latency was prolonged at 35 minutes. REM latency was prolonged at 168 minutes. Sleep architecture showed poor progression. Improvement was seen following interventions and there were two REM cycles late in the study. Overall sleep efficiency was 80.8%. The electrocardiogram showed a sinus rhythm with artifact. Average heart rate of 82 beats per minute. EEG showed normal waveforms. There were 332 respiratory events identified of 10 seconds in duration or greater for an apnea-hypopnea index of 62.3. Having clearly established the presence of obstructive sleep apnea syndrome early in testing, the test was stopped shortly after 1 a.m. for the application of pressure therapy. A ResMed Quattro full face mask of medium size was used, 5 cm of water pressure were applied to the circuit and the lights were extinguished. Throughout the remaining portion of the study, CPAP titration was performed to the optimal pressure of 15 with which, the patient slept through REM in the supine posture without respiratory event or oxygen desaturation. IMPRESSION: Severe obstructive sleep apnea syndrome (G47.33), apnea-hypopnea index 62.3. RECOMMENDATION: The patient should be initiated on CPAP 15 cm of water.
== END ==
LOC: M SLEEP 20:00
PROVIDERS: ATTEND Physician Assistant
DX: G47.33 Obstructive sleep apnea (adult) (pediatric) (principal)

== ENCOUNTER 2020-09-25 20:35 | Emergency (ER) | payer MEDICARE, MEDICAID ==
[~2020-09-25] VITALS: Ht 182.9 cm; Wt 180.7 kg
[2020-09-25] MEDS ORDERED: LIDOCAINE 1% MDV 20ML VIAL SC ONE (23:10)
[2020-09-25] MEDS ORDERED: ACETAMINOPHEN TAB 650MG DOSE (2X325MG) PO ONE (23:55)
[2020-09-26] MEDS ORDERED: BACTRIM 160MG/800MG DS TAB PO ONE
[2020-09-26 00:06] LABS: BASO # 0.1 10^3/uL (0.0-0.2); BASO % 0.9 % (0.0-1.0); EOS # 0.1 10^3/uL (0.0-0.5); EOS % 1.1 % (0.0-3.0); HEMATOCRIT 46.1 % (42.0-52.0); HEMOGLOBIN 15.7 g/dl (13.5-17.5); LYMPH # 3.8 10^3/uL (1.5-5.0); LYMPH % 29.2 % (24.0-44.0); MEAN CORPUSCULAR HEMOGLOBIN 29.9 pg (27.0-33.0); MEAN CORPUSCULAR HGB CONC 34.1 g/dl (32.0-36.5); MEAN CORPUSCULAR VOLUME 87.8 fl (80.0-96.0); MONO # 0.9 10^3/uL (0.0-0.8); MONO % 6.9 % (2.0-8.0); NEUTROPHILS # 7.9 10^3/uL (1.5-8.5); NEUTROPHILS % 60.7 % (36.0-66.0); PLATELET COUNT, AUTOMATED 255 10^3/uL (150-450); RED BLOOD COUNT 5.25 10^6/uL (4.30-6.10)
[2020-09-26] MEDS ORDERED: BACT800T5 PO (00:11)
[2020-09-26 00:50] VITALS: BP 165/98
== END 2020-09-26 00:51 | disposition home or self-care (01) ==
LOC: M ED 20:35
DX: L02.415 Cutaneous abscess of right lower limb (principal); T87.43 Infection of amputation stump, right lower extremity; Z89.511 Acquired absence of right leg below knee; E11.9 Type 2 diabetes mellitus without complications; I10 Essential (primary) hypertension; E78.5 Hyperlipidemia, unspecified; F41.9 Anxiety disorder, unspecified; F17.200 Nicotine dependence, unspecified, uncomplicated; Z79.899 Other long term (current) drug therapy

== ENCOUNTER 2020-10-05 23:11 | Emergency (ER) | payer MEDICARE, MEDICAID ==
[2020-10-05] MEDS ORDERED: HALOPERIDOL 5MG/ML VIAL (J1630 PER 1) IM ONE (23:15)
[2020-10-05] MEDS ORDERED: LORazepam 2 MG/ML VIAL IM ONE (23:15)
[2020-10-05] MEDS ORDERED: diphenhydrAMINE 50MG/ML VIAL (J1200) IM ONE (23:15)
[2020-10-05] MEDS ORDERED: HALOPERIDOL 5MG/ML VIAL (J1630 PER 1) As Ordered ONE (23:17)
[2020-10-05] MEDS ORDERED: diphenhydrAMINE 50MG/ML VIAL (J1200) As Ordered ONE (23:17)
[2020-10-06 01:44] LABS: HEMATOCRIT 41.5 % (42.0-52.0); HEMOGLOBIN 14.3 g/dl (13.5-17.5); MEAN CORPUSCULAR HEMOGLOBIN 29.9 pg (27.0-33.0); MEAN CORPUSCULAR HGB CONC 34.5 g/dl (32.0-36.5); MEAN CORPUSCULAR VOLUME 86.6 fl (80.0-96.0); PLATELET COUNT, AUTOMATED 247 10^3/uL (150-450); RED BLOOD COUNT 4.79 10^6/uL (4.30-6.10); WHITE BLOOD COUNT 10.7 10^3/uL (4.0-10.0)
[2020-10-06 02:36] LABS: ACETAMINOPHEN LEVEL < 2.0 UG/ML (10.0-30.0); ALBUMIN 3.5 GM/DL (3.2-5.2); ALT/SGPT 112 U/L (12-78); BILIRUBIN,DIRECT 0.1 MG/DL (0.0-0.2); BILIRUBIN,TOTAL 0.4 MG/DL (0.2-1.0); BLOOD UREA NITROGEN 9 MG/DL (7-18); CALCIUM LEVEL 9.4 MG/DL (8.5-10.1); CARBON DIOXIDE LEVEL 25 MEQ/L (21-32); CHLORIDE LEVEL 103 MEQ/L (98-107); CREATININE FOR GFR 0.75 MG/DL (0.70-1.30); ETHYL ALCOHOL (ETHANOL) < 0.003 % (0.000-0.010); GLOMERULAR FILTRATION RATE > 60.0 (>60); GLUCOSE, FASTING 155 MG/DL (70-100); POTASSIUM SERUM 3.8 MEQ/L (3.5-5.1); SALICYLATE LEVEL 3.1 MG/DL (5.0-30.0); SODIUM LEVEL 137 MEQ/L (136-145)
[2020-10-06 02:59] LABS: AMPHETAMINES LEVEL URINE NEGATIVE (NEGATIVE); BARBITURATES URINE NEGATIVE (NEGATIVE); BENZODIAZEPINES URINE NEGATIVE (NEGATIVE); CANNABINOIDS URINE POSITIVE (NEGATIVE); COCAINE METABOLITE URINE NEGATIVE (NEGATIVE); METHADONE URINE NEGATIVE (NEGATIVE); OPIATES URINE NEGATIVE (NEGATIVE); PHENCYCLIDINE URINE NEGATIVE (NEGATIVE)
[2020-10-06 12:56] VITALS: BP 151/91
== END 2020-10-06 12:58 | disposition home or self-care (01) ==
LOC: M ED 23:11
DX: F32.9 Major depressive disorder, single episode, unspecified (principal); R45.1 Restlessness and agitation; F20.9 Schizophrenia, unspecified; Z79.899 Other long term (current) drug therapy
CPT/HCPCS: 36415; 80048; 80076; 80143; 80307; 82077; 84443; 85027; 96372; 99285; J1200; J1630; J2060

== ENCOUNTER 2021-01-23 16:16 | Inpatient (IN) | payer MEDICARE, MEDICAID ==
[~2021-01-23] VITALS: Ht 182.9 cm; Wt 173.2 kg
[~2021-01-23 16:16] MED LIST changes: +ARIP10TA32 PO; -ARIP1TAB PO; -DOXY100C37 PO; +DOXY1CAP62 PO
[2021-01-23] MEDS ORDERED: diphenhydrAMINE 50MG/ML VIAL (J1200) As Ordered ONE (16:20)
[2021-01-23] MEDS ORDERED: LORazepam 2 MG/ML VIAL IM ONE (16:20)
[2021-01-23] MEDS ORDERED: HALOPERIDOL 5MG/ML VIAL (J1630 PER 1) IM ONE (16:20)
[2021-01-23] MEDS ORDERED: HALOPERIDOL 5MG/ML VIAL (J1630 PER 1) As Ordered ONE (16:20)
[2021-01-23] MEDS ORDERED: LORazepam 2 MG/ML VIAL As Ordered ONE (16:21)
[2021-01-23] MEDS ORDERED: diphenhydrAMINE 50MG/ML VIAL (J1200) IM STA (16:27)
--- NOTE | 2021-01-23 17:16 | REP ---
INDICATION: altered mental status. COMPARISON: 11/26/2019 the latest prior TECHNIQUE: Portable FINDINGS: The technique utilized in obtaining the radiograph has magnified the cardiac silhouette and accentuated the interstitial markings. The superior mediastinal structures are midline. The cardiac silhouette is unremarkable in size, shape, and position. The diaphragmatic surfaces of the lungs are regular, and the costophrenic angles are clear. The pulmonary sahni are clear. The imaged osseous structures are intact. IMPRESSION: There is no acute cardiopulmonary disease. <Electronically signed by Sergio Patel > 01/23/21 [id number]
--- NOTE | 2021-01-23 17:59 | ECGEPIP ---
[facility] - ED Test Date: 2021-01-23 Pat Name: SOY CHOWDHURY Department: Room: - Gender: Male Claims Counsel: LYN : 1980 Requested By: FAUSTINO Tapia Order Number: [id number] Reading MD: Jacqueline Calloway Measurements Intervals [place] Rate: 127 P: 45 HI: 144 QRS: 55 QRSD: 68 T: 75 QT: 306 QTc: 444 Interpretive Statements Sinus tachycardia NSTTW abnormalities increased rate 11/26/19 Electronically Signed on 01-23-2021 17:59:26 EDT by Jacqueline Calloway
[2021-01-23 18:26] LABS: AMPHETAMINES LEVEL URINE NEGATIVE (NEGATIVE); BARBITURATES URINE NEGATIVE (NEGATIVE); BENZODIAZEPINES URINE NEGATIVE (NEGATIVE); CANNABINOIDS URINE POSITIVE (NEGATIVE); COCAINE METABOLITE URINE NEGATIVE (NEGATIVE); METHADONE URINE NEGATIVE (NEGATIVE); OPIATES URINE NEGATIVE (NEGATIVE); PHENCYCLIDINE URINE NEGATIVE (NEGATIVE)
[2021-01-23 18:30] LABS: HEMATOCRIT 43.3 % (42.0-52.0); HEMOGLOBIN 15.2 g/dl (13.5-17.5); MEAN CORPUSCULAR HEMOGLOBIN 30.6 pg (27.0-33.0); MEAN CORPUSCULAR HGB CONC 35.1 g/dl (32.0-36.5); MEAN CORPUSCULAR VOLUME 87.1 fl (80.0-96.0); PLATELET COUNT, AUTOMATED 239 10^3/uL (150-450); RED BLOOD COUNT 4.97 10^6/uL (4.30-6.10); WHITE BLOOD COUNT 8.3 10^3/uL (4.0-10.0)
[2021-01-23 18:51] LABS: ACETAMINOPHEN LEVEL < 2.0 UG/ML (10.0-30.0); ALBUMIN 3.7 GM/DL (3.2-5.2); ALT/SGPT 100 U/L (12-78); BILIRUBIN,DIRECT 0.2 MG/DL (0.0-0.2); BILIRUBIN,TOTAL 0.5 MG/DL (0.2-1.0); BLOOD UREA NITROGEN 7 MG/DL (7-18); CALCIUM LEVEL 9.2 MG/DL (8.5-10.1); CARBON DIOXIDE LEVEL 23 MEQ/L (21-32); CHLORIDE LEVEL 103 MEQ/L (98-107); CK-MB VALUE MASS 3.1 NG/ML (<3.6); CPK CREATINE PHOSPHOKINASE 163 U/L (39-308); CREATININE FOR GFR 0.74 MG/DL (0.70-1.30); ETHYL ALCOHOL (ETHANOL) 0.003 % (0.000-0.010); GLOMERULAR FILTRATION RATE > 60.0 (>60); GLUCOSE, FASTING 167 MG/DL (70-100); POTASSIUM SERUM 3.8 MEQ/L (3.5-5.1); SALICYLATE LEVEL 3.5 MG/DL (5.0-30.0); SODIUM LEVEL 135 MEQ/L (136-145); TOTAL PROTEIN 7.1 GM/DL (6.4-8.2); TROPONIN I < 0.02 NG/ML (< 0.10)
--- NOTE | 2021-01-23 19:06 | REPVR ---
PROCEDURE INFORMATION: Exam: CT Head Without Contrast Exam date and time: 01/23/2021 6:21 PM Age: 40 years old Clinical indication: Altered mental status/memory loss TECHNIQUE: Imaging protocol: Computed tomography of the head without contrast. Radiation optimization: All CT scans at this facility use at least one of these dose optimization techniques: automated exposure control; mA and/or kV adjustment per patient size (includes targeted exams where dose is matched to clinical indication); or iterative reconstruction. COMPARISON: No relevant prior studies available. FINDINGS: Brain: There is no evidence of intracranial bleed. There is no evidence of mass effect. Cerebral ventricles: Normal ventricles. Paranasal sinuses: Clear paranasal sinuses. Mastoid air cells: Clear mastoid air cells. Bones/joints: There is no evidence of fracture. Soft tissues: There is no evidence of soft tissue swelling. Other findings: There is no evidence of acute stroke. IMPRESSION: 1. No evidence of bleed. 2. No evidence of mass effect. Electronically signed by: Zeyad Shoemaker On 01/23/2021 19:06:12 PM
[2021-01-24] MEDS ORDERED: ATORVASTATIN 20 MG TAB PO ONE (08:00)
[2021-01-24] MEDS ORDERED: lamoTRIgine 100MG TAB PO ONE (08:00)
[2021-01-24] MEDS ORDERED: ARIPiprazole 10 MG TAB PO ONE (08:00)
[2021-01-24] MEDS ORDERED: lisinopriL 40 MG TAB PO ONE (08:00)
[2021-01-24] MEDS ORDERED: PILL CUTTER 1 EACH XX PRN (08:30)
[2021-01-24] MEDS: NICOTINE 21MG/24HR 1 EA TRANSDERMAL TD SCH (09:00)
[2021-01-24] MEDS ORDERED: MIRT-62 PO (12:23)
[2021-01-24] MEDS ORDERED: METF-838 PO (12:23)
[2021-01-24] MEDS ORDERED: VITA200031 PO (12:23)
[2021-01-24] MEDS ORDERED: JARD1TAB PO (12:23)
[2021-01-24] MEDS ORDERED: HOME MED LIST COMPLETE! XX SCH (12:25)
[2021-01-24] MEDS ORDERED: MED REC COMMENT (12:25)
[2021-01-24 14:19] LABS: RSV AMPLIFICATION NEGATIVE (NEGATIVE)
[2021-01-24] MEDS ORDERED: LORazepam 2 MG TAB PO PRN (15:05)
[2021-01-24] MEDS ORDERED: MOM 30ML SUSPENSION UDC PO PRN (15:05)
[2021-01-24] MEDS ORDERED: haloperidoL 5 MG TAB PO PRN (15:05)
[2021-01-24] MEDS ORDERED: ACETAMINOPHEN TAB 650MG DOSE (2X325MG) PO PRN (15:05)
[2021-01-24] MEDS ORDERED: GLUCAGON INJ 1MG VIAL SC PRN (15:05)
[2021-01-24] MEDS ORDERED: GLUCOSE 4GM CHEW TABLET PO PRN (15:05)
[2021-01-24] MEDS ORDERED: DEXTROSE 50% 50 ML SYRINGE IV PRN (15:05)
[2021-01-24] MEDS ORDERED: diphenhydrAMINE 50MG CAP PO PRN (15:05)
[2021-01-24 17:25] VITALS: BP 145/88
[2021-01-24] MEDS: HumaLOG INSULIN (NovoLOG) PER UNIT SC SCH ×2 (17:26→21:00)
[2021-01-24] MEDS ORDERED: MIRTAZAPINE 15 MG TAB PO SCH (21:00)
[2021-01-24] MEDS: metFORMIN XR 500MG TAB *GLUCOPHAGE XR PO SCH (21:08)
[2021-01-25 06:04] VITALS: BP 146/74
[2021-01-25] MEDS: HumaLOG INSULIN (NovoLOG) PER UNIT SC SCH ×4 (06:32→21:00)
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
[2021-01-25] MEDS: NICOTINE 21MG/24HR 1 EA TRANSDERMAL TD SCH (09:00)
[2021-01-25] MEDS: ARIPiprazole 15 MG TAB (AbiLIFY) PO SCH (09:43)
[2021-01-25] MEDS: lamoTRIgine 100MG TAB PO SCH (09:44)
[2021-01-25] MEDS: VITAMIN D 1,000 INTERNATIONAL UNITS TABLET PO SCH (09:44)
[2021-01-25] MEDS: lamoTRIgine 25MG TAB PO SCH (09:44)
[2021-01-25] MEDS: metFORMIN XR 500MG TAB *GLUCOPHAGE XR PO SCH ×2 (09:45→21:07)
[2021-01-25] MEDS: ATORVASTATIN 20 MG TAB PO SCH (09:45)
[2021-01-25] MEDS: lisinopriL 40 MG TAB PO SCH (11:17)
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
[2021-01-25 17:50] VITALS: BP 148/96
[2021-01-25] MEDS: NICOTINE POLACRILEX 2 MG GUM PO PRN (21:07)
[2021-01-25] MEDS: QUEtiapine FUMARATE 100 MG TAB PO SCH (21:57)
[2021-01-26 06:44] VITALS: BP 133/59
[2021-01-26] MEDS: HumaLOG INSULIN (NovoLOG) PER UNIT SC SCH ×4 (06:44→20:49)
[2021-01-26] MEDS: NICOTINE 21MG/24HR 1 EA TRANSDERMAL TD SCH (09:00)
[2021-01-26] MEDS: VITAMIN D 1,000 INTERNATIONAL UNITS TABLET PO SCH (10:02)
[2021-01-26] MEDS: ARIPiprazole 15 MG TAB (AbiLIFY) PO SCH (10:02)
[2021-01-26] MEDS: lamoTRIgine 25MG TAB PO SCH (10:02)
[2021-01-26] MEDS: lamoTRIgine 100MG TAB PO SCH (10:03)
[2021-01-26] MEDS: lisinopriL 40 MG TAB PO SCH (10:04)
[2021-01-26] MEDS: ATORVASTATIN 20 MG TAB PO SCH (10:04)
[2021-01-26] MEDS: metFORMIN XR 500MG TAB *GLUCOPHAGE XR PO SCH ×2 (10:05→20:50)
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
[2021-01-26 18:45] VITALS: BP 140/86
[2021-01-26] MEDS: NICOTINE POLACRILEX 2 MG GUM PO PRN (18:50)
[2021-01-26] MEDS: QUEtiapine FUMARATE 100 MG TAB PO SCH (20:49)
[2021-01-27 06:38] VITALS: BP 125/64
[2021-01-27] MEDS: HumaLOG INSULIN (NovoLOG) PER UNIT SC SCH ×4 (06:46→20:07)
[2021-01-27] MEDS: NICOTINE 21MG/24HR 1 EA TRANSDERMAL TD SCH (09:00)
[2021-01-27] MEDS: lamoTRIgine 100MG TAB PO SCH (09:31)
[2021-01-27] MEDS: lamoTRIgine 25MG TAB PO SCH (09:31)
[2021-01-27] MEDS: metFORMIN XR 500MG TAB *GLUCOPHAGE XR PO SCH ×2 (09:31→20:05)
[2021-01-27] MEDS: ATORVASTATIN 20 MG TAB PO SCH (09:31)
[2021-01-27] MEDS: VITAMIN D 1,000 INTERNATIONAL UNITS TABLET PO SCH (09:32)
[2021-01-27] MEDS: lisinopriL 40 MG TAB PO SCH (09:32)
[2021-01-27] MEDS: ARIPiprazole 15 MG TAB (AbiLIFY) PO SCH (09:32)
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
[2021-01-27] MEDS: NICOTINE POLACRILEX 2 MG GUM PO PRN ×2 (14:38→18:59)
[2021-01-27 18:26] VITALS: BP 150/92
[2021-01-27] MEDS: QUEtiapine FUMARATE 100 MG TAB PO SCH (20:46)
[2021-01-28 06:42] VITALS: BP 148/81
[2021-01-28] MEDS: HumaLOG INSULIN (NovoLOG) PER UNIT SC SCH ×4 (07:30→20:06)
[2021-01-28] MEDS: NICOTINE 21MG/24HR 1 EA TRANSDERMAL TD SCH (09:00)
[2021-01-28] MEDS: VITAMIN D 1,000 INTERNATIONAL UNITS TABLET PO SCH (09:11)
[2021-01-28] MEDS: lisinopriL 40 MG TAB PO SCH (09:11)
[2021-01-28] MEDS: lamoTRIgine 100MG TAB PO SCH (09:12)
[2021-01-28] MEDS: ARIPiprazole 15 MG TAB (AbiLIFY) PO SCH (09:12)
[2021-01-28] MEDS: lamoTRIgine 25MG TAB PO SCH (09:12)
[2021-01-28] MEDS: metFORMIN XR 500MG TAB *GLUCOPHAGE XR PO SCH ×2 (09:13→20:05)
[2021-01-28] MEDS: ATORVASTATIN 20 MG TAB PO SCH (09:13)
[2021-01-28] MEDS: NICOTINE POLACRILEX 2 MG GUM PO PRN ×3 (10:59→20:05)
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
[2021-01-28 18:02] VITALS: BP 136/89
[2021-01-28] MEDS: QUEtiapine FUMARATE 100 MG TAB PO SCH (21:00)
[2021-01-29 06:11] VITALS: BP 130/59
[2021-01-29] MEDS: HumaLOG INSULIN (NovoLOG) PER UNIT SC SCH ×4 (06:30→21:00)
[2021-01-29] MEDS: VITAMIN D 1,000 INTERNATIONAL UNITS TABLET PO SCH (08:39)
[2021-01-29] MEDS: NICOTINE POLACRILEX 2 MG GUM PO PRN ×3 (08:39→18:15)
[2021-01-29] MEDS: metFORMIN XR 500MG TAB *GLUCOPHAGE XR PO SCH ×2 (08:40→21:12)
[2021-01-29] MEDS: ARIPiprazole 15 MG TAB (AbiLIFY) PO SCH (08:40)
[2021-01-29] MEDS: ATORVASTATIN 20 MG TAB PO SCH (08:40)
[2021-01-29] MEDS: NICOTINE 21MG/24HR 1 EA TRANSDERMAL TD SCH (08:40)
[2021-01-29] MEDS: lisinopriL 40 MG TAB PO SCH (08:40)
[2021-01-29] MEDS: lamoTRIgine 25MG TAB PO SCH (08:40)
[2021-01-29] MEDS: lamoTRIgine 100MG TAB PO SCH (08:40)
[2021-01-29] MEDS: MAALOX 30 ML SUSP *UDC PO PRN (14:48)
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
[2021-01-29 16:27] VITALS: BP 133/66
[2021-01-29] MEDS: QUEtiapine FUMARATE 100 MG TAB PO SCH (21:12)
[2021-01-30] MEDS: MAALOX 30 ML SUSP *UDC PO PRN (00:36)
[2021-01-30] MEDS: HumaLOG INSULIN (NovoLOG) PER UNIT SC SCH (05:54)
[2021-01-30 06:22] VITALS: BP 152/78
[2021-01-30] MEDS ORDERED: QUET100T2 PO (07:06)
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
[2021-01-30] MEDS: NICOTINE 21MG/24HR 1 EA TRANSDERMAL TD SCH (09:00)
[2021-01-30] MEDS: lisinopriL 40 MG TAB PO SCH (09:09)
[2021-01-30] MEDS: ATORVASTATIN 20 MG TAB PO SCH (09:09)
[2021-01-30] MEDS: lamoTRIgine 100MG TAB PO SCH (09:09)
[2021-01-30] MEDS: lamoTRIgine 25MG TAB PO SCH (09:09)
[2021-01-30] MEDS: NICOTINE POLACRILEX 2 MG GUM PO PRN (09:09)
[2021-01-30] MEDS: ARIPiprazole 15 MG TAB (AbiLIFY) PO SCH (09:10)
[2021-01-30] MEDS: VITAMIN D 1,000 INTERNATIONAL UNITS TABLET PO SCH (09:10)
[2021-01-30] MEDS: metFORMIN XR 500MG TAB *GLUCOPHAGE XR PO SCH (09:10)
== END 2021-01-30 10:07 | disposition home or self-care (01) | DRG 885 ==
LOC: M ED 16:16 → M ED INP 01-24 15:01 → M PSY 01-24 16:31
PROVIDERS: ADMIT Psychiatry & Neurology Child & Adolescent Psychiatry; ATTEND Psychiatry & Neurology Child & Adolescent Psychiatry
DX: F25.9 Schizoaffective disorder, unspecified (principal); F60.9 Personality disorder, unspecified; F10.10 Alcohol abuse, uncomplicated; E66.01 Morbid (severe) obesity due to excess calories; G47.33 Obstructive sleep apnea (adult) (pediatric); E11.51 Type 2 diabetes mellitus with diabetic peripheral angiopathy without gangrene; I10 Essential (primary) hypertension; E78.5 Hyperlipidemia, unspecified; F17.200 Nicotine dependence, unspecified, uncomplicated; F32.9 Major depressive disorder, single episode, unspecified; F90.9 Attention-deficit hyperactivity disorder, unspecified type; Z89.511 Acquired absence of right leg below knee; Z79.84 Long term (current) use of oral hypoglycemic drugs; Z79.899 Other long term (current) drug therapy; Z91.018 Allergy to other foods

== ENCOUNTER 2021-04-12 18:43 | Inpatient (IN) | payer MEDICARE, MEDICAID ==
[~2021-04-12 18:43] MED LIST changes: +DOXY-443 PO; -DOXY1CAP62 PO; +JARD1TAB PO; +MED REC COMMENT; +METF-838 PO; +MIRT-62 PO; +QUET100T2 PO; +VITA200031 PO
[2021-04-12] MEDS ORDERED: HALOPERIDOL 5MG/ML VIAL (J1630 PER 1) IM ONE (18:50)
[2021-04-12] MEDS ORDERED: diphenhydrAMINE 50MG/ML VIAL (J1200) IM ONE (18:50)
[2021-04-12] MEDS ORDERED: LORazepam 2 MG/ML VIAL IM ONE (18:50)
[2021-04-12] MEDS ORDERED: LORazepam 2 MG/ML VIAL As Ordered ONE (21:02)
[2021-04-12 21:54] LABS: AMPHETAMINES LEVEL URINE NEGATIVE (NEGATIVE); BARBITURATES URINE NEGATIVE (NEGATIVE); BENZODIAZEPINES URINE NEGATIVE (NEGATIVE); CANNABINOIDS URINE POSITIVE (NEGATIVE); COCAINE METABOLITE URINE NEGATIVE (NEGATIVE); METHADONE URINE NEGATIVE (NEGATIVE); OPIATES URINE NEGATIVE (NEGATIVE); PHENCYCLIDINE URINE NEGATIVE (NEGATIVE)
[2021-04-13 00:27] LABS: HEMATOCRIT 42.4 % (42.0-52.0); HEMOGLOBIN 14.3 g/dl (13.5-17.5); MEAN CORPUSCULAR HEMOGLOBIN 29.7 pg (27.0-33.0); MEAN CORPUSCULAR HGB CONC 33.7 g/dl (32.0-36.5); MEAN CORPUSCULAR VOLUME 88.1 fl (80.0-96.0); PLATELET COUNT, AUTOMATED 249 10^3/uL (150-450); RED BLOOD COUNT 4.81 10^6/uL (4.30-6.10); WHITE BLOOD COUNT 9.2 10^3/uL (4.0-10.0)
[2021-04-13 00:52] LABS: ACETAMINOPHEN LEVEL < 2.0 UG/ML (10.0-30.0); ALBUMIN 3.5 GM/DL (3.2-5.2); ALT/SGPT 89 U/L (12-78); BILIRUBIN,DIRECT 0.2 MG/DL (0.0-0.2); BILIRUBIN,TOTAL 0.5 MG/DL (0.2-1.0); BLOOD UREA NITROGEN 8 MG/DL (7-18); CALCIUM LEVEL 9.2 MG/DL (8.5-10.1); CARBON DIOXIDE LEVEL 25 MEQ/L (21-32); CHLORIDE LEVEL 106 MEQ/L (98-107); CREATININE FOR GFR 0.61 MG/DL (0.70-1.30); ETHYL ALCOHOL (ETHANOL) < 0.003 % (0.000-0.010); GLOMERULAR FILTRATION RATE > 60.0 (>60); GLUCOSE, FASTING 129 MG/DL (70-100); POTASSIUM SERUM 3.6 MEQ/L (3.5-5.1); SALICYLATE LEVEL 3.1 MG/DL (5.0-30.0); SODIUM LEVEL 139 MEQ/L (136-145); TOTAL PROTEIN 6.8 GM/DL (6.4-8.2)
[2021-04-13] MEDS ORDERED: ATOR40TA75 PO (08:32)
[2021-04-13] MEDS ORDERED: QUET100T2 PO (08:32)
[2021-04-13] MEDS ORDERED: ATOR1TAB21 PO (08:35)
[2021-04-13] MEDS ORDERED: HOME MED LIST COMPLETE! XX SCH (08:35)
[2021-04-13] MEDS ORDERED: ACETAMINOPHEN 325 MG TAB PO ONE (12:00)
[2021-04-13] MEDS ORDERED: lisinopriL 40 MG TAB PO ONE (13:55)
[2021-04-13] MEDS ORDERED: MAALOX 30 ML SUSP *UDC PO PRN (15:00)
[2021-04-13] MEDS ORDERED: traZODone 50 MG TAB PO PRN (15:00)
[2021-04-13] MEDS ORDERED: LORazepam 1 MG TAB PO PRN (15:00)
[2021-04-13] MEDS ORDERED: MOM 30ML SUSPENSION UDC PO PRN (15:00)
[2021-04-13] MEDS ORDERED: diphenhydrAMINE 25MG CAP PO PRN (15:00)
[2021-04-13 16:20] LABS: RSV AMPLIFICATION NEGATIVE (NEGATIVE)
[2021-04-13] MEDS: ARIPiprazole 15 MG TAB (AbiLIFY) PO SCH (17:27)
[2021-04-13] MEDS: ATORVASTATIN 20 MG TAB PO SCH (17:30)
[2021-04-13] MEDS: NICOTINE POLACRILEX 2 MG GUM PO PRN (18:47)
[2021-04-13] MEDS: metFORMIN XR 500MG TAB *GLUCOPHAGE XR PO SCH (20:54)
[2021-04-13] MEDS: MIRTAZAPINE 15 MG TAB PO SCH (20:54)
[2021-04-13] MEDS: diphenhydrAMINE 50MG CAP PO PRN (20:55)
[2021-04-13] MEDS ORDERED: QUEtiapine FUMARATE 100 MG TAB PO SCH (21:00)
[2021-04-13] MEDS ORDERED: QUEtiapine FUMARATE 50MG TAB PO SCH (21:00)
[2021-04-14 06:41] VITALS: BP 154/77
[2021-04-14] MEDS: metFORMIN XR 500MG TAB *GLUCOPHAGE XR PO SCH ×2 (09:14→21:20)
[2021-04-14] MEDS: ARIPiprazole 15 MG TAB (AbiLIFY) PO SCH (09:14)
[2021-04-14] MEDS: ATORVASTATIN 20 MG TAB PO SCH (09:14)
[2021-04-14] MEDS: lamoTRIgine 100MG TAB PO SCH (09:15)
[2021-04-14] MEDS: lisinopriL 40 MG TAB PO SCH (09:15)
[2021-04-14] MEDS: ACETAMINOPHEN TAB 650MG DOSE (2X325MG) PO PRN (09:28)
[2021-04-14] MEDS: NICOTINE POLACRILEX 2 MG GUM PO PRN ×2 (14:13→18:10)
[2021-04-14 16:14] VITALS: BP 138/96
[2021-04-14] MEDS ORDERED: GLUCOSE 4GM CHEW TABLET PO PRN (20:05)
[2021-04-14] MEDS ORDERED: GLUCAGON INJ 1MG VIAL SC PRN (20:05)
[2021-04-14] MEDS ORDERED: DEXTROSE 50% 50 ML SYRINGE IV PRN (20:05)
[2021-04-14] MEDS: HumaLOG INSULIN (NovoLOG) PER UNIT SC SCH (21:00)
[2021-04-14] MEDS ORDERED: QUEtiapine FUMARATE 50MG TAB PO SCH (21:00)
[2021-04-14] MEDS: MIRTAZAPINE 15 MG TAB PO SCH (21:20)
[2021-04-14] MEDS: CLOTRIMAZOLE 1% TOPICAL CREAM 30GM TOP SCH (21:21)
[2021-04-14] MEDS: LORazepam 2 MG TAB PO PRN (21:26)
[2021-04-14] MEDS: diphenhydrAMINE 50MG CAP PO PRN (21:26)
[2021-04-15 06:27] VITALS: BP 148/82
[2021-04-15] MEDS: HumaLOG INSULIN (NovoLOG) PER UNIT SC SCH ×4 (06:36→21:00)
[2021-04-15] MEDS: ARIPiprazole 15 MG TAB (AbiLIFY) PO SCH (09:16)
[2021-04-15] MEDS: PILL CUTTER 1 EACH XX PRN (09:16)
[2021-04-15] MEDS: lamoTRIgine 100MG TAB PO SCH (09:16)
[2021-04-15] MEDS: CLOTRIMAZOLE 1% TOPICAL CREAM 30GM TOP SCH ×2 (09:16→21:39)
[2021-04-15] MEDS: metFORMIN XR 500MG TAB *GLUCOPHAGE XR PO SCH ×2 (09:18→21:39)
[2021-04-15] MEDS: lisinopriL 40 MG TAB PO SCH (09:18)
[2021-04-15] MEDS: ATORVASTATIN 20 MG TAB PO SCH (09:18)
[2021-04-15] MEDS: NICOTINE POLACRILEX 2 MG GUM PO PRN ×3 (09:19→18:20)
[2021-04-15 16:36] VITALS: BP 147/75
[2021-04-15] MEDS: ACETAMINOPHEN TAB 650MG DOSE (2X325MG) PO PRN (18:23)
[2021-04-15 19:10] LABS: FREE T4 1.18 NG/DL (0.76-1.46)
[2021-04-15] MEDS: MIRTAZAPINE 15 MG TAB PO SCH (21:39)
[2021-04-15] MEDS: LORazepam 2 MG TAB PO PRN (21:44)
[2021-04-16 06:39] VITALS: BP 145/80
[2021-04-16 07:04] LABS: CHOLESTEROL RISK RATIO 4.2 (<5)
[2021-04-16] MEDS: HumaLOG INSULIN (NovoLOG) PER UNIT SC SCH ×2 (07:28→11:26)
[2021-04-16] MEDS: ARIPiprazole 15 MG TAB (AbiLIFY) PO SCH (09:21)
[2021-04-16] MEDS: lisinopriL 40 MG TAB PO SCH (09:21)
[2021-04-16] MEDS: PILL CUTTER 1 EACH XX PRN (09:22)
[2021-04-16] MEDS: metFORMIN XR 500MG TAB *GLUCOPHAGE XR PO SCH (09:22)
[2021-04-16] MEDS: lamoTRIgine 100MG TAB PO SCH (09:22)
[2021-04-16] MEDS: ATORVASTATIN 20 MG TAB PO SCH (09:22)
[2021-04-16] MEDS: CLOTRIMAZOLE 1% TOPICAL CREAM 30GM TOP SCH (09:23)
[2021-04-16] MEDS ORDERED: CLOTR1CR TOP (10:10)
[2021-04-16] MEDS ORDERED: HALO5TAB33 PO (10:10)
[2021-04-16] MEDS ORDERED: ARIP1TAB10 PO (10:10)
[2021-04-16] MEDS ORDERED: MIRT-62 PO (10:10)
[2021-04-16] MEDS ORDERED: LAMO150T3 PO (10:10)
[2021-04-16] MEDS ORDERED: DIPH50CA PO (10:10)
[2021-04-16] MEDS ORDERED: NICO2GUM PO (10:10)
[2021-04-16] MEDS: NICOTINE POLACRILEX 2 MG GUM PO PRN (12:55)
== END 2021-04-16 12:56 | disposition home or self-care (01) | DRG 885 ==
LOC: M ED 18:43 → M ED INP 04-13 15:31 → M PSY 04-13 16:45
PROVIDERS: ADMIT Student in an Organized Health Care Education/Training Program; ATTEND Student in an Organized Health Care Education/Training Program
DX: F25.0 Schizoaffective disorder, bipolar type (principal); F10.10 Alcohol abuse, uncomplicated; F12.90 Cannabis use, unspecified, uncomplicated; F17.200 Nicotine dependence, unspecified, uncomplicated; Z79.899 Other long term (current) drug therapy; Z91.018 Allergy to other foods; G47.33 Obstructive sleep apnea (adult) (pediatric); Z91.19 Patient's noncompliance with other medical treatment and regimen; E11.9 Type 2 diabetes mellitus without complications; E66.01 Morbid (severe) obesity due to excess calories; I10 Essential (primary) hypertension; E78.5 Hyperlipidemia, unspecified; Z89.511 Acquired absence of right leg below knee; K76.0 Fatty (change of) liver, not elsewhere classified; K57.30 Diverticulosis of large intestine without perforation or abscess without bleeding

== ENCOUNTER 2021-04-30 12:35 | Inpatient (IN) | payer MEDICARE, MEDICAID ==
[~2021-04-30] VITALS: Ht 188 cm; Wt 166.2 kg
[~2021-04-30 12:35] MED LIST changes: +ATOR40TA75 PO; +CLOTR1CR TOP; +DIPH50CA PO; +HALO5TAB33 PO; +NICO2GUM PO
[2021-04-30] MEDS ORDERED: OLANZapine INTRAMUSCULAR 10MG VIAL IM ONE (12:40)
[2021-04-30] MEDS ORDERED: LORazepam 2 MG/ML VIAL IM ONE (12:50)
[2021-04-30 13:05] LABS: HEMATOCRIT 49.5 % (42.0-52.0); HEMOGLOBIN 16.4 g/dl (13.5-17.5); MEAN CORPUSCULAR HGB CONC 33.1 g/dl (32.0-36.5); MEAN CORPUSCULAR VOLUME 90.7 fl (80.0-96.0); PLATELET COUNT, AUTOMATED 193 10^3/uL (150-450); RED BLOOD COUNT 5.46 10^6/uL (4.30-6.10)
[2021-04-30 14:21] LABS: ACETAMINOPHEN LEVEL < 2.0 UG/ML (10.0-30.0); ALT/SGPT 127 U/L (12-78); BILIRUBIN,DIRECT 0.2 MG/DL (0.0-0.2); BILIRUBIN,TOTAL 0.6 MG/DL (0.2-1.0); BLOOD UREA NITROGEN 6 MG/DL (7-18); CALCIUM LEVEL 9.8 MG/DL (8.5-10.1); CARBON DIOXIDE LEVEL 16 MEQ/L (21-32); CHLORIDE LEVEL 103 MEQ/L (98-107); CREATININE FOR GFR 0.95 MG/DL (0.70-1.30); ETHYL ALCOHOL (ETHANOL) < 0.003 % (0.000-0.010); GLOMERULAR FILTRATION RATE > 60.0 (>60); GLUCOSE, FASTING 192 MG/DL (70-100); POTASSIUM SERUM 4.1 MEQ/L (3.5-5.1); SALICYLATE LEVEL 2.9 MG/DL (5.0-30.0); SODIUM LEVEL 136 MEQ/L (136-145)
[2021-04-30] MEDS ORDERED: metFORMIN XR 500MG TAB *GLUCOPHAGE XR PO ONE (20:20)
[2021-04-30 21:13] LABS: BLOOD UREA NITROGEN 7 MG/DL (7-18); CALCIUM LEVEL 9.5 MG/DL (8.5-10.1); CARBON DIOXIDE LEVEL 27 MEQ/L (21-32); CHLORIDE LEVEL 104 MEQ/L (98-107); CREATININE FOR GFR 0.75 MG/DL (0.70-1.30); GLOMERULAR FILTRATION RATE > 60.0 (>60); GLUCOSE, FASTING 210 MG/DL (70-100); POTASSIUM SERUM 3.7 MEQ/L (3.5-5.1); SODIUM LEVEL 138 MEQ/L (136-145)
[2021-05-01 01:02] LABS: AMPHETAMINES LEVEL URINE NEGATIVE (NEGATIVE); BARBITURATES URINE NEGATIVE (NEGATIVE); BENZODIAZEPINES URINE NEGATIVE (NEGATIVE); CANNABINOIDS URINE POSITIVE (NEGATIVE); COCAINE METABOLITE URINE NEGATIVE (NEGATIVE); METHADONE URINE NEGATIVE (NEGATIVE); OPIATES URINE NEGATIVE (NEGATIVE); PHENCYCLIDINE URINE NEGATIVE (NEGATIVE)
[2021-05-01] MEDS: metFORMIN XR 500MG TAB *GLUCOPHAGE XR PO SCH ×2 (09:06→20:16)
[2021-05-01] MEDS: lamoTRIgine 100MG TAB PO SCH (09:06)
[2021-05-01] MEDS: lisinopriL 40 MG TAB PO SCH (09:06)
[2021-05-01] MEDS: ATORVASTATIN 20 MG TAB PO SCH (09:06)
[2021-05-01 10:40] LABS: RSV AMPLIFICATION NEGATIVE (NEGATIVE)
[2021-05-01] MEDS ORDERED: NICOTINE 21MG/24HR 1 EA TRANSDERMAL TD PRN (14:25)
[2021-05-01] MEDS ORDERED: traZODone 50 MG TAB PO PRN (14:25)
[2021-05-01] MEDS ORDERED: MAALOX 30 ML SUSP *UDC PO PRN (14:25)
[2021-05-01] MEDS ORDERED: MOM 30ML SUSPENSION UDC PO PRN (14:25)
[2021-05-01] MEDS ORDERED: OLANZapine ORAL DISINTEGRATING TAB 5MG PO PRN (14:25)
[2021-05-01] MEDS ORDERED: LAMO150T3 PO (18:50)
[2021-05-01] MEDS ORDERED: D32000CA PO (18:50)
[2021-05-01] MEDS ORDERED: METF-839 PO (18:50)
[2021-05-01] MEDS ORDERED: ARIP1TAB10 PO (18:50)
[2021-05-01] MEDS ORDERED: SERO1TAB PO (18:50)
[2021-05-01] MEDS ORDERED: HALO5TAB33 PO (18:50)
[2021-05-01] MEDS ORDERED: NICO2GUM MT (18:50)
[2021-05-01] MEDS ORDERED: DIPH50CA PO (18:50)
[2021-05-01] MEDS ORDERED: MIRT1TAB PO (18:50)
[2021-05-01] MEDS: ACETAMINOPHEN TAB 650MG DOSE (2X325MG) PO PRN (20:16)
[2021-05-01] MEDS ORDERED: MIRTAZAPINE 7.5MG PER 1/2 TABLET PO SCH (21:00)
[2021-05-01] MEDS ORDERED: QUEtiapine FUMARATE 100 MG TAB PO SCH (21:00)
[2021-05-02] MEDS ORDERED: MIRTAZAPINE 15 MG TAB PO SCH (00:36)
[2021-05-02] MEDS: MIRTAZAPINE 15 MG TAB PO SCH ×2 (00:41→20:58)
[2021-05-02 06:31] VITALS: BP 149/75
[2021-05-02] MEDS: metFORMIN XR 500MG TAB *GLUCOPHAGE XR PO SCH ×2 (09:48→20:58)
[2021-05-02] MEDS: lamoTRIgine 100MG TAB PO SCH (09:48)
[2021-05-02] MEDS: ATORVASTATIN 20 MG TAB PO SCH (09:48)
[2021-05-02] MEDS: lisinopriL 40 MG TAB PO SCH (09:48)
[2021-05-02] MEDS: NICOTINE POLACRILEX 2 MG GUM PO PRN ×2 (14:56→19:01)
[2021-05-02 16:45] VITALS: BP 132/88
[2021-05-02] MEDS: ACETAMINOPHEN TAB 650MG DOSE (2X325MG) PO PRN (16:58)
[2021-05-02] MEDS: QUEtiapine FUMARATE 50MG TAB PO SCH (20:57)
[2021-05-02] MEDS ORDERED: ARIPiprazole 10 MG TAB PO SCH (21:00)
[2021-05-03 06:16] VITALS: BP 122/84
[2021-05-03 10:11] LABS: HEMOGLOBIN A1c 6.9 %
[2021-05-03] MEDS: metFORMIN XR 500MG TAB *GLUCOPHAGE XR PO SCH ×2 (10:21→21:15)
[2021-05-03] MEDS: lisinopriL 40 MG TAB PO SCH (10:22)
[2021-05-03] MEDS: ATORVASTATIN 20 MG TAB PO SCH (10:22)
[2021-05-03] MEDS: lamoTRIgine 100MG TAB PO SCH (10:22)
[2021-05-03 10:32] VITALS: BP 160/100
[2021-05-03 12:16] VITALS: BP 130/90
[2021-05-03] MEDS: NICOTINE POLACRILEX 2 MG GUM PO PRN ×3 (12:43→21:15)
[2021-05-03 12:57] LABS: ALBUMIN 3.2 GM/DL (3.2-5.2); ALT/SGPT 101 U/L (12-78); BILIRUBIN,DIRECT 0.1 MG/DL (0.0-0.2); BILIRUBIN,TOTAL 0.4 MG/DL (0.2-1.0); TOTAL PROTEIN 6.3 GM/DL (6.4-8.2)
[2021-05-03 13:12] LABS: HEPATITIS B SURFACE ANTIGEN NEGATIVE (NEGATIVE)
[2021-05-03 13:40] LABS: HEPATITIS B CORE ANTIBODY IGM NEGATIVE (NEGATIVE); HEPATITIS C VIRUS ABY INDEX 0.1 INDEX (<0.8)
[2021-05-03 14:45] VITALS: BP 170/100
[2021-05-03] MEDS ORDERED: ARIPiprazole MONOHYDRATE 400 MG INJ (ABILIFY) IM ONE (15:00)
[2021-05-03] MEDS: **hydrALAZINE HCL** 25 MG TAB PO SCH ×2 (15:29→21:19)
[2021-05-03 16:31] VITALS: BP 132/89
[2021-05-03] MEDS: ACETAMINOPHEN TAB 650MG DOSE (2X325MG) PO PRN (16:41)
[2021-05-03 18:00] VITALS: BP 142/108
[2021-05-03] MEDS ORDERED: KETOROLAC TROMETHAMINE 10 MG TAB PO PRN (18:15)
[2021-05-03] MEDS ORDERED: ARIPiprazole 10 MG TAB PO SCH (21:00)
[2021-05-03] MEDS: QUEtiapine FUMARATE 50MG TAB PO SCH (21:15)
[2021-05-03] MEDS: MIRTAZAPINE 15 MG TAB PO SCH (21:15)
[2021-05-04 06:21] VITALS: BP 166/96
[2021-05-04 06:28] VITALS: BP 166/96
[2021-05-04] MEDS: **hydrALAZINE HCL** 25 MG TAB PO SCH (06:28)
[2021-05-04] MEDS: ATORVASTATIN 20 MG TAB PO SCH (08:44)
[2021-05-04] MEDS: metFORMIN XR 500MG TAB *GLUCOPHAGE XR PO SCH (08:44)
[2021-05-04] MEDS: lamoTRIgine 100MG TAB PO SCH (08:44)
[2021-05-04] MEDS: lisinopriL 40 MG TAB PO SCH (08:50)
[2021-05-04] MEDS ORDERED: LISI40TA4 PO (08:59)
[2021-05-04] MEDS ORDERED: NICO2GUM MT (08:59)
[2021-05-04] MEDS ORDERED: HYDR25TA PO (08:59)
[2021-05-04] MEDS ORDERED: MIRT1TAB PO (08:59)
[2021-05-04] MEDS ORDERED: QUET50TA4 PO (08:59)
[2021-05-04] MEDS ORDERED: LAMO150T3 PO (08:59)
[2021-05-04] MEDS ORDERED: ABIL10TA9 PO (08:59)
[2021-05-04] MEDS ORDERED: ABIL1INJ2 IM (09:00)
== END 2021-05-04 11:41 | disposition home or self-care (01) | DRG 885 ==
LOC: M ED 12:35 → M ED INP 05-01 14:25 → M PSY 05-01 18:17
PROVIDERS: ADMIT Student in an Organized Health Care Education/Training Program; ATTEND Student in an Organized Health Care Education/Training Program
DX: F25.0 Schizoaffective disorder, bipolar type (principal); F10.10 Alcohol abuse, uncomplicated; F17.200 Nicotine dependence, unspecified, uncomplicated; F12.90 Cannabis use, unspecified, uncomplicated; F63.81 Intermittent explosive disorder; Z79.899 Other long term (current) drug therapy; Z91.018 Allergy to other foods; E66.01 Morbid (severe) obesity due to excess calories; G47.33 Obstructive sleep apnea (adult) (pediatric); E11.9 Type 2 diabetes mellitus without complications; I10 Essential (primary) hypertension; E78.5 Hyperlipidemia, unspecified; K76.0 Fatty (change of) liver, not elsewhere classified; K57.30 Diverticulosis of large intestine without perforation or abscess without bleeding; Z89.511 Acquired absence of right leg below knee; R19.7 Diarrhea, unspecified

== ENCOUNTER 2021-08-04 10:32 | Emergency (ER) | payer MEDICARE ==
[~2021-08-04] VITALS: Ht 182.9 cm; Wt 170.0 kg
[~2021-08-04 10:32] MED LIST changes: +D32000CA PO; +HYDR25TA PO; +METF-839 PO; +MIRT1TAB PO; +NICO2GUM MT; +QUET50TA4 PO
[2021-08-04] MEDS ORDERED: CLIN150C17 PO (11:15)
[2021-08-04 11:25] VITALS: BP 147/95
== END 2021-08-04 11:54 | disposition home or self-care (01) ==
LOC: M ED 10:32
DX: L03.116 Cellulitis of left lower limb (principal); F17.200 Nicotine dependence, unspecified, uncomplicated; E11.9 Type 2 diabetes mellitus without complications; F41.8 Other specified anxiety disorders; F32.A Depression, unspecified; Z79.4 Long term (current) use of insulin; Z79.899 Other long term (current) drug therapy

== ENCOUNTER → 2022-08-16 | Outpatient (REF) | payer MEDICARE ==
[~2022-08-16] MED LIST changes: +CLIN150C17 PO; +SIMV-252 PO; +SIMV-253 PO; -ZOCO10TA PO; -ZOCO20TA PO
[2022-08-16 18:47] LABS: HEMATOCRIT 48.1 % (42.0-52.0); HEMOGLOBIN 16.3 g/dl (13.5-17.5); MEAN CORPUSCULAR HEMOGLOBIN 31.3 pg (27.0-33.0); MEAN CORPUSCULAR HGB CONC 33.9 g/dl (32.0-36.5); MEAN CORPUSCULAR VOLUME 92.5 fl (80.0-96.0); PLATELET COUNT, AUTOMATED 245 10^3/uL (150-450)
[2022-08-16 18:55] LABS: CREATININE, URINE 156.8 MG/DL
[2022-08-16 18:57] LABS: MAU/CREAT RATIO 130.1 MCG/MG (0.0-30.0)
[2022-08-16 18:59] LABS: ALBUMIN 4.2 G/DL (3.2-5.2); ALKALINE PHOSPHATASE 116 U/L (46-116); ALT/SGPT 156 U/L (7.0-40); AST/SGOT 107 U/L (<34); BILIRUBIN,TOTAL 0.6 MG/DL (0.3-1.2); BLOOD UREA NITROGEN 7 MG/DL (9-23); CALCIUM LEVEL 9.6 MG/DL (8.5-10.1); CARBON DIOXIDE LEVEL 25 MMOL/L (20-31); CHLORIDE LEVEL 101 MMOL/L (98-107); CHOLESTEROL LEVEL 149 MG/DL (<200); CHOLESTEROL RISK RATIO 3.83 (<5); CREATININE FOR GFR 0.54 MG/DL (0.70-1.30); GLOMERULAR FILTRATION RATE > 60.0 (>60); GLUCOSE, FASTING 142 MG/DL (60-100); HDL CHOLESTEROL 38.9 MG/DL (>40); NON-HDL-C 110.1 MG/DL; POTASSIUM SERUM 4.5 MMOL/L (3.5-5.1); SODIUM LEVEL 137 MMOL/L (136-145); TOTAL PROTEIN 7.3 G/DL (5.7-8.2); TRIGLYCERIDES LEVEL 458 MG/DL (<150)
[2022-08-16 19:00] LABS: TOTAL 25(OH) VITAMIN D 29.2 NG/ML (20.0-100.0)
[2022-08-16 19:01] LABS: HEMOGLOBIN A1c 7.4 % (4.0-6.0)
== END ==
LOC: M LAB REF 17:31
PROVIDERS: ATTEND Physician Assistant
DX: E11.9 Type 2 diabetes mellitus without complications (principal); E78.1 Pure hyperglyceridemia; E55.9 Vitamin D deficiency, unspecified

== ENCOUNTER 2022-10-30 06:37 | Emergency (ER) | payer MEDICARE ==
[~2022-10-30] VITALS: Ht 182.9 cm; Wt 163.6 kg
[~2022-10-30 06:37] MED LIST changes: +LORA1TAB23; -LORA1TAB4
[2022-10-30] MEDS ORDERED: KETOROLAC 30 MG/ML 1ML VIAL IV ONE (07:00)
[2022-10-30] MEDS ORDERED: AMPICILLIN SOD/SULBACTAM SOD 3 GM in D5W MINI-BAG PLUS 100 ML IV ONE (07:00)
[2022-10-30 07:31] LABS: BASO # 0.1 10^3/uL (0.0-0.2); BASO % 0.9 % (0.0-1.0); EOS # 0.2 10^3/uL (0.0-0.5); EOS % 2.1 % (0.0-3.0); HEMATOCRIT 44.5 % (42.0-52.0); LYMPH # 3.3 10^3/uL (1.5-5.0); LYMPH % 34.9 % (24.0-44.0); MEAN CORPUSCULAR HEMOGLOBIN 31.9 pg (27.0-33.0); MEAN CORPUSCULAR VOLUME 88.6 fl (80.0-96.0); MONO # 0.5 10^3/uL (0.0-0.8); MONO % 4.9 % (2.0-8.0); NEUTROPHILS # 5.3 10^3/uL (1.5-8.5); NEUTROPHILS % 56.3 % (36.0-66.0); PLATELET COUNT, AUTOMATED 253 10^3/uL (150-450); RED BLOOD COUNT 5.02 10^6/uL (4.30-6.10); WHITE BLOOD COUNT 9.4 10^3/uL (4.0-10.0)
[2022-10-30 08:03] LABS: BLOOD UREA NITROGEN 9 MG/DL (9-23); CARBON DIOXIDE LEVEL 23 MMOL/L (20-31); CHLORIDE LEVEL 101 MMOL/L (98-107); CREATININE FOR GFR 0.57 MG/DL (0.70-1.30); GLOMERULAR FILTRATION RATE > 60.0 (>60); GLUCOSE, FASTING 254 MG/DL (60-100); POTASSIUM SERUM 4.3 MMOL/L (3.5-5.1); SODIUM LEVEL 135 MMOL/L (136-145)
[2022-10-30] MEDS ORDERED: AMOX875T2 PO (08:15)
[2022-10-30 08:25] VITALS: BP 152/96; TEMP 97.1; O2SAT 94
== END 2022-10-30 08:28 | disposition home or self-care (01) ==
LOC: M ED 06:37
DX: K02.9 Dental caries, unspecified (principal); E11.65 Type 2 diabetes mellitus with hyperglycemia; F17.200 Nicotine dependence, unspecified, uncomplicated; G47.33 Obstructive sleep apnea (adult) (pediatric); Z79.2 Long term (current) use of antibiotics; Z79.811 Long term (current) use of aromatase inhibitors; Z79.4 Long term (current) use of insulin; Z79.899 Other long term (current) drug therapy
CPT/HCPCS: 80048; 85025; 86140; 96365; 96375; 99284; J0295; J1885

== ENCOUNTER → 2023-01-27 | Outpatient (CLI) | payer MEDICARE ==
[~2023-01-27] MED LIST changes: +AMOX875T2 PO; -MIRT-62 PO; +MIRT-88 PO
[2023-01-27 17:33] LABS: INR 1.06; PROTHROMBIN TIME 13.5 SECONDS (12.5-14.5)
[2023-01-27 17:34] LABS: PARTIAL THROMBOPLASTIN TIME 26.9 SECONDS (24.8-34.2)
[2023-01-27 17:40] LABS: ALBUMIN 3.7 G/DL (3.2-5.2); ALKALINE PHOSPHATASE 116 U/L (46-116); ALT/SGPT 84 U/L (7.0-40); AST/SGOT 40 U/L (<34); BILIRUBIN,DIRECT 0.2 MG/DL (<0.4); BILIRUBIN,TOTAL 0.5 MG/DL (0.3-1.2); TOTAL PROTEIN 6.8 G/DL (5.7-8.2)
[2023-01-27 18:15] LABS: HEPATITIS C VIRUS ABY INDEX 0.12 INDEX (<0.8)
== END ==
LOC: M WUC 14:38
PROVIDERS: ATTEND Physician Assistant
DX: R94.5 Abnormal results of liver function studies (principal); K75.81 Nonalcoholic steatohepatitis (NASH)

== ENCOUNTER 2023-04-27 04:51 | Inpatient (IN) | payer MEDICARE ==
[~2023-04-27] VITALS: Ht 182.9 cm; Wt 157.5 kg
[2023-04-27] MEDS ORDERED: MIDAZOLAM INJ 2MG/2ML VIAL IM STA (05:29)
[2023-04-27] MEDS ORDERED: MIDAZOLAM INJ 2MG/2ML VIAL As Ordered ONE (05:30)
[2023-04-27] MEDS ORDERED: LORazepam 2 MG/ML 1ML VIAL IM ONE (05:30)
[2023-04-27] MEDS ORDERED: diphenhydrAMINE 50MG/ML VIAL IM ONE (05:30)
[2023-04-27] MEDS ORDERED: HALOPERIDOL 5MG/ML 1ML VIAL IM ONE (05:30)
[2023-04-27 06:43] LABS: HEMATOCRIT 43.7 % (42.0-52.0); HEMOGLOBIN 15.5 g/dl (13.5-17.5); MEAN CORPUSCULAR HEMOGLOBIN 31.1 pg (27.0-33.0); MEAN CORPUSCULAR HGB CONC 35.5 g/dl (32.0-36.5); MEAN CORPUSCULAR VOLUME 87.8 fl (80.0-96.0); PLATELET COUNT, AUTOMATED 216 10^3/uL (150-450); RED BLOOD COUNT 4.98 10^6/uL (4.30-6.10); WHITE BLOOD COUNT 8.9 10^3/uL (4.0-10.0)
[2023-04-27 07:01] LABS: AMPHETAMINES LEVEL URINE NEGATIVE (NEGATIVE); BARBITURATES URINE NEGATIVE (NEGATIVE); COCAINE METABOLITE URINE NEGATIVE (NEGATIVE); METHADONE URINE NEGATIVE (NEGATIVE); OPIATES URINE NEGATIVE (NEGATIVE); PHENCYCLIDINE URINE NEGATIVE (NEGATIVE)
[2023-04-27 07:14] LABS: BENZODIAZEPINES URINE POSITIVE (NEGATIVE); CANNABINOIDS URINE POSITIVE (NEGATIVE)
[2023-04-27 07:15] LABS: RSV AMPLIFICATION NEGATIVE (NEGATIVE)
[2023-04-27 07:18] LABS: ETHYL ALCOHOL (ETHANOL) 0.006 % (0.000-0.010)
[2023-04-27 07:19] LABS: SALICYLATE LEVEL < 3.0 MG/DL (<30)
[2023-04-27 07:20] LABS: ALBUMIN 3.9 G/DL (3.2-5.2); ALKALINE PHOSPHATASE 97 U/L (46-116); ALT/SGPT 124 U/L (7.0-40); AST/SGOT 57 U/L (<34); BILIRUBIN,DIRECT 0.3 MG/DL (<0.4); BLOOD UREA NITROGEN 15 MG/DL (9-23); CALCIUM LEVEL 9.5 MG/DL (8.5-10.1); CARBON DIOXIDE LEVEL 20 MMOL/L (20-31); CHLORIDE LEVEL 103 MMOL/L (98-107); CREATININE FOR GFR 0.67 MG/DL (0.70-1.30); GLOMERULAR FILTRATION RATE > 60.0 (>60); GLUCOSE, FASTING 173 MG/DL (60-100); POTASSIUM SERUM 3.3 MMOL/L (3.5-5.1); SODIUM LEVEL 136 MMOL/L (136-145)
[2023-04-27 07:22] LABS: THYROID STIMULATING HORMONE 4.266 uIU/ML (0.55-4.78)
[2023-04-27] MEDS ORDERED: MED REC IN PROGRESS XX SCH (09:00)
[2023-04-27] MEDS ORDERED: MED REC CURRENTLY UNOBTAINABLE XX SCH (09:20)
[2023-04-27] MEDS ORDERED: OLANZapine ORAL DISINTEGRATING TAB 5MG PO ONE (15:40)
[2023-04-27] MEDS ORDERED: QUEtiapine FUMARATE 200 MG TAB PO SCH (21:00)
[2023-04-27] MEDS ORDERED: MIRTAZAPINE 7.5MG PER 1/2 TABLET PO SCH (21:00)
[2023-04-27] MEDS ORDERED: MIRTAZAPINE 15 MG TAB PO SCH (21:25)
[2023-04-27] MEDS ORDERED: **hydrALAZINE HCL** 25 MG TAB PO SCH (21:25)
[2023-04-27] MEDS ORDERED: ARIPiprazole 10 MG TAB PO SCH (21:25)
[2023-04-27] MEDS ORDERED: lisinopriL 40MG TAB PO SCH (21:25)
[2023-04-27] MEDS ORDERED: QUEtiapine FUMERATE XR 50MG TABER PO SCH (21:25)
[2023-04-27] MEDS ORDERED: lisinopriL 40MG TAB PO ONE (22:20)
[2023-04-28] MEDS ORDERED: lamoTRIgine 25MG TAB PO SCH (09:00)
[2023-04-28] MEDS ORDERED: QUET200T2 PO (09:43)
[2023-04-28] MEDS ORDERED: ATOR1TAB21 PO (09:43)
[2023-04-28] MEDS ORDERED: LAMO150T3 PO (09:43)
[2023-04-28] MEDS ORDERED: MIRT1TAB PO (09:43)
[2023-04-28] MEDS ORDERED: HOME MED LIST COMPLETE! XX SCH (09:45)
[2023-04-28] MEDS ORDERED: diphenhydrAMINE 25MG CAP PO PRN (14:55)
[2023-04-28] MEDS ORDERED: IBUPROFEN 400MG TAB PO PRN (14:55)
[2023-04-28] MEDS ORDERED: MAALOX 30 ML SUSP *UDC PO PRN (14:55)
[2023-04-28] MEDS ORDERED: MOM 30ML SUSPENSION UDC PO PRN (14:55)
[2023-04-28] MEDS ORDERED: traZODone 50 MG TAB PO PRN (14:55)
[2023-04-28] MEDS ORDERED: ACETAMINOPHEN TAB 650MG DOSE (2X325MG) PO PRN (14:55)
[2023-04-28 16:49] VITALS: BP 138/100; TEMP 97.3
[2023-04-28] MEDS: metFORMIN (GLUCOPHAGE) 500MG TAB PO SCH (19:44)
[2023-04-28] MEDS: ATORVASTATIN 20 MG TAB PO SCH (19:44)
[2023-04-28] MEDS: MIRTAZAPINE 7.5MG PER 1/2 TABLET PO SCH (22:30)
[2023-04-28] MEDS: QUEtiapine FUMARATE 200 MG TAB PO SCH (22:31)
[2023-04-29 06:28] VITALS: BP 134/71; TEMP 98.5; O2SAT 95
[2023-04-29] MEDS: ATORVASTATIN 20 MG TAB PO SCH (08:37)
[2023-04-29] MEDS: lisinopriL 40MG TAB PO SCH (08:38)
[2023-04-29] MEDS: metFORMIN (GLUCOPHAGE) 500MG TAB PO SCH ×2 (08:38→18:20)
[2023-04-29] MEDS: lamoTRIgine 100MG TAB PO SCH (08:48)
[2023-04-29] MEDS: lamoTRIgine 25MG TAB PO SCH (08:48)
[2023-04-29 09:25] LABS: HEPATITIS C VIRUS ABY INDEX 0.09 INDEX (<0.8)
[2023-04-29 09:26] LABS: HEPATITIS B CORE ANTIBODY IGM NEGATIVE (NEGATIVE)
[2023-04-29] MEDS ORDERED: GLUCAGON INJ 1MG VIAL SC PRN (10:55)
[2023-04-29] MEDS ORDERED: DEXTROSE 50% 50ML SYRINGE IV PRN (10:55)
[2023-04-29] MEDS ORDERED: GLUCOSE 4GM CHEW TABLET PO PRN (10:55)
[2023-04-29] MEDS: INSULIN LISPRO (NovoLOG) PER UNIT SC SCH ×3 (12:00→21:00)
[2023-04-29] MEDS ORDERED: POTASSIUM CHLORIDE 10MEQ SR TABLET PO ONE ×2 (13:00)
[2023-04-29 17:43] VITALS: BP 135/80; TEMP 97.6; O2SAT 97
[2023-04-29] MEDS: QUEtiapine FUMARATE 200 MG TAB PO SCH (22:10)
[2023-04-29] MEDS: MIRTAZAPINE 7.5MG PER 1/2 TABLET PO SCH (22:10)
[2023-04-30 06:06] VITALS: BP 130/68; TEMP 99.1; O2SAT 93
[2023-04-30] MEDS: INSULIN LISPRO (NovoLOG) PER UNIT SC SCH ×4 (06:42→21:00)
[2023-04-30] MEDS: lamoTRIgine 25MG TAB PO SCH (08:39)
[2023-04-30] MEDS: lamoTRIgine 100MG TAB PO SCH (08:39)
[2023-04-30] MEDS: lisinopriL 40MG TAB PO SCH (08:39)
[2023-04-30] MEDS: ATORVASTATIN 20 MG TAB PO SCH (08:39)
[2023-04-30] MEDS: metFORMIN (GLUCOPHAGE) 500MG TAB PO SCH ×2 (08:40→17:01)
[2023-04-30] MEDS: AMOXICILLIN 500 MG CAP PO SCH ×2 (13:02→21:12)
[2023-04-30 18:38] VITALS: BP 140/90; TEMP 97.7; O2SAT 98
[2023-04-30] MEDS: QUEtiapine FUMARATE 200 MG TAB PO SCH (21:07)
[2023-04-30] MEDS: MIRTAZAPINE 7.5MG PER 1/2 TABLET PO SCH (21:07)
[2023-05-01] MEDS: AMOXICILLIN 500 MG CAP PO SCH ×3 (05:39→20:54)
[2023-05-01 06:35] VITALS: BP 123/71; TEMP 97.4; O2SAT 95
[2023-05-01] MEDS: INSULIN LISPRO (NovoLOG) PER UNIT SC SCH ×4 (06:35→20:48)
[2023-05-01] MEDS: ATORVASTATIN 20 MG TAB PO SCH (08:10)
[2023-05-01] MEDS: lisinopriL 40MG TAB PO SCH (08:10)
[2023-05-01] MEDS: metFORMIN (GLUCOPHAGE) 500MG TAB PO SCH ×2 (08:11→17:09)
[2023-05-01] MEDS: lamoTRIgine 25MG TAB PO SCH (08:14)
[2023-05-01] MEDS: lamoTRIgine 100MG TAB PO SCH (08:14)
[2023-05-01 17:23] VITALS: BP 147/71; TEMP 96.9; O2SAT 95
[2023-05-01] MEDS: QUEtiapine FUMARATE 100 MG TAB PO SCH (20:47)
[2023-05-01] MEDS: MIRTAZAPINE 7.5MG PER 1/2 TABLET PO SCH (20:47)
[2023-05-02] MEDS: AMOXICILLIN 500 MG CAP PO SCH ×3 (05:40→21:42)
[2023-05-02 06:31] VITALS: BP 115/54; TEMP 97.6; O2SAT 96
[2023-05-02] MEDS: INSULIN LISPRO (NovoLOG) PER UNIT SC SCH ×4 (06:40→21:00)
[2023-05-02] MEDS: ATORVASTATIN 20 MG TAB PO SCH (08:42)
[2023-05-02] MEDS: lisinopriL 40MG TAB PO SCH (08:42)
[2023-05-02] MEDS: lamoTRIgine 25MG TAB PO SCH (08:43)
[2023-05-02] MEDS: metFORMIN (GLUCOPHAGE) 500MG TAB PO SCH ×2 (08:43→17:17)
[2023-05-02] MEDS: lamoTRIgine 100MG TAB PO SCH (08:43)
[2023-05-02 16:34] VITALS: BP 152/90; TEMP 96.3; O2SAT 96
[2023-05-02] MEDS: QUEtiapine FUMARATE 100 MG TAB PO SCH (21:37)
[2023-05-02] MEDS: MIRTAZAPINE 7.5MG PER 1/2 TABLET PO SCH (21:37)
[2023-05-03] MEDS: AMOXICILLIN 500 MG CAP PO SCH ×3 (05:42→21:32)
[2023-05-03 06:36] VITALS: BP 118/67; TEMP 98.4; O2SAT 94
[2023-05-03] MEDS: INSULIN LISPRO (NovoLOG) PER UNIT SC SCH ×4 (06:38→21:00)
[2023-05-03] MEDS: lamoTRIgine 25MG TAB PO SCH (08:20)
[2023-05-03] MEDS: metFORMIN (GLUCOPHAGE) 500MG TAB PO SCH ×2 (08:21→17:23)
[2023-05-03] MEDS: lamoTRIgine 100MG TAB PO SCH (08:21)
[2023-05-03] MEDS: ATORVASTATIN 20 MG TAB PO SCH (08:21)
[2023-05-03] MEDS: lisinopriL 40MG TAB PO SCH (08:21)
[2023-05-03 16:26] VITALS: BP 145/95; TEMP 96.4; O2SAT 98
[2023-05-03] MEDS: MIRTAZAPINE 7.5MG PER 1/2 TABLET PO SCH (21:28)
[2023-05-03] MEDS: QUEtiapine FUMARATE 100 MG TAB PO SCH (21:28)
[2023-05-04] MEDS: AMOXICILLIN 500 MG CAP PO SCH ×3 (05:13→21:38)
[2023-05-04 06:27] VITALS: BP 124/68; TEMP 97; O2SAT 96
[2023-05-04] MEDS: INSULIN LISPRO (NovoLOG) PER UNIT SC SCH ×4 (06:35→21:00)
[2023-05-04] MEDS: lamoTRIgine 100MG TAB PO SCH (09:01)
[2023-05-04] MEDS: ATORVASTATIN 20 MG TAB PO SCH (09:01)
[2023-05-04] MEDS: metFORMIN (GLUCOPHAGE) 500MG TAB PO SCH ×2 (09:01→17:16)
[2023-05-04] MEDS: lisinopriL 40MG TAB PO SCH (09:01)
[2023-05-04] MEDS: lamoTRIgine 25MG TAB PO SCH (09:02)
[2023-05-04 18:11] VITALS: BP 128/82; TEMP 98.6; O2SAT 97
[2023-05-04] MEDS: MIRTAZAPINE 7.5MG PER 1/2 TABLET PO SCH (21:37)
[2023-05-04] MEDS: QUEtiapine FUMARATE 100 MG TAB PO SCH (21:37)
[2023-05-05] MEDS: AMOXICILLIN 500 MG CAP PO SCH (06:00)
[2023-05-05 06:36] VITALS: BP 133/79; TEMP 96.8; O2SAT 98
[2023-05-05] MEDS: INSULIN LISPRO (NovoLOG) PER UNIT SC SCH ×2 (06:39→12:00)
[2023-05-05 08:48] VITALS: BP 144/93
[2023-05-05] MEDS: lisinopriL 40MG TAB PO SCH (08:48)
[2023-05-05] MEDS: metFORMIN (GLUCOPHAGE) 500MG TAB PO SCH (08:49)
[2023-05-05] MEDS: ATORVASTATIN 20 MG TAB PO SCH (08:49)
[2023-05-05] MEDS: lamoTRIgine 100MG TAB PO SCH (08:50)
[2023-05-05] MEDS: lamoTRIgine 25MG TAB PO SCH (08:50)
[2023-05-05] MEDS ORDERED: LAMI25TA PO (08:54)
[2023-05-05] MEDS ORDERED: QUET100T2 PO (08:54)
[2023-05-05] MEDS ORDERED: TRAZ-252 PO (08:54)
== END 2023-05-05 13:46 | disposition home or self-care (01) | DRG 885 ==
LOC: M ED 04:51 → M ED INP 04-28 14:55 → M PSY 04-28 16:47
PROVIDERS: ADMIT Student in an Organized Health Care Education/Training Program; ATTEND Student in an Organized Health Care Education/Training Program
DX: F25.0 Schizoaffective disorder, bipolar type (principal); F10.10 Alcohol abuse, uncomplicated; F17.210 Nicotine dependence, cigarettes, uncomplicated; F12.90 Cannabis use, unspecified, uncomplicated; F63.81 Intermittent explosive disorder; R45.850 Homicidal ideations; Z78.1 Physical restraint status; E11.9 Type 2 diabetes mellitus without complications; E66.01 Morbid (severe) obesity due to excess calories; E78.5 Hyperlipidemia, unspecified; I10 Essential (primary) hypertension; K76.0 Fatty (change of) liver, not elsewhere classified; K57.30 Diverticulosis of large intestine without perforation or abscess without bleeding; F90.9 Attention-deficit hyperactivity disorder, unspecified type; Z89.511 Acquired absence of right leg below knee; E87.6 Hypokalemia; Z79.899 Other long term (current) drug therapy

== ENCOUNTER 2023-06-25 21:05 | Emergency (ER) | payer MEDICARE, OTHER ==
[~2023-06-25] VITALS: Ht 182.9 cm; Wt 159.1 kg
[~2023-06-25 21:05] MED LIST changes: +LAMI25TA PO; +QUET200T2 PO; +TRAZ-252 PO
[2023-06-26 03:07] VITALS: BP 178/78; TEMP 98.7; O2SAT 98
[2023-06-26] MEDS: LIDOCAINE 2% W/EPINEPHRINE 20ML VIAL **PRES FREE INJ ONE (04:15)
[2023-06-26] MEDS ORDERED: DOXY-443 PO (04:58)
[2023-06-26] MEDS: DOXYCYCLINE HYCLATE 100MG TABLET PO ONE (05:10)
== END 2023-06-26 05:10 | disposition home or self-care (01) ==
LOC: M ED 21:05
DX: L03.115 Cellulitis of right lower limb (principal); L02.415 Cutaneous abscess of right lower limb; I10 Essential (primary) hypertension; E78.5 Hyperlipidemia, unspecified; F32.A Depression, unspecified; F41.9 Anxiety disorder, unspecified; F25.9 Schizoaffective disorder, unspecified; Z79.02 Long term (current) use of antithrombotics/antiplatelets; Z79.811 Long term (current) use of aromatase inhibitors; Z79.4 Long term (current) use of insulin; Z79.899 Other long term (current) drug therapy

== ENCOUNTER 2023-07-10 02:34 | Inpatient (IN) | payer BC, MEDICARE, OTHER ==
[~2023-07-10] VITALS: Ht 182.9 cm; Wt 136.4 kg
[~2023-07-10 02:34] MED LIST changes: -HYDR25TA PO; +HYDR25TA88 PO
[2023-07-10] MEDS: LORazepam 1 MG TAB PO STA (03:34)
[2023-07-10 03:39] LABS: BASO # 0.1 10^3/uL (0.0-0.2); BASO % 0.7 % (0.0-1.0); EOS # 0.2 10^3/uL (0.0-0.5); EOS % 1.3 % (0.0-3.0); HEMATOCRIT 44.3 % (42.0-52.0); HEMOGLOBIN 15.6 g/dl (13.5-17.5); LYMPH # 4.5 10^3/uL (1.5-5.0); MEAN CORPUSCULAR HEMOGLOBIN 30.5 pg (27.0-33.0); MEAN CORPUSCULAR HGB CONC 35.2 g/dl (32.0-36.5); MEAN CORPUSCULAR VOLUME 86.7 fl (80.0-96.0); MONO # 0.7 10^3/uL (0.0-0.8); MONO % 4.6 % (2.0-8.0); NEUTROPHILS # 9.5 10^3/uL (1.5-8.5); NEUTROPHILS % 62.9 % (36.0-66.0); PLATELET COUNT, AUTOMATED 323 10^3/uL (150-450); RED BLOOD COUNT 5.11 10^6/uL (4.30-6.10); WHITE BLOOD COUNT 15.1 10^3/uL (4.0-10.0)
[2023-07-10 04:01] LABS: ETHYL ALCOHOL (ETHANOL) 0.006 % (0.000-0.010); SALICYLATE LEVEL < 3.0 MG/DL (<30)
[2023-07-10 04:02] LABS: ALKALINE PHOSPHATASE 109 U/L (46-116); ALT/SGPT 48 U/L (7.0-40); AST/SGOT 21 U/L (<34); BILIRUBIN,DIRECT 0.2 MG/DL (<0.4); BILIRUBIN,TOTAL 0.8 MG/DL (0.3-1.2); BLOOD UREA NITROGEN 14 MG/DL (9-23); CALCIUM LEVEL 9.7 MG/DL (8.5-10.1); CARBON DIOXIDE LEVEL 17 MMOL/L (20-31); CHLORIDE LEVEL 102 MMOL/L (98-107); CREATININE FOR GFR 0.62 MG/DL (0.70-1.30); GLOMERULAR FILTRATION RATE > 60.0 (>60); GLUCOSE, FASTING 178 MG/DL (60-100); POTASSIUM SERUM 3.9 MMOL/L (3.5-5.1); SODIUM LEVEL 135 MMOL/L (136-145); TOTAL PROTEIN 7.2 G/DL (5.7-8.2)
[2023-07-10 04:12] LABS: BARBITURATES URINE NEGATIVE (NEGATIVE); COCAINE METABOLITE URINE NEGATIVE (NEGATIVE); METHADONE URINE NEGATIVE (NEGATIVE); OPIATES URINE NEGATIVE (NEGATIVE); PHENCYCLIDINE URINE NEGATIVE (NEGATIVE)
[2023-07-10 04:13] LABS: AMPHETAMINES LEVEL URINE NEGATIVE (NEGATIVE)
[2023-07-10 04:17] LABS: BENZODIAZEPINES URINE NEGATIVE (NEGATIVE); CANNABINOIDS URINE POSITIVE (NEGATIVE)
[2023-07-10] MEDS: diphenhydrAMINE 50MG/ML VIAL IM ONE (08:03)
[2023-07-10] MEDS: LORazepam 2 MG/ML 1ML VIAL IM ONE (08:03)
[2023-07-10] MEDS: HALOPERIDOL 5MG/ML 1ML VIAL IM ONE (08:03)
[2023-07-10] MEDS: NICOTINE 21MG/24HR 1 EA TRANSDERMAL TD SCH (09:00)
[2023-07-10] MEDS: lisinopriL 40MG TAB PO ONE (10:03)
[2023-07-10] MEDS: ATORVASTATIN 20 MG TAB PO ONE (10:03)
[2023-07-10] MEDS ORDERED: MAALOX 30 ML SUSP *UDC PO PRN (11:40)
[2023-07-10] MEDS ORDERED: IBUPROFEN 400MG TAB PO PRN (11:40)
[2023-07-10] MEDS ORDERED: MOM 30ML SUSPENSION UDC PO PRN (11:40)
[2023-07-10] MEDS ORDERED: ACETAMINOPHEN TAB 650MG DOSE (2X325MG) PO PRN (11:40)
[2023-07-10 14:27] VITALS: BP 142/78; TEMP 97.7; O2SAT 95
[2023-07-10] MEDS ORDERED: TRAZ-252 PO (16:30)
[2023-07-10] MEDS ORDERED: QUET300T2 PO (16:30)
[2023-07-10] MEDS ORDERED: HOME MED LIST COMPLETE! XX SCH (16:35)
[2023-07-11] MEDS: diphenhydrAMINE 25MG CAP PO PRN (01:46)
[2023-07-11] MEDS: traZODone 50 MG TAB PO PRN (01:49)
[2023-07-11 06:22] VITALS: BP 142/91; TEMP 97.8; O2SAT 96
[2023-07-11] MEDS: VITAMIN D 1,000 INTERNATIONAL UNITS TABLET PO SCH (09:00)
[2023-07-11] MEDS: lisinopriL 40MG TAB PO SCH (09:00)
[2023-07-11] MEDS: metFORMIN XR 500MG TAB *GLUCOPHAGE XR PO SCH (11:03)
[2023-07-11] MEDS ORDERED: traZODone 50 MG TAB PO PRN (11:35)
[2023-07-11 15:11] VITALS: BP 140/96; TEMP 97.2; O2SAT 93
[2023-07-11 15:55] LABS: BLOOD UREA NITROGEN 8 MG/DL (9-23); CALCIUM LEVEL 8.7 MG/DL (8.5-10.1); CARBON DIOXIDE LEVEL 26 MMOL/L (20-31); CHLORIDE LEVEL 105 MMOL/L (98-107); CREATININE FOR GFR 0.59 MG/DL (0.70-1.30); GLOMERULAR FILTRATION RATE > 60.0 (>60); GLUCOSE, FASTING 156 MG/DL (60-100); POTASSIUM SERUM 3.7 MMOL/L (3.5-5.1); SODIUM LEVEL 138 MMOL/L (136-145)
[2023-07-11] MEDS: ATORVASTATIN 20 MG TAB PO SCH (21:03)
[2023-07-11] MEDS: MIRTAZAPINE 7.5MG PER 1/2 TABLET PO SCH (21:03)
[2023-07-11] MEDS: QUEtiapine FUMARATE 100 MG TAB PO SCH (21:03)
[2023-07-12 06:39] VITALS: BP 144/83; TEMP 98.9; O2SAT 96
[2023-07-12 07:47] LABS: CHOLESTEROL RISK RATIO 5.3 (<5); HDL CHOLESTEROL 22.6 MG/DL (>40); LDL CHOLESTEROL 40.8 MG/DL (<100); NON-HDL-C 97.4 MG/DL
[2023-07-12 10:58] LABS: THYROID STIMULATING HORMONE 2.554 uIU/ML (0.55-4.78)
[2023-07-13 06:33] VITALS: BP 133/73; TEMP 98.5; O2SAT 94
[2023-07-14 06:21] VITALS: BP 133/69; TEMP 98; O2SAT 95
[2023-07-14 17:54] VITALS: BP 150/86; TEMP 96.3; O2SAT 97
[2023-07-15 17:15] VITALS: BP 155/78; TEMP 97.5; O2SAT 97
[2023-07-15 17:40] VITALS: BP 142/88
[2023-07-16 06:34] VITALS: BP 112/59; TEMP 96.7; O2SAT 96
[2023-07-16 08:57] VITALS: BP 112/59
[2023-07-16] MEDS: ANUSOL HC CREAM 30GM TOP PRN (10:14)
[2023-07-16] MEDS ORDERED: NICO21PAT TD (10:19)
[2023-07-16] MEDS ORDERED: PROC1CRE5 TOP (10:19)
[2023-07-16] MEDS ORDERED: QUET300T2 PO (10:19)
== END 2023-07-16 10:38 | disposition home or self-care (01) | DRG 885 ==
LOC: M ED 02:34 → M ED INP 11:40 → M PSY 13:11
PROVIDERS: ADMIT Student in an Organized Health Care Education/Training Program; ATTEND Student in an Organized Health Care Education/Training Program
DX: F25.9 Schizoaffective disorder, unspecified (principal); U07.1 COVID-19; R45.851 Suicidal ideations; E87.1 Hypo-osmolality and hyponatremia; F10.10 Alcohol abuse, uncomplicated; F12.90 Cannabis use, unspecified, uncomplicated; F43.20 Adjustment disorder, unspecified; Z91.148 Patient's other noncompliance with medication regimen for other reason; Z79.899 Other long term (current) drug therapy; K76.0 Fatty (change of) liver, not elsewhere classified; E66.01 Morbid (severe) obesity due to excess calories; I10 Essential (primary) hypertension; G47.33 Obstructive sleep apnea (adult) (pediatric); K57.90 Diverticulosis of intestine, part unspecified, without perforation or abscess without bleeding; F17.200 Nicotine dependence, unspecified, uncomplicated; Z89.511 Acquired absence of right leg below knee; R94.6 Abnormal results of thyroid function studies

== ENCOUNTER 2023-07-19 10:04 | Inpatient (IN) | payer MEDICARE ==
[~2023-07-19] VITALS: Ht 182.9 cm; Wt 147.3 kg
[~2023-07-19 10:04] MED LIST changes: +NICO21PAT TD; +PROC1CRE5 TOP; +QUET300T2 PO
[2023-07-19] MEDS ORDERED: MED REC IN PROGRESS XX SCH (10:45)
[2023-07-19 11:00] LABS: HEMATOCRIT 43.7 % (42.0-52.0); HEMOGLOBIN 15.6 g/dl (13.5-17.5); MEAN CORPUSCULAR HEMOGLOBIN 30.2 pg (27.0-33.0); MEAN CORPUSCULAR HGB CONC 35.7 g/dl (32.0-36.5); MEAN CORPUSCULAR VOLUME 84.5 fl (80.0-96.0); PLATELET COUNT, AUTOMATED 398 10^3/uL (150-450); RED BLOOD COUNT 5.17 10^6/uL (4.30-6.10); WHITE BLOOD COUNT 12.4 10^3/uL (4.0-10.0)
[2023-07-19] MEDS: LORazepam 2 MG/ML 1ML VIAL IM ONE (11:16)
[2023-07-19] MEDS: OLANZapine INTRAMUSCULAR 10MG VIAL IM ONE (11:16)
[2023-07-19 11:18] LABS: ETHYL ALCOHOL (ETHANOL) 0.003 % (0.000-0.010)
[2023-07-19 11:20] LABS: ALBUMIN 4.3 G/DL (3.2-5.2); ALKALINE PHOSPHATASE 112 U/L (46-116); ALT/SGPT 64 U/L (7.0-40); AST/SGOT 39 U/L (<34); BILIRUBIN,DIRECT 0.4 MG/DL (<0.4); BILIRUBIN,TOTAL 1.1 MG/DL (0.3-1.2); BLOOD UREA NITROGEN 14 MG/DL (9-23); CALCIUM LEVEL 9.6 MG/DL (8.5-10.1); CARBON DIOXIDE LEVEL 20 MMOL/L (20-31); CHLORIDE LEVEL 101 MMOL/L (98-107); CREATININE FOR GFR 0.62 MG/DL (0.70-1.30); GLOMERULAR FILTRATION RATE > 60.0 (>60); GLUCOSE, FASTING 174 MG/DL (60-100); POTASSIUM SERUM 3.7 MMOL/L (3.5-5.1); SALICYLATE LEVEL < 3.0 MG/DL (<30); SODIUM LEVEL 134 MMOL/L (136-145); TOTAL PROTEIN 7.5 G/DL (5.7-8.2)
[2023-07-19 11:22] LABS: THYROID STIMULATING HORMONE 2.711 uIU/ML (0.55-4.78)
[2023-07-19] MEDS ORDERED: MED REC CURRENTLY UNOBTAINABLE XX SCH (11:30)
[2023-07-19] MEDS ORDERED: LORazepam 2 MG TAB PO ONE (12:25)
[2023-07-19 13:58] LABS: AMPHETAMINES LEVEL URINE NEGATIVE (NEGATIVE); BARBITURATES URINE NEGATIVE (NEGATIVE); BENZODIAZEPINES URINE NEGATIVE (NEGATIVE)
[2023-07-19 13:59] LABS: CANNABINOIDS URINE NEGATIVE (NEGATIVE); COCAINE METABOLITE URINE NEGATIVE (NEGATIVE); METHADONE URINE NEGATIVE (NEGATIVE); OPIATES URINE NEGATIVE (NEGATIVE); PHENCYCLIDINE URINE NEGATIVE (NEGATIVE)
[2023-07-19 15:02] LABS: ABG BASE EXCESS -0.8 (-2.0-2.0); ABG HCO3 26.3 MMOL/L (22.0-26.0); ABG O2 SATURATION 98.8 % (95.0-99.0); ABG PARTIAL PRESSURE CO2 52.6 mmHg (35.0-45.0); ABG PARTIAL PRESSURE O2 148.8 mmHg (75.0-100.0); ABG STANDARD HCO3 23.9 MMOL/L. (22.0-26.0); ABG TOTAL CO2 27.9 MMOL/L (22.0-29.0); ABG pH (ARTERIAL) 7.317 UNITS (7.350-7.450)
[2023-07-19] MEDS ORDERED: MIRT1TAB PO (21:08)
[2023-07-19] MEDS ORDERED: HOME MED LIST COMPLETE! XX SCH (21:10)
[2023-07-19] MEDS ORDERED: MAALOX 30 ML SUSP *UDC PO PRN (22:15)
[2023-07-19] MEDS ORDERED: IBUPROFEN 400MG TAB PO PRN (22:15)
[2023-07-19] MEDS ORDERED: ACETAMINOPHEN TAB 650MG DOSE (2X325MG) PO PRN (22:15)
[2023-07-19] MEDS ORDERED: traZODone 50 MG TAB PO PRN (22:15)
[2023-07-19] MEDS ORDERED: diphenhydrAMINE 25MG CAP PO PRN (22:15)
[2023-07-19] MEDS ORDERED: MOM 30ML SUSPENSION UDC PO PRN (22:15)
[2023-07-20 00:11] VITALS: BP 168/90; TEMP 97.3; O2SAT 94
[2023-07-20] MEDS: metFORMIN XR 500MG TAB *GLUCOPHAGE XR PO SCH (12:08)
[2023-07-20] MEDS: lisinopriL 40MG TAB PO SCH (12:08)
[2023-07-20 16:14] VITALS: BP 127/66; TEMP 97.5; O2SAT 96
[2023-07-20] MEDS: ATORVASTATIN 20 MG TAB PO SCH (21:06)
[2023-07-20] MEDS: MIRTAZAPINE 15 MG TAB PO SCH (21:06)
[2023-07-20] MEDS: QUEtiapine FUMARATE 100 MG TAB PO SCH (21:07)
[2023-07-20] MEDS: traZODone 100 MG TAB PO PRN (21:09)
[2023-07-21 06:47] VITALS: BP 116/60; TEMP 97.1; O2SAT 98
[2023-07-21 18:54] VITALS: BP 122/59; TEMP 98.3; O2SAT 97
[2023-07-22 06:18] VITALS: BP 129/66; TEMP 96.5; O2SAT 99
[2023-07-22 14:42] VITALS: BP 167/88; TEMP 97.8; O2SAT 96
[2023-07-22 15:04] VITALS: BP 167/88; TEMP 97.8; O2SAT 96
[2023-07-22] MEDS: MIRTAZAPINE 15 MG TAB PO SCH (20:20)
[2023-07-22] MEDS ORDERED: MIRTAZAPINE 15 MG TAB PO SCH (21:00)
[2023-07-23 06:40] VITALS: BP 145/79; TEMP 97.6; O2SAT 95
[2023-07-23 08:43] VITALS: BP 145/79
[2023-07-23] MEDS ORDERED: TRAZ-257 PO (10:19)
[2023-07-23] MEDS ORDERED: MIRT-10 PO (10:19)
[2023-07-23] MEDS ORDERED: QUET100T2 PO (10:19)
== END 2023-07-23 11:35 | disposition home or self-care (01) | DRG 885 ==
LOC: M ED 10:04 → M ED INP 22:14 → M PSY 07-20 00:03
PROVIDERS: ADMIT Psychiatry & Neurology Psychiatry; ATTEND Student in an Organized Health Care Education/Training Program
DX: F25.9 Schizoaffective disorder, unspecified (principal); R45.851 Suicidal ideations; F10.10 Alcohol abuse, uncomplicated; F12.90 Cannabis use, unspecified, uncomplicated; F43.20 Adjustment disorder, unspecified; F60.2 Antisocial personality disorder; Z79.899 Other long term (current) drug therapy; E11.9 Type 2 diabetes mellitus without complications; Z89.511 Acquired absence of right leg below knee; I10 Essential (primary) hypertension; E66.01 Morbid (severe) obesity due to excess calories; G47.33 Obstructive sleep apnea (adult) (pediatric); K76.0 Fatty (change of) liver, not elsewhere classified; F90.9 Attention-deficit hyperactivity disorder, unspecified type; D72.829 Elevated white blood cell count, unspecified

== ENCOUNTER 2023-07-25 19:56 | Emergency (ER) | payer MEDICARE ==
[~2023-07-25 19:56] MED LIST changes: +MIRT-10 PO; +TRAZ-257 PO
[2023-07-25 21:09] LABS: HEMATOCRIT 45.1 % (42.0-52.0); HEMOGLOBIN 15.8 g/dl (13.5-17.5); MEAN CORPUSCULAR HEMOGLOBIN 29.6 pg (27.0-33.0); MEAN CORPUSCULAR VOLUME 84.6 fl (80.0-96.0); PLATELET COUNT, AUTOMATED 336 10^3/uL (150-450); RED BLOOD COUNT 5.33 10^6/uL (4.30-6.10); WHITE BLOOD COUNT 14.5 10^3/uL (4.0-10.0)
[2023-07-25] MEDS: diphenhydrAMINE 50MG/ML VIAL IM ONE (21:14)
[2023-07-25] MEDS: LORazepam 2 MG/ML 1ML VIAL IM ONE (21:14)
[2023-07-25] MEDS: HALOPERIDOL 5MG/ML 1ML VIAL IM ONE (21:14)
[2023-07-25 21:39] LABS: ETHYL ALCOHOL (ETHANOL) < 0.003 % (0.000-0.010)
[2023-07-25 21:40] LABS: ALBUMIN 4.1 G/DL (3.2-5.2); ALKALINE PHOSPHATASE 106 U/L (46-116); ALT/SGPT 44 U/L (7.0-40); AST/SGOT 19 U/L (<34); BILIRUBIN,DIRECT 0.3 MG/DL (<0.4); BILIRUBIN,TOTAL 0.8 MG/DL (0.3-1.2); BLOOD UREA NITROGEN 11 MG/DL (9-23); CALCIUM LEVEL 9.5 MG/DL (8.5-10.1); CARBON DIOXIDE LEVEL 23 MMOL/L (20-31); CHLORIDE LEVEL 103 MMOL/L (98-107); CREATININE FOR GFR 0.62 MG/DL (0.70-1.30); GLOMERULAR FILTRATION RATE > 60.0 (>60); GLUCOSE, FASTING 151 MG/DL (60-100); POTASSIUM SERUM 3.8 MMOL/L (3.5-5.1); SALICYLATE LEVEL < 3.0 MG/DL (<30); SODIUM LEVEL 135 MMOL/L (136-145); TOTAL PROTEIN 7.3 G/DL (5.7-8.2)
[2023-07-25 21:42] LABS: THYROID STIMULATING HORMONE 4.391 uIU/ML (0.55-4.78)
[2023-07-25] MEDS ORDERED: MIRT-10 PO (23:52)
[2023-07-25] MEDS ORDERED: PROC2.5C TOP (23:52)
[2023-07-25] MEDS ORDERED: TRAZ-257 PO (23:52)
[2023-07-26] MEDS ORDERED: [UNRECOGNIZED DRUG - OTHER] (00:02)
[2023-07-26] MEDS ORDERED: HOME MED LIST COMPLETE! XX SCH (00:05)
[2023-07-26 05:16] VITALS: BP 133/90; TEMP 98; O2SAT 94
[2023-07-26] MEDS ORDERED: diphenhydrAMINE 50MG/ML VIAL IM ONE (06:15)
[2023-07-26] MEDS ORDERED: LORazepam 2 MG/ML 1ML VIAL IM ONE (06:15)
[2023-07-26] MEDS ORDERED: OLANZapine INTRAMUSCULAR 10MG VIAL IM ONE (06:15)
== END 2023-07-26 14:45 | disposition home or self-care (01) ==
LOC: M ED 19:56
DX: F51.01 Primary insomnia (principal); F20.9 Schizophrenia, unspecified; Z79.02 Long term (current) use of antithrombotics/antiplatelets; Z79.811 Long term (current) use of aromatase inhibitors; Z79.4 Long term (current) use of insulin; Z79.899 Other long term (current) drug therapy
CPT/HCPCS: 80048; 80076; 80143; 82077; 84443; 85027; 87635; 96372; 99282; J1200; J1630; J2060

== ENCOUNTER 2023-08-05 14:49 | Inpatient (IN) | payer MEDICARE ==
[~2023-08-05] VITALS: Ht 182.9 cm; Wt 149.0 kg
[~2023-08-05 14:49] MED LIST changes: +PROC2.5C TOP; +[UNRECOGNIZED DRUG - OTHER]
[2023-08-05] MEDS: OLANZapine INTRAMUSCULAR 10MG VIAL IM ONE ×2 (16:05→23:50)
[2023-08-05] MEDS: LORazepam 2 MG/ML 1ML VIAL IM ONE (16:10)
[2023-08-05 17:58] LABS: AMPHETAMINES LEVEL URINE NEGATIVE (NEGATIVE); BARBITURATES URINE NEGATIVE (NEGATIVE); BENZODIAZEPINES URINE NEGATIVE (NEGATIVE); CANNABINOIDS URINE NEGATIVE (NEGATIVE); COCAINE METABOLITE URINE NEGATIVE (NEGATIVE); METHADONE URINE NEGATIVE (NEGATIVE); OPIATES URINE NEGATIVE (NEGATIVE); PHENCYCLIDINE URINE NEGATIVE (NEGATIVE)
[2023-08-05 18:13] LABS: HEMATOCRIT 41.1 % (42.0-52.0); HEMOGLOBIN 14.3 g/dl (13.5-17.5); MEAN CORPUSCULAR HEMOGLOBIN 29.7 pg (27.0-33.0); MEAN CORPUSCULAR HGB CONC 34.8 g/dl (32.0-36.5); MEAN CORPUSCULAR VOLUME 85.3 fl (80.0-96.0); PLATELET COUNT, AUTOMATED 345 10^3/uL (150-450); RED BLOOD COUNT 4.82 10^6/uL (4.30-6.10); WHITE BLOOD COUNT 11.4 10^3/uL (4.0-10.0)
[2023-08-05 18:37] LABS: ETHYL ALCOHOL (ETHANOL) 0.007 % (0.000-0.010)
[2023-08-05 18:38] LABS: SALICYLATE LEVEL < 3.0 MG/DL (<30)
[2023-08-05 18:39] LABS: ALBUMIN 3.5 G/DL (3.2-5.2); ALKALINE PHOSPHATASE 103 U/L (46-116); ALT/SGPT 33 U/L (7.0-40); AST/SGOT 30 U/L (<34); BILIRUBIN,DIRECT 0.3 MG/DL (<0.4); BILIRUBIN,TOTAL 0.6 MG/DL (0.3-1.2); BLOOD UREA NITROGEN 6 MG/DL (9-23); CALCIUM LEVEL 9.4 MG/DL (8.5-10.1); CARBON DIOXIDE LEVEL 26 MMOL/L (20-31); CHLORIDE LEVEL 103 MMOL/L (98-107); CREATININE FOR GFR 0.65 MG/DL (0.70-1.30); GLOMERULAR FILTRATION RATE > 60.0 (>60); GLUCOSE, FASTING 103 MG/DL (60-100); POTASSIUM SERUM 3.7 MMOL/L (3.5-5.1); SODIUM LEVEL 137 MMOL/L (136-145); TOTAL PROTEIN 6.3 G/DL (5.7-8.2)
[2023-08-05 18:41] LABS: THYROID STIMULATING HORMONE 1.524 uIU/ML (0.55-4.78)
[2023-08-05 18:42] LABS: CPK CREATINE PHOSPHOKINASE 240 U/L (46-171)
[2023-08-05] MEDS: LORazepam 2 MG/ML 1ML VIAL IM STA (23:50)
[2023-08-06] MEDS ORDERED: MED REC CURRENTLY UNOBTAINABLE XX SCH (12:45)
[2023-08-06] MEDS ORDERED: diphenhydrAMINE 25MG CAP PO PRN (14:30)
[2023-08-06] MEDS ORDERED: HOME MED LIST COMPLETE! XX SCH (14:30)
[2023-08-06] MEDS ORDERED: IBUPROFEN 400MG TAB PO PRN (14:30)
[2023-08-06] MEDS ORDERED: MAALOX 30 ML SUSP *UDC PO PRN (14:30)
[2023-08-06] MEDS ORDERED: OLANZapine ORAL DISINTEGRATING TAB 5MG PO PRN (14:30)
[2023-08-06] MEDS ORDERED: MOM 30ML SUSPENSION UDC PO PRN (14:30)
[2023-08-06] MEDS: diphenhydrAMINE 50MG CAP PO STA (16:33)
[2023-08-06] MEDS: LORazepam 2 MG TAB PO STA (16:36)
[2023-08-06] MEDS: traZODone 50 MG TAB PO PRN (23:30)
[2023-08-07 06:32] VITALS: BP 152/90; TEMP 96.6; O2SAT 96
[2023-08-07] MEDS ORDERED: ANUSOL HC CREAM 30GM TOP PRN (10:00)
[2023-08-07] MEDS: metFORMIN XR 500MG TAB *GLUCOPHAGE XR PO SCH (11:20)
[2023-08-07] MEDS: DIVALPROEX 250MG *ER* TAB PO SCH (11:21)
[2023-08-07] MEDS: lisinopriL 40MG TAB PO SCH (11:24)
[2023-08-07 17:36] VITALS: BP 138/74; TEMP 97.3; O2SAT 96
[2023-08-07] MEDS: MIRTAZAPINE 7.5MG PER 1/2 TABLET PO SCH (21:06)
[2023-08-07] MEDS: traZODone 100 MG TAB PO SCH (21:06)
[2023-08-07] MEDS: ATORVASTATIN 20 MG TAB PO SCH (21:06)
[2023-08-08 06:20] VITALS: BP 161/93; TEMP 97.2
[2023-08-08 16:27] VITALS: BP 158/80; TEMP 97.4; O2SAT 98
[2023-08-09 06:12] VITALS: BP 153/89; TEMP 97.5; O2SAT 99
[2023-08-09] MEDS: HALOPERIDOL DECANOATE 100 MG/ML 1ML VIAL IM ONE (13:31)
[2023-08-09 15:51] VITALS: BP 154/83; TEMP 97.2; O2SAT 94
[2023-08-10 06:38] VITALS: BP 148/88; TEMP 97.6; O2SAT 95
[2023-08-10 16:02] VITALS: BP 139/78; TEMP 97.2; O2SAT 98
[2023-08-10] MEDS: ACETAMINOPHEN TAB 650MG DOSE (2X325MG) PO PRN (21:11)
[2023-08-11 06:38] VITALS: BP 140/89; TEMP 96.8; O2SAT 95
[2023-08-11 16:40] VITALS: BP 149/72; TEMP 97.5; O2SAT 93
[2023-08-12 06:20] VITALS: BP 148/77; TEMP 96.9; O2SAT 96
[2023-08-12 16:01] VITALS: BP 132/83; TEMP 97.6
[2023-08-13 06:56] VITALS: BP 149/70; TEMP 98.6; O2SAT 100
[2023-08-13] MEDS: OXcarbazepine 300 MG TAB PO SCH (12:19)
[2023-08-13 18:18] VITALS: BP 154/85; TEMP 97.6
[2023-08-14 06:24] VITALS: BP 137/75; TEMP 96.9; O2SAT 99
[2023-08-14 16:57] VITALS: BP 137/70; TEMP 97.3; O2SAT 100
[2023-08-14] MEDS: risperiDONE 2 MG TAB PO SCH (21:09)
[2023-08-15 06:03] VITALS: BP 129/73; TEMP 97.1; O2SAT 94
[2023-08-15 16:28] VITALS: BP 120/60; TEMP 97.6; O2SAT 97
[2023-08-16 06:20] VITALS: BP 133/62; TEMP 97.8; O2SAT 96
[2023-08-16 16:02] VITALS: BP 118/60; TEMP 97.3; O2SAT 96
[2023-08-17 06:26] VITALS: BP 131/65; TEMP 96.4; O2SAT 99
[2023-08-17 16:21] VITALS: BP 110/62; TEMP 97; O2SAT 98
[2023-08-17] MEDS: NICOTINE POLACRILEX 2 MG GUM PO PRN (16:30)
[2023-08-18 05:56] VITALS: BP 160/88; TEMP 97; O2SAT 100
[2023-08-18 06:05] VITALS: BP 128/64
[2023-08-18 18:11] VITALS: BP 134/68; TEMP 97.6
[2023-08-18] MEDS: traZODone 100 MG TAB PO SCH (20:34)
[2023-08-19 06:10] VITALS: BP 127/68; TEMP 97.5; O2SAT 99
[2023-08-19] MEDS: OXcarbazepine 150 MG TAB PO SCH (10:07)
[2023-08-19] MEDS: NALTREXONE 50 MG TAB PO SCH (10:08)
[2023-08-19 18:35] VITALS: BP 146/80; TEMP 96.5
[2023-08-19] MEDS: PILL CUTTER 1 EACH XX PRN (20:48)
[2023-08-20 05:56] VITALS: BP 126/76; TEMP 97.4; O2SAT 95
[2023-08-20 09:22] VITALS: BP 140/80
[2023-08-20] MEDS ORDERED: HALO10AM IM (11:01)
[2023-08-20] MEDS ORDERED: TRAZ1TAB14 PO (11:01)
[2023-08-20] MEDS ORDERED: RISP2TAB32 PO (11:01)
[2023-08-20] MEDS ORDERED: NALT50TA4 PO (11:01)
[2023-08-20] MEDS ORDERED: OLAN5ZYD PO (11:01)
[2023-08-20] MEDS ORDERED: OXCA150T21 PO (11:01)
== END 2023-08-20 13:36 | disposition home or self-care (01) | DRG 885 ==
LOC: M ED 14:49 → M ED INP 08-06 14:30 → M PSY 08-06 16:09
PROVIDERS: ADMIT Student in an Organized Health Care Education/Training Program; ATTEND Student in an Organized Health Care Education/Training Program
DX: F25.0 Schizoaffective disorder, bipolar type (principal); R45.851 Suicidal ideations; F60.89 Other specific personality disorders; F10.10 Alcohol abuse, uncomplicated; Z91.148 Patient's other noncompliance with medication regimen for other reason; Z79.899 Other long term (current) drug therapy; I10 Essential (primary) hypertension; K76.0 Fatty (change of) liver, not elsewhere classified; F17.210 Nicotine dependence, cigarettes, uncomplicated; E66.01 Morbid (severe) obesity due to excess calories; K57.90 Diverticulosis of intestine, part unspecified, without perforation or abscess without bleeding; Z89.511 Acquired absence of right leg below knee; E11.51 Type 2 diabetes mellitus with diabetic peripheral angiopathy without gangrene

== ENCOUNTER → 2023-11-28 | Outpatient (CLI) | payer MEDICARE, MEDICAID ==
[~2023-11-28] MED LIST changes: +DOXY-323 PO; -DOXY-443 PO; +HALO10AM IM; +OLAN5ZYD PO; +OXCA150T21 PO; +PIPE3.3729 IV; +RISP2TAB32 PO; -ZOSY1SOL5 IV
== END ==
LOC: M OUTALCOH 08:28
PROVIDERS: ATTEND Psychiatry & Neurology Psychiatry
DX: F10.20 Alcohol dependence, uncomplicated (principal); F12.10 Cannabis abuse, uncomplicated; F17.200 Nicotine dependence, unspecified, uncomplicated

== ENCOUNTER 2023-12-12 13:26 | Outpatient (RCR) | payer MEDICARE, MEDICAID | END 2023-12-17 | LOC: M OUTALCOH 13:26 | PROVIDERS: ATTEND Psychiatry & Neurology Psychiatry | DX: F10.20 Alcohol dependence, uncomplicated (principal); F12.10 Cannabis abuse, uncomplicated; F17.200 Nicotine dependence, unspecified, uncomplicated ==

== ENCOUNTER → 2023-12-29 | Outpatient (REF) | payer MEDICARE, MEDICAID ==
[2023-12-29 17:12] LABS: BASO % 0.4 % (0.0-1.0); HEMATOCRIT 45.7 % (42.0-52.0); HEMOGLOBIN 15.8 g/dl (13.5-17.5); LYMPH % 38.5 % (24.0-44.0); MEAN CORPUSCULAR HEMOGLOBIN 27.7 pg (27.0-33.0); MEAN CORPUSCULAR HGB CONC 34.6 g/dl (32.0-36.5); MONO # 0.5 10^3/uL (0.0-0.8); MONO % 6.2 % (2.0-8.0); NEUTROPHILS # 4.3 10^3/uL (1.5-8.5); NEUTROPHILS % 54.4 % (36.0-66.0); PLATELET COUNT, AUTOMATED 244 10^3/uL (150-450); RED BLOOD COUNT 5.71 10^6/uL (4.30-6.10); WHITE BLOOD COUNT 7.9 10^3/uL (4.0-10.0)
[2023-12-29 17:36] LABS: ALBUMIN 3.7 G/DL (3.2-5.2); ALKALINE PHOSPHATASE 104 U/L (46-116); ALT/SGPT 29 U/L (7.0-40); AST/SGOT 14 U/L (<34); BILIRUBIN,TOTAL 0.5 MG/DL (0.3-1.2); BLOOD UREA NITROGEN 7 MG/DL (9-23); CALCIUM LEVEL 9.1 MG/DL (8.5-10.1); CARBON DIOXIDE LEVEL 28 MMOL/L (20-31); CHLORIDE LEVEL 104 MMOL/L (98-107); CHOLESTEROL LEVEL 122 MG/DL (<200); CHOLESTEROL RISK RATIO 3.45 (<5); GLOMERULAR FILTRATION RATE > 60.0 (>60); GLUCOSE, FASTING 148 MG/DL (60-100); HDL CHOLESTEROL 35.3 MG/DL (>40); LDL CHOLESTEROL 38.9 MG/DL (<100); NON-HDL-C 86.7 MG/DL; POTASSIUM SERUM 4.1 MMOL/L (3.5-5.1); SODIUM LEVEL 134 MMOL/L (136-145); TOTAL PROTEIN 6.7 G/DL (5.7-8.2); TRIGLYCERIDES LEVEL 239 MG/DL (<150)
[2023-12-29 17:48] LABS: CREATININE, URINE 114.8 MG/DL
== END ==
LOC: M LAB REF 16:22
PROVIDERS: ATTEND Physician Assistant
DX: E11.9 Type 2 diabetes mellitus without complications (principal); E78.1 Pure hyperglyceridemia

== ENCOUNTER 2024-01-01 11:34 | Outpatient (RCR) | payer MEDICARE, MEDICAID | END 2024-01-17 | LOC: M PT 11:34 | PROVIDERS: ATTEND Physician Assistant | DX: Z89.511 Acquired absence of right leg below knee (principal) ==

== ENCOUNTER 2024-01-02 13:41 | Outpatient (RCR) | payer MEDICARE, MEDICAID | END 2024-01-17 | LOC: M OUTALCOH 13:41 | PROVIDERS: ATTEND Psychiatry & Neurology Psychiatry | DX: F10.20 Alcohol dependence, uncomplicated (principal); F12.10 Cannabis abuse, uncomplicated; F17.200 Nicotine dependence, unspecified, uncomplicated ==

== ENCOUNTER 2024-01-21 15:18 | Outpatient (RCR) | payer MEDICARE, MEDICAID | END 2024-02-16 | LOC: M OUTALCOH 15:18 | PROVIDERS: ATTEND Psychiatry & Neurology Psychiatry | DX: F10.20 Alcohol dependence, uncomplicated (principal); F12.10 Cannabis abuse, uncomplicated; F17.200 Nicotine dependence, unspecified, uncomplicated ==

== ENCOUNTER → 2024-03-18 | Outpatient (RCR) | payer MEDICARE, MEDICAID ==
[~2024-03-18] MED LIST changes: -ARIP10TA32 PO; +ARIP10TA63 PO; -DOXY-323 PO; +DOXY-441 PO
== END ==
LOC: M OUTALCOH 02-19 15:30
PROVIDERS: ATTEND Psychiatry & Neurology Psychiatry
DX: F10.20 Alcohol dependence, uncomplicated (principal); F12.10 Cannabis abuse, uncomplicated; F17.200 Nicotine dependence, unspecified, uncomplicated

== ENCOUNTER 2024-04-08 13:24 | Outpatient (RCR) | payer MEDICARE, MEDICAID | END 2024-04-17 | LOC: M OUTALCOH 13:24 | PROVIDERS: ATTEND Psychiatry & Neurology Psychiatry | DX: F10.20 Alcohol dependence, uncomplicated (principal); F12.10 Cannabis abuse, uncomplicated; F17.200 Nicotine dependence, unspecified, uncomplicated ==

== ENCOUNTER 2024-05-06 13:49 | Outpatient (RCR) | payer MEDICARE, MEDICAID | END 2024-05-18 | LOC: M OUTALCOH 13:49 | PROVIDERS: ATTEND Psychiatry & Neurology Psychiatry | DX: F10.20 Alcohol dependence, uncomplicated (principal); F12.10 Cannabis abuse, uncomplicated; F17.200 Nicotine dependence, unspecified, uncomplicated ==

== ENCOUNTER 2024-06-10 13:32 | Outpatient (RCR) | payer MEDICARE, MEDICAID | END 2024-06-18 | LOC: M OUTALCOH 13:32 | PROVIDERS: ATTEND Psychiatry & Neurology Psychiatry | DX: F10.20 Alcohol dependence, uncomplicated (principal); F12.10 Cannabis abuse, uncomplicated; F17.200 Nicotine dependence, unspecified, uncomplicated ==

== ENCOUNTER → 2024-07-16 | Outpatient (RCR) | payer MEDICARE, MEDICAID | LOC: M OUTALCOH 06-25 09:31 | PROVIDERS: ATTEND Psychiatry & Neurology Psychiatry | DX: F10.20 Alcohol dependence, uncomplicated (principal); F12.10 Cannabis abuse, uncomplicated; F17.200 Nicotine dependence, unspecified, uncomplicated ==

== ENCOUNTER 2024-08-10 15:53 | Emergency (ER) | payer MEDICARE, MEDICAID ==
[~2024-08-10] VITALS: Ht 182.9 cm; Wt 164.4 kg
[2024-08-10] MEDS: LIDOCAINE 2% MDV 20ML VIAL SC ONE (22:00)
[2024-08-10] MEDS ORDERED: DOXY-442 PO (22:48)
[2024-08-10 23:01] VITALS: BP 134/80; TEMP 98.6; O2SAT 93
[2024-08-10] MEDS: DOXYCYCLINE HYCLATE 100MG TABLET PO ONE (23:04)
== END 2024-08-10 23:05 | disposition home or self-care (01) ==
LOC: M ED 15:53
DX: L02.215 Cutaneous abscess of perineum (principal); G47.33 Obstructive sleep apnea (adult) (pediatric); F25.9 Schizoaffective disorder, unspecified; F17.200 Nicotine dependence, unspecified, uncomplicated; Z79.02 Long term (current) use of antithrombotics/antiplatelets; Z79.899 Other long term (current) drug therapy; Z79.2 Long term (current) use of antibiotics

== ENCOUNTER 2024-08-13 15:00 | Outpatient (RCR) | payer MEDICARE, MEDICAID ==
[~2024-08-13 15:00] MED LIST changes: +DOXY-442 PO
== END 2024-08-16 ==
LOC: M OUTALCOH 15:00
PROVIDERS: ATTEND Psychiatry & Neurology Psychiatry
DX: F10.20 Alcohol dependence, uncomplicated (principal); F12.10 Cannabis abuse, uncomplicated; F17.200 Nicotine dependence, unspecified, uncomplicated

== ENCOUNTER → 2024-09-15 | Outpatient (RCR) | payer MEDICARE, MEDICAID ==
[~2024-09-15] MED LIST changes: -AMBI10TA PO; -AMBI5TAB PO; -TRIA25CR TOP; +TRIA80CR15 TOP; +ZOLP-532 PO; +ZOLP-533 PO
== END ==
LOC: M OUTALCOH 08-19 12:51
PROVIDERS: ATTEND Psychiatry & Neurology Psychiatry
DX: F10.20 Alcohol dependence, uncomplicated (principal); F12.10 Cannabis abuse, uncomplicated; F17.200 Nicotine dependence, unspecified, uncomplicated

== ENCOUNTER 2024-12-13 16:00 | Outpatient (RCR) | payer MEDICARE, MEDICAID ==
[~2024-12-13 16:00] MED LIST changes: -ABIL400I; -ABIL400I IM; +ARIP400S; +ARIP400S IM; +LISI40TA10 PO; -LISI40TA4 PO
== END 2024-12-16 ==
LOC: M OUTALCOH 16:00
PROVIDERS: ATTEND Psychiatry & Neurology Psychiatry
DX: F10.20 Alcohol dependence, uncomplicated (principal); F12.10 Cannabis abuse, uncomplicated; F17.200 Nicotine dependence, unspecified, uncomplicated

== ENCOUNTER 2024-12-18 12:42 | Emergency (ER) | payer MEDICARE, MEDICAID ==
[~2024-12-18] VITALS: Ht 182.9 cm; Wt 161.9 kg
[2024-12-18] MEDS ORDERED: SEMA3TAB4 (13:02)
[2024-12-18] MEDS ORDERED: OLAN15TA69 (13:02)
[2024-12-18] MEDS: LIDOCAINE W/EPINEPHrine 1% 20 ML VIAL SC ONE (15:05)
[2024-12-18 15:35] LABS: BASO # 0.0 10^3/uL (0.0-0.2); BASO % 0.3 % (0.0-1.0); EOS # 0.0 10^3/uL (0.0-0.5); EOS % 0.1 % (0.0-3.0); LYMPH # 2.7 10^3/uL (1.5-5.0); LYMPH % 26.8 % (24.0-44.0); MONO # 0.6 10^3/uL (0.0-0.8); MONO % 5.7 % (2.0-8.0); NEUTROPHILS # 6.8 10^3/uL (1.5-8.5); NEUTROPHILS % 66.5 % (36.0-66.0); PLATELET COUNT, AUTOMATED 238 10^3/uL (150-450)
[2024-12-18] MEDS ORDERED: ISOVUE-370 76% 100 ML VIAL As Ordered ONE (16:04)
[2024-12-18] MEDS: VANCOMYCIN HCL 2,000 MG, VIAL MATE ADAPTER 1 EACH in NS 500 ML IV ONE (16:34)
[2024-12-18] MEDS: NS (Normal Saline) 0.9% 1,000 ML IV ONE (16:34)
[2024-12-18 17:43] VITALS: TEMP 97.3
[2024-12-18] MEDS: SODIUM CHLORIDE IV ONE (17:50)
[2024-12-18] MEDS ORDERED: CEPH500C PO (19:36)
[2024-12-19 00:30] VITALS: BP 146/87; O2SAT 99
[2024-12-24] MEDS ORDERED: SULF1TAB23 PO (11:39)
== END 2024-12-19 00:32 | disposition home or self-care (01) ==
LOC: EDBD 12:42 → M ED 12:42
DX: L03.115 Cellulitis of right lower limb (principal); L02.415 Cutaneous abscess of right lower limb; E11.9 Type 2 diabetes mellitus without complications; F17.200 Nicotine dependence, unspecified, uncomplicated; Z79.02 Long term (current) use of antithrombotics/antiplatelets; Z79.899 Other long term (current) drug therapy; Z79.2 Long term (current) use of antibiotics
CPT/HCPCS: 72193; 80047; 83605; 85025; 87040; 87070; 87077; 87154; 87186; 87205; 96374; 99284; J3374; Q9967

== ENCOUNTER 2025-01-11 15:09 | Emergency (ER) | payer MEDICARE, MEDICAID ==
[~2025-01-11] VITALS: Ht 182.9 cm; Wt 158.2 kg
[~2025-01-11 15:09] MED LIST changes: +OLAN15TA69; +SEMA3TAB4; +SULF1TAB23 PO
[2025-01-11 16:11] LABS: BASO # 0.0 10^3/uL (0.0-0.2); BASO % 0.4 % (0.0-1.0); EOS # 0.0 10^3/uL (0.0-0.5); EOS % 0.1 % (0.0-3.0); LYMPH # 2.4 10^3/uL (1.5-5.0); LYMPH % 26.3 % (24.0-44.0); MONO # 0.6 10^3/uL (0.0-0.8); MONO % 6.2 % (2.0-8.0); NEUTROPHILS # 6.2 10^3/uL (1.5-8.5); NEUTROPHILS % 66.2 % (36.0-66.0); PLATELET COUNT, AUTOMATED 254 10^3/uL (150-450)
[2025-01-11 16:15] LABS: ERYTHROCYTE SEDIMENTATION RATE 30 mm/hr (0-15)
[2025-01-11] MEDS ORDERED: [UNRECOGNIZED DRUG - OTHER] IV ONE (17:05)
[2025-01-11] MEDS ORDERED: NS 0.9% IV ONE (17:05)
[2025-01-11 17:13] VITALS: TEMP 97.6
[2025-01-11] MEDS: cefTRIAXone SOD 1 GM in DEXTROSE 5% (D5W) ADV/MINI-BAG 50 ML IV ONE (17:53)
[2025-01-11] MEDS: KETOROLAC 30 MG/ML 1 ML VIAL IV ONE (17:58)
[2025-01-11 18:45] VITALS: BP 147/81
[2025-01-11 20:24] VITALS: O2SAT 95
[2025-01-11] MEDS: LIDOCAINE W/EPINEPHrine 1% 20 ML VIAL SC ONE (22:20)
[2025-01-11] MEDS ORDERED: DOXY-441 PO (22:59)
== END 2025-01-11 23:36 | disposition home or self-care (01) ==
LOC: M ED 15:09
DX: L02.213 Cutaneous abscess of chest wall (principal); E11.9 Type 2 diabetes mellitus without complications; I10 Essential (primary) hypertension; Z79.02 Long term (current) use of antithrombotics/antiplatelets; Z79.2 Long term (current) use of antibiotics; Z79.899 Other long term (current) drug therapy
CPT/HCPCS: 10061; 76642; 80047; 83605; 85025; 85652; 86140; 87040; 87070; 87076; 87077; 87205; 96365; 96366; 96375; 99284; J0696; J1885

== ENCOUNTER 2025-01-14 13:05 | Outpatient (RCR) | payer MEDICARE, MEDICAID | END 2025-01-16 | LOC: M OUTALCOH 13:05 | PROVIDERS: ATTEND Psychiatry & Neurology Psychiatry | DX: F10.20 Alcohol dependence, uncomplicated (principal); F12.10 Cannabis abuse, uncomplicated; F17.200 Nicotine dependence, unspecified, uncomplicated ==

== ENCOUNTER 2025-01-27 13:24 | Outpatient (RCR) | payer MEDICARE, MEDICAID ==
[~2025-01-27 13:24] MED LIST changes: -DIPH50CA PO; +DIPH50CA31 PO; +ZOLP10TA11; +ZOLP10TA11 PO; -ZOLP10TA2; -ZOLP10TA2 PO; -ZOLP5TAB; +ZOLP5TAB9
== END 2025-02-15 ==
LOC: M OUTALCOH 13:24
PROVIDERS: ATTEND Psychiatry & Neurology Psychiatry
DX: F10.20 Alcohol dependence, uncomplicated (principal); F12.10 Cannabis abuse, uncomplicated; F17.200 Nicotine dependence, unspecified, uncomplicated

== ENCOUNTER 2025-03-03 13:01 | Outpatient (RCR) | payer MEDICARE, MEDICAID | END 2025-03-18 | LOC: M OUTALCOH 13:01 | PROVIDERS: ATTEND Psychiatry & Neurology Psychiatry | DX: F10.20 Alcohol dependence, uncomplicated (principal); F12.10 Cannabis abuse, uncomplicated; F17.200 Nicotine dependence, unspecified, uncomplicated ==

== ENCOUNTER 2025-04-07 13:37 | Outpatient (RCR) | payer MEDICARE, MEDICAID ==
[~2025-04-07 13:37] MED LIST changes: +SULF-7 PO; -SULF1TAB23 PO
== END 2025-04-17 ==
LOC: M OUTALCOH 13:37
PROVIDERS: ATTEND Psychiatry & Neurology Psychiatry
DX: F10.20 Alcohol dependence, uncomplicated (principal); F12.20 Cannabis dependence, uncomplicated; F17.200 Nicotine dependence, unspecified, uncomplicated